=== PATIENT | female | born 1980 | race Caucasian/White ===

== ENCOUNTER 2016-08-23 18:25 | Emergency (ER) | payer BC, OTHER ==
[2016-08-23] MEDS ORDERED: SODIUM CHLORIDE 0.9% 1,000 ML IV STA (21:00)
[2016-08-23] MEDS ORDERED: ONDANSETRON 4 MG/2 ML VIAL IVP STA (21:00)
[2016-08-23] MEDS ORDERED: HYDROmorphone 1 MG/ML 1 ML SYRINGE IVP STA (21:00)
[2016-08-23] MEDS ORDERED: RX INFO: IV CONTRAST WAS GIVEN 1 EACH MISC MISCELLANE PRN (21:00)
--- NOTE | 2016-08-23 21:02 | ED ---
Abdominal Pain HPI - General Chief Complaint: Abdominal Pain Stated Complaint: abd pain Time Seen by Provider: 08/23/16 20:57 Source: patient, RN notes reviewed Mode of arrival: ambulatory Limitations: no limitations - History of Present Illness Initial Comments: 36-year-old female presents to the emergency Department chief complaint of abdominal pain. Patient has had this pain for the last day. She states she's had some nausea with it as well. Patient has also noticed the urine. Patient states it's more on the left lower side. Patient denies changes in bowel movements. Patient states that she has had her gallbladder removed and tubal ligation and but she still does have the appendix. Patient states that she was concerned due to the continued pain so she thought that she should be evaluated.Patient denies any recent fever, chills, shortness of breath, chest pain, back pain, nausea vomiting, numbness or tingling, dysuria or hematuria, constipation or diarrhea, headaches or visual changes, or any other current symptoms. - Related Data Previous Rx's Medication Instructions Recorded Ciprofloxacin HCl [Cipro] 500 mg PO Q12HR #14 tablet 08/23/16 Dicyclomine [Bentyl] 10 mg PO TID #20 capsule 08/23/16 Ondansetron Odt [Zofran ODT] 4 mg PO Q8HR PRN #20 tab 08/23/16 Allergies Allergy/AdvReac Type Severity Reaction Status Date / Time No Known Allergies Allergy Verified 08/23/16 21:02 Review of Systems ROS Statement: Those systems with pertinent positive or pertinent negative responses have been documented in the HPI. ROS Other: All systems not noted in ROS Statement are negative. 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 PT STATES OFF MEDICATIONS SINCE 13 Y/O AND LAST SEIZURE WAS 12 Y/O. History of Any Multi-Drug Resistant Organisms: None Reported Past Surgical History: Section, Cholecystectomy, Tubal Ligation Additional Past Surgical History / Comment(s): mart Past Psychological History: No Psychological Hx Reported Smoking Status: Current every day smoker Past Alcohol Use History: Occasional Past Drug Use History: None Reported - Past Family History Mother Family Medical History: No Reported History Father Family Medical History: No Reported History General Exam - General Exam Comments Initial Comments: General: The patient is awake and alert, in no distress, and does not appear acutely ill. Eye: Pupils are equal, round and reactive to light, extra-ocular movements are intact; there is normal conjunctiva bilaterally. No signs of icterus. Ears, nose, mouth and throat: There are moist mucous membranes and no oral lesions. Neck: The neck is supple, there is no tenderness. Cardiovascular: There is a regular rate and rhythm. No murmur, rub or gallop is appreciated. Respiratory: Lungs are clear to auscultation, respirations are non-labored, breath sounds are equal. No wheezes, stridor, rales, or rhonchi. Gastrointestinal: Soft, non-distended, tenderness to palpation in llq of abdomen without masses or organomegaly noted. There is no rebound or guarding present. No CVA tenderness. Bowel sounds are unremarkable. Back: There is no tenderness to palpation in the midline. There is no obvious deformity. No rashes noted. Musculoskeletal: Normal ROM, no tenderness, There is no pedal edema. There is no calf tenderness or swelling. Sensation intact. Pulses equal bilaterally 2+. Neurological: CN II-XII intact, There are no obvious motor or sensory deficits. Coordination appears grossly intact. Speech is normal. Skin: Skin is warm and dry and no rashes or lesions are noted. Psychiatric: Cooperative, appropriate mood & affect, normal judgment. Limitations: no limitations Course Vital Signs 08/23/16 08/23/16 18:48 21:50 Temperature 97.5 F L 98.7 F Pulse Rate 82 86 Respiratory 20 18 Rate Blood Pressure 126/69 96/48 O2 Sat by Pulse 100 98 Oximetry Medical Decision Making - Medical Decision Making 36-year-old female presents emergency Department chief complaint abdominal pain. At this time laboratory is reviewed as well as CAT scan. Patient does appear to have a mild colitis as well as what appears to be UTI and a cyst. We discussed this is most likely her discomfort. At this time blood work otherwise appears to be table. We discussed follow-up with GI we discussed return parameters. We will start patient on Cipro. Patient stated that she understood all questions have been answered. She will be discharged. - Lab Data Result diagrams: 08/23/16 21:46 08/23/16 21:46 Lab Results 08/23/16 08/23/1608/23/17 Range/Units 20:55 21:46 21:46 WBC 11.5 H (3.8-10.6) k/uL RBC 4.40 (3.80-5.40) m/uL Hgb 13.3 (11.4-16.0) gm/dL Hct 41.2 (34.0-46.0) % MCV 93.7 (80.0-100.0) fL MCH 30.3 (25.0-35.0) pg MCHC 32.3 (31.0-37.0) g/dL RDW 13.1 (11.5-15.5) % Plt Count 301 (150-450) k/uL Neutrophils % 65 % Lymphocytes % 26 % Monocytes % 4 % Eosinophils % 4 % Basophils % 0 % Neutrophils # 7.5 (1.3-7.7) k/uL Lymphocytes # 3.0 (1.0-4.8) k/uL Monocytes # 0.4 (0-1.0) k/uL Eosinophils # 0.4 (0-0.7) k/uL Basophils # 0.1 (0-0.2) k/uL Sodium 140 (137-145) mmol/L Potassium 4.6 (3.5-5.1) mmol/L Chloride 104 (98-107) mmol/L Carbon Dioxide 26 (22-30) mmol/L Anion Gap 10 mmol/L BUN 9 (7-17) mg/dL Creatinine 0.76 (0.52-1.04) mg/dL Est GFR (MDRD) Af Amer >60 (>60 ml/min/1.73 sqM) Est GFR (MDRD) Non-Af >60 (>60 ml/min/1.73 sqM) Glucose 89 (74-99) mg/dL Calcium 9.2 (8.4-10.2) mg/dL Total Bilirubin 0.5 (0.2-1.3) mg/dL AST 20 (14-36) U/L ALT 37 (9-52) U/L Alkaline Phosphatase 78 (38-126) U/L Total Protein 7.9 (6.3-8.2) g/dL Albumin 4.2 (3.5-5.0) g/dL Amylase 97 (30-110) U/L Lipase 125 (23-300) U/L Urine Color Yellow Urine Appearance Cloudy H (Clear) Urine pH 5.5 (5.0-8.0) Ur Specific [place] 1.025 (1.001-1.035) Urine Protein Trace H (Negative) Urine Glucose (UA) Negative (Negative) Urine Ketones Negative (Negative) Urine Blood Negative (Negative) Urine Nitrate Positive H (Negative) Urine Bilirubin Negative (Negative) Urine Urobilinogen 2.0 (<2.0) mg/dL Ur Leukocyte Esterase Small H (Negative) Urine WBC 5 (0-5) /hpf Ur Squamous Epith Cells 8 H (0-4) /hpf Urine Bacteria Few H (None) /hpf Urine Mucus Occasional H (None) /hpf Influenza Type A RNA (Not Detectd) Influenza Type B (PCR) (Not Detectd) 08/23/16 Range/Units 21:46 WBC (3.8-10.6) k/uL RBC (3.80-5.40) m/uL Hgb (11.4-16.0) gm/dL Hct (34.0-46.0) % MCV (80.0-100.0) fL MCH (25.0-35.0) pg MCHC (31.0-37.0) g/dL RDW (11.5-15.5) % Plt Count (150-450) k/uL Neutrophils % % Lymphocytes % % Monocytes % % Eosinophils % % Basophils % % Neutrophils # (1.3-7.7) k/uL Lymphocytes # (1.0-4.8) k/uL Monocytes # (0-1.0) k/uL Eosinophils # (0-0.7) k/uL Basophils # (0-0.2) k/uL Sodium (137-145) mmol/L Potassium (3.5-5.1) mmol/L Chloride (98-107) mmol/L Carbon Dioxide (22-30) mmol/L Anion Gap mmol/L BUN (7-17) mg/dL Creatinine (0.52-1.04) mg/dL Est GFR (MDRD) Af Amer (>60 ml/min/1.73 sqM) Est GFR (MDRD) Non-Af (>60 ml/min/1.73 sqM) Glucose (74-99) mg/dL Calcium (8.4-10.2) mg/dL Total Bilirubin (0.2-1.3) mg/dL AST (14-36) U/L ALT (9-52) U/L Alkaline Phosphatase (38-126) U/L Total Protein (6.3-8.2) g/dL Albumin (3.5-5.0) g/dL Amylase (30-110) U/L Lipase (23-300) U/L Urine Color Urine Appearance (Clear) Urine pH (5.0-8.0) Ur Specific [place] (1.001-1.035) Urine Protein (Negative) Urine Glucose (UA) (Negative) Urine Ketones (Negative) Urine Blood (Negative) Urine Nitrate (Negative) Urine Bilirubin (Negative) Urine Urobilinogen (<2.0) mg/dL Ur Leukocyte Esterase (Negative) Urine WBC (0-5) /hpf Ur Squamous Epith Cells (0-4) /hpf Urine Bacteria (None) /hpf Urine Mucus (None) /hpf Influenza Type A RNA Not Detected (Not Detectd) Influenza Type B (PCR) Not Detected (Not Detectd) - Radiology Data Radiology results: report reviewed, image reviewed Disposition Clinical Impression: UTI (urinary tract infection), Left ovarian cyst, Colitis Disposition: HOME SELF-CARE Condition: Stable Instructions: Colitis (ED), Urinary Tract Infection in Women (ED) Additional Instructions: Please use medication as discussed. Please follow up with family doctor if symptoms have not improved over the next two days. Please return to the emergency room if your symptoms increase or worsen or for any other concerns. Prescriptions: Ciprofloxacin HCl [Cipro] 500 mg PO Q12HR #14 tablet Dicyclomine [Bentyl] 10 mg PO TID #20 capsule Ondansetron Odt [Zofran ODT] 4 mg PO Q8HR PRN #20 tab PRN Reason: Nausea Referrals: Duke Hidalgo MD [Primary Care Provider] - 1-2 days Salma Abdalla MD [STAFF PHYSICIAN] - 1-2 days Time of Disposition: 22:39
[2016-08-23 21:16] LABS: Appearance,Urine Cloudy (Clear); Bacteria,Urine Few /hpf; Bilirubin,Urine Negative (Negative); Glucose,Urine (UA) Negative (Negative); Ketones,Urine Negative (Negative); Leukocyte Esterase,Urine Small (Negative); Mucus,Urine Occasional /hpf; Nitrite,Urine Positive (Negative); PH, Urine 5.5 (5.0-8.0); Particle Count 57380; Protein,Urine Trace (Negative); Specific Gravity,Urine 1.025 (1.001-1.035); Squamous Epithelial Cell,Urine 8 /hpf (0-4); UA Billing (MACRO vs. MICRO) MICRO; WBC,Urine 5 /hpf (0-5)
[2016-08-23 22:11] LABS: ALT 37 U/L (9-52); AST 20 U/L (14-36); Alkaline Phosphatase 78 U/L (38-126); Amylase 97 U/L (30-110); Anion Gap 10 mmol/L; Blood Urea Nitrogen 9 mg/dL (7-17); Calcium 9.2 mg/dL (8.4-10.2); Carbon Dioxide 26 mmol/L (22-30); Chloride 104 mmol/L (98-107); Glucose 89 mg/dL (74-99); Non-African American GFR(MDRD) >60 (>60 ml/min/1.73 sqM); Potassium 4.6 mmol/L (3.5-5.1); Sodium 140 mmol/L (137-145); Total Bilirubin 0.5 mg/dL (0.2-1.3); Total Protein 7.9 g/dL (6.3-8.2)
[2016-08-23 22:29] LABS: Basophils # (A) 0.1 k/uL (0-0.2); Basophils % (A) 0 %; CH 30.5; CHCM 32.7; Eosinophils # (A) 0.4 k/uL (0-0.7); Eosinophils % (A) 4 %; HCT 41.2 % (34.0-46.0); HDW 2.25; HGB 13.3 gm/dL (11.4-16.0); Luc # (Auto) 0.19; Luc % (Auto) 2; Lymphocytes % (A) 26 %; MCH 30.3 pg (25.0-35.0); MCHC 32.3 g/dL (31.0-37.0); MCV 93.7 fL (80.0-100.0); Mean Platelet Volume 6.8; Monocytes # (A) 0.4 k/uL (0-1.0); Monocytes % (A) 4 %; Neutrophils # (A) 7.5 k/uL (1.3-7.7); Neutrophils % (A) 65 %; RDW 13.1 % (11.5-15.5); WBC 11.5 k/uL (3.8-10.6)
--- NOTE | 2016-08-23 22:31 | CT ---
EXAMINATION TYPE: CT abdomen pelvis w con DATE OF EXAM: 08/23/2016 10:07 PM COMPARISON: June 11, 2016 HISTORY: PT STATES OF ABDOMINAL PAIN AND VOMITING TODAY. History of cholecystectomy. CT DLP: 1866.0 mGycm Automated exposure control for dose reduction was used. TECHNIQUE: Helical acquisition of images was performed from the lung bases through the pelvis. CONTRAST: Performed without Oral Contrast and with IV Contrast, patient injected with 100 mL of Omnipaque 300. FINDINGS: LUNG BASES: No significant abnormality is appreciated. LIVER/GB: No significant abnormality is appreciated in the liver. Cholecystectomy changes are present . PANCREAS: No significant abnormality is seen. SPLEEN: No significant abnormality is seen. ADRENALS: No significant abnormality is seen. KIDNEYS: No significant abnormality is seen. RETROPERITONEAL ADENOPATHY: None visualized REPRODUCTIVE ORGANS: Uterus appears unremarkable. Mild cystic changes are suggested in both ovaries. There is suggestion of involuting cyst measuring 1.1 cm in the left ovary in the axial image 72. No s ignificant free fluid collections are noted in the adnexa and cul-de-sac. URINARY BLADDER: Urinary bladder is not well distended and is limited for evaluation. PELVIC ADENOPATHY: None visualized. OSSEOUS STRUCTURES: Mild degenerative disc disease changes are suggested at the level of L2-L3 witho ut significant interval change. BOWEL: Stomach appears grossly unremarkable. Small bowel loops showed mild fluid distention without s ignificant small bowel obstruction. There is mucosal wall thickening in the duodenum in the coronal image 52 and there is possibility of mild duodenitis changes. There is moderate gas and fecal distention of colonic bowel loops without significant obstruction. Th ere is mild colonic diverticulosis. There is mild mucosal wall thickening in the splenic flexure of colon in the axial image 17 and possi bility of mild colitis changes cannot be excluded. No significant free fluid collections or abscess c ollections are noted in the abdomen and pelvis. Appendix appears unremarkable in the axial image 65. OTHER: IMPRESSION: 1. POSSIBLE MILD DUODENITIS. 2. POSSIBLE MILD COLITIS CHANGES INVOLVING SPLENIC FLEXURE. 3. INVOLUTING CYST IN THE LEFT OVARY MEASURING 1.1 CM. NO SIGNIFICANT ABNORMAL FLUID COLLECTIONS ARE NOTED IN THE ADNEXA AND CUL-DE-SAC. 4. APPENDIX APPEARS UNREMARKABLE. 5. CHOLECYSTECTOMY.
[2016-08-23 23:51] VITALS: BP 133/66; PULSE 87; RESP 20; TEMP 98.2
== END 2016-08-23 23:51 | disposition home or self-care (01) ==
LOC: EC 18:25
DX: N39.0 Urinary tract infection, site not specified (principal); N83.202 Unspecified ovarian cyst, left side; K52.9 Noninfective gastroenteritis and colitis, unspecified; F17.200 Nicotine dependence, unspecified, uncomplicated; Z79.899 Other long term (current) drug therapy
CPT/HCPCS: 36415; 80053; 82150; 83690; 85025; 81001; 87040; 87086; 87077; 87186; 87502; 74177; 96365; 96375; 96361; 99284; J2405; J0696; J1170; Q9967

== ENCOUNTER 2016-08-30 18:15 | Emergency (ER) | payer BC, OTHER ==
[2016-08-30] MEDS ORDERED: IPRATROPIUM-ALBUTEROL 3 ML NEB INHALATION STA (19:37)
--- NOTE | 2016-08-30 19:43 | ED ---
General Adult HPI - General Chief complaint: Abdominal Pain Stated complaint: ABDOMINAL PAIN, COUGHING, KENDRA Time Seen by Provider: 08/30/16 19:26 Source: patient, RN notes reviewed Mode of arrival: ambulatory Limitations: no limitations - History of Present Illness Initial comments: Patient is a 36-year-old female presents to the emergency room for evaluation of upper respiratory symptoms and abdominal pain. Patient states she began having a productive cough yesterday. Patient states she woke up this morning with increased cough and shortness of breath. Patient does admit to smoking daily. Patient states she has had a history of pneumonia. Patient states she' s received her influenza vaccine this year. Patient denies any fevers or chills. Patient states she is also having left upper quadrant abdominal pain. Patient states she was here last week for the same issues and was told that she had a UTI and colitis. Patient states nauseous but denies vomiting. Patient denies any pain or burning during urination. Patient states she finished her antibiotics for her urinary tract infection yesterday. - Related Data Home Medications Medication Instructions Recorded Confirmed Unknown Psoriasis Cream 1 applic TOPICAL BID 08/30/16 08/30/16 Previous Rx's Medication Instructions Recorded Albuterol Inhaler [Ventolin Hfa 1 - 2 puff INHALATION Q6HR PRN #1 08/30/16 Inhaler] inhaler Benzonatate [Tessalon Perles] 100 mg PO TID PRN #15 cap 08/30/16 Allergies Allergy/AdvReac Type Severity Reaction Status Date / Time No Known Allergies Allergy Verified 08/30/16 19:37 Review of Systems ROS Statement: Those systems with pertinent positive or pertinent negative responses have been documented in the HPI. ROS Other: All systems not noted in ROS Statement are negative. 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 PT STATES OFF MEDICATIONS SINCE 13 Y/O AND LAST SEIZURE WAS 12 Y/O. History of Any Multi-Drug Resistant Organisms: None Reported Past Surgical History: Section, Cholecystectomy, Tubal Ligation Additional Past Surgical History / Comment(s): [facility] Past Psychological History: No Psychological Hx Reported Smoking Status: Current every day smoker Past Alcohol Use History: Occasional Past Drug Use History: None Reported - Past Family History Mother Family Medical History: No Reported History Father Family Medical History: No Reported History General Exam - General Exam Comments Initial Comments: Sitting in exam room in no acute distress. Limitations: no limitations General appearance: alert, in no apparent distress Head exam: Present: atraumatic, normocephalic, normal inspection Eye exam: Present: normal appearance ENT exam: Present: normal exam Neck exam: Present: normal inspection Respiratory exam: Present: wheezes. Absent: respiratory distress Cardiovascular Exam: Present: normal rhythm, tachycardia, normal heart sounds GI/Abdominal exam: Present: soft, tenderness (RLQ, LLQ), normal bowel sounds. Absent: distended, guarding, rebound, rigid Extremities exam: Present: normal inspection Back exam: Present: normal inspection Neurological exam: Present: alert, oriented X3, CN II-XII intact, normal gait Psychiatric exam: Present: normal affect, normal mood Skin exam: Present: warm, dry, intact, normal color. Absent: rash Course Vital Signs 08/30/16 08/30/16 08/30/16 18:51 19:58 20:49 Temperature 99.2 F 101.2 F H Pulse Rate 105 H 95 100 Respiratory 22 18 Rate Blood Pressure 119/57 120/57 O2 Sat by Pulse 100 96 Oximetry 08/30/16 20:57 Temperature Pulse Rate 100 Respiratory Rate Blood Pressure O2 Sat by Pulse Oximetry Medical Decision Making - Medical Decision Making Patient is a 36-year-old female presents to the emergency room for evaluation of cough and abdominal pain. Patient states she is feeling better after albuterol breathing treatment given. Labs show no significant findings. Chest x-ray shows no acute findings. Will send patient home with anti-cough medicine and albuterol inhaler as needed. Patient states she understands everything that was discussed with her. Return parameters discussed. Case discussed with Dr. Whitney. - Lab Data Result diagrams: 08/30/16 19:51 08/30/16 19:51 Lab Results 08/30/16 08/30/16 08/30/16 Range/Units 19:51 19:51 19:51 WBC 7.7 (3.8-10.6) k/uL RBC 4.44 (3.80-5.40) m/uL Hgb 13.7 (11.4-16.0) gm/dL Hct 41.5 (34.0-46.0) % MCV 93.6 (80.0-100.0) fL MCH 31.0 (25.0-35.0) pg MCHC 33.1 (31.0-37.0) g/dL RDW 13.1 (11.5-15.5) % Plt Count 289 (150-450) k/uL Neutrophils % 70 % Lymphocytes % 19 % Monocytes % 5 % Eosinophils % 4 % Basophils % 1 % Neutrophils # 5.4 (1.3-7.7) k/uL Lymphocytes # 1.5 (1.0-4.8) k/uL Monocytes # 0.4 (0-1.0) k/uL Eosinophils # 0.3 (0-0.7) k/uL Basophils # 0.1 (0-0.2) k/uL Sodium 136 L (137-145) mmol/L Potassium 4.3 (3.5-5.1) mmol/L Chloride 102 (98-107) mmol/L Carbon Dioxide 22 (22-30) mmol/L Anion Gap 12 mmol/L BUN 6 L (7-17) mg/dL Creatinine 0.70 (0.52-1.04) mg/dL Est GFR (MDRD) Af Amer >60 (>60 ml/min/1.73 sqM) Est GFR (MDRD) Non-Af >60 (>60 ml/min/1.73 sqM) Glucose 92 (74-99) mg/dL Calcium 9.0 (8.4-10.2) mg/dL Total Bilirubin 0.8 (0.2-1.3) mg/dL AST 26 (14-36) U/L ALT 35 (9-52) U/L Alkaline Phosphatase 74 (38-126) U/L Total Protein 8.0 (6.3-8.2) g/dL Albumin 4.1 (3.5-5.0) g/dL Amylase 59 (30-110) U/L Lipase 73 (23-300) U/L HCG, Quant <2.4 mIU/mL Urine Color Urine Appearance (Clear) Urine pH (5.0-8.0) Ur Specific [place] (1.001-1.035) Urine Protein (Negative) Urine Glucose (UA) (Negative) Urine Ketones (Negative) Urine Blood (Negative) Urine Nitrate (Negative) Urine Bilirubin (Negative) Urine Urobilinogen (<2.0) mg/dL Ur Leukocyte Esterase (Negative) Urine RBC (0-5) /hpf Urine WBC (0-5) /hpf Ur Squamous Epith Cells (0-4) /hpf Urine Bacteria (None) /hpf Urine Mucus (None) /hpf Urine HCG, Qual Not Detected (Not Detectd) Influenza Type A RNA (Not Detectd) Influenza Type B (PCR) (Not Detectd) 08/30/16 08/30/16 Range/Units 19:51 19:51 WBC (3.8-10.6) k/uL RBC (3.80-5.40) m/uL Hgb (11.4-16.0) gm/dL Hct (34.0-46.0) % MCV (80.0-100.0) fL MCH (25.0-35.0) pg MCHC (31.0-37.0) g/dL RDW (11.5-15.5) % Plt Count (150-450) k/uL Neutrophils % % Lymphocytes % % Monocytes % % Eosinophils % % Basophils % % Neutrophils # (1.3-7.7) k/uL Lymphocytes # (1.0-4.8) k/uL Monocytes # (0-1.0) k/uL Eosinophils # (0-0.7) k/uL Basophils # (0-0.2) k/uL Sodium (137-145) mmol/L Potassium (3.5-5.1) mmol/L Chloride (98-107) mmol/L Carbon Dioxide (22-30) mmol/L Anion Gap mmol/L BUN (7-17) mg/dL Creatinine (0.52-1.04) mg/dL Est GFR (MDRD) Af Amer (>60 ml/min/1.73 sqM) Est GFR (MDRD) Non-Af (>60 ml/min/1.73 sqM) Glucose (74-99) mg/dL Calcium (8.4-10.2) mg/dL Total Bilirubin (0.2-1.3) mg/dL AST (14-36) U/L ALT (9-52) U/L Alkaline Phosphatase (38-126) U/L Total Protein (6.3-8.2) g/dL Albumin (3.5-5.0) g/dL Amylase (30-110) U/L Lipase (23-300) U/L HCG, Quant mIU/mL Urine Color Yellow Urine Appearance Cloudy H (Clear) Urine pH 6.0 (5.0-8.0) Ur Specific [place] 1.019 (1.001-1.035) Urine Protein Trace H (Negative) Urine Glucose (UA) Negative (Negative) Urine Ketones Negative (Negative) Urine Blood Negative (Negative) Urine Nitrate Negative (Negative) Urine Bilirubin Negative (Negative) Urine Urobilinogen <2.0 (<2.0) mg/dL Ur Leukocyte Esterase Negative (Negative) Urine RBC 1 (0-5) /hpf Urine WBC 3 (0-5) /hpf Ur Squamous Epith Cells 10 H (0-4) /hpf Urine Bacteria Moderate H (None) /hpf Urine Mucus Moderate H (None) /hpf Urine HCG, Qual (Not Detectd) Influenza Type A RNA Not Detected (Not Detectd) Influenza Type B (PCR) Not Detected (Not Detectd) - Radiology Data Radiology results: report reviewed, image reviewed Disposition Clinical Impression: Upper respiratory infection Disposition: HOME SELF-CARE Condition: Good Instructions: Upper Respiratory Infection (ED) Additional Instructions: Take cough medicine needed. Alternate Tylenol and Motrin for fever. Please follow up with primary care provider in 1-2 days. If any new symptom arises, symptoms worsen, return to ER as soon as possible. Prescriptions: Albuterol Inhaler [Ventolin Hfa Inhaler] 1 - 2 puff INHALATION Q6HR PRN #1 inhaler PRN Reason: Cough Benzonatate [Tessalon Perles] 100 mg PO TID PRN #15 cap PRN Reason: Cough Referrals: Duke Hidalgo MD [Primary Care Provider] - 1-2 days Time of Disposition: 20:52
[2016-08-30 20:09] LABS: Basophils # (A) 0.1 k/uL (0-0.2); Basophils % (A) 1 %; CH 31.1; CHCM 33.3; Eosinophils # (A) 0.3 k/uL (0-0.7); Eosinophils % (A) 4 %; HCT 41.5 % (34.0-46.0); HDW 2.23; HGB 13.7 gm/dL (11.4-16.0); Luc # (Auto) 0.11; Luc % (Auto) 1; Lymphocytes # (A) 1.5 k/uL (1.0-4.8); Lymphocytes % (A) 19 %; MCHC 33.1 g/dL (31.0-37.0); MCV 93.6 fL (80.0-100.0); Mean Platelet Volume 7.1; Monocytes # (A) 0.4 k/uL (0-1.0); Monocytes % (A) 5 %; Neutrophils # (A) 5.4 k/uL (1.3-7.7); Neutrophils % (A) 70 %; RBC 4.44 m/uL (3.80-5.40); RDW 13.1 % (11.5-15.5); WBC 7.7 k/uL (3.8-10.6); WBC (Perox) 8.04
[2016-08-30 20:17] LABS: Appearance,Urine Cloudy (Clear); Bacteria,Urine Moderate /hpf; Bilirubin,Urine Negative (Negative); Glucose,Urine (UA) Negative (Negative); Ketones,Urine Negative (Negative); Leukocyte Esterase,Urine Negative (Negative); Mucus,Urine Moderate /hpf; Nitrite,Urine Negative (Negative); Particle Count 17116; Protein,Urine Trace (Negative); RBC,Urine 1 /hpf (0-5); Specific Gravity,Urine 1.019 (1.001-1.035); Squamous Epithelial Cell,Urine 10 /hpf (0-4); UA Billing (MACRO vs. MICRO) MICRO; Urobilinogen,Urine <2.0 mg/dL (<2.0); WBC,Urine 3 /hpf (0-5)
--- NOTE | 2016-08-30 20:18 | XR ---
EXAMINATION TYPE: XR chest 2V DATE OF EXAM: 08/30/2016 8:15 PM COMPARISON: 05/20/2015 HISTORY: Cough and abdominal pain TECHNIQUE: Frontal and lateral views of the chest are obtained. FINDINGS: Heart and mediastinum are normal. Lungs are clear. Diaphragm is normal. Bony thorax is int act. Pulmonary vascularity is normal. IMPRESSION: Normal chest. No change.
[2016-08-30 20:30] LABS: ALT 35 U/L (9-52); AST 26 U/L (14-36); Alkaline Phosphatase 74 U/L (38-126); Amylase 59 U/L (30-110); Anion Gap 12 mmol/L; Blood Urea Nitrogen 6 mg/dL (7-17); Carbon Dioxide 22 mmol/L (22-30); Chloride 102 mmol/L (98-107); Glucose 92 mg/dL (74-99); Non-African American GFR(MDRD) >60 (>60 ml/min/1.73 sqM); Potassium 4.3 mmol/L (3.5-5.1); Sodium 136 mmol/L (137-145); Total Bilirubin 0.8 mg/dL (0.2-1.3)
[2016-08-30 20:47] LABS: HCG,Quantitative Serum <2.4 mIU/mL
[2016-08-30] MEDS ORDERED: KETOROLAC 30 MG/ML 1 ML VIAL IVP STA (20:54)
[2016-08-30] MEDS ORDERED: ACETAMINOPHEN TAB 500 MG TAB PO STA (20:54)
[2016-08-30 21:17] VITALS: BP 126/75; PULSE 99; RESP 20; TEMP 98.6
== END 2016-08-30 21:12 | disposition home or self-care (01) ==
LOC: EC 18:15
DX: J06.9 Acute upper respiratory infection, unspecified (principal); R10.12 Left upper quadrant pain; Z87.01 Personal history of pneumonia (recurrent); F17.200 Nicotine dependence, unspecified, uncomplicated
CPT/HCPCS: 36415; 94640; 80053; 82150; 83690; 85025; 81001; 81025; 84702; 87502; 71020; 99284; 96374; J1885; 99283

== ENCOUNTER 2016-09-06 00:02 | Emergency (ER) | payer BC, OTHER ==
[2016-09-06 00:08] VITALS: BP 137/77; PULSE 98; RESP 18; TEMP 97.8
[2016-09-06] MEDS ORDERED: HYDROcodone/APAP 5-325MG 1 EACH TAB PO STA (00:26)
[2016-09-06] MEDS ORDERED: FAMCICLOVIR 500 MG TAB PO STA (00:26)
[2016-09-06] MEDS ORDERED: predniSONE 50 MG TAB PO STA (00:27)
--- NOTE | 2016-09-06 00:33 | ED ---
Skin/Abscess/FB HPI - General Chief complaint: Skin/Abscess/Foreign Body Stated complaint: ENT Time Seen by Provider: 09/06/16 00:15 Source: patient, RN notes reviewed Mode of arrival: ambulatory Limitations: no limitations - History of Present Illness Initial comments: 36-year-old female presents to the emergency Department chief complaint of blisters right-sided. Patient states pain is right-sided side of the face and then noticed some blisters forming on the right side of the nose. Patient states that she has continued to have pain and increasing redness of right- sidedshe was concerned. Patient states there is no irritation or drainage of the eye. Patient states that she has not had any other blisters forming anywhere else. Patient states that she was concerned due to the continued pain and blistering so she thought that she should be evaluated.Patient denies any recent fever, chills, shortness of breath, chest pain, back pain, abdominal pain , nausea vomiting, numbness or tingling, dysuria or hematuria, constipation or diarrhea, headaches or visual changes, or any other current symptoms. - Related Data Home Medications Medication Instructions Recorded Confirmed Unknown Psoriasis Cream 1 applic TOPICAL BID 08/30/16 08/30/16 Previous Rx's Medication Instructions Recorded Albuterol Inhaler [Ventolin Hfa 1 - 2 puff INHALATION Q6HR PRN #1 08/30/16 Inhaler] inhaler Benzonatate [Tessalon Perles] 100 mg PO TID PRN #15 cap 08/30/16 Famciclovir [Famvir] 500 mg PO Q8HR 7 Days 09/06/16 Hydrocodone/Acetaminophen [Beasley 1 each PO Q6HR PRN #20 tab 09/06/16 5-325] predniSONE 50 mg PO DAILY #5 tab 09/06/16 Allergies Allergy/AdvReac Type Severity Reaction Status Date / Time No Known Allergies Allergy Verified 09/06/16 00:07 Review of Systems ROS Statement: Those systems with pertinent positive or pertinent negative responses have been documented in the HPI. ROS Other: All systems not noted in ROS Statement are negative. 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 PT STATES OFF MEDICATIONS SINCE 13 Y/O AND LAST SEIZURE WAS 12 Y/O. History of Any Multi-Drug Resistant Organisms: None Reported Past Surgical History: Section, Cholecystectomy, Tubal Ligation Additional Past Surgical History / Comment(s): mart Past Psychological History: No Psychological Hx Reported Smoking Status: Current every day smoker Past Alcohol Use History: Occasional Past Drug Use History: None Reported - Past Family History Mother Family Medical History: No Reported History Father Family Medical History: No Reported History General Exam Limitations: no limitations General appearance: alert, in no apparent distress Head exam: Present: atraumatic, normocephalic, normal inspection Eye exam: Present: normal appearance, PERRL, EOMI, other (oods lamp examination was performed with fluorescein stain that did not show any ocular involvement). Absent: scleral icterus, conjunctival injection, periorbital swelling Expanded Eyelids: Normal Inspection: Bilateral Pupils: Regular, Round: Bilateral Sclera/Conjunctival: Normal Inspection: Bilateral Anterior chamber: Normal Inspection: Bilateral ENT exam: Present: mucous membranes moist, other (He is tender to have blistering to the right side of the nose) Neck exam: Present: normal inspection. Absent: tenderness, meningismus, lymphadenopathy Respiratory exam: Present: normal lung sounds bilaterally. Absent: respiratory distress, wheezes, rales, rhonchi, stridor Cardiovascular Exam: Present: regular rate, normal rhythm, normal heart sounds. Absent: systolic murmur, diastolic murmur, rubs, gallop, clicks Neurological exam: Present: alert, oriented X3, CN II-XII intact. Absent: motor sensory deficit Psychiatric exam: Present: normal affect, normal mood Skin exam: Present: warm, dry, intact, normal color. Absent: rash Course Vital Signs 09/06/16 00:05 Temperature 97.8 F Pulse Rate 98 Respiratory 18 Rate Blood Pressure 137/77 O2 Sat by Pulse 98 Oximetry Medical Decision Making - Medical Decision Making 36-year-old female presents with what appears to be herpes zoster. There is noinvolvement however a fluorescent stain does not show any signs of corneal involvement in patient does not complain of any ocular irritation or pain. This time we did start the patient on antivirals patient is not immunocompromised and at this time is of the start the patient on. We did discuss that she needs to follow-up with ophthalmology in the morning and she is given Dr. Henriquez information regarding follow-up we did discuss the importance of this and will Does not follow-up. We discussed return parameters normal patient and question. She states she understood all her questions have been answered. She will be discharged home. Disposition Clinical Impression: Shingles Disposition: HOME SELF-CARE Condition: Stable Instructions: [place] (ED) Additional Instructions: Please use medication as discussed. Please follow up with family doctor if symptoms have not improved over the next two days. Please return to the emergency room if your symptoms increase or worsen or for any other concerns. Prescriptions: Famciclovir [Famvir] 500 mg PO Q8HR 7 Days Hydrocodone/Acetaminophen [Beasley 5-325] 1 each PO Q6HR PRN #20 tab PRN Reason: Pain predniSONE 50 mg PO DAILY #5 tab Referrals: Duke Hidalgo MD [Primary Care Provider] - 1-2 days Nasir Henriquez MD [STAFF PHYSICIAN] - 1-2 days Time of Disposition: 00:32
== END 2016-09-06 00:55 | disposition home or self-care (01) ==
LOC: EC 00:02
DX: B02.9 Zoster without complications (principal); F17.200 Nicotine dependence, unspecified, uncomplicated; Z86.69 Personal history of other diseases of the nervous system and sense organs
CPT/HCPCS: 99283; J7512

== ENCOUNTER 2016-09-12 21:01 | Emergency (ER) | payer OTHER ==
[2016-09-12 21:06] VITALS: BP 135/79; PULSE 103; RESP 18; TEMP 97.8
[2016-09-12] MEDS ORDERED: PROPARACAINE 0.5% OPHTH DROPS 15 ML BTL LEFT EYE STA (21:24)
--- NOTE | 2016-09-12 21:28 | ED ---
General Adult HPI - General Chief complaint: Eye Problems Stated complaint: Shingles Time Seen by Provider: 09/12/16 21:08 Source: patient, RN notes reviewed Mode of arrival: ambulatory Limitations: no limitations - History of Present Illness Initial comments: This is a 36-year-old female who presents with right eye pain with a burning sensation surrounding the right eye. Patient states these symptoms are similar to her symptoms last week when she was diagnosed with shingles to the right side of the nose. Patient states pain started this morning and has gradually gotten worse. Patient has taken tramadol for the pain with no relief. Patient states it hurts worse to open her eye. Patient denies getting anything in her eye. Patient states she has some mild photophobia. Patient states she has been on antivirals and prednisone for shingles on her nose that she finished yesterday. Patient states the rash was never involved with her right eye. Patient does not wear glasses or contacts. Patient states her vision is slightly worse in the left eye. Patient also is complaining of a mild headache. Patient states she did not follow-up with the machine egg washer as instructed at last visit when she was diagnosed with shingles. Patient denies any chance of being . Patient denies any recent fever, chills, shortness breath, chest pain, abdominal pain, nausea/vomiting/diarrhea, back pain, numbness, tingling, hematuria or any other complaints. - Related Data Home Medications Medication Instructions Recorded Confirmed traMADol HCL [Ultram] 50 mg PO Q6HR PRN 09/12/16 09/12/16 Previous Rx's Medication Instructions Recorded Famciclovir [Famvir] 500 mg PO Q8HR 7 Days 09/12/16 predniSONE 50 mg PO DAILY #5 tab 09/12/16 Allergies Allergy/AdvReac Type Severity Reaction Status Date / Time No Known Allergies Allergy Verified 09/12/16 21:13 Review of Systems ROS Statement: Those systems with pertinent positive or pertinent negative responses have been documented in the HPI. ROS Other: All systems not noted in ROS Statement are negative. 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 PT STATES OFF MEDICATIONS SINCE 13 Y/O AND LAST SEIZURE WAS 12 Y/O. History of Any Multi-Drug Resistant Organisms: None Reported Past Surgical History: Section, Cholecystectomy, Tubal Ligation Additional Past Surgical History / Comment(s): mart Past Psychological History: No Psychological Hx Reported Smoking Status: Current every day smoker Past Alcohol Use History: Occasional Past Drug Use History: None Reported - Past Family History Mother Family Medical History: No Reported History Father Family Medical History: No Reported History General Exam - General Exam Comments Initial Comments: General: The patient is awake and alert, in no distress, and does not appear acutely ill. Eye: There is tenderness to palpation around the right eye. Pupils are equal, round and reactive to light, extra-ocular movements are intact. No erythema or drainage from the eye. No swelling. No sign of shingles rash. No nystagmus. There is normal conjunctiva bilaterally. No signs of icterus. Visual acuity of the right eye was 20/30, left eye 20/25 and with both eyes 20/20. Tonometry showed 13 mmHg to the right eye. Ears: TMs pink and pearly with intact cone of light bilaterally. Normal external ear canals Nose: Blisters on the right-side nose consistent with shingles. Nasal turbinates pink and moist Mouth and throat: There are moist mucous membranes and no oral lesions. Neck: The neck is supple, there is no tenderness or JVD. Cardiovascular: There is a regular rate and rhythm. No murmur, rub or gallop is appreciated. Respiratory: Lungs are clear to auscultation, respirations are non-labored, breath sounds are equal. No wheezes, stridor, rales, or rhonchi. Musculoskeletal: Normal ROM, no tenderness. Strength 5/5. Sensation intact. Radial pulses equal bilaterally 2+. Neurological: A&O x 3. CN II-XII intact, There are no obvious motor or sensory deficits. Coordination appears grossly intact. Speech is normal. Skin: Skin is warm and dry and no rashes or lesions are noted. Psychiatric: Cooperative, appropriate mood & affect, normal judgment. Limitations: no limitations Course Vital Signs 09/12/16 21:03 Temperature 97.8 F Pulse Rate 103 H Respiratory 18 Rate Blood Pressure 135/79 O2 Sat by Pulse 99 Oximetry Procedures - Procedures Initial comment: Proparacaine was applied to the right eye and fluorescein stain as well. Patient's right eye was viewed under the Mason lamp and there was no uptake. No foreign body was noted, no corneal abrasion, no hyphema, no hypopyon. No foreign body was noted with eyelid eversion. Patient tolerated the procedure well. Medical Decision Making - Medical Decision Making This is a 36-year-old female who presents with right eye pain that started today. On physical exam patient is afebrile in the EC. Pupils are equal, round and reactive to light, extra-ocular movements are intact. No erythema or drainage from the eye. No swelling. No sign of shingles rash around the eye. No nystagmus. There is normal conjunctiva bilaterally. No signs of icterus. Patient has been on treatment for shingles of the nose on the right side. Patient just finished her antiviral and prednisone yesterday. Tonometry was done to the right eye with an ocular pressure of 13 mmHg. Patient has hyperesthesia around the right eye. Proparacaine was applied to the right eye and fluorescein stain as well. Patient's right eye was viewed under the Mason lamp and there was no uptake. No foreign body was noted, no corneal abrasion, no hyphema, no hypopyon. No foreign body was noted with eyelid eversion. Patient tolerated the procedure well. Patient was given a Motrin in the EC today for headache. Discussed that since these are similar symptoms that the patient has experienced when she was diagnosed with herpes zoster last week that she will be put on another course of antivirals and prednisone. I discussed that it is very important that she follow-up with ophthalmology for further evaluation. I discussed Motrin for pain. Patient already has tramadol at home. I discussed return parameters. Discussed that patient should follow up with PCP in one to 2 days or return to the EC for any worsening symptoms or for any further concerns. Patient was receptive to this plan and patient will be discharged home. I discussed this case with attending physician Dr. Hinds who agrees the plan as stated above. Disposition Clinical Impression: Herpes zoster Disposition: HOME SELF-CARE Condition: Good Instructions: Shingles (ED) Additional Instructions: Please use antivirals and prednisone as prescribed. Please use Motrin as needed for pain. Please follow-up with ophthalmology tomorrow.Please use medication as discussed. Please follow-up with family doctor in the next 2 days of symptoms have not improved. Please return to emergency room if the symptoms increase or worsen or for any other concerns. Prescriptions: Famciclovir [Famvir] 500 mg PO Q8HR 7 Days predniSONE 50 mg PO DAILY #5 tab Referrals: Duke Hidalgo MD [Primary Care Provider] - 1-2 days Madeleine Bay MD [STAFF PHYSICIAN] - 1-2 days Time of Disposition: 22:03
[2016-09-12] MEDS ORDERED: IBUPROFEN 400 MG TAB PO STA (21:48)
== END 2016-09-12 22:11 | disposition home or self-care (01) ==
LOC: EC 21:01
DX: B02.30 Zoster ocular disease, unspecified (principal); R51 Headache; F17.200 Nicotine dependence, unspecified, uncomplicated
CPT/HCPCS: 99283

== ENCOUNTER 2016-11-30 22:29 | Emergency (ER) | payer OTHER ==
[2016-11-30 22:37] VITALS: TEMP 98
[2016-11-30] MEDS ORDERED: RX INFO: IV CONTRAST WAS GIVEN 1 EACH MISC MISCELLANE PRN (22:43)
[2016-11-30] MEDS ORDERED: ONDANSETRON 4 MG/2 ML VIAL IVP STA (22:44)
[2016-11-30] MEDS ORDERED: HYDROmorphone 1 MG/ML 1 ML SYRINGE IVP STA (22:44)
[2016-11-30] MEDS ORDERED: SODIUM CHLORIDE 0.9% 1,000 ML IV STA (22:44)
--- NOTE | 2016-11-30 22:58 | ED ---
Abdominal Pain HPI - General Chief Complaint: Abdominal Pain Stated Complaint: Abd Pain Time Seen by Provider: 11/30/16 22:39 Source: patient, RN notes reviewed Mode of arrival: ambulatory Limitations: no limitations - History of Present Illness Initial Comments: 36-year-old female presents emergency Department chief complaint of right lower quadrant abdominal pain. Patient states that she has had this pain for the past 2 days. Patient states his right lower quadrant. Patient states she's had nausea without fever. Patient does admit to a history of cholecystectomy tubal ligation. Patient states she was concerned due to her continued symptoms so she thought that she should be evaluated.Patient denies any recent fever, chills, shortness of breath, chest pain, back pain, numbness or tingling, dysuria or hematuria, constipation or diarrhea, headaches or visual changes, or any other current symptoms. - Related Data Home Medications Medication Instructions Recorded Confirmed Clobetasol Propionate [Temovate] 1 applic TOPICAL BID 11/30/16 11/30/16 Allergies Allergy/AdvReac Type Severity Reaction Status Date / Time No Known Allergies Allergy Verified 11/30/16 22:51 Review of Systems ROS Statement: Those systems with pertinent positive or pertinent negative responses have been documented in the HPI. ROS Other: All systems not noted in ROS Statement are negative. 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 PT STATES OFF MEDICATIONS SINCE 13 Y/O AND LAST SEIZURE WAS 12 Y/O. History of Any Multi-Drug Resistant Organisms: None Reported Past Surgical History: Section, Cholecystectomy, Tubal Ligation Additional Past Surgical History / Comment(s): novbarbara Past Psychological History: No Psychological Hx Reported Smoking Status: Current every day smoker Past Alcohol Use History: Occasional Past Drug Use History: None Reported - Past Family History Mother Family Medical History: No Reported History Father Family Medical History: No Reported History General Exam - General Exam Comments Initial Comments: General: The patient is awake and alert, in no distress, and does not appear acutely ill. Eye: Pupils are equal, round and reactive to light, extra-ocular movements are intact; there is normal conjunctiva bilaterally. No signs of icterus. Ears, nose, mouth and throat: There are moist mucous membranes and no oral lesions. Neck: The neck is supple, there is no tenderness. Cardiovascular: There is a regular rate and rhythm. No murmur, rub or gallop is appreciated. Respiratory: Lungs are clear to auscultation, respirations are non-labored, breath sounds are equal. No wheezes, stridor, rales, or rhonchi. Gastrointestinal: Soft, non-distended, right lower quadrant tenderness of the abdomen without masses or organomegaly noted. There is no rebound or guarding present. No CVA tenderness. Bowel sounds are unremarkable. Back: There is no tenderness to palpation in the midline. There is no obvious deformity. No rashes noted. Musculoskeletal: Normal ROM, no tenderness, There is no pedal edema. There is no calf tenderness or swelling. Sensation intact. Pulses equal bilaterally 2+. Neurological: CN II-XII intact, There are no obvious motor or sensory deficits. Coordination appears grossly intact. Speech is normal. Skin: Skin is warm and dry and no rashes or lesions are noted. Psychiatric: Cooperative, appropriate mood & affect, normal judgment. Limitations: no limitations Course Vital Signs 11/30/16 11/30/16 12/01/16 22:35 23:37 00:00 Temperature 98.0 F Pulse Rate 101 H 89 94 Respiratory 18 16 18 Rate Blood Pressure 122/69 100/59 111/69 O2 Sat by Pulse 98 99 96 Oximetry Medical Decision Making - Medical Decision Making 36-year-old female presents emergency Department chief abdominal pain. At this time CAT scan is reviewed and negative. We did discuss her lab results. She is feeling somewhat better. She is no longer having pain. She is soft and nontender to touch. This time we did discuss follow-up and did discuss etiologies for this and did discuss return parameters and all her questions. Patient stated she understood and she is in agreement with plan. She'll be discharged home. - Lab Data Result diagrams: 11/30/16 23:10 11/30/16 23:10 Lab Results 11/30/16 11/30/16 11/30/16 Range/Units 23:00 23:00 23:10 WBC (3.8-10.6) k/uL RBC (3.80-5.40) m/uL Hgb (11.4-16.0) gm/dL Hct (34.0-46.0) % MCV (80.0-100.0) fL MCH (25.0-35.0) pg MCHC (31.0-37.0) g/dL RDW (11.5-15.5) % Plt Count (150-450) k/uL Neutrophils % % Lymphocytes % % Monocytes % % Eosinophils % % Basophils % % Neutrophils # (1.3-7.7) k/uL Lymphocytes # (1.0-4.8) k/uL Monocytes # (0-1.0) k/uL Eosinophils # (0-0.7) k/uL Basophils # (0-0.2) k/uL Sodium 141 (137-145) mmol/L Potassium 4.4 (3.5-5.1) mmol/L Chloride 108 H (98-107) mmol/L Carbon Dioxide 22 (22-30) mmol/L Anion Gap 11 mmol/L BUN 11 (7-17) mg/dL Creatinine 0.70 (0.52-1.04) mg/dL Est GFR (MDRD) Af Amer >60 (>60 ml/min/1.73 sqM) Est GFR (MDRD) Non-Af >60 (>60 ml/min/1.73 sqM) Glucose 107 H (74-99) mg/dL Plasma Lactic Acid Saúl (0.7-2.0) mmol/L Calcium 9.1 (8.4-10.2) mg/dL Total Bilirubin 0.6 (0.2-1.3) mg/dL AST 28 (14-36) U/L ALT 34 (9-52) U/L Alkaline Phosphatase 59 (38-126) U/L Total Protein 7.4 (6.3-8.2) g/dL Albumin 4.0 (3.5-5.0) g/dL Amylase 72 (30-110) U/L Lipase 209 (23-300) U/L Urine Color Yellow Urine Appearance Cloudy H (Clear) Urine pH 6.5 (5.0-8.0) Ur Specific [place] 1.027 (1.001-1.035) Urine Protein 1+ H (Negative) Urine Glucose (UA) Negative (Negative) Urine Ketones Negative (Negative) Urine Blood Negative (Negative) Urine Nitrite Negative (Negative) Urine Bilirubin Negative (Negative) Urine Urobilinogen 4.0 (<2.0) mg/dL Ur Leukocyte Esterase Trace H (Negative) Urine RBC 3 (0-5) /hpf Urine WBC 4 (0-5) /hpf Ur Squamous Epith Cells 17 H (0-4) /hpf Hyaline Casts 1 (0-2) /lpf Urine Mucus Occasional H (None) /hpf Urine HCG, Qual Not Detected (Not Detectd) 11/30/16 11/30/16 Range/Units 23:10 23:10 WBC 11.9 H (3.8-10.6) k/uL RBC 4.35 (3.80-5.40) m/uL Hgb 13.6 (11.4-16.0) gm/dL Hct 40.0 (34.0-46.0) % MCV 92.0 (80.0-100.0) fL MCH 31.3 (25.0-35.0) pg MCHC 34.0 (31.0-37.0) g/dL RDW 13.2 (11.5-15.5) % Plt Count 299 (150-450) k/uL Neutrophils % 67 % Lymphocytes % 25 % Monocytes % 4 % Eosinophils % 3 % Basophils % 0 % Neutrophils # 8.0 H (1.3-7.7) k/uL Lymphocytes # 3.0 (1.0-4.8) k/uL Monocytes # 0.4 (0-1.0) k/uL Eosinophils # 0.4 (0-0.7) k/uL Basophils # 0.0 (0-0.2) k/uL Sodium (137-145) mmol/L Potassium (3.5-5.1) mmol/L Chloride (98-107) mmol/L Carbon Dioxide (22-30) mmol/L Anion Gap mmol/L BUN (7-17) mg/dL Creatinine (0.52-1.04) mg/dL Est GFR (MDRD) Af Amer (>60 ml/min/1.73 sqM) Est GFR (MDRD) Non-Af (>60 ml/min/1.73 sqM) Glucose (74-99) mg/dL Plasma Lactic Acid Saúl 1.3 (0.7-2.0) mmol/L Calcium (8.4-10.2) mg/dL Total Bilirubin (0.2-1.3) mg/dL AST (14-36) U/L ALT (9-52) U/L Alkaline Phosphatase (38-126) U/L Total Protein (6.3-8.2) g/dL Albumin (3.5-5.0) g/dL Amylase (30-110) U/L Lipase (23-300) U/L Urine Color Urine Appearance (Clear) Urine pH (5.0-8.0) Ur Specific [place] (1.001-1.035) Urine Protein (Negative) Urine Glucose (UA) (Negative) Urine Ketones (Negative) Urine Blood (Negative) Urine Nitrite (Negative) Urine Bilirubin (Negative) Urine Urobilinogen (<2.0) mg/dL Ur Leukocyte Esterase (Negative) Urine RBC (0-5) /hpf Urine WBC (0-5) /hpf Ur Squamous Epith Cells (0-4) /hpf Hyaline Casts (0-2) /lpf Urine Mucus (None) /hpf Urine HCG, Qual (Not Detectd) - Radiology Data Radiology results: report reviewed, image reviewed Disposition Clinical Impression: Right lower quadrant abdominal pain Disposition: HOME SELF-CARE Condition: Stable Instructions: Abdominal Pain (ED) Additional Instructions: Please use medication as discussed. Please follow up with family doctor if symptoms have not improved over the next two days. Please return to the emergency room if your symptoms increase or worsen or for any other concerns. Referrals: Duke Hidalgo MD [Primary Care Provider] - 1-2 days Time of Disposition: 00:31
[2016-11-30 23:16] LABS: Appearance,Urine Cloudy (Clear); Bilirubin,Urine Negative (Negative); Glucose,Urine (UA) Negative (Negative); Ketones,Urine Negative (Negative); Leukocyte Esterase,Urine Trace (Negative); Mucus,Urine Occasional /hpf; Nitrite,Urine Negative (Negative); PH, Urine 6.5 (5.0-8.0); Particle Count 9643; Protein,Urine 1+ (Negative); RBC,Urine 3 /hpf (0-5); Specific Gravity,Urine 1.027 (1.001-1.035); Squamous Epithelial Cell,Urine 17 /hpf (0-4); UA Billing (MACRO vs. MICRO) MICRO; WBC,Urine 4 /hpf (0-5)
[2016-11-30 23:28] LABS: Basophils % (A) 0 %; CH 31.2; Eosinophils # (A) 0.4 k/uL (0-0.7); Eosinophils % (A) 3 %; HDW 2.36; HGB 13.6 gm/dL (11.4-16.0); Luc # (Auto) 0.15; Luc % (Auto) 1; Lymphocytes % (A) 25 %; MCH 31.3 pg (25.0-35.0); Monocytes # (A) 0.4 k/uL (0-1.0); Monocytes % (A) 4 %; Neutrophils % (A) 67 %; RBC 4.35 m/uL (3.80-5.40); RDW 13.2 % (11.5-15.5); WBC 11.9 k/uL (3.8-10.6); WBC (Perox) 12.16
[2016-11-30 23:40] LABS: ALT 34 U/L (9-52); AST 28 U/L (14-36); Alkaline Phosphatase 59 U/L (38-126); Amylase 72 U/L (30-110); Anion Gap 11 mmol/L; Blood Urea Nitrogen 11 mg/dL (7-17); Calcium 9.1 mg/dL (8.4-10.2); Carbon Dioxide 22 mmol/L (22-30); Chloride 108 mmol/L (98-107); Glucose 107 mg/dL (74-99); Non-African American GFR(MDRD) >60 (>60 ml/min/1.73 sqM); Potassium 4.4 mmol/L (3.5-5.1); Sodium 141 mmol/L (137-145); Total Bilirubin 0.6 mg/dL (0.2-1.3); Total Protein 7.4 g/dL (6.3-8.2)
[2016-12-01 00:17] VITALS: BP 111/69; PULSE 94; RESP 18
--- NOTE | 2016-12-01 00:28 | CT ---
EXAM: CT Abdomen and Pelvis With Intravenous Contrast CLINICAL HISTORY: Reason: Pain TECHNIQUE: Axial computed tomography images of the abdomen and pelvis with intravenous contrast. CTDI is 23, 23.20 mGy and DLP is 2095 mGy-cm. This CT exam was performed using one or more of the following dose reduction techniques: automated exposure control, adjustment of the mA and/or kV according to patient size, and/or use of iterative reconstruction technique. COMPARISON: CT abdomen and pelvis dated 08/23/2016 FINDINGS: Lower thorax: The visualized lower thorax demonstrates dependent atelectasis. ABDOMEN: Liver: Unremarkable. Gallbladder and bile ducts: The gallbladder is surgically absent. Pancreas: Unremarkable. Spleen: Unremarkable. Adrenals: Unremarkable. Kidneys and ureters: Unremarkable. Stomach and bowel: Noninflamed colonic diverticulosis. Appendix: The appendix is unremarkable. PELVIS: Bladder: Unremarkable. Reproductive: Probable crenated follicle within the left ovary. ABDOMEN and PELVIS: Intraperitoneal space: Unremarkable. Bones/joints: No acute fracture. No dislocation. Soft tissues: Unremarkable. Vasculature: Unremarkable. Lymph nodes: Unremarkable. IMPRESSION: No acute findings.
== END 2016-12-01 00:48 | disposition home or self-care (01) ==
LOC: EC 22:29
DX: R10.31 Right lower quadrant pain (principal); R11.0 Nausea; F17.200 Nicotine dependence, unspecified, uncomplicated; Z79.899 Other long term (current) drug therapy; Z90.49 Acquired absence of other specified parts of digestive tract
CPT/HCPCS: 36415; 80053; 82150; 83605; 83690; 85025; 81001; 81025; 87086; 87077; 87186; 74177; 99284; 96374; 96375; 96361 ×2; J2405; J1170; Q9967

== ENCOUNTER 2016-12-06 20:40 | Observation (INO) | payer OTHER ==
[2016-12-06] MEDS ORDERED: KETOROLAC 30 MG/ML 1 ML VIAL IVP STA (21:07)
[2016-12-06] MEDS ORDERED: ONDANSETRON 4 MG/2 ML VIAL IVP STA (21:07)
[2016-12-06] MEDS ORDERED: SODIUM CHLORIDE 0.9% 2,000 ML IV STA (21:07)
--- NOTE | 2016-12-06 21:11 | ED ---
Abdominal Pain HPI - General Chief Complaint: Abdominal Pain Stated Complaint: Flank Pain Time Seen by Provider: 12/06/16 21:02 Source: patient, RN notes reviewed Mode of arrival: ambulatory Limitations: no limitations - History of Present Illness Initial Comments: 36-year-old female presents emergency Department chief complaint continuing right lower quadrant pain and flank pain. Patient states that she was seen here a few days ago. Patient states everything came back, she was sent home. Patient states she continues to have worsening pain and states she had some nausea. Patient states she was concerned due to her symptoms so she thought that she should be reevaluated. Patient does state that now she is having some right flank pain which is new compared to last visit. Patient states that throughout this morning. Patient denies any fever. Patient denies any recent fever, chills, shortness of breath, chest pain, back pain, numbness or tingling , dysuria or hematuria, constipation or diarrhea, headaches or visual changes, or any other current symptoms. - Related Data Home Medications Medication Instructions Recorded Confirmed Clobetasol Propionate [Temovate] 1 applic TOPICAL BID 11/30/16 12/06/16 Allergies Allergy/AdvReac Type Severity Reaction Status Date / Time No Known Allergies Allergy Verified 12/06/16 21:03 Review of Systems ROS Statement: Those systems with pertinent positive or pertinent negative responses have been documented in the HPI. ROS Other: All systems not noted in ROS Statement are negative. 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 PT STATES OFF MEDICATIONS SINCE 13 Y/O AND LAST SEIZURE WAS 12 Y/O. History of Any Multi-Drug Resistant Organisms: None Reported Past Surgical History: Section, Cholecystectomy, Tubal Ligation Additional Past Surgical History / Comment(s): novasure Past Psychological History: No Psychological Hx Reported Smoking Status: Current every day smoker Past Alcohol Use History: Occasional Past Drug Use History: None Reported - Past Family History Mother Family Medical History: No Reported History Father Family Medical History: No Reported History General Exam - General Exam Comments Initial Comments: General: The patient is awake and alert, in no distress, and does not appear acutely ill. Eye: Pupils are equal, round and reactive to light, extra-ocular movements are intact; there is normal conjunctiva bilaterally. No signs of icterus. Ears, nose, mouth and throat: There are moist mucous membranes and no oral lesions. Neck: The neck is supple, there is no tenderness. Cardiovascular: There is a regular rate and rhythm. No murmur, rub or gallop is appreciated. Respiratory: Lungs are clear to auscultation, respirations are non-labored, breath sounds are equal. No wheezes, stridor, rales, or rhonchi. Gastrointestinal: Soft, non-distended, mildly tender in the right lower quadrant of theabdomen without masses or organomegaly noted. There is no rebound or guarding present. right sided CVA tenderness. Bowel sounds are unremarkable. Back: There is no tenderness to palpation in the midline. There is no obvious deformity. No rashes noted. Musculoskeletal: Normal ROM, no tenderness, There is no pedal edema. There is no calf tenderness or swelling. Sensation intact. Pulses equal bilaterally 2+. Neurological: CN II-XII intact, There are no obvious motor or sensory deficits. Coordination appears grossly intact. Speech is normal. Skin: Skin is warm and dry and no rashes or lesions are noted. Psychiatric: Cooperative, appropriate mood & affect, normal judgment. Limitations: no limitations Course Vital Signs 12/06/16 20:43 Temperature 98.8 F Pulse Rate 95 Respiratory 18 Rate Blood Pressure 122/64 O2 Sat by Pulse 100 Oximetry Medical Decision Making - Medical Decision Making 36-year-old female presents emergency Department chief complaint of increasing abdominal pain and flank pain. This time urine culture is reviewed that does show positive. This and the patient Rocephin. There is suspicion for pyelonephritis.due to the positive urine culture along with increasing flank pain we will admit patient for IV antibiotics at this time. This is discussed with patient who is in agreement with the plan. Was contacted who does accept the admission. All questions have been answered. - Lab Data Result diagrams: 12/06/16 21:55 Lab Results 12/06/16 Range/Units 21:55 WBC 11.0 H (3.8-10.6) k/uL RBC 4.37 (3.80-5.40) m/uL Hgb 13.6 (11.4-16.0) gm/dL Hct 41.7 (34.0-46.0) % MCV 95.4 (80.0-100.0) fL MCH 31.2 (25.0-35.0) pg MCHC 32.7 (31.0-37.0) g/dL RDW 13.5 (11.5-15.5) % Plt Count 327 (150-450) k/uL Neutrophils % 63 % Lymphocytes % 27 % Monocytes % 5 % Eosinophils % 3 % Basophils % 1 % Neutrophils # 6.9 (1.3-7.7) k/uL Lymphocytes # 3.0 (1.0-4.8) k/uL Monocytes # 0.5 (0-1.0) k/uL Eosinophils # 0.4 (0-0.7) k/uL Basophils # 0.1 (0-0.2) k/uL Disposition Clinical Impression: Acute pyelonephritis Disposition: ADMITTED IP TO THIS HOSP Condition: Stable Referrals: Duke Hidalgo MD [Primary Care Provider] - 1-2 days Time of Disposition: 22:20 Decision Date: 12/06/16 Decision Time: 22:20
[2016-12-06 22:11] LABS: Basophils # (A) 0.1 k/uL (0-0.2); Basophils % (A) 1 %; CH 31.2; CHCM 32.8; Eosinophils # (A) 0.4 k/uL (0-0.7); Eosinophils % (A) 3 %; HCT 41.7 % (34.0-46.0); HDW 2.25; HGB 13.6 gm/dL (11.4-16.0); Luc # (Auto) 0.17; Luc % (Auto) 2; Lymphocytes % (A) 27 %; MCH 31.2 pg (25.0-35.0); MCHC 32.7 g/dL (31.0-37.0); MCV 95.4 fL (80.0-100.0); Mean Platelet Volume 6.7; Monocytes # (A) 0.5 k/uL (0-1.0); Monocytes % (A) 5 %; Neutrophils # (A) 6.9 k/uL (1.3-7.7); Neutrophils % (A) 63 %; RBC 4.37 m/uL (3.80-5.40); RDW 13.5 % (11.5-15.5); WBC (Perox) 11.36
[2016-12-06] MEDS ORDERED: ONDANSETRON 4 MG/2 ML VIAL IVP PRN (22:21)
[2016-12-06] MEDS ORDERED: ACETAMINOPHEN TAB 325 MG TAB PO PRN (22:21)
[2016-12-06] MEDS ORDERED: IBUPROFEN 400 MG TAB PO PRN (22:21)
[2016-12-06] MEDS ORDERED: NALOXONE 0.4 MG/ML 1 ML VIAL IV PRN (22:21)
[2016-12-06] MEDS ORDERED: KETOROLAC 30 MG/ML 1 ML VIAL IVP PRN (22:21)
[2016-12-06 22:24] LABS: ALT 30 U/L (9-52); AST 27 U/L (14-36); Alkaline Phosphatase 76 U/L (38-126); Anion Gap 8 mmol/L; Blood Urea Nitrogen 9 mg/dL (7-17); Calcium 9.2 mg/dL (8.4-10.2); Carbon Dioxide 25 mmol/L (22-30); Chloride 108 mmol/L (98-107); Glucose 96 mg/dL (74-99); Non-African American GFR(MDRD) >60 (>60 ml/min/1.73 sqM); Potassium 4.4 mmol/L (3.5-5.1); Sodium 141 mmol/L (137-145); Total Bilirubin 0.5 mg/dL (0.2-1.3); Total Protein 7.5 g/dL (6.3-8.2)
[2016-12-06 22:42] LABS: Appearance,Urine Turbid (Clear); Bacteria,Urine Rare /hpf; Bilirubin,Urine Negative (Negative); Glucose,Urine (UA) Negative (Negative); Ketones,Urine Negative (Negative); Leukocyte Esterase,Urine Negative (Negative); Mucus,Urine Many /hpf; Nitrite,Urine Negative (Negative); PH, Urine 5.5 (5.0-8.0); Particle Count 26626; Protein,Urine 1+ (Negative); RBC,Urine 7 /hpf (0-5); Specific Gravity,Urine 1.029 (1.001-1.035); Squamous Epithelial Cell,Urine 33 /hpf (0-4); UA Billing (MACRO vs. MICRO) MICRO; WBC,Urine 4 /hpf (0-5)
[2016-12-07 00:34] VITALS: BMI 40.3
[2016-12-07] MEDS: CLOBETASOL PROP 0.05% OINT 15GM TOPICAL SCH ×2 (00:38→08:37)
[2016-12-07] MEDS: SODIUM CHLORIDE 0.9% 1,000 ML IV SCH ×3 (00:41→17:03)
[2016-12-07] MEDS: HYDROcodone/APAP 5-325MG 1 EACH TAB PO PRN ×2 (00:45→05:04)
[2016-12-07 05:58] LABS: Basophils # (A) 0.1 k/uL (0-0.2); Basophils % (A) 1 %; CH 30.5; CHCM 33.1; Eosinophils # (A) 0.4 k/uL (0-0.7); Eosinophils % (A) 4 %; HCT 35.9 % (34.0-46.0); HGB 12.1 gm/dL (11.4-16.0); Luc % (Auto) 2; Lymphocytes # (A) 3.3 k/uL (1.0-4.8); Lymphocytes % (A) 35 %; MCH 31.1 pg (25.0-35.0); MCHC 33.6 g/dL (31.0-37.0); MCV 92.5 fL (80.0-100.0); Mean Platelet Volume 6.7; Monocytes # (A) 0.5 k/uL (0-1.0); Monocytes % (A) 5 %; Neutrophils % (A) 53 %; RBC 3.88 m/uL (3.80-5.40); RDW 13.2 % (11.5-15.5); WBC 9.5 k/uL (3.8-10.6); WBC (Perox) 10.03
[2016-12-07 06:13] LABS: ALT 28 U/L (9-52); AST 17 U/L (14-36); Alkaline Phosphatase 55 U/L (38-126); Anion Gap 5 mmol/L; Blood Urea Nitrogen 12 mg/dL (7-17); Calcium 8.5 mg/dL (8.4-10.2); Carbon Dioxide 24 mmol/L (22-30); Chloride 112 mmol/L (98-107); Glucose 105 mg/dL (74-99); Non-African American GFR(MDRD) >60 (>60 ml/min/1.73 sqM); Potassium 4.2 mmol/L (3.5-5.1); Sodium 141 mmol/L (137-145); Total Bilirubin 0.6 mg/dL (0.2-1.3); Total Protein 6.1 g/dL (6.3-8.2)
[2016-12-07] MEDS ORDERED: cefTRIAXone 1,000 MG VIAL (IM USE) IM SCH (09:00)
[2016-12-07] MEDS: HYDROcodone/APAP 7.5-325MG 1 EACH TAB PO PRN ×2 (10:22→16:28)
[2016-12-07] MEDS ORDERED: SODIUM CHLORIDE 0.9% 1,500 ML IV ONE (15:21)
[2016-12-07 20:13] VITALS: BP 98/60; PULSE 62; RESP 20; TEMP 97.8
--- NOTE | 2016-12-08 07:43 | HP ---
DATE OF ADMISSION: REASON FOR ADMISSION: Flank pain. HISTORY OF PRESENT ILLNESS: This is a 36-year-old female who initially presented to the emergency room with some flank pain. The patient at that time underwent a UA, urine culture and was discharged home. However, the patient continued to have some symptoms of nausea and generalized weakness over the last few days. Patient was called in by our facility noticing Enterococcus faecalis on urine cultures on the day of admission. Patient states that she was able to go back to work; however, has progressively gotten worse with generalized weakness. Denies having any chest pain, nausea, vomiting, diarrhea. Patient's main complaints appear to be right-sided flank pain with radiating to the groin, some degree of urinary hesitancy, no burning on micturition, some chills are reported. However, today on evaluation states she is significantly improved. She is able to ambulate without much difficulty. She is able to tolerate diet without much difficulty. REVIEW OF SYSTEM: Fourteen-point review of systems was done; none pertinent other than what was mentioned above. Home medications include clobetasol. ALLERGIES: No known drug allergies. PAST MEDICAL HISTORY: History of seizure disorder in the past. PAST SURGICAL HISTORY: , cholecystectomy, tubal ligation. SOCIAL HISTORY: Ongoing tobacco use. Occasional alcohol use. No illicit drug use reported. FAMILY HISTORY: No significant history is reported. PHYSICAL EXAMINATION: Vitals are within normal limits. GENERALLY: Patient appears to be alert, oriented x3. HEENT: The pupils are equal and reactive to light and accommodation. HEART: S1, S2 present. No murmur appreciated. LUNGS: Good air entry. No wheezing or rhonchi noted. ABDOMINAL EXAM: Soft, no organomegaly appreciated. Bowel sounds are intact. Flank tenderness on the right side is appreciated. No abdominal wall cellulitis is noted. GENITOURINARY: No Erazo in place. EXTREMITIES: Pulses can be palpated distally. Denies any tenderness on gross palpation. SKIN: On a gross skin exam does not appear to have any purpura or any skin rashes that were noted. NEUROLOGICALLY: Grossly cranial nerves 2-12 intact. No motor or sensory deficits noted. LABORATORY DATA: Today includes hemoglobin 12.1, hematocrit 35.9, white count of 9.5, platelets of 281. Sodium 141, potassium 4.2, chloride 112, bicarb 24, BUN of 12 and creatinine of 0.69. Urine shows RBC. ASSESSMENT AND PLAN: Acute pyelonephritis with Enterococcus faecalis, does not meet criteria for sepsis; however, PLAN: Patient's cultures and cultures and susceptibilities are noted. Patient has received one dose of Ceftin. Will give the patient additional 1500 mL of IV fluids. Patient's urine output has been somewhat on the lower side and appears it has only been about 400 mL since this morning. If patient appears to improve including urine output with 1500 mL bolus, the patient can be discharged home on Ceftin 500 mg b.i.d. for a total of 12 days to complete a course of 14 days. Patient is tolerating diet. Hence, patient does not require additional inpatient care, is clinically improved. This was discussed with the patient. If patient's urinary output is suboptimal then patient will be held overnight. This could be used as a discharge summary as well. The patient is recommended to follow up with her primary care physician within a week to ensure resolution.
== END 2016-12-07 20:54 | disposition home or self-care (01) ==
LOC: EC 20:40 → 6PED 22:50
PROVIDERS: ADMIT Hospitalist; ATTEND Hospitalist
DX: N10 Acute pyelonephritis (principal); B95.2 Enterococcus as the cause of diseases classified elsewhere; F17.200 Nicotine dependence, unspecified, uncomplicated
CPT/HCPCS: 96365 ×2; 96375 ×3; 96361 ×3; 99284; 96366; 96376; 36415; 80053 ×2; 83605; 85025 ×2; 81001; 87040; 87086; G0378 ×2; J2405 ×2; J0696 ×2; J1885

== ENCOUNTER 2017-01-22 17:06 | Emergency (ER) | payer OTHER ==
[2017-01-22] MEDS ORDERED: MORPHINE SULFATE 4 MG/ML SYRINGE IV STA (17:40)
[2017-01-22] MEDS ORDERED: SODIUM CHLORIDE 0.9% 2,000 ML IV STA (17:40)
[2017-01-22] MEDS ORDERED: ONDANSETRON 4 MG/2 ML VIAL IVP STA (17:40)
--- NOTE | 2017-01-22 17:51 | ED ---
Nausea/Vomiting/Diarrhea HPI - General Chief complaint: Nausea/Vomiting/Diarrhea Stated complaint: ABDOMINAL PAIN AND NAUSEA Time Seen by Provider: 01/22/17 17:31 Source: patient, RN notes reviewed, old records reviewed Mode of arrival: ambulatory Limitations: no limitations - History of Present Illness Initial comments: This is a 36-year-old female presenting to the emergency Department chief complaint of right lower quadrant pain and nausea and vomiting for the past 3 days. Patient reports she has a surgical history including C-sections, tubal ligation and cholecystectomy. Patient has been reevaluated in the emergency department multiple times for right lower quadrant pain. She also reports she' s had some diarrhea. Patient states is been no blood in her stools or emesis. States that she has had some increased urinary frequency but denies any burning or vaginal discharge. Patient states that the pain stays in her right lower quadrant does not radiate towards her back. Patient states that she's had a low -grade fever today.Patient denies any recent fever, chills, shortness of breath , chest pain, back pain, abdominal pain, nausea vomiting, numbness or tingling, dysuria or hematuria, constipation or diarrhea, headaches or visual changes, or any other current symptoms - Related Data Home Medications Medication Instructions Recorded Confirmed Phentermine HCl [Adipex-P] 37.5 mg PO QAM 01/22/17 01/22/17 Previous Rx's Medication Instructions Recorded Ondansetron Odt [Zofran Odt] 4 mg PO Q12HR PRN #12 tab 01/22/17 traMADol HCl [Ultram] 50 mg PO Q6H PRN #12 tab 01/22/17 Allergies Allergy/AdvReac Type Severity Reaction Status Date / Time No Known Allergies Allergy Verified 01/22/17 17:31 Review of Systems ROS Statement: Those systems with pertinent positive or pertinent negative responses have been documented in the HPI. ROS Other: All systems not noted in ROS Statement are negative. 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 PT STATES OFF MEDICATIONS SINCE 13 Y/O AND LAST SEIZURE WAS 12 Y/O. History of Any Multi-Drug Resistant Organisms: None Reported Past Surgical History: Section, Cholecystectomy, Tubal Ligation Additional Past Surgical History / Comment(s): [place] Past Anesthesia/Blood Transfusion Reactions: No Reported Reaction Past Psychological History: No Psychological Hx Reported Smoking Status: Current every day smoker Past Alcohol Use History: Occasional Past Drug Use History: None Reported - Past Family History Mother Family Medical History: No Reported History Additional Family Medical History / Comment(s): osteoporosis, COPD, "too much to recall" per pt Father Family Medical History: No Reported History General Exam - General Exam Comments Initial Comments: 36-year-old female. Patient does not appear to be in any acute distress. She does have a bowl of emesis in the emergency department. Limitations: no limitations General appearance: alert, in no apparent distress Head exam: Present: atraumatic, normocephalic, normal inspection Eye exam: Present: normal appearance, PERRL, EOMI. Absent: scleral icterus, conjunctival injection, periorbital swelling ENT exam: Present: normal exam, mucous membranes moist Neck exam: Present: normal inspection. Absent: tenderness, meningismus, lymphadenopathy Respiratory exam: Present: normal lung sounds bilaterally. Absent: respiratory distress, wheezes, rales, rhonchi, stridor Cardiovascular Exam: Present: regular rate, normal rhythm, normal heart sounds. Absent: systolic murmur, diastolic murmur, rubs, gallop, clicks GI/Abdominal exam: Present: soft, tenderness (Mild right lower quadrant tenderness.), normal bowel sounds. Absent: distended, guarding, rebound, rigid Extremities exam: Present: normal inspection, full ROM, normal capillary refill. Absent: tenderness, pedal edema, joint swelling, calf tenderness Back exam: Present: normal inspection Neurological exam: Present: alert, oriented X3, CN II-XII intact Psychiatric exam: Present: normal affect, normal mood Skin exam: Present: warm, dry, intact, normal color. Absent: rash Course Vital Signs 01/22/17 01/22/17 17:23 18:08 Temperature 99.4 F 98.2 F Pulse Rate 92 97 Respiratory 17 18 Rate Blood Pressure 120/68 117/59 O2 Sat by Pulse 99 98 Oximetry Medical Decision Making - Medical Decision Making This is a 36-year-old female presenting to the emergency Department chief complaint of right lower quadrant pain and nausea and vomiting for the past 3 days. Patient reports she has a surgical history including C-sections, tubal ligation and cholecystectomy. Patient has been reevaluated in the emergency department multiple times for right lower quadrant pain. She also reports she' s had some diarrhea. Patient states is been no blood in her stools or emesis. States that she has had some increased urinary frequency but denies any burning or vaginal discharge. Patient's lab work was reviewed and shows no significant acute process besides red blood cells with urine. Discussed with Dr. Coulter. He recommended CT has and pelvis. CT abdomen and pelvis is negative for any acute process including obstructing stones. Normal appendix. Patient was informed of these results. Patient will be discharged with nausea medication and advised to follow-up with primary care provider. Patient's history and plan will comply. Return parameters were discussed. - Lab Data Result diagrams: 01/22/17 18:33 01/22/17 18:33 Lab Results 01/22/17 01/22/17 01/22/17 Range/Units 18:33 18:33 18:36 WBC 11.6 H (3.8-10.6) k/uL RBC 4.47 (3.80-5.40) m/uL Hgb 13.7 (11.4-16.0) gm/dL Hct 40.8 (34.0-46.0) % MCV 91.4 (80.0-100.0) fL MCH 30.7 (25.0-35.0) pg MCHC 33.6 (31.0-37.0) g/dL RDW 12.9 (11.5-15.5) % Plt Count 328 (150-450) k/uL Neutrophils % 64 % Lymphocytes % 26 % Monocytes % 5 % Eosinophils % 3 % Basophils % 1 % Neutrophils # 7.4 (1.3-7.7) k/uL Lymphocytes # 3.0 (1.0-4.8) k/uL Monocytes # 0.6 (0-1.0) k/uL Eosinophils # 0.3 (0-0.7) k/uL Basophils # 0.1 (0-0.2) k/uL Sodium 139 (137-145) mmol/L Potassium 4.3 (3.5-5.1) mmol/L Chloride 106 (98-107) mmol/L Carbon Dioxide 26 (22-30) mmol/L Anion Gap 7 mmol/L BUN 9 (7-17) mg/dL Creatinine 0.64 (0.52-1.04) mg/dL Est GFR (MDRD) Af Amer >60 (>60 ml/min/1.73 sqM) Est GFR (MDRD) Non-Af >60 (>60 ml/min/1.73 sqM) Glucose 71 L (74-99) mg/dL Calcium 9.1 (8.4-10.2) mg/dL Total Bilirubin 0.2 (0.2-1.3) mg/dL AST 18 (14-36) U/L ALT 37 (9-52) U/L Alkaline Phosphatase 63 (38-126) U/L Total Protein 6.9 (6.3-8.2) g/dL Albumin 3.8 (3.5-5.0) g/dL Amylase 65 (30-110) U/L Lipase 124 (23-300) U/L Urine Color Urine Appearance (Clear) Urine pH (5.0-8.0) Ur Specific [place] (1.001-1.035) Urine Protein (Negative) Urine Glucose (UA) (Negative) Urine Ketones (Negative) Urine Blood (Negative) Urine Nitrite (Negative) Urine Bilirubin (Negative) Urine Urobilinogen (<2.0) mg/dL Ur Leukocyte Esterase (Negative) Urine RBC (0-5) /hpf Urine WBC (0-5) /hpf Ur Squamous Epith Cells (0-4) /hpf Urine Mucus (None) /hpf Urine HCG, Qual Not Detected (Not Detectd) 01/22/17 Range/Units 18:36 WBC (3.8-10.6) k/uL RBC (3.80-5.40) m/uL Hgb (11.4-16.0) gm/dL Hct (34.0-46.0) % MCV (80.0-100.0) fL MCH (25.0-35.0) pg MCHC (31.0-37.0) g/dL RDW (11.5-15.5) % Plt Count (150-450) k/uL Neutrophils % % Lymphocytes % % Monocytes % % Eosinophils % % Basophils % % Neutrophils # (1.3-7.7) k/uL Lymphocytes # (1.0-4.8) k/uL Monocytes # (0-1.0) k/uL Eosinophils # (0-0.7) k/uL Basophils # (0-0.2) k/uL Sodium (137-145) mmol/L Potassium (3.5-5.1) mmol/L Chloride (98-107) mmol/L Carbon Dioxide (22-30) mmol/L Anion Gap mmol/L BUN (7-17) mg/dL Creatinine (0.52-1.04) mg/dL Est GFR (MDRD) Af Amer (>60 ml/min/1.73 sqM) Est GFR (MDRD) Non-Af (>60 ml/min/1.73 sqM) Glucose (74-99) mg/dL Calcium (8.4-10.2) mg/dL Total Bilirubin (0.2-1.3) mg/dL AST (14-36) U/L ALT (9-52) U/L Alkaline Phosphatase (38-126) U/L Total Protein (6.3-8.2) g/dL Albumin (3.5-5.0) g/dL Amylase (30-110) U/L Lipase (23-300) U/L Urine Color Yellow Urine Appearance Turbid H (Clear) Urine pH 5.5 (5.0-8.0) Ur Specific [place] 1.028 (1.001-1.035) Urine Protein 1+ H (Negative) Urine Glucose (UA) Negative (Negative) Urine Ketones Trace H (Negative) Urine Blood Negative (Negative) Urine Nitrite Negative (Negative) Urine Bilirubin Negative (Negative) Urine Urobilinogen 2.0 (<2.0) mg/dL Ur Leukocyte Esterase Large H (Negative) Urine RBC 25 H (0-5) /hpf Urine WBC 5 (0-5) /hpf Ur Squamous Epith Cells 55 H (0-4) /hpf Urine Mucus Few H (None) /hpf Urine HCG, Qual (Not Detectd) - Radiology Data Radiology results: report reviewed CT abdomen and pelvis are negative for any acute process. KUB was also noninjected bowel gas pattern. Disposition Clinical Impression: Gastroenteritis Disposition: HOME SELF-CARE Condition: Good Instructions: Acute Nausea and Vomiting (ED) Additional Instructions: Patient is to rest, increase fluids. Patient denies a take nausea medication as prescribed. Return to the emergency department if any alarming signs or symptoms occur. Prescriptions: Ondansetron Odt [Zofran Odt] 4 mg PO Q12HR PRN #12 tab PRN Reason: Nausea traMADol HCl [Ultram] 50 mg PO Q6H PRN #12 tab PRN Reason: Pain Referrals: Duke Hidalgo MD [Primary Care Provider] - 1-2 days Time of Disposition: 20:57
[2017-01-22 18:47] LABS: Basophils # (A) 0.1 k/uL (0-0.2); Basophils % (A) 1 %; CH 30.2; CHCM 33.2; Eosinophils # (A) 0.3 k/uL (0-0.7); Eosinophils % (A) 3 %; HCT 40.8 % (34.0-46.0); HDW 2.25; HGB 13.7 gm/dL (11.4-16.0); Luc % (Auto) 2; Lymphocytes % (A) 26 %; MCH 30.7 pg (25.0-35.0); MCHC 33.6 g/dL (31.0-37.0); MCV 91.4 fL (80.0-100.0); Mean Platelet Volume 6.7; Monocytes # (A) 0.6 k/uL (0-1.0); Monocytes % (A) 5 %; Neutrophils # (A) 7.4 k/uL (1.3-7.7); Neutrophils % (A) 64 %; RBC 4.47 m/uL (3.80-5.40); RDW 12.9 % (11.5-15.5); WBC 11.6 k/uL (3.8-10.6); WBC (Perox) 11.44
[2017-01-22 18:56] LABS: ALT 37 U/L (9-52); AST 18 U/L (14-36); Alkaline Phosphatase 63 U/L (38-126); Amylase 65 U/L (30-110); Anion Gap 7 mmol/L; Blood Urea Nitrogen 9 mg/dL (7-17); Calcium 9.1 mg/dL (8.4-10.2); Carbon Dioxide 26 mmol/L (22-30); Chloride 106 mmol/L (98-107); Glucose 71 mg/dL (74-99); Non-African American GFR(MDRD) >60 (>60 ml/min/1.73 sqM); Potassium 4.3 mmol/L (3.5-5.1); Sodium 139 mmol/L (137-145); Total Bilirubin 0.2 mg/dL (0.2-1.3); Total Protein 6.9 g/dL (6.3-8.2)
[2017-01-22 19:03] LABS: Appearance,Urine Turbid (Clear); Bilirubin,Urine Negative (Negative); Glucose,Urine (UA) Negative (Negative); Ketones,Urine Trace (Negative); Leukocyte Esterase,Urine Large (Negative); Mucus,Urine Few /hpf; Nitrite,Urine Negative (Negative); PH, Urine 5.5 (5.0-8.0); Particle Count 56484; Protein,Urine 1+ (Negative); RBC,Urine 25 /hpf (0-5); Specific Gravity,Urine 1.028 (1.001-1.035); Squamous Epithelial Cell,Urine 55 /hpf (0-4); UA Billing (MACRO vs. MICRO) MICRO; WBC,Urine 5 /hpf (0-5)
--- NOTE | 2017-01-22 19:06 | XR ---
EXAMINATION TYPE: XR KUB DATE OF EXAM: 01/22/2017 COMPARISON: 10/16/2015 HISTORY: Right lower quadrant pain TECHNIQUE: 2 views FINDINGS: There is no sign of intestinal obstruction or pneumoperitoneum. Fecal pattern is normal. Th ere are clips from cholecystectomy. There are no pathologic calcifications over the kidneys. Lung bas es are clear. IMPRESSION: Nonacute abdomen. No change.
--- NOTE | 2017-01-22 20:50 | CT ---
EXAMINATION TYPE: CT abdomen pelvis wo con DATE OF EXAM: 01/22/2017 COMPARISON: 11/30/2016 HISTORY: patient complains of rlq pain and microscopic hematuria. CT DLP: 1283 mGycm Automated exposure control for dose reduction was used. TECHNIQUE: Helical acquisition of images was performed from the lung bases through the pelvis. FINDINGS: Lung bases are clear. There is no pleural effusion. Liver spleen pancreas appear normal. There are clips from cholecystectomy. Bile ducts are not dilated . There is no adrenal mass. Kidneys have normal size and contour. There is no hydronephrosis. Ureters a re not dilated. There is no retroperitoneal adenopathy. Appendix appears normal. There is no ascites. There is no sign of free air. Bladder distends smoothly. There is no sign of a pelvic mass. I see no intestinal wall thickening. There are no dilated loops. Bony structures are intact. IMPRESSION: NO RENAL STONE OR OBSTRUCTION. NORMAL APPENDIX. NO SIGN OF ACUTE ABDOMEN AND PELVIS. NO ADVERSE WHITE E COMPARED TO OLD EXAM.
[2017-01-22] MEDS ORDERED: ONDANSETRON 4 MG ODT STARTER PACK 2 TAB BTL PO STA (20:57)
[2017-01-22 21:12] VITALS: BP 91/42; PULSE 77; RESP 16; TEMP 98.1
== END 2017-01-22 21:12 | disposition home or self-care (01) ==
LOC: EC 17:06
DX: K52.9 Noninfective gastroenteritis and colitis, unspecified (principal); R35.0 Frequency of micturition; R11.2 Nausea with vomiting, unspecified; F17.200 Nicotine dependence, unspecified, uncomplicated; Z79.899 Other long term (current) drug therapy; Z90.49 Acquired absence of other specified parts of digestive tract
CPT/HCPCS: 99285; 96374; 96375; 96361 ×2; 36415; 80053; 82150; 83690; 85025; 81001; 81025; 87086; 74000; 74176; J2270; J2405; S0119

== ENCOUNTER 2017-01-30 10:38 | Emergency (ER) | payer OTHER ==
[2017-01-30] MEDS ORDERED: SODIUM CHLORIDE 0.9% 1,000 ML IV STA (10:48)
[2017-01-30] MEDS ORDERED: ONDANSETRON 4 MG/2 ML VIAL IVP STA ×2 (10:48→12:04)
[2017-01-30] MEDS ORDERED: RX INFO: IV CONTRAST WAS GIVEN 1 EACH MISC MISCELLANE PRN (10:48)
[2017-01-30 11:17] LABS: Basophils # (A) 0.1 k/uL (0-0.2); Basophils % (A) 1 %; CHCM 33.1; Eosinophils # (A) 0.4 k/uL (0-0.7); Eosinophils % (A) 4 %; HDW 2.25; HGB 14.3 gm/dL (11.4-16.0); Luc # (Auto) 0.09; Luc % (Auto) 1; Lymphocytes # (A) 2.5 k/uL (1.0-4.8); Lymphocytes % (A) 25 %; MCH 32.1 pg (25.0-35.0); MCV 94.3 fL (80.0-100.0); Mean Platelet Volume 7.3; Monocytes # (A) 0.4 k/uL (0-1.0); Monocytes % (A) 4 %; Neutrophils # (A) 6.4 k/uL (1.3-7.7); Neutrophils % (A) 65 %; RBC 4.45 m/uL (3.80-5.40); RDW 13.3 % (11.5-15.5); WBC 9.8 k/uL (3.8-10.6); WBC (Perox) 9.07
[2017-01-30 11:27] LABS: Amorphous Sediment,Urine Rare /hpf; Appearance,Urine Turbid (Clear); Bilirubin,Urine Negative (Negative); Glucose,Urine (UA) Negative (Negative); Ketones,Urine Negative (Negative); Leukocyte Esterase,Urine Small (Negative); Mucus,Urine Few /hpf; Nitrite,Urine Negative (Negative); PH, Urine 6.5 (5.0-8.0); Particle Count 40456; Protein,Urine 1+ (Negative); RBC,Urine 7 /hpf (0-5); Specific Gravity,Urine 1.019 (1.001-1.035); Squamous Epithelial Cell,Urine 71 /hpf (0-4); UA Billing (MACRO vs. MICRO) MICRO; Urobilinogen,Urine <2.0 mg/dL (<2.0)
[2017-01-30 11:30] LABS: ALT 38 U/L (9-52); AST 20 U/L (14-36); Alkaline Phosphatase 77 U/L (38-126); Amylase 58 U/L (30-110); Anion Gap 10 mmol/L; Blood Urea Nitrogen 9 mg/dL (7-17); Calcium 9.4 mg/dL (8.4-10.2); Carbon Dioxide 25 mmol/L (22-30); Chloride 106 mmol/L (98-107); Glucose 93 mg/dL (74-99); Non-African American GFR(MDRD) >60 (>60 ml/min/1.73 sqM); Potassium 4.5 mmol/L (3.5-5.1); Sodium 141 mmol/L (137-145); Total Bilirubin 0.6 mg/dL (0.2-1.3); Total Protein 7.5 g/dL (6.3-8.2)
--- NOTE | 2017-01-30 11:41 | ED ---
Abdominal Pain HPI - General Chief Complaint: Abdominal Pain Stated Complaint: abdominal pain Time Seen by Provider: 01/30/17 10:48 Source: patient, RN notes reviewed Mode of arrival: ambulatory Limitations: no limitations - History of Present Illness Initial Comments: 36-year-old female presents emergency Department chief complaint right lower quadrant abdominal pain. Patient states she's had increased pain last 3 days. Patient states that she seen here a few weeks ago for similar symptoms. She states that it started getting better but now she is vomiting very nauseous skin. Patient denies any fever or chills. Patient states is nonradiating pain denies any vaginal bleeding or vaginal discharge. She's had a prior tubal ligation and ablation. Patient states that nothing seems to make it feel better or worse denies any dysuria hematuria. Patient also adds in that she has some sort of cystic structure along her vaginal area - Related Data Previous Rx's Medication Instructions Recorded Hydrocodone/Acetaminophen [Tangier 1 tab PO Q6HR PRN #10 tab 01/30/17 5-325] Ondansetron Odt [Zofran Odt] 4 mg PO Q8HR PRN #10 tab 01/30/17 Sulfamethox-Tmp 800-160Mg [Bactrim 1 each PO Q12HR #20 tab 01/30/17 Ds] Allergies Allergy/AdvReac Type Severity Reaction Status Date / Time No Known Allergies Allergy Verified 01/30/17 11:00 Review of Systems ROS Statement: Those systems with pertinent positive or pertinent negative responses have been documented in the HPI. ROS Other: All systems not noted in ROS Statement are negative. 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 PT STATES OFF MEDICATIONS SINCE 13 Y/O AND LAST SEIZURE WAS 12 Y/O. History of Any Multi-Drug Resistant Organisms: None Reported Past Surgical History: Section, Cholecystectomy, Tubal Ligation Additional Past Surgical History / Comment(s): novasure, uterine ablation Past Anesthesia/Blood Transfusion Reactions: No Reported Reaction Past Psychological History: No Psychological Hx Reported Smoking Status: Current every day smoker Past Alcohol Use History: Occasional Past Drug Use History: None Reported - Past Family History Mother Family Medical History: No Reported History Additional Family Medical History / Comment(s): osteoporosis, COPD, "too much to recall" per pt Father Family Medical History: No Reported History General Exam Limitations: no limitations General appearance: alert, in no apparent distress Head exam: Present: atraumatic, normocephalic, normal inspection Respiratory exam: Present: normal lung sounds bilaterally. Absent: respiratory distress, wheezes, rales, rhonchi, stridor Cardiovascular Exam: Present: regular rate, normal rhythm, normal heart sounds. Absent: systolic murmur, diastolic murmur, rubs, gallop, clicks GI/Abdominal exam: Present: soft, tenderness ([id number] right lower quadrant tenderness ), normal bowel sounds. Absent: distended, guarding, rebound, rigid External exam: Present: other (Exam performed with Kendal NEVES). Absent: normal external exam (There is a one similar abscess on the left labial region that is open, mild tenderness with palpation) Back exam: Absent: CVA tenderness (R), CVA tenderness (L) Skin exam: Present: warm, dry, intact, normal color. Absent: rash Course Vital Signs 01/30/17 01/30/17 01/30/17 10:43 11:07 12:18 Temperature 98.1 F 97.1 F L Pulse Rate 80 60 80 Respiratory 18 16 18 Rate Blood Pressure 125/73 119/63 115/67 O2 Sat by Pulse 99 99 98 Oximetry Medical Decision Making - Medical Decision Making 36-year-old female presented for nausea vomiting and abdominal discomfort. There is no sign abnormality on lab work or CT. Patient does have a labial abscess in which she'll be given prescription antibiotics for. This is open at this time does not meet open any further. We discussed warm compresses. Return parameters were discussed. - Lab Data Result diagrams: 01/30/17 11:10 01/30/17 11:10 Lab Results 01/30/17 01/30/17 01/30/17 Range/Units 11:10 11:10 11:10 WBC 9.8 (3.8-10.6) k/uL RBC 4.45 (3.80-5.40) m/uL Hgb 14.3 (11.4-16.0) gm/dL Hct 42.0 (34.0-46.0) % MCV 94.3 (80.0-100.0) fL MCH 32.1 (25.0-35.0) pg MCHC 34.0 (31.0-37.0) g/dL RDW 13.3 (11.5-15.5) % Plt Count 361 (150-450) k/uL Neutrophils % 65 % Lymphocytes % 25 % Monocytes % 4 % Eosinophils % 4 % Basophils % 1 % Neutrophils # 6.4 (1.3-7.7) k/uL Lymphocytes # 2.5 (1.0-4.8) k/uL Monocytes # 0.4 (0-1.0) k/uL Eosinophils # 0.4 (0-0.7) k/uL Basophils # 0.1 (0-0.2) k/uL Sodium 141 (137-145) mmol/L Potassium 4.5 (3.5-5.1) mmol/L Chloride 106 (98-107) mmol/L Carbon Dioxide 25 (22-30) mmol/L Anion Gap 10 mmol/L BUN 9 (7-17) mg/dL Creatinine 0.64 (0.52-1.04) mg/dL Est GFR (MDRD) Af Amer >60 (>60 ml/min/1.73 sqM) Est GFR (MDRD) Non-Af >60 (>60 ml/min/1.73 sqM) Glucose 93 (74-99) mg/dL Calcium 9.4 (8.4-10.2) mg/dL Total Bilirubin 0.6 (0.2-1.3) mg/dL AST 20 (14-36) U/L ALT 38 (9-52) U/L Alkaline Phosphatase 77 (38-126) U/L Total Protein 7.5 (6.3-8.2) g/dL Albumin 4.0 (3.5-5.0) g/dL Amylase 58 (30-110) U/L Lipase 99 (23-300) U/L Urine Color Yellow Urine Appearance Turbid H (Clear) Urine pH 6.5 (5.0-8.0) Ur Specific [place] 1.019 (1.001-1.035) Urine Protein 1+ H (Negative) Urine Glucose (UA) Negative (Negative) Urine Ketones Negative (Negative) Urine Blood Negative (Negative) Urine Nitrite Negative (Negative) Urine Bilirubin Negative (Negative) Urine Urobilinogen <2.0 (<2.0) mg/dL Ur Leukocyte Esterase Small H (Negative) Urine RBC 7 H (0-5) /hpf Ur Squamous Epith Cells 71 H (0-4) /hpf Amorphous Sediment Rare H (None) /hpf Urine Mucus Few H (None) /hpf Disposition Clinical Impression: Abdominal pain, Labial abscess, Nausea & vomiting Disposition: HOME SELF-CARE Condition: Stable Instructions: Abscess (ED), Abdominal Pain (ED) Additional Instructions: Please return to the Emergency Department if symptoms worsen or any other concerns. Prescriptions: Hydrocodone/Acetaminophen [Tangier 5-325] 1 tab PO Q6HR PRN #10 tab PRN Reason: Pain Ondansetron Odt [Zofran Odt] 4 mg PO Q8HR PRN #10 tab PRN Reason: Nausea Sulfamethox-Tmp 800-160Mg [Bactrim Ds] 1 each PO Q12HR #20 tab Referrals: Duke Hidalgo MD [Primary Care Provider] - 1-2 days Salma Abdalla MD [STAFF PHYSICIAN] - 1-2 days Time of Disposition: 12:21
[2017-01-30] MEDS ORDERED: MORPHINE SULFATE 2 MG/ML SYRINGE IVP ONE (12:04)
--- NOTE | 2017-01-30 12:04 | CT ---
EXAMINATION TYPE: CT abdomen pelvis w con DATE OF EXAM: 01/30/2017 COMPARISON: 01/22/17 HISTORY: RLQ pain CT DLP: 2196.5 mGycm CONTRAST: CT scan of the abdomen and pelvis is performed without Oral Contrast and with IV Contrast, patient in jected with 100 mL of Omnipaque 300. FINDINGS: LUNG BASES-: No visible nodule. No infiltrate. LIVER/GB: No calcified gallstones. No space occupying hepatic lesion. Biliary tree is of normal ca liber. PANCREAS: No inflammation. No distinct mass. SPLEEN: No splenic enlargement. No lesion seen. ADRENALS: No nodule. No thickening. KIDNEYS/BLADDER: No hydronephrosis. No nephrolithiasis. No disctinct renal mass. Urinary bladder g rossly unremarkable. BOWEL: Normal appendix. Normal bowel caliber. No inflammation. GENITAL ORGANS: No gross abnormality. LYMPH NODES: No greater than 1cm abdominal or pelvic lymph nodes are appreciated. AORTA: No significant abnormality. OSSEOUS STRUCTURES: No significant abnormality is seen. OTHER: No significant additional abnormality is seen. IMPRESSION: 1. Normal and stable abdomen and pelvis.
[2017-01-30 12:19] VITALS: BP 115/67; PULSE 80; RESP 18; TEMP 97.1
== END 2017-01-30 12:28 | disposition home or self-care (01) ==
LOC: EC 10:38
DX: N76.4 Abscess of vulva (principal); R11.2 Nausea with vomiting, unspecified; F17.200 Nicotine dependence, unspecified, uncomplicated; Z90.49 Acquired absence of other specified parts of digestive tract; Z98.51 Tubal ligation status
CPT/HCPCS: 99284; 96374; 96375; 96376; 96361; 36415; 80053; 82150; 83690; 85025; 81001; 74177; J2405; J2270; Q9967

== ENCOUNTER 2017-07-11 00:45 | Emergency (ER) | payer OTHER ==
[2017-07-11] MEDS ORDERED: KETOROLAC 30 MG/ML 1 ML VIAL IVP STA (01:06)
[2017-07-11] MEDS ORDERED: ONDANSETRON 4 MG/2 ML VIAL IVP STA (01:06)
[2017-07-11] MEDS ORDERED: SODIUM CHLORIDE 0.9% 1,000 ML IV STA (01:06)
--- NOTE | 2017-07-11 01:10 | ED ---
Abdominal Pain HPI - General Chief Complaint: Abdominal Pain Stated Complaint: abdominal pain Time Seen by Provider: 07/11/17 00:58 Source: patient Mode of arrival: ambulatory Limitations: no limitations - History of Present Illness Initial Comments: 37 year-old female patient presents to the emergency department today with complaints of right lower quadrant abdominal pain. Patient reports that the pain started a couple hours prior to arrival here. She describes the pain as a sharp stabbing pain in the right lower quadrant abdomen. She is currently rating it at a 10 out of 10 on the pain scale. She denies any radiation of the pain to her back. Patient states that over the last couple days she has been having frequent episodes of vomiting. States that throughout the day today she' s been very nauseated however has been able to keep down water. Patient does have a history of chronic abdominal pain, states that this pain is in the same location as her previous episodes. She states that she has been having diarrhea however this is not unusual for her. Patient states that she has been meaning to follow-up with GI specialist however there is always some problem with her insurance which prevents her from being able to follow through with the appointment. She last saw an [employer] in 2012. She denies any abnormal vaginal bleeding or discharge with this pain. She denies any dysuria, hematuria , urinary urgency, urinary frequency. She denies any fever or chills. Patient denies any recent rash, shortness breath, chest pain, back pain, numbness, tingling, dizziness, weakness, headache, visual changes, or any other complaints. - Related Data Home Medications Medication Instructions Recorded Confirmed No Known Home Medications [No 07/11/17 07/11/17 Known Home Medications] Allergies Allergy/AdvReac Type Severity Reaction Status Date / Time No Known Allergies Allergy Verified 07/11/17 00:53 Review of Systems ROS Statement: Those systems with pertinent positive or pertinent negative responses have been documented in the HPI. ROS Other: All systems not noted in ROS Statement are negative. 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 PT STATES OFF MEDICATIONS SINCE 13 Y/O AND LAST SEIZURE WAS 12 Y/O. History of Any Multi-Drug Resistant Organisms: None Reported Past Surgical History: Section, Cholecystectomy, Tubal Ligation Additional Past Surgical History / Comment(s): novasure, uterine ablation Past Anesthesia/Blood Transfusion Reactions: No Reported Reaction Past Psychological History: No Psychological Hx Reported Smoking Status: Current every day smoker Past Alcohol Use History: Occasional Past Drug Use History: None Reported - Past Family History Mother Family Medical History: No Reported History Additional Family Medical History / Comment(s): osteoporosis, COPD, "too much to recall" per pt Father Family Medical History: No Reported History General Exam Limitations: no limitations General appearance: alert, in no apparent distress, other (This is a well- developed, obese female patient in no acute distress. Vital signs upon presentation were temperature 98.6F, pulse 86, respirations 20, blood pressure 147/68, pulse ox 100% on room air.) Head exam: Present: atraumatic, normocephalic, normal inspection Eye exam: Present: normal appearance, PERRL, EOMI. Absent: scleral icterus, conjunctival injection, periorbital swelling ENT exam: Present: normal exam, normal oropharynx, mucous membranes moist Neck exam: Present: normal inspection. Absent: tenderness, meningismus, lymphadenopathy Respiratory exam: Present: normal lung sounds bilaterally. Absent: respiratory distress, wheezes, rales, rhonchi, stridor Cardiovascular Exam: Present: regular rate, normal rhythm, normal heart sounds. Absent: systolic murmur, diastolic murmur, rubs, gallop, clicks GI/Abdominal exam: Present: soft, tenderness (Right lower quadrant tenderness), normal bowel sounds. Absent: distended, guarding, rebound, rigid Back exam: Present: normal inspection. Absent: CVA tenderness (R), CVA tenderness (L) Neurological exam: Present: alert, oriented X3, CN II-XII intact Psychiatric exam: Present: normal affect, normal mood Skin exam: Present: warm, dry, intact, normal color. Absent: rash Course Vital Signs 07/11/17 07/11/17 00:46 02:50 Temperature 98.6 F 97.9 F Pulse Rate 86 77 Respiratory 20 15 Rate Blood Pressure 147/68 108/57 O2 Sat by Pulse 100 100 Oximetry Medical Decision Making - Medical Decision Making 37 year-old female patient presented to the emergency department today for complaints of right lower quadrant abdominal pain for the last couple of hours. Patient reported that she had been vomiting for the last couple of days. Physical examination did reveal some mild right lower quadrant abdominal tenderness. Labs are obtained and did show an elevated white blood cell count at 13.6. Urinalysis was unremarkable. KUB x-ray of the abdomen showed an overall nonobstructive bowel gas pattern. Patient does report that she has chronic abdominal pain. She states that the pain is usually in this location. She denies any change to the pain. Patient has had 4 CT scans of the abdomen and pelvis this year. I did discuss with her the risks versus benefits of repeat scanning. She again reports that the pain is in her usual location. She agreed not to undergo CT scanning today. I did discuss the importance of follow-up outpatient with her GI specialist as well as the [employer] for further evaluation of this pain. I did educate her regarding return parameters. She is instructed to return here immediate for any new, worsening, or concerning symptoms. She verbalizes understanding and agrees with this plan. - Lab Data Result diagrams: 07/11/17 01:13 07/11/17 01:13 Lab Results 07/11/17 07/11/17 07/11/17 Range/Units 01:09 01:13 01:13 WBC 13.6 H (3.8-10.6) k/uL RBC 4.19 (3.80-5.40) m/uL Hgb 12.3 (11.4-16.0) gm/dL Hct 40.4 (34.0-46.0) % MCV 96.2 (80.0-100.0) fL MCH 29.4 (25.0-35.0) pg MCHC 30.5 L (31.0-37.0) g/dL RDW 14.6 (11.5-15.5) % Plt Count 334 (150-450) k/uL Neutrophils % 63 % Lymphocytes % 27 % Monocytes % 4 % Eosinophils % 5 % Basophils % 1 % Neutrophils # 8.5 H (1.3-7.7) k/uL Lymphocytes # 3.6 (1.0-4.8) k/uL Monocytes # 0.6 (0-1.0) k/uL Eosinophils # 0.6 (0-0.7) k/uL Basophils # 0.1 (0-0.2) k/uL Sodium 140 (137-145) mmol/L Potassium 4.4 (3.5-5.1) mmol/L Chloride 105 (98-107) mmol/L Carbon Dioxide 24 (22-30) mmol/L Anion Gap 11 mmol/L BUN 10 (7-17) mg/dL Creatinine 0.70 (0.52-1.04) mg/dL Est GFR (MDRD) Af Amer >60 (>60 ml/min/1.73 sqM) Est GFR (MDRD) Non-Af >60 (>60 ml/min/1.73 sqM) Glucose 104 H (74-99) mg/dL Plasma Lactic Acid Saúl (0.7-2.0) mmol/L Calcium 9.4 (8.4-10.2) mg/dL Total Bilirubin 0.3 (0.2-1.3) mg/dL AST 24 (14-36) U/L ALT 45 (9-52) U/L Alkaline Phosphatase 74 (38-126) U/L Total Protein 7.5 (6.3-8.2) g/dL Albumin 4.0 (3.5-5.0) g/dL Amylase 65 (30-110) U/L Lipase 154 (23-300) U/L Urine Color Yellow Urine Appearance Turbid H (Clear) Urine pH 7.0 (5.0-8.0) Ur Specific [place] 1.019 (1.001-1.035) Urine Protein Trace H (Negative) Urine Glucose (UA) Negative (Negative) Urine Ketones Negative (Negative) Urine Blood Negative (Negative) Urine Nitrite Negative (Negative) Urine Bilirubin Negative (Negative) Urine Urobilinogen 2.0 (<2.0) mg/dL Ur Leukocyte Esterase Negative (Negative) Ur Squamous Epith Cells 17 H (0-4) /hpf Urine Bacteria Many H (None) /hpf Urine Mucus Moderate H (None) /hpf 18 Range/Units 01:13 WBC (3.8-10.6) k/uL RBC (3.80-5.40) m/uL Hgb (11.4-16.0) gm/dL Hct (34.0-46.0) % MCV (80.0-100.0) fL MCH (25.0-35.0) pg MCHC (31.0-37.0) g/dL RDW (11.5-15.5) % Plt Count (150-450) k/uL Neutrophils % % Lymphocytes % % Monocytes % % Eosinophils % % Basophils % % Neutrophils # (1.3-7.7) k/uL Lymphocytes # (1.0-4.8) k/uL Monocytes # (0-1.0) k/uL Eosinophils # (0-0.7) k/uL Basophils # (0-0.2) k/uL Sodium (137-145) mmol/L Potassium (3.5-5.1) mmol/L Chloride (98-107) mmol/L Carbon Dioxide (22-30) mmol/L Anion Gap mmol/L BUN (7-17) mg/dL Creatinine (0.52-1.04) mg/dL Est GFR (MDRD) Af Amer (>60 ml/min/1.73 sqM) Est GFR (MDRD) Non-Af (>60 ml/min/1.73 sqM) Glucose (74-99) mg/dL Plasma Lactic Acid Saú[place] 1.0 (0.7-2.0) mmol/L Calcium (8.4-10.2) mg/dL Total Bilirubin (0.2-1.3) mg/dL AST (14-36) U/L ALT (9-52) U/L Alkaline Phosphatase (38-126) U/L Total Protein (6.3-8.2) g/dL Albumin (3.5-5.0) g/dL Amylase (30-110) U/L Lipase (23-300) U/L Urine Color Urine Appearance (Clear) Urine pH (5.0-8.0) Ur Specific [place] (1.001-1.035) Urine Protein (Negative) Urine Glucose (UA) (Negative) Urine Ketones (Negative) Urine Blood (Negative) Urine Nitrite (Negative) Urine Bilirubin (Negative) Urine Urobilinogen (<2.0) mg/dL Ur Leukocyte Esterase (Negative) Ur Squamous Epith Cells (0-4) /hpf Urine Bacteria (None) /hpf Urine Mucus (None) /hpf - Radiology Data Radiology results: report reviewed, image reviewed Two-view x-ray of the abdomen shows no sign of intestinal obstruction or pneumoperitoneum. Fecal pattern is normal. Lung bases are clear. There are clips from cholecystectomy. There are no pathologic calcifications over the kidneys. Impression by Dr. Ostermann shows nonacute abdomen with no change. Disposition Clinical Impression: Abdominal pain Disposition: HOME SELF-CARE Condition: Good Instructions: Abdominal Pain (ED) Additional Instructions: Increase fluids. Follow up with GI specialty and [facility] [facility] as soon as possible. Follow up with your primary care physician for recheck in 1-2 days. Return here immediately for any new, worsening, or concerning symptoms. Referrals: Duke Hidalgo MD [Primary Care Provider] - 1-2 days Time of Disposition: 02:53
[2017-07-11 01:28] LABS: Appearance,Urine Turbid (Clear); Bacteria,Urine Many /hpf; Bilirubin,Urine Negative (Negative); Blood,Urine Negative (Negative); Color,Urine Yellow; Glucose,Urine (UA) Negative (Negative); Ketones,Urine Negative (Negative); Leukocyte Esterase,Urine Negative (Negative); Mucus,Urine Moderate /hpf; Nitrite,Urine Negative (Negative); Protein,Urine Trace (Negative); Specific Gravity,Urine 1.019 (1.001-1.035); Squamous Epithelial Cell,Urine 17 /hpf (0-4)
[2017-07-11 01:30] LABS: Basophils # (A) 0.1 k/uL (0-0.2); Basophils % (A) 1 %; Eosinophils # (A) 0.6 k/uL (0-0.7); Eosinophils % (A) 5 %; HCT 40.4 % (34.0-46.0); HGB 12.3 gm/dL (11.4-16.0); Lymphocytes # (A) 3.6 k/uL (1.0-4.8); Lymphocytes % (A) 27 %; MCH 29.4 pg (25.0-35.0); MCHC 30.5 g/dL (31.0-37.0); MCV 96.2 fL (80.0-100.0); Mean Platelet Volume 6.9; Monocytes # (A) 0.6 k/uL (0-1.0); Monocytes % (A) 4 %; Neutrophils # (A) 8.5 k/uL (1.3-7.7); Neutrophils % (A) 63 %; Platelet Count 334 k/uL (150-450); RBC 4.19 m/uL (3.80-5.40); RDW 14.6 % (11.5-15.5); WBC 13.6 k/uL (3.8-10.6)
[2017-07-11 01:36] LABS: ALT 45 U/L (9-52); AST 24 U/L (14-36); Alkaline Phosphatase 74 U/L (38-126); Amylase 65 U/L (30-110); Anion Gap 11 mmol/L; Blood Urea Nitrogen 10 mg/dL (7-17); Calcium 9.4 mg/dL (8.4-10.2); Carbon Dioxide 24 mmol/L (22-30); Chloride 105 mmol/L (98-107); Glucose 104 mg/dL (74-99); Lipase 154 U/L (23-300); Potassium 4.4 mmol/L (3.5-5.1); Sodium 140 mmol/L (137-145); Total Bilirubin 0.3 mg/dL (0.2-1.3); Total Protein 7.5 g/dL (6.3-8.2)
--- NOTE | 2017-07-11 01:58 | XR ---
EXAMINATION TYPE: XR KUB DATE OF EXAM: 07/11/2017 COMPARISON: NONE HISTORY: Right lower quadrant pain TECHNIQUE: 2 views FINDINGS: There is no sign of intestinal obstruction or pneumoperitoneum. Fecal pattern is normal. Martha ng bases are clear. There are clips from cholecystectomy. There are no pathologic calcifications over the kidneys. IMPRESSION: Nonacute abdomen. No change.
[2017-07-11 23:16] VITALS: BP 108/57; PULSE 77; RESP 15; TEMP 97.9
== END 2017-07-11 03:00 | disposition home or self-care (01) ==
LOC: EC 00:45
DX: R19.7 Diarrhea, unspecified (principal); R10.31 Right lower quadrant pain; R11.2 Nausea with vomiting, unspecified; F17.200 Nicotine dependence, unspecified, uncomplicated; Z90.49 Acquired absence of other specified parts of digestive tract; Z98.51 Tubal ligation status
CPT/HCPCS: 99284 ×2; 96374 ×2; 96375 ×2; 96361 ×2; 36415; 80053; 82150; 83605; 83690; 85025; 81001; 74018; J2405; J1885

== ENCOUNTER 2017-07-14 11:42 | Emergency (ER) | payer OTHER ==
[2017-07-14 11:48] VITALS: BP 118/72; PULSE 79; RESP 18; TEMP 98.8
[2017-07-14] MEDS ORDERED: IBUPROFEN 600 MG TAB PO STA (12:06)
--- NOTE | 2017-07-14 12:10 | ED ---
General Adult HPI - General Chief complaint: Upper Respiratory Infection Stated complaint: Abd Pain, Throat Pain Time Seen by Provider: 07/14/17 12:03 Source: patient, RN notes reviewed Mode of arrival: ambulatory Limitations: no limitations - History of Present Illness Initial comments: 37-year-old female presents to the emergency department with a chief complaint of cough cold like symptoms. Patient has been sick for the past 2 days. She states she's had a sore throat she's felt fatigued she had a cough and congestion. She denies any vomiting with this states she has felt some nausea. Patient does not know she's had a fever or not. Patient states she just does not feel very well so she thought that she should be seen. Patient denies getting the influenza vaccination this year. Patient states she is not currently having any other symptoms. Patient denies any recent shortness of breath, chest pain, back pain, abdominal pain, nausea vomiting, numbness or tingling, dysuria or hematuria, constipation or diarrhea, headaches or visual changes, or any other current symptoms. - Related Data Home Medications Medication Instructions Recorded Confirmed No Known Home Medications [No 07/11/17 07/14/17 Known Home Medications] Allergies Allergy/AdvReac Type Severity Reaction Status Date / Time No Known Allergies Allergy Verified 07/14/17 12:11 Review of Systems ROS Statement: Those systems with pertinent positive or pertinent negative responses have been documented in the HPI. ROS Other: All systems not noted in ROS Statement are negative. 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 PT STATES OFF MEDICATIONS SINCE 13 Y/O AND LAST SEIZURE WAS 12 Y/O. History of Any Multi-Drug Resistant Organisms: None Reported Past Surgical History: Section, Cholecystectomy, Tubal Ligation Additional Past Surgical History / Comment(s): novasure, uterine ablation Past Anesthesia/Blood Transfusion Reactions: No Reported Reaction Past Psychological History: No Psychological Hx Reported Smoking Status: Former smoker Past Alcohol Use History: Occasional Past Drug Use History: None Reported - Past Family History Mother Family Medical History: No Reported History Additional Family Medical History / Comment(s): osteoporosis, COPD, "too much to recall" per pt Father Family Medical History: No Reported History General Exam - General Exam Comments Initial Comments: General exam: Alert, active, comfortable in no apparent distress Head: Normocephalic Eyes: Normal reaction of pupils, equal size, normal range of extraocular motion Ears: normal external ear canals, pink tympanic membranes with normal cone of light Nose: clear with pink turbinates Throat: no erythema or exudates with normal sized tonsils Neck: no masses, no nuchal rigidity Chest: no chest wall deformity Lungs: equal air entry with no crackles or wheeze CVS: S1 and S2 normal with no audible mumurs, regular rhythm Abdomen: no hepatosplenomegaly, normal bowel sounds, no guarding or rigidity Spine: no scoliosis or deformity Skin: no rashes Neurological: No focal deficits, tone is normal in all 4 extremities Limitations: no limitations Course Vital Signs 07/14/17 11:45 Temperature 98.8 F Pulse Rate 79 Respiratory 18 Rate Blood Pressure 118/72 O2 Sat by Pulse 100 Oximetry Medical Decision Making - Medical Decision Making 37 yo female presents to the ER with cc of upper respiratory like symptoms. This time patient's chest x-ray and stress testing is reviewed and negative. At this time we did discuss Motrin Tylenol discussed [id number] cough cold relief. We discussed return parameters and follow-up and all questions. Patient stated that she understood and she is agreement this plan. All questions have been answered. She'll be discharged. - Lab Data Lab Results 07/14/17 07/14/17 Range/Units 12:21 12:21 Influenza Type A RNA Not Detected (Not Detectd) Influenza Type B (PCR) Not Detected (Not Detectd) Group A Strep Rapid Negative (Negative) - Radiology Data Radiology results: report reviewed, image reviewed Disposition Clinical Impression: Upper respiratory infection Disposition: HOME SELF-CARE Condition: Stable Instructions: Upper Respiratory Infection (ED) Additional Instructions: Please use medication as discussed. Please follow up with family doctor if symptoms have not improved over the next two days. Please return to the emergency room if your symptoms increase or worsen or for any other concerns. Referrals: Duke Hidalgo MD [Primary Care Provider] - 1-2 days Time of Disposition: 13:02
--- NOTE | 2017-07-14 12:30 | XR ---
EXAMINATION TYPE: XR chest 2V DATE OF EXAM: 07/14/2017 HISTORY: cough. REFERENCE: Previous study dated 08/30/2016. FINDINGS: The lungs are clear. Pleural spaces are clear. The heart is not enlarged. IMPRESSION: NORMAL CHEST.
== END 2017-07-14 13:12 | disposition home or self-care (01) ==
LOC: EC 11:42
DX: J06.9 Acute upper respiratory infection, unspecified (principal); R11.0 Nausea; Z87.891 Personal history of nicotine dependence
CPT/HCPCS: 71046; 87081; 87430; 87502; 99283

== ENCOUNTER 2017-07-19 23:57 | Emergency (ER) | payer OTHER ==
[2017-07-20] MEDS ORDERED: SODIUM CHLORIDE 0.9% 1,000 ML IV STA (00:17)
[2017-07-20] MEDS ORDERED: ONDANSETRON 4 MG/2 ML VIAL IVP STA (00:17)
[2017-07-20] MEDS ORDERED: HYDROmorphone 1 MG/ML 1 ML SYRINGE IVP STA (00:17)
--- NOTE | 2017-07-20 00:19 | ED ---
General Adult HPI - General Chief complaint: Abdominal Pain Stated complaint: Stomach Pain Time Seen by Provider: 07/20/17 00:12 Source: patient, RN notes reviewed, old records reviewed Mode of arrival: ambulatory Limitations: no limitations - History of Present Illness Initial comments: Patient 37-year-old female who presents emergency room today with a chief complaint of right-sided abdominal pain over the last week and a half. She doesn't that she had similar symptoms to this on and off over the last several months. She states she is scheduled see a GI specialist at the end of the month. She states that symptoms have been increasing over last week and a half with symptoms of nausea and vomiting as well. Some diarrhea as well. No signs of blood in the emesis or stool. Patient denies any other complaints or symptoms. Describes a sharp pain located in the right side of the abdomen. The pain that she's been experiencing in the past. Patient denies any recent fever, chills, shortness of breath, chest pain, back pain, numbness or tingling , dysuria or hematuria, constipation, headaches or visual changes, or any other complaints. - Related Data Previous Rx's Medication Instructions Recorded Dicyclomine [Bentyl] 20 mg PO QID #20 tablet 07/20/17 Ondansetron Odt [Zofran ODT] 4 mg PO Q8HR PRN #20 tab 07/20/17 Allergies Allergy/AdvReac Type Severity Reaction Status Date / Time No Known Allergies Allergy Verified 07/20/17 00:07 Review of Systems ROS Statement: Those systems with pertinent positive or pertinent negative responses have been documented in the HPI. ROS Other: All systems not noted in ROS Statement are negative. 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 PT STATES OFF MEDICATIONS SINCE 13 Y/O AND LAST SEIZURE WAS 12 Y/O. History of Any Multi-Drug Resistant Organisms: None Reported Past Surgical History: Section, Cholecystectomy, Tubal Ligation Additional Past Surgical History / Comment(s): novasure, uterine ablation Past Anesthesia/Blood Transfusion Reactions: No Reported Reaction Past Psychological History: No Psychological Hx Reported Smoking Status: Former smoker Past Alcohol Use History: Occasional Past Drug Use History: None Reported - Past Family History Mother Family Medical History: No Reported History Additional Family Medical History / Comment(s): osteoporosis, COPD, "too much to recall" per pt Father Family Medical History: No Reported History General Exam - General Exam Comments Initial Comments: General: The patient is awake and alert, in no distress, and does not appear acutely ill. Eye: Pupils are equal, round and reactive to light, extra-ocular movements are intact. No nystagmus. There is normal conjunctiva bilaterally. No signs of icterus. Ears, nose, mouth and throat: There are moist mucous membranes and no oral lesions. Neck: The neck is supple, there is no tenderness or JVD. Cardiovascular: There is a regular rate and rhythm. No murmur, rub or gallop is appreciated. Respiratory: Lungs are clear to auscultation, respirations are non-labored, breath sounds are equal. No wheezes, stridor, rales, or rhonchi. Gastrointestinal: Normal appearance abdomen. Normal bowel sounds. Soft on palpation. Patient does have tenderness in the right side of the abdomen on the right lower quadrant. No rebound tenderness. No CVA tenderness. Musculoskeletal: Normal ROM, no tenderness. Strength 5/5. Sensation intact. Pulses equal bilaterally 2+. Neurological: A&O x 3. CN II-XII intact, There are no obvious motor or sensory deficits. Coordination appears grossly intact. Speech is normal. Skin: Skin is warm and dry and no rashes or lesions are noted. Psychiatric: Cooperative, appropriate mood & affect, normal judgment. Limitations: no limitations Course Vital Signs 07/20/17 00:07 Temperature 98.6 F Pulse Rate 109 H Respiratory 20 Rate Blood Pressure 150/63 O2 Sat by Pulse 100 Oximetry Medical Decision Making - Medical Decision Making Patient was reviewed and negative lactic acid. White count 10.8. No fever here the emergency room. Patient resting comfortably at this time. Options of CT were discussed. Stop she is resting comfortably in this at this is same symptoms that she's been experiencing. She is supposed to follow-up with GI later in the month. She is advised follow-up in by calling to see if there is a regular appointment. She'll be treated for her symptoms of the nausea vomiting diarrhea with Bentyl and Zofran. Advised return if symptoms increase worsen. - Lab Data Result diagrams: 07/20/17 00:59 07/20/17 00:59 Lab Results 07/20/17 07/20/17 07/20/17 Range/Units 00:59 00:59 00:59 WBC 10.8 H (3.8-10.6) k/uL RBC 3.98 (3.80-5.40) m/uL Hgb 12.1 (11.4-16.0) gm/dL Hct 36.6 (34.0-46.0) % MCV 92.0 (80.0-100.0) fL MCH 30.3 (25.0-35.0) pg MCHC 32.9 (31.0-37.0) g/dL RDW 13.5 (11.5-15.5) % Plt Count 338 (150-450) k/uL Neutrophils % 62 % Lymphocytes % 28 % Monocytes % 5 % Eosinophils % 4 % Basophils % 1 % Neutrophils # 6.7 (1.3-7.7) k/uL Lymphocytes # 3.0 (1.0-4.8) k/uL Monocytes # 0.5 (0-1.0) k/uL Eosinophils # 0.5 (0-0.7) k/uL Basophils # 0.1 (0-0.2) k/uL Sodium 144 (137-145) mmol/L Potassium 4.2 (3.5-5.1) mmol/L Chloride 108 H (98-107) mmol/L Carbon Dioxide 26 (22-30) mmol/L Anion Gap 10 mmol/L BUN 11 (7-17) mg/dL Creatinine 0.80 (0.52-1.04) mg/dL Est GFR (MDRD) Af Amer >60 (>60 ml/min/1.73 sqM) Est GFR (MDRD) Non-Af >60 (>60 ml/min/1.73 sqM) Glucose 101 H (74-99) mg/dL Plasma Lactic Acid Saúl (0.7-2.0) mmol/L Calcium 9.0 (8.4-10.2) mg/dL Total Bilirubin 0.2 (0.2-1.3) mg/dL AST 21 (14-36) U/L ALT 36 (9-52) U/L Alkaline Phosphatase 63 (38-126) U/L Total Protein 6.9 (6.3-8.2) g/dL Albumin 3.7 (3.5-5.0) g/dL Amylase 72 (30-110) U/L Lipase 175 (23-300) U/L Urine Color Urine Appearance (Clear) Urine pH (5.0-8.0) Ur Specific [place] (1.001-1.035) Urine Protein (Negative) Urine Glucose (UA) (Negative) Urine Ketones (Negative) Urine Blood (Negative) Urine Nitrite (Negative) Urine Bilirubin (Negative) Urine Urobilinogen (<2.0) mg/dL Ur Leukocyte Esterase (Negative) Urine HCG, Qual Not Detected (Not Detectd) 07/20/17 07/20/17 Range/Units 00:59 00:59 WBC (3.8-10.6) k/uL RBC (3.80-5.40) m/uL Hgb (11.4-16.0) gm/dL Hct (34.0-46.0) % MCV (80.0-100.0) fL MCH (25.0-35.0) pg MCHC (31.0-37.0) g/dL RDW (11.5-15.5) % Plt Count (150-450) k/uL Neutrophils % % Lymphocytes % % Monocytes % % Eosinophils % % Basophils % % Neutrophils # (1.3-7.7) k/uL Lymphocytes # (1.0-4.8) k/uL Monocytes # (0-1.0) k/uL Eosinophils # (0-0.7) k/uL Basophils # (0-0.2) k/uL Sodium (137-145) mmol/L Potassium (3.5-5.1) mmol/L Chloride (98-107) mmol/L Carbon Dioxide (22-30) mmol/L Anion Gap mmol/L BUN (7-17) mg/dL Creatinine (0.52-1.04) mg/dL Est GFR (MDRD) Af Amer (>60 ml/min/1.73 sqM) Est GFR (MDRD) Non-Af (>60 ml/min/1.73 sqM) Glucose (74-99) mg/dL Plasma Lactic Acid Saúl 1.1 (0.7-2.0) mmol/L Calcium (8.4-10.2) mg/dL Total Bilirubin (0.2-1.3) mg/dL AST (14-36) U/L ALT (9-52) U/L Alkaline Phosphatase (38-126) U/L Total Protein (6.3-8.2) g/dL Albumin (3.5-5.0) g/dL Amylase (30-110) U/L Lipase (23-300) U/L Urine Color Yellow Urine Appearance Clear (Clear) Urine pH 6.0 (5.0-8.0) Ur Specific [place] 1.023 (1.001-1.035) Urine Protein Trace H (Negative) Urine Glucose (UA) Negative (Negative) Urine Ketones Negative (Negative) Urine Blood Negative (Negative) Urine Nitrite Negative (Negative) Urine Bilirubin Negative (Negative) Urine Urobilinogen 3.0 (<2.0) mg/dL Ur Leukocyte Esterase Negative (Negative) Urine HCG, Qual (Not Detectd) Disposition Clinical Impression: Nausea vomiting and diarrhea Disposition: HOME SELF-CARE Condition: Good Instructions: Acute Nausea and Vomiting (ED) Additional Instructions: Please use medication as discussed. Please follow-up with GI/ family doctor in the next 2 days of symptoms have not improved. Please return to emergency room if the symptoms increase or worsen or for any other concerns. Prescriptions: Dicyclomine [Bentyl] 20 mg PO QID #20 tablet Ondansetron Odt [Zofran ODT] 4 mg PO Q8HR PRN #20 tab PRN Reason: Nausea Referrals: Duke Hidalgo MD [Primary Care Provider] - 1-2 days Salma Abdalla MD [STAFF PHYSICIAN] - 1-2 days Time of Disposition: 02:13
[2017-07-20 01:11] LABS: Appearance,Urine Clear (Clear); Basophils # (A) 0.1 k/uL (0-0.2); Basophils % (A) 1 %; Bilirubin,Urine Negative (Negative); Blood,Urine Negative (Negative); Color,Urine Yellow; Eosinophils # (A) 0.5 k/uL (0-0.7); Eosinophils % (A) 4 %; Glucose,Urine (UA) Negative (Negative); HCT 36.6 % (34.0-46.0); HGB 12.1 gm/dL (11.4-16.0); Ketones,Urine Negative (Negative); Leukocyte Esterase,Urine Negative (Negative); Lymphocytes % (A) 28 %; MCH 30.3 pg (25.0-35.0); MCHC 32.9 g/dL (31.0-37.0); Mean Platelet Volume 7.1; Monocytes # (A) 0.5 k/uL (0-1.0); Monocytes % (A) 5 %; Neutrophils # (A) 6.7 k/uL (1.3-7.7); Neutrophils % (A) 62 %; Nitrite,Urine Negative (Negative); Platelet Count 338 k/uL (150-450); Protein,Urine Trace (Negative); RBC 3.98 m/uL (3.80-5.40); RDW 13.5 % (11.5-15.5); Specific Gravity,Urine 1.023 (1.001-1.035); WBC 10.8 k/uL (3.8-10.6)
[2017-07-20 01:22] LABS: ALT 36 U/L (9-52); AST 21 U/L (14-36); Albumin 3.7 g/dL (3.5-5.0); Alkaline Phosphatase 63 U/L (38-126); Amylase 72 U/L (30-110); Anion Gap 10 mmol/L; Blood Urea Nitrogen 11 mg/dL (7-17); Carbon Dioxide 26 mmol/L (22-30); Chloride 108 mmol/L (98-107); Glucose 101 mg/dL (74-99); Lipase 175 U/L (23-300); Potassium 4.2 mmol/L (3.5-5.1); Sodium 144 mmol/L (137-145); Total Bilirubin 0.2 mg/dL (0.2-1.3); Total Protein 6.9 g/dL (6.3-8.2)
--- NOTE | 2017-07-20 01:29 | XR ---
EXAMINATION TYPE: XR KUB DATE OF EXAM: 07/20/2017 COMPARISON: 07/11/2017 HISTORY: Abdominal pain TECHNIQUE: 2 views 2 upright views were obtained. FINDINGS: There is no sign of intestinal obstruction or pneumoperitoneum. Fecal pattern is normal. Th ere is no sign of a mass. There are clips from cholecystectomy. There are no pathologic calcification s over the kidneys. IMPRESSION: Nonacute abdomen. No adverse change compared to old exam.
[2017-07-20 02:37] VITALS: BP 126/62; PULSE 82; RESP 19; TEMP 97.9
== END 2017-07-20 02:37 | disposition home or self-care (01) ==
LOC: EC 23:57
DX: R11.2 Nausea with vomiting, unspecified (principal); R19.7 Diarrhea, unspecified; Z90.49 Acquired absence of other specified parts of digestive tract; Z98.51 Tubal ligation status; Z87.891 Personal history of nicotine dependence
CPT/HCPCS: 36415; 80053; 82150; 83605; 83690; 85025; 81003; 81025; 74018; 99284; 96374; 96375; 96361 ×2; J2405; J1170

== ENCOUNTER 2017-08-03 00:24 | Emergency (ER) | payer OTHER ==
[2017-08-03 00:46] VITALS: BP 115/66; PULSE 100; RESP 18; TEMP 99.4
[2017-08-03] MEDS ORDERED: ACET/COD 300 MG/30 MG STARTER PACK 6 TAB BTL PO STA (01:17)
--- NOTE | 2017-08-03 01:18 | ED ---
ENT HPI - General Chief complaint: Dental/Oral Stated complaint: Dental Abcess Time Seen by Provider: 08/03/17 00:48 Source: patient, RN notes reviewed, old records reviewed Mode of arrival: ambulatory Limitations: no limitations - History of Present Illness Initial comments: Patient is a 37-year-old female chief complaint of right lower dental pain for the past week. She reports she's been taking amoxicillin over the past 2 days that she's had left over from previous anabiotic prescriptions. She reports it is now formed an abscess. She states she's had a foul taste in her mouth. She reports that she's noticed some swelling over the right lower jaw. She denies any difficulty breathing denies any difficulty swallowing. Denies any chest pain, shortness of breath, nausea or vomiting. - Related Data Previous Rx's Medication Instructions Recorded Dicyclomine [Bentyl] 20 mg PO QID #20 tablet 07/20/17 Ondansetron Odt [Zofran ODT] 4 mg PO Q8HR PRN #20 tab 07/20/17 Acetaminophen-Codeine 300-30mg 1 tab PO Q8H PRN #20 tablet 08/03/17 [Tylenol #3] Clindamycin [Cleocin] 450 mg PO TID 7 Days capsule 08/03/17 Allergies Allergy/AdvReac Type Severity Reaction Status Date / Time No Known Allergies Allergy Verified 08/03/17 00:46 Review of Systems ROS Statement: Those systems with pertinent positive or pertinent negative responses have been documented in the HPI. ROS Other: All systems not noted in ROS Statement are negative. 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 PT STATES OFF MEDICATIONS SINCE 13 Y/O AND LAST SEIZURE WAS 12 Y/O. History of Any Multi-Drug Resistant Organisms: None Reported Past Surgical History: Section, Cholecystectomy, Tubal Ligation Additional Past Surgical History / Comment(s): novasure, uterine ablation Past Anesthesia/Blood Transfusion Reactions: No Reported Reaction Past Psychological History: ADD/ADHD Smoking Status: Current every day smoker Past Alcohol Use History: Occasional Past Drug Use History: None Reported - Past Family History Mother Family Medical History: No Reported History Additional Family Medical History / Comment(s): osteoporosis, COPD, "too much to recall" per pt Father Family Medical History: No Reported History General Exam - General Exam Comments Initial Comments: Well-appearing 37 rolled female. No acute distress. Limitations: no limitations General appearance: alert, in no apparent distress Head exam: Present: atraumatic, normocephalic, normal inspection Eye exam: Present: normal appearance, PERRL, EOMI. Absent: scleral icterus, conjunctival injection, periorbital swelling ENT exam: Present: normal exam, mucous membranes moist. Absent: normal oropharynx (Patient is poor dentition. Patient has evidence of a dental abscess over tooth #30.) Neck exam: Present: normal inspection. Absent: tenderness, meningismus, lymphadenopathy Respiratory exam: Present: normal lung sounds bilaterally. Absent: respiratory distress, wheezes, rales, rhonchi, stridor Cardiovascular Exam: Present: regular rate, normal rhythm, normal heart sounds. Absent: systolic murmur, diastolic murmur, rubs, gallop, clicks GI/Abdominal exam: Present: soft, normal bowel sounds. Absent: distended, tenderness, guarding, rebound, rigid Extremities exam: Present: normal inspection, full ROM, normal capillary refill. Absent: tenderness, pedal edema, joint swelling, calf tenderness Back exam: Present: normal inspection Neurological exam: Present: alert, oriented X3, CN II-XII intact Psychiatric exam: Present: normal affect, normal mood Course Vital Signs 08/03/17 00:41 Temperature 99.4 F Pulse Rate 100 Respiratory 18 Rate Blood Pressure 115/66 O2 Sat by Pulse 98 Oximetry Procedures - Incision & Drainage Site: oral (Dental abscess around tooth #30) I&D Drainage Obtained: Pus, Blood Patient Tolerated Procedure: well Medical Decision Making - Medical Decision Making Patient showed [employer] chief complaint of right lower dental pain and swelling, abscess to tooth #30. She reports she is taking amoxicillin for the past few days. This is left over from previous anabiotic prescription. The same patient does have an abscess, drained with an 18-gauge needle. Patient reports that she does have some pain relief afterwards. Purulent fluid is expressed from the gum surrounding the tooth. Patient has no evidence of significant swelling within the lower jaw, not consistent with Benja's angina or any other concerning signs or symptoms. She has no fever. Patient will be started on clindamycin. I discussed taking Motrin and will write the patient for pain medication. Discussed following up with dentist in return parameters were discussed. Disposition Clinical Impression: Dental abscess Disposition: HOME SELF-CARE Condition: Good Instructions: Dental Abscess (ED) Additional Instructions: Advised to follow-up promptly with primary care physician and dentist. Take the medications as directed. Return to the emergency department if any alarming signs or symptoms occur. Prescriptions: Acetaminophen-Codeine 300-30mg [Tylenol #3] 1 tab PO Q8H PRN #20 tablet PRN Reason: Pain Clindamycin [Cleocin] 450 mg PO TID 7 Days capsule Referrals: Duke Hidalgo MD [Primary Care Provider] - 1-2 days Time of Disposition: 01:17
== END 2017-08-03 01:33 | disposition home or self-care (01) ==
LOC: EC 00:24
DX: K04.7 Periapical abscess without sinus (principal); F17.200 Nicotine dependence, unspecified, uncomplicated
CPT/HCPCS: 41800; 99283

== ENCOUNTER → 2017-09-03 | Outpatient (CLI) | payer OTHER | LOC: RADMRIMAIN 17:53 | PROVIDERS: ATTEND Internal Medicine | DX: Z53.9 Procedure and treatment not carried out, unspecified reason (principal) ==

== ENCOUNTER → 2017-09-19 | Outpatient (CLI) | payer OTHER ==
--- NOTE | 2017-09-19 22:59 | MR ---
EXAMINATION TYPE: MR shoulder LT wo con DATE OF EXAM: 09/19/2017 COMPARISON: NONE HISTORY: 37-year-old female with left shoulder pain TECHNIQUE: Multiplanar, multisequence imaging of the left shoulder is performed without contrast. FINDINGS: There is some intermediate signal within the intracapsular portion of the long head biceps tendon. Th e tendon remains appropriately situated along the bicipital. The subscapularis tendon is intact. There is hypertrophic change at the acromioclavicular joint with moderate joint space narrowing, caps ular swelling, subchondral bone marrow edema, and adjacent mild soft tissue edema. Minimal edema is a lso seen along the coracoclavicular ligament remain intact. Curvilinear low signal is present at the clavicle, axial image 23, coronal image 9. Both supraspinatus and infraspinatus tendons are intact. No rotator cuff muscle atrophy. Trace effusion or thickening along the subacromial/subdeltoid bursa. There is some increased signal undercutting the chondral labral junction along the superior glenoid e xtending to the posterior aspect of the superior labrum. No paralabral cyst. No significant joint effusion. Articular cartilage is maintained. No Hill-Sachs deformity or os acromiale. IMPRESSION: 1. Some signal along the superior labrum could represent a small SLAP tear or a sublabral sulcus. Cli nically correlate. If concern for labral pathology, MR arthrogram can be performed. 2. Hypertrophic and degenerative changes at the degenerated AC joint. A low grade AC joint sprain and exacerbation of underlying osteoarthrosis are considerations. Given curvilinear low signal at the di stal clavicle just adjacent to the AC joint, a healing nondisplaced fracture is difficult to exclude. Correlate for any injury. 3. Trace subacromial/subdeltoid bursal effusion/bursitis. Minimal intracapsular long head biceps tend inosis. 4. No rotator cuff tear.
== END | disposition home or self-care (01) ==
LOC: RADMRIMAIN 18:22
PROVIDERS: ATTEND Internal Medicine
DX: S43.52XA Sprain of left acromioclavicular joint, initial encounter (principal); M19.012 Primary osteoarthritis, left shoulder; M89.312 Hypertrophy of bone, left shoulder; M67.814 Other specified disorders of tendon, left shoulder

== ENCOUNTER 2017-10-06 22:40 | Emergency (ER) | payer OTHER ==
[2017-10-06] MEDS ORDERED: ONDANSETRON 4 MG/2 ML VIAL IVP STA (23:06)
[2017-10-06] MEDS ORDERED: SODIUM CHLORIDE 0.9% 1,000 ML IV STA (23:06)
--- NOTE | 2017-10-06 23:22 | ED ---
Abdominal Pain HPI - General Chief Complaint: Abdominal Pain Stated Complaint: Stomach Pain/Vomiting Time Seen by Provider: 10/06/17 23:00 Source: patient, RN notes reviewed Mode of arrival: ambulatory Limitations: no limitations - History of Present Illness Initial Comments: This is a 37-year-old female who presents to the emergency department with chief complaint of abdominal pain and vomiting. Patient states that she's been experiencing abdominal pain, nausea and vomiting "for a while." She states that she does have a colonoscopy scheduled for Sunday. She states that she has had an increase in severity of her symptoms for the past 4 days. Denies any fevers or chills, chest pain or shortness of breath, dysuria or hematuria. She does state that she has diarrhea but that this is baseline for her. She states that she has taken nothing for her symptoms. She states that the pain is in the right lower quadrant and is sharp and stabbing in nature. She admits to multiple abdominal surgeries including 3 C-sections, cholecystectomy, tubal and uterine ablation. She states that her appetite has been decreased but she is still drinking fluids. - Related Data Previous Rx's Medication Instructions Recorded Dicyclomine [Bentyl] 20 mg PO QID #20 tablet 07/20/17 Ondansetron Odt [Zofran ODT] 4 mg PO Q8HR PRN #20 tab 07/20/17 Acetaminophen-Codeine 300-30mg 1 tab PO Q8H PRN #20 tablet 08/03/17 [Tylenol #3] Clindamycin [Cleocin] 450 mg PO TID 7 Days capsule 08/03/17 Allergies Allergy/AdvReac Type Severity Reaction Status Date / Time No Known Allergies Allergy Verified 10/06/17 22:46 Review of Systems ROS Statement: Those systems with pertinent positive or pertinent negative responses have been documented in the HPI. ROS Other: All systems not noted in ROS Statement are negative. 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 PT STATES OFF MEDICATIONS SINCE 13 Y/O AND LAST SEIZURE WAS 12 Y/O. History of Any Multi-Drug Resistant Organisms: None Reported Past Surgical History: Section, Cholecystectomy, Tubal Ligation Additional Past Surgical History / Comment(s): novasure, uterine ablation Past Anesthesia/Blood Transfusion Reactions: No Reported Reaction Past Psychological History: ADD/ADHD Smoking Status: Current every day smoker Past Alcohol Use History: Occasional Past Drug Use History: None Reported - Past Family History Mother Family Medical History: No Reported History Additional Family Medical History / Comment(s): osteoporosis, COPD, "too much to recall" per pt Father Family Medical History: No Reported History General Exam - General Exam Comments Initial Comments: General: Awake and alert, well-developed; in no apparent distress. Sitting comfortably in ED stretcher with the vomitus-filled basin. HEENT: Head atraumatic, normocephalic. Pupils are equal, round and reactive to light. Extraocular movements intact. Oropharynx moist without erythema or exudate. Neck: Supple. Normal ROM. Cardiovascular: Regular rate and rhythm. No murmurs, rubs or gallops. Chest symmetrical. Respiratory: Lungs clear to auscultation bilaterally. No wheezes, rales or rhonchi. Normal respiratory effort with no use of accessory muscles. Abdomen: Soft, non-distended. Tenderness on palpation of right lower and right mid abdomen. Mild guarding. No rigidity or rebound. Hypoactive bowel sounds 4 quadrants. Musculoskeletal: Normal ROM, no tenderness bilateral upper and lower extremities. Skin: [place], warm and dry without rashes or lesions. Neurological: Alert and oriented x3. CN II-XII grossly intact. Speech is fluent and answers are appropriate. No focal neuro deficits. Psychiatric: Normal mood and affect. No overt signs of depression or anxiety noted. Limitations: no limitations Course Vital Signs 10/06/17 22:44 Temperature 97.3 F L Pulse Rate 105 H Respiratory 20 Rate Blood Pressure 113/64 O2 Sat by Pulse 99 Oximetry - Reevaluation(s) Reevaluation #1: On reevaluation, patient's nausea has subsided. However, she does continue to complain of abdominal pain. Patient is tender in right lower quadrant. Computed tomography scan is ordered. 10/07/17 00:01 Medical Decision Making - Medical Decision Making This is a 37-year-old female presented to the emergency department chief complaint of abdominal pain and vomiting for the past 4 days. Patient does state that this has been an ongoing problem "for a while." She does have a colonoscopy scheduled for Sunday. Abdomen is soft however there is tenderness on palpation of the right lower quadrant. CBC, CMP and UA are unremarkable. On reevaluation, patient's nausea had subsided, however she did continue to complain of abdominal pain. A CT scan of the abdomen and pelvis was obtained. Computed tomography scan of abdomen and pelvis revealed no acute abnormalities. No adverse changes compared to old exam. Patient's vital signs are stable and she is in no acute distress. She's had no episodes of vomiting and is no longer experiencing nausea while in the emergency department. Patient will be given starter pack for Zofran. She will be discharged home. She is in agreement and voices understanding. All questions were answered. - Lab Data Result diagrams: 10/06/17 23:20 10/06/17 23:20 Lab Results 10/06/17 10/06/17 10/06/17 Range/Units 23:20 23:20 23:36 WBC 10.1 (3.8-10.6) k/uL RBC 3.97 (3.80-5.40) m/uL Hgb 12.3 (11.4-16.0) gm/dL Hct 35.7 (34.0-46.0) % MCV 89.8 (80.0-100.0) fL MCH 31.0 (25.0-35.0) pg MCHC 34.5 (31.0-37.0) g/dL RDW 12.8 (11.5-15.5) % Plt Count 349 (150-450) k/uL Neutrophils % 60 % Lymphocytes % 29 % Monocytes % 5 % Eosinophils % 5 % Basophils % 1 % Neutrophils # 6.0 (1.3-7.7) k/uL Lymphocytes # 2.9 (1.0-4.8) k/uL Monocytes # 0.5 (0-1.0) k/uL Eosinophils # 0.5 (0-0.7) k/uL Basophils # 0.1 (0-0.2) k/uL Sodium 144 (137-145) mmol/L Potassium 3.6 (3.5-5.1) mmol/L Chloride 108 H (98-107) mmol/L Carbon Dioxide 23 (22-30) mmol/L Anion Gap 13 mmol/L BUN 13 (7-17) mg/dL Creatinine 0.80 (0.52-1.04) mg/dL Est GFR (CKD-EPI)AfAm >90 (>60 ml/min/1.73 sqM) Est GFR (CKD-EPI)NonAf >90 (>60 ml/min/1.73 sqM) Glucose 116 H (74-99) mg/dL Calcium 9.6 (8.4-10.2) mg/dL Total Bilirubin 0.2 (0.2-1.3) mg/dL AST 19 (14-36) U/L ALT 27 (9-52) U/L Alkaline Phosphatase 68 (38-126) U/L Total Protein 6.9 (6.3-8.2) g/dL Albumin 3.6 (3.5-5.0) g/dL Amylase 64 (30-110) U/L Lipase 175 (23-300) U/L Urine Color Urine Appearance (Clear) Urine pH (5.0-8.0) Ur Specific [place] (1.001-1.035) Urine Protein (Negative) Urine Glucose (UA) (Negative) Urine Ketones (Negative) Urine Blood (Negative) Urine Nitrite (Negative) Urine Bilirubin (Negative) Urine Urobilinogen (<2.0) mg/dL Ur Leukocyte Esterase (Negative) Urine RBC (0-5) /hpf Urine WBC (0-5) /hpf Ur Squamous Epith Cells (0-4) /hpf Urine Mucus (None) /hpf Urine HCG, Qual Not Detected (Not Detectd) 10/06/17 Range/Units 23:36 WBC (3.8-10.6) k/uL RBC (3.80-5.40) m/uL Hgb (11.4-16.0) gm/dL Hct (34.0-46.0) % MCV (80.0-100.0) fL MCH (25.0-35.0) pg MCHC (31.0-37.0) g/dL RDW (11.5-15.5) % Plt Count (150-450) k/uL Neutrophils % % Lymphocytes % % Monocytes % % Eosinophils % % Basophils % % Neutrophils # (1.3-7.7) k/uL Lymphocytes # (1.0-4.8) k/uL Monocytes # (0-1.0) k/uL Eosinophils # (0-0.7) k/uL Basophils # (0-0.2) k/uL Sodium (137-145) mmol/L Potassium (3.5-5.1) mmol/L Chloride (98-107) mmol/L Carbon Dioxide (22-30) mmol/L Anion Gap mmol/L BUN (7-17) mg/dL Creatinine (0.52-1.04) mg/dL Est GFR (CKD-EPI)AfAm (>60 ml/min/1.73 sqM) Est GFR (CKD-EPI)NonAf (>60 ml/min/1.73 sqM) Glucose (74-99) mg/dL Calcium (8.4-10.2) mg/dL Total Bilirubin (0.2-1.3) mg/dL AST (14-36) U/L ALT (9-52) U/L Alkaline Phosphatase (38-126) U/L Total Protein (6.3-8.2) g/dL Albumin (3.5-5.0) g/dL Amylase (30-110) U/L Lipase (23-300) U/L Urine Color Yellow Urine Appearance Cloudy H (Clear) Urine pH 5.5 (5.0-8.0) Ur Specific [place] 1.027 (1.001-1.035) Urine Protein Trace H (Negative) Urine Glucose (UA) Negative (Negative) Urine Ketones Negative (Negative) Urine Blood Negative (Negative) Urine Nitrite Negative (Negative) Urine Bilirubin Negative (Negative) Urine Urobilinogen 2.0 (<2.0) mg/dL Ur Leukocyte Esterase Trace H (Negative) Urine RBC 1 (0-5) /hpf Urine WBC 2 (0-5) /hpf Ur Squamous Epith Cells 18 H (0-4) /hpf Urine Mucus Few H (None) /hpf Urine HCG, Qual (Not Detectd) - Radiology Data Radiology results: report reviewed CT abdomen and pelvis with contrast impression: Negative computed tomography scan of the abdomen and pelvis. Normal appendix. I do not see a cause for right lower quadrant pain. No adverse change compared to old exam. Disposition Clinical Impression: Abdominal pain Disposition: HOME SELF-CARE Condition: Good Instructions: Abdominal Pain (ED) Additional Instructions: Please take medications as prescribed. Please follow up with primary care provider within 1-2 days. Return to emergency department if symptoms should worsen or any concerns arise. Referrals: Duke Hidalgo MD [Primary Care Provider] - 1-2 days Time of Disposition: 00:57
[2017-10-06 23:33] LABS: Basophils # (A) 0.1 k/uL (0-0.2); Basophils % (A) 1 %; Eosinophils # (A) 0.5 k/uL (0-0.7); Eosinophils % (A) 5 %; HCT 35.7 % (34.0-46.0); HGB 12.3 gm/dL (11.4-16.0); Lymphocytes # (A) 2.9 k/uL (1.0-4.8); Lymphocytes % (A) 29 %; MCHC 34.5 g/dL (31.0-37.0); MCV 89.8 fL (80.0-100.0); Mean Platelet Volume 6.6; Monocytes # (A) 0.5 k/uL (0-1.0); Monocytes % (A) 5 %; Neutrophils % (A) 60 %; Platelet Count 349 k/uL (150-450); RBC 3.97 m/uL (3.80-5.40); RDW 12.8 % (11.5-15.5); WBC 10.1 k/uL (3.8-10.6)
[2017-10-06 23:42] LABS: ALT 27 U/L (9-52); AST 19 U/L (14-36); Albumin 3.6 g/dL (3.5-5.0); Alkaline Phosphatase 68 U/L (38-126); Amylase 64 U/L (30-110); Anion Gap 13 mmol/L; Blood Urea Nitrogen 13 mg/dL (7-17); Calcium 9.6 mg/dL (8.4-10.2); Carbon Dioxide 23 mmol/L (22-30); Chloride 108 mmol/L (98-107); Glucose 116 mg/dL (74-99); Lipase 175 U/L (23-300); Potassium 3.6 mmol/L (3.5-5.1); Sodium 144 mmol/L (137-145); Total Bilirubin 0.2 mg/dL (0.2-1.3); Total Protein 6.9 g/dL (6.3-8.2)
[2017-10-06 23:49] LABS: Appearance,Urine Cloudy (Clear); Bilirubin,Urine Negative (Negative); Blood,Urine Negative (Negative); Color,Urine Yellow; Glucose,Urine (UA) Negative (Negative); Ketones,Urine Negative (Negative); Leukocyte Esterase,Urine Trace (Negative); Mucus,Urine Few /hpf; Nitrite,Urine Negative (Negative); PH, Urine 5.5 (5.0-8.0); Protein,Urine Trace (Negative); RBC,Urine 1 /hpf (0-5); Specific Gravity,Urine 1.027 (1.001-1.035); Squamous Epithelial Cell,Urine 18 /hpf (0-4); WBC,Urine 2 /hpf (0-5)
[2017-10-07] MEDS ORDERED: RX INFO: IV CONTRAST WAS GIVEN 1 EACH MISC MISCELLANE PRN
--- NOTE | 2017-10-07 00:39 | CT ---
EXAMINATION TYPE: CT abdomen pelvis w con DATE OF EXAM: 10/07/2017 COMPARISON: 01/30/2017 HISTORY: Prior on synapse, RLQ abd pain, hx of cholecystectomy, x3, and tubal ligation CT DLP: 2531.90 mGycm Automated exposure control for dose reduction was used. TECHNIQUE: Helical acquisition of images was performed from the lung bases through the pelvis. CONTRAST: Performed without Oral Contrast and with IV Contrast, patient injected with 100 mL of Isovue 300. FINDINGS: Lung bases are clear. There is no pleural effusion. Liver spleen pancreas appear normal. There are clips from cholecystectomy. Bile ducts are not dilated . There is no adrenal mass. Kidneys show satisfactory contrast opacification. There is no hydronephrosi s. There is no retroperitoneal adenopathy. Appendix appears normal. There is no ascites. Bladder dist ends smoothly. Uterus appears normal. Uterus is anteverted. I see no bony destructive process. I see no intestinal wall thickening. There are no dilated loops. IMPRESSION: NEGATIVE CT SCAN OF THE ABDOMEN AND PELVIS. NORMAL APPENDIX. I DO NOT SEE A CAUSE FOR RIGHT LOWER FREDDY DRANT PAIN. NO ADVERSE CHANGE COMPARED TO OLD EXAM.
[2017-10-07] MEDS ORDERED: KETOROLAC 30 MG/ML 1 ML VIAL IVP STA (00:43)
[2017-10-07] MEDS ORDERED: ONDANSETRON 4 MG ODT STARTER PACK 2 TAB BTL PO STA (00:55)
[2017-10-07 01:00] VITALS: BP 122/60; PULSE 85; RESP 18; TEMP 97.8
== END 2017-10-07 01:16 | disposition home or self-care (01) ==
LOC: EC 22:40
DX: R10.31 Right lower quadrant pain (principal); R11.2 Nausea with vomiting, unspecified; F17.200 Nicotine dependence, unspecified, uncomplicated; Z90.49 Acquired absence of other specified parts of digestive tract
CPT/HCPCS: 99284; 96374; 96375; 96361 ×2; 36415; 80053; 82150; 83690; 85025; 81001; 81025; 87086; 74177; J2405; J1885; S0119; Q9967

== ENCOUNTER 2017-10-09 12:49 | Day surgery (SDC) | payer OTHER ==
[2017-10-08 08:40] VITALS: BMI 40.3
[~2017-10-09 12:49] MED LIST: LACTATED RINGERS 1,000 ML IV SCH
[2017-10-09 13:59] VITALS: TEMP 98.3
[2017-10-09] MEDS ORDERED: LIDOCAINE 1% INJ 10MG/ML (20 ML MDV) ONE (15:10)
[2017-10-09] MEDS ORDERED: PROPOFOL 10 MG/ML 20 ML VIAL IV ONE (15:10)
[2017-10-09 15:56] VITALS: RESP 16
--- NOTE | 2017-10-09 15:59 | P.PCN ---
Date of Procedure: 10/09/17 Procedure(s) Performed: Procedure: 1. Esophagogastroduodenoscopy and biopsy. 2. Total colonoscopy and biopsy. Preoperative diagnosis: Intermittent diarrhea, rectal bleeding, nausea and vomiting. Postoperative diagnosis: 1. Mild gastritis and duodenitis. 2. Low-grade internal hemorrhoids not bleeding at the time of this exam, otherwise, exam of the colon and terminal ileum within normal limits. 3. Biopsies obtained from the duodenum, antrum, esophagus, terminal ileum and right colon. Preparation: HalfLytely prep. Sedation: Was provided by anesthesia. Brief clinical history: The patient is a 37-year-old female who was scheduled for this evaluation for the above reasons. Her symptoms are intermittent and has been present for the last few years with the nausea and vomiting getting worse lately. No extraintestinal manifestations of inflammatory bowel disease or family history of inflammatory bowel disease or neoplasia. Procedure: With the patient on her left lateral decubitus position and after informed consent and adequate sedation, I passed the Olympus-GIF 160 video upper endoscope through the cricopharyngeus down the esophagus. GE junction was around 40-41 cm from the incisors and there was no definite hiatal hernia. The endoscope was then Passed into the stomach which was insufflated with air and inspected in detail including the retroflex view in the cardia. Finally, the endoscope was passed through the pylorus into the duodenum. Pyloric channel did not show any ulcers. Duodenal bulb, post bulbar area and descending duodenum showed mild erythema. There was minimal mottling and erythema in the antrum but no ulcers or erosions. No obvious abnormalities were seen in the esophagus. Because of her symptoms, I obtained biopsies from the duodenum, antrum and esophagus then the endoscope was withdrawn and I proceeded with the colonoscopy. Perianal area did not show any fissures or fistulas. There were no masses felt on digital rectal examination. The Olympus CFQ 160L video colonoscope was then inserted in the rectum in the usual fashion and advanced to the cecum. I intubated the ileocecal valve and examined the terminal ileum. Terminal ileum and colon appeared healthy with no edema, erythema, friability, ulceration, exudation or spontaneous bleeding. There were no polyps or tumors seen or any obvious diverticular disease. I obtained biopsies from the terminal ileum and right colon then I retroflexed the endoscope in the rectum before the endoscope was withdrawn. Low-grade internal hemorrhoids were noted with no evidence of bleeding. The patient tolerated the procedure well. Plan: The patient was reassured. Will await biopsy results. Discussed dietary measures and local care for hemorrhoids. Further plans based on her course and biopsy results.
[2017-10-09 16:14] VITALS: BP 99/53; PULSE 70
== END 2017-10-09 17:05 | disposition home or self-care (01) ==
LOC: ORWHC2ENDO 12:49
DX: K29.80 Duodenitis without bleeding (principal); K21.0 Gastro-esophageal reflux disease with esophagitis; K31.9 Disease of stomach and duodenum, unspecified; K64.8 Other hemorrhoids; K29.70 Gastritis, unspecified, without bleeding; L40.9 Psoriasis, unspecified; F17.210 Nicotine dependence, cigarettes, uncomplicated; Z79.1 Long term (current) use of non-steroidal anti-inflammatories (NSAID); Z79.899 Other long term (current) drug therapy
CPT/HCPCS: 81025; 88305; 45380; 43239; J2001; J2704

== ENCOUNTER 2017-12-03 09:27 | Emergency (ER) | payer MEDICAID, OTHER ==
[2017-12-03 09:33] VITALS: BP 139/84; PULSE 87; RESP 18; TEMP 98.2
--- NOTE | 2017-12-03 10:04 | ED ---
General Adult HPI - General Chief complaint: ENT Stated complaint: Eye Swollen Time Seen by Provider: 12/03/17 09:53 Source: patient, RN notes reviewed Mode of arrival: ambulatory Limitations: no limitations - History of Present Illness Initial comments: Patient 37-year-old female presented to the emergency room today with chief complaint of possible stye to right eye. She states she noticed some pain locally to the area yesterday and she's had a stye in the past reminded her of this. She states she woke up with some swelling to the lower lid. She has also has some drainage coming from the area. She states it comes across over this morning that she had clean. Patient denies any visual changes. She denies any specific pain to the eye but does admit to some discomfort to the lower aspect of the right eyelid. Patient denies any other symptoms. Patient denies any recent fever, chills, shortness of breath, chest pain, back pain, abdominal pain, nausea or vomiting, numbness or tingling, dysuria or hematuria, constipation or diarrhea, headaches or visual changes, or any other complaints. - Related Data Home Medications Medication Instructions Recorded Confirmed Adipex (Unknown Dose) 1 tab PO DAILY 10/08/17 12/03/17 Ibuprofen [Motrin] 600 mg PO DAILY PRN 10/08/17 12/03/17 Previous Rx's Medication Instructions Recorded Erythromycin Ophth Oint [Romycin 1 applic RIGHT EYE QID #7 gm 12/03/17 Ophth Oint] Allergies Allergy/AdvReac Type Severity Reaction Status Date / Time No Known Allergies Allergy Verified 12/03/17 09:33 Review of Systems ROS Statement: Those systems with pertinent positive or pertinent negative responses have been documented in the HPI. ROS Other: All systems not noted in ROS Statement are negative. 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 PT STATES OFF MEDICATIONS SINCE 13 Y/O AND LAST SEIZURE WAS 12 Y/O. PSORIASIS., STATES HAVING DIARRHEA AND HX OF BLOOD IN STOOL. History of Any Multi-Drug Resistant Organisms: None Reported Past Surgical History: Section, Cholecystectomy, Tubal Ligation Additional Past Surgical History / Comment(s): novasure, uterine ablation Past Anesthesia/Blood Transfusion Reactions: No Reported Reaction Past Psychological History: ADD/ADHD Smoking Status: Current every day smoker Past Alcohol Use History: Occasional Past Drug Use History: None Reported - Past Family History Mother Family Medical History: No Reported History Additional Family Medical History / Comment(s): osteoporosis, COPD, "too much to recall" per pt Father Family Medical History: No Reported History General Exam - General Exam Comments Initial Comments: General: The patient is awake and alert, in no distress, and does not appear acutely ill. Eye: Pupils are equal, round and reactive to light, extra-ocular movements are intact. No nystagmus. There is normal conjunctiva bilaterally. No signs of icterus. There is some crusting around the eyelids. There is some moderate swelling to the lower lid of the right eye. There is a internal stye to the medial aspect of the right lower lid. Ears, nose, mouth and throat: There are moist mucous membranes and no oral lesions. Neck: The neck is supple, there is no tenderness or JVD. Musculoskeletal: Normal ROM, no tenderness. Strength 5/5. Sensation intact. Pulses equal bilaterally 2+. Neurological: A&O x 3. CN II-XII intact, There are no obvious motor or sensory deficits. Coordination appears grossly intact. Speech is normal. Skin: Skin is warm and dry and no rashes or lesions are noted. Psychiatric: Cooperative, appropriate mood & affect, normal judgment. Limitations: no limitations Course Vital Signs 12/03/17 09:31 Temperature 98.2 F Pulse Rate 87 Respiratory 18 Rate Blood Pressure 139/84 O2 Sat by Pulse 97 Oximetry Medical Decision Making - Medical Decision Making Patient's extraocular eye movements are intact there is no tenderness or pain. There is some crusting over the eyelid. There is a stye to the right lower lid was moderate swelling. Patient will be started on a erythromycin ointment. She is advised following up with the roentgenology teacher over the next 2 days if symptoms are not improving return here to emergency room if there is any increase or worsening symptoms. She states understanding. Disposition Clinical Impression: Stye Disposition: HOME SELF-CARE Condition: Good Instructions: [place]e (ED) Additional Instructions: Please use medication as discussed. Please follow-up with roentgenology teacher in the next 2 days of symptoms have not improved. Please return to emergency room if the symptoms increase or worsen or for any other concerns. Prescriptions: Erythromycin Ophth Oint [Romycin Ophth Oint] 1 applic RIGHT EYE QID #7 gm Is patient prescribed a controlled substance at d/c from ED?: No Referrals: Duke Hidalgo MD [Primary Care Provider] - 1-2 days Nasir Henriquez MD [STAFF PHYSICIAN] - 1-2 days Time of Disposition: 10:04
== END 2017-12-03 10:21 | disposition home or self-care (01) ==
LOC: EC 09:27
DX: H00.022 Hordeolum internum right lower eyelid (principal); F17.200 Nicotine dependence, unspecified, uncomplicated; Z79.899 Other long term (current) drug therapy
CPT/HCPCS: 99282

== ENCOUNTER 2018-02-09 08:09 | Emergency (ER) | payer MEDICAID, OTHER ==
[2018-02-09] MEDS ORDERED: ACETAMINOPHEN IV (For NPO) 1,000 MG in EMPTY BAG 1 BAG IVPB STA (08:26)
[2018-02-09] MEDS ORDERED: ONDANSETRON 4 MG/2 ML VIAL IVP STA (08:26)
--- NOTE | 2018-02-09 08:30 | ED ---
General Adult HPI - General Chief complaint: Abdominal Pain Stated complaint: RUQ Pain radiating to back Time Seen by Provider: 02/09/18 08:20 Source: patient, RN notes reviewed Mode of arrival: ambulatory Limitations: no limitations - History of Present Illness Initial comments: Patient 37-year-old female presenting to the emergency room today by EMS, with chief complaint of nausea vomiting diarrhea with abdominal pain. She does not that symptoms of nausea vomiting diarrhea started yesterday. States bowel pain began later in the night. Does describe it as a sharp pain located in the right lower quadrant radiating around to the back at times. Patient doesn't that she's had similar symptoms in the past. Ovarian cyst and colitis. Patient denies any signs of blood in the stool or emesis. She denies any other complaints. Patient denies any recent fever, chills, shortness of breath, chest pain, back pain, numbness or tingling, dysuria or hematuria, headaches or visual changes, or any other complaints. - Related Data Home Medications Medication Instructions Recorded Confirmed Adipex (Unknown Dose) 1 tab PO DAILY 10/08/17 12/03/17 Ibuprofen [Motrin] 600 mg PO DAILY PRN 10/08/17 12/03/17 Previous Rx's Medication Instructions Recorded Erythromycin Ophth Oint [Romycin 1 applic RIGHT EYE QID #7 gm 12/03/17 Ophth Oint] Ondansetron Odt [Zofran ODT] 4 mg PO Q8HR PRN #20 tab 02/09/18 Allergies Allergy/AdvReac Type Severity Reaction Status Date / Time No Known Allergies Allergy Verified 12/03/17 09:33 Review of Systems ROS Statement: Those systems with pertinent positive or pertinent negative responses have been documented in the HPI. ROS Other: All systems not noted in ROS Statement are negative. 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 PT STATES OFF MEDICATIONS SINCE 13 Y/O AND LAST SEIZURE WAS 12 Y/O. PSORIASIS., STATES HAVING DIARRHEA AND HX OF BLOOD IN STOOL. History of Any Multi-Drug Resistant Organisms: None Reported Past Surgical History: Section, Cholecystectomy, Tubal Ligation Additional Past Surgical History / Comment(s): novasure, uterine ablation Past Anesthesia/Blood Transfusion Reactions: No Reported Reaction Past Psychological History: ADD/ADHD Smoking Status: Current every day smoker Past Alcohol Use History: Occasional Past Drug Use History: None Reported - Past Family History Mother Family Medical History: No Reported History Additional Family Medical History / Comment(s): osteoporosis, COPD, "too much to recall" per pt Father Family Medical History: No Reported History General Exam - General Exam Comments Initial Comments: General: The patient is awake and alert, in no distress, and does not appear acutely ill. Eye: Pupils are equal, round and reactive to light, extra-ocular movements are intact. No nystagmus. There is normal conjunctiva bilaterally. No signs of icterus. Ears, nose, mouth and throat: There are moist mucous membranes and no oral lesions. Neck: The neck is supple, there is no tenderness or JVD. Cardiovascular: There is a regular rate and rhythm. No murmur, rub or gallop is appreciated. Respiratory: Lungs are clear to auscultation, respirations are non-labored, breath sounds are equal. No wheezes, stridor, rales, or rhonchi. Gastrointestinal: I'm and soft on palpation. Mild tenderness right lower quadrant and midline lower abdomen. No rebound, guarding. Mild right-sided CVA tenderness. Musculoskeletal: Normal ROM, no tenderness. Strength 5/5. Sensation intact. Pulses equal bilaterally 2+. Neurological: A&O x 3. CN II-XII intact, There are no obvious motor or sensory deficits. Coordination appears grossly intact. Speech is normal. Skin: Skin is warm and dry and no rashes or lesions are noted. Psychiatric: Cooperative, appropriate mood & affect, normal judgment. Limitations: no limitations Course Vital Signs 02/09/18 02/09/18 02/09/18 08:16 08:43 09:05 Temperature 98.4 F Pulse Rate 94 80 Respiratory 16 18 Rate Blood Pressure 126/84 123/56 O2 Sat by Pulse 99 98 Oximetry Medical Decision Making - Medical Decision Making Patient's labs been reviewed. Patient reexamined at this times feeling much better at this time. Patient will be discharged home with nausea medication for her symptoms. She is advised follow-up family doctor return here to the emergency room for any symptoms increase or worsen. - Lab Data Result diagrams: 02/09/18 08:40 02/09/18 08:40 Lab Results 02/09/1818 02/09/18 Range/Units 08:40 08:40 08:40 WBC 7.8 (3.8-10.6) k/uL RBC 4.11 (3.80-5.40) m/uL Hgb 12.4 (11.4-16.0) gm/dL Hct 37.8 (34.0-46.0) % MCV 92.1 (80.0-100.0) fL MCH 30.1 (25.0-35.0) pg MCHC 32.7 (31.0-37.0) g/dL RDW 13.3 (11.5-15.5) % Plt Count 298 (150-450) k/uL Neutrophils % 49 % Lymphocytes % 34 % Monocytes % 5 % Eosinophils % 9 % Basophils % 1 % Neutrophils # 3.8 (1.3-7.7) k/uL Lymphocytes # 2.6 (1.0-4.8) k/uL Monocytes # 0.4 (0-1.0) k/uL Eosinophils # 0.7 (0-0.7) k/uL Basophils # 0.1 (0-0.2) k/uL Sodium 139 (137-145) mmol/L Potassium 4.1 (3.5-5.1) mmol/L Chloride 108 H (98-107) mmol/L Carbon Dioxide 24 (22-30) mmol/L Anion Gap 7 mmol/L BUN 11 (7-17) mg/dL Creatinine 0.60 (0.52-1.04) mg/dL Est GFR (CKD-EPI)AfAm >90 (>60 ml/min/1.73 sqM) Est GFR (CKD-EPI)NonAf >90 (>60 ml/min/1.73 sqM) Glucose 104 H (74-99) mg/dL Calcium 8.9 (8.4-10.2) mg/dL Total Bilirubin 0.2 (0.2-1.3) mg/dL AST 25 (14-36) U/L ALT 40 (9-52) U/L Alkaline Phosphatase 58 (38-126) U/L Total Protein 6.5 (6.3-8.2) g/dL Albumin 3.6 (3.5-5.0) g/dL Amylase 55 (30-110) U/L Lipase 115 (23-300) U/L Urine Color Urine Appearance (Clear) Urine pH (5.0-8.0) Ur Specific [place] (1.001-1.035) Urine Protein (Negative) Urine Glucose (UA) (Negative) Urine Ketones (Negative) Urine Blood (Negative) Urine Nitrite (Negative) Urine Bilirubin (Negative) Urine Urobilinogen (<2.0) mg/dL Ur Leukocyte Esterase (Negative) Urine RBC (0-5) /hpf Ur Squamous Epith Cells (0-4) /hpf Urine Bacteria (None) /hpf Urine Mucus (None) /hpf Urine HCG, Qual Not Detected (Not Detectd) 02/09/18 Range/Units 08:40 WBC (3.8-10.6) k/uL RBC (3.80-5.40) m/uL Hgb (11.4-16.0) gm/dL Hct (34.0-46.0) % MCV (80.0-100.0) fL MCH (25.0-35.0) pg MCHC (31.0-37.0) g/dL RDW (11.5-15.5) % Plt Count (150-450) k/uL Neutrophils % % Lymphocytes % % Monocytes % % Eosinophils % % Basophils % % Neutrophils # (1.3-7.7) k/uL Lymphocytes # (1.0-4.8) k/uL Monocytes # (0-1.0) k/uL Eosinophils # (0-0.7) k/uL Basophils # (0-0.2) k/uL Sodium (137-145) mmol/L Potassium (3.5-5.1) mmol/L Chloride (98-107) mmol/L Carbon Dioxide (22-30) mmol/L Anion Gap mmol/L BUN (7-17) mg/dL Creatinine (0.52-1.04) mg/dL Est GFR (CKD-EPI)AfAm (>60 ml/min/1.73 sqM) Est GFR (CKD-EPI)NonAf (>60 ml/min/1.73 sqM) Glucose (74-99) mg/dL Calcium (8.4-10.2) mg/dL Total Bilirubin (0.2-1.3) mg/dL AST (14-36) U/L ALT (9-52) U/L Alkaline Phosphatase (38-126) U/L Total Protein (6.3-8.2) g/dL Albumin (3.5-5.0) g/dL Amylase (30-110) U/L Lipase (23-300) U/L Urine Color Yellow Urine Appearance Cloudy H (Clear) Urine pH 6.0 (5.0-8.0) Ur Specific [place] 1.020 (1.001-1.035) Urine Protein Trace H (Negative) Urine Glucose (UA) Negative (Negative) Urine Ketones Negative (Negative) Urine Blood Negative (Negative) Urine Nitrite Negative (Negative) Urine Bilirubin Negative (Negative) Urine Urobilinogen 2.0 (<2.0) mg/dL Ur Leukocyte Esterase Negative (Negative) Urine RBC 2 (0-5) /hpf Ur Squamous Epith Cells 9 H (0-4) /hpf Urine Bacteria Rare H (None) /hpf Urine Mucus Moderate H (None) /hpf Urine HCG, Qual (Not Detectd) Disposition Clinical Impression: Nausea vomiting and diarrhea Disposition: HOME SELF-CARE Condition: Good Instructions: Acute Nausea and Vomiting (ED) Additional Instructions: Please use medication as discussed. Please follow-up with family doctor in the next 2 days of symptoms have not improved. Please return to emergency room if the symptoms increase or worsen or for any other concerns. Prescriptions: Ondansetron Odt [Zofran ODT] 4 mg PO Q8HR PRN #20 tab PRN Reason: Nausea Is patient prescribed a controlled substance at d/c from ED?: No Referrals: Duke Hidalgo MD [Primary Care Provider] - 1-2 days Time of Disposition: 10:24
[2018-02-09 08:46] VITALS: RESP 18
[2018-02-09] MEDS ORDERED: SODIUM CHLORIDE 0.9% 1,000 ML IV STA (08:59)
[2018-02-09 09:00] LABS: Basophils # (A) 0.1 k/uL (0-0.2); Basophils % (A) 1 %; Eosinophils # (A) 0.7 k/uL (0-0.7); Eosinophils % (A) 9 %; HCT 37.8 % (34.0-46.0); HGB 12.4 gm/dL (11.4-16.0); Lymphocytes # (A) 2.6 k/uL (1.0-4.8); Lymphocytes % (A) 34 %; MCH 30.1 pg (25.0-35.0); MCHC 32.7 g/dL (31.0-37.0); MCV 92.1 fL (80.0-100.0); Mean Platelet Volume 7.1; Monocytes # (A) 0.4 k/uL (0-1.0); Monocytes % (A) 5 %; Neutrophils # (A) 3.8 k/uL (1.3-7.7); Neutrophils % (A) 49 %; Platelet Count 298 k/uL (150-450); RBC 4.11 m/uL (3.80-5.40); RDW 13.3 % (11.5-15.5); WBC 7.8 k/uL (3.8-10.6)
[2018-02-09 09:03] LABS: Appearance,Urine Cloudy (Clear); Bacteria,Urine Rare /hpf; Bilirubin,Urine Negative (Negative); Blood,Urine Negative (Negative); Color,Urine Yellow; Glucose,Urine (UA) Negative (Negative); Ketones,Urine Negative (Negative); Leukocyte Esterase,Urine Negative (Negative); Mucus,Urine Moderate /hpf; Nitrite,Urine Negative (Negative); Protein,Urine Trace (Negative); RBC,Urine 2 /hpf (0-5); Squamous Epithelial Cell,Urine 9 /hpf (0-4)
[2018-02-09 09:17] LABS: ALT 40 U/L (9-52); AST 25 U/L (14-36); Albumin 3.6 g/dL (3.5-5.0); Alkaline Phosphatase 58 U/L (38-126); Amylase 55 U/L (30-110); Anion Gap 7 mmol/L; Blood Urea Nitrogen 11 mg/dL (7-17); Calcium 8.9 mg/dL (8.4-10.2); Carbon Dioxide 24 mmol/L (22-30); Chloride 108 mmol/L (98-107); Glucose 104 mg/dL (74-99); Lipase 115 U/L (23-300); Potassium 4.1 mmol/L (3.5-5.1); Sodium 139 mmol/L (137-145); Total Bilirubin 0.2 mg/dL (0.2-1.3); Total Protein 6.5 g/dL (6.3-8.2)
--- NOTE | 2018-02-09 09:21 | XR ---
EXAMINATION TYPE: XR KUB , 2 VIEWS DATE OF EXAM ORDERED: 02/09/2018 HISTORY: abdominal pain. COMPARISON: Previous study dated 07/20/[address] of the abdomen dated 10/07/2017. FINDINGS: The lung bases are clear. Within the abdomen, the gallbladder is been removed. The abdominal gas pattern is unremarkable. There are no unusual calcifications. There is no evidence of obstruction or free air. IMPRESSION: NO ACUTE INTRAPERITONEAL ABNORMALITY.
[2018-02-09 11:03] VITALS: BP 118/69; PULSE 71; TEMP 98
== END 2018-02-09 11:03 | disposition home or self-care (01) ==
LOC: EC 08:09
DX: R11.2 Nausea with vomiting, unspecified (principal); R19.7 Diarrhea, unspecified; R10.11 Right upper quadrant pain; F17.200 Nicotine dependence, unspecified, uncomplicated; Z90.49 Acquired absence of other specified parts of digestive tract; Z98.51 Tubal ligation status; Z87.19 Personal history of other diseases of the digestive system; Z79.899 Other long term (current) drug therapy
CPT/HCPCS: 36415; 80053; 82150; 83690; 85025; 81001; 81025; 74018; 99284; 96374; 96375; 96361; J2405; J0131

== ENCOUNTER 2018-04-10 17:44 | Emergency (ER) | payer OTHER ==
[2018-04-10] MEDS ORDERED: ORPHENADRINE 30 MG/ML 2 ML VIAL IM STA (18:40)
[2018-04-10] MEDS ORDERED: ACET/COD 300 MG/30 MG STARTER PACK 6 TAB BTL PO STA (18:40)
--- NOTE | 2018-04-10 18:44 | ED ---
Upper Extremity HPI - General Chief Complaint: Extremity Injury, Upper Stated Complaint: rt shoulder pain Time Seen by Provider: 04/10/18 18:02 Source: patient Mode of arrival: ambulatory Limitations: no limitations - History of Present Illness Initial Comments: 38-year-old female patient presents to the emergency department today for evaluation of right shoulder pain. Patient states that she had a fall about 3 weeks ago. States that she was cleaning a bathtub when she slipped and fell striking her shoulder on the wall. Patient states that she was seen and evaluated at [facility] and diagnosed with a shoulder contusion. States she never had the shoulder imaged. Patient states that the pain has been worsening since. States that she is unable to move it without the pain radiating up to her neck and down into her hand. States the the pain is much worse today. She states that she is having some tingling and weakness to the right hand. States that she has taken naproxen but ended up having dark tarry stools so she had to switch to plain Tylenol. Patient denies any previous injury to the shoulder. Patient denies any headache, chest pain, shortness of breath, dizziness, weakness, abdominal pain, nausea, vomiting, or difficulties with bowel movements or urination. - Related Data Home Medications Medication Instructions Recorded Confirmed Acetaminophen [Tylenol 8 Hour] 650 mg PO Q6HR PRN 04/10/18 04/10/18 Clobetasol Propionate [Temovate 1 applic TOPICAL DAILY 04/10/18 04/10/18 0.05% Oint] Previous Rx's Medication Instructions Recorded Cyclobenzaprine [Flexeril] 10 mg PO TID #15 tab 04/10/18 Allergies Allergy/AdvReac Type Severity Reaction Status Date / Time No Known Allergies Allergy Verified 04/10/18 18:19 Review of Systems ROS Statement: Those systems with pertinent positive or pertinent negative responses have been documented in the HPI. ROS Other: All systems not noted in ROS Statement are negative. 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 PT STATES OFF MEDICATIONS SINCE 13 Y/O AND LAST SEIZURE WAS 12 Y/O. PSORIASIS., STATES HAVING DIARRHEA AND HX OF BLOOD IN STOOL. History of Any Multi-Drug Resistant Organisms: None Reported Past Surgical History: Section, Cholecystectomy, Tubal Ligation Additional Past Surgical History / Comment(s): novasure, uterine ablation Past Anesthesia/Blood Transfusion Reactions: No Reported Reaction Past Psychological History: ADD/ADHD Smoking Status: Current every day smoker Past Alcohol Use History: None Reported Past Drug Use History: None Reported - Past Family History Mother Family Medical History: No Reported History Additional Family Medical History / Comment(s): osteoporosis, COPD, "too much to recall" per pt Father Family Medical History: No Reported History General Exam Limitations: no limitations General appearance: alert, in no apparent distress, other (So well-developed, well-nourished adult female patient in no acute distress. Vital signs upon presentation are temperature 98.6F, pulse 113, respirations 18, blood pressure 115/71, pulse ox 99% on room air.) Eye exam: Present: normal appearance, PERRL, EOMI. Absent: scleral icterus, conjunctival injection, periorbital swelling ENT exam: Present: normal exam, normal oropharynx, mucous membranes moist Neck exam: Present: normal inspection, full ROM. Absent: tenderness, meningismus, lymphadenopathy Respiratory exam: Present: normal lung sounds bilaterally. Absent: respiratory distress, wheezes, rales, rhonchi, stridor Cardiovascular Exam: Present: normal rhythm, tachycardia, normal heart sounds. Absent: regular rate, systolic murmur, diastolic murmur, rubs, gallop, clicks GI/Abdominal exam: Present: soft, normal bowel sounds. Absent: distended, tenderness, guarding, rebound, rigid Extremities exam: Present: normal inspection, normal capillary refill, other ( Skin to the right arm is pink, warm, and dry. Cap refills less than 3 seconds. Radial pulses 2+ and equal bilaterally.). Absent: full ROM (Decreased range of motion due to increased pain with movement), tenderness, pedal edema, joint swelling, calf tenderness Back exam: Present: normal inspection Neurological exam: Present: alert, oriented X3, CN II-XII intact Psychiatric exam: Present: normal affect, normal mood Skin exam: Present: warm, dry, intact, normal color. Absent: rash Course Vital Signs 04/10/18 04/10/18 17:54 19:33 Temperature 98.6 F Pulse Rate 113 H 77 Respiratory 18 17 Rate Blood Pressure 115/71 118/57 O2 Sat by Pulse 99 100 Oximetry Medical Decision Making - Medical Decision Making 38-year-old female patient presents the emergency department today for evaluation of right shoulder pain after a fall injury 3 weeks ago. Physical examination does reveal normal neurovascular status. Range of motion is intact patient has severe pain with abduction of the arm and forward flexion. X-ray showed no acute osseous abnormalities of the shoulder. The patient symptoms is concern for rotator cuff injury. She is instructed to follow-up with orthopedics for further evaluation. She is given a muscle relaxer and Tylenol with Codeine. She is unable to take anti-inflammatory medications due to having some dark tarry stools couple of weeks ago. Return parameters were discussed in detail. She verbalizes understanding and agrees with this plan. - Radiology Data Radiology results: report reviewed, image reviewed 3 views of the right shoulder obtained. There is no fracture or dislocation. Joint spaces are normal. There are no pathologic calcifications. Impression by Dr. Sauceda shows negative right shoulder exam. Disposition Clinical Impression: Rotator cuff injury Disposition: HOME SELF-CARE Condition: Good Instructions: Rotator Cuff Injury (ED) Additional Instructions: Apply warm moist heat to the right shoulder. Perform gentle range of motion exercises after taking pain medication. Take medications as directed. Follow- up with development specialist for further evaluation. Return here immediately for any new, worsening, or concerning symptoms. Prescriptions: Cyclobenzaprine [Flexeril] 10 mg PO TID #15 tab Is patient prescribed a controlled substance at d/c from ED?: No Referrals: Jorge L Bernal MD [STAFF PHYSICIAN] - 1-2 days uDke Hidalgo MD [Primary Care Provider] - 1-2 days Time of Disposition: 19:25
--- NOTE | 2018-04-10 19:19 | XR ---
EXAMINATION TYPE: XR shoulder complete RT DATE OF EXAM: 04/10/2018 COMPARISON: NONE HISTORY: Shoulder pain TECHNIQUE: 3 views FINDINGS: I see no fracture nor dislocation. Joint spaces are normal. There are no pathologic calcifi cations. IMPRESSION: Negative right shoulder exam
[2018-04-10 19:35] VITALS: BP 118/57; PULSE 77; RESP 17
[2018-04-10] MEDS ORDERED: MORPHINE SULFATE 4 MG/ML SYRINGE IM STA (19:42)
[2018-04-10] MEDS ORDERED: CYCLOBENZAPRINE 10MG STARTER 3 TAB BTL PO STA (19:42)
[2018-04-10 20:11] VITALS: TEMP 99.2
== END 2018-04-10 20:17 | disposition home or self-care (01) ==
LOC: EC 17:44
DX: S46.001A Unspecified injury of muscle(s) and tendon(s) of the rotator cuff of right shoulder, initial encounter (principal); R00.0 Tachycardia, unspecified; L40.9 Psoriasis, unspecified; F17.200 Nicotine dependence, unspecified, uncomplicated; Z79.52 Long term (current) use of systemic steroids; W01.198A Fall on same level from slipping, tripping and stumbling with subsequent striking against other object, initial encounter; Y93.89 Activity, other specified; Y92.69 Other specified industrial and construction area as the place of occurrence of the external cause
CPT/HCPCS: 73030; 99283; 96372 ×2; J2270; J2360

== ENCOUNTER 2018-04-21 19:07 | Emergency (ER) | payer OTHER ==
[2018-04-21 19:24] VITALS: PULSE 100; TEMP 98.5
[2018-04-21] MEDS ORDERED: KETOROLAC 30 MG/ML 1 ML VIAL IVP STA (19:43)
[2018-04-21] MEDS ORDERED: SODIUM CHLORIDE 0.9% 1,000 ML IV STA (19:43)
[2018-04-21] MEDS ORDERED: ONDANSETRON 4 MG/2 ML VIAL IVP STA (19:43)
--- NOTE | 2018-04-21 19:48 | ED ---
Abdominal Pain HPI - General Chief Complaint: Abdominal Pain Stated Complaint: back side pain Time Seen by Provider: 04/21/18 19:26 Source: patient Mode of arrival: ambulatory Limitations: no limitations - History of Present Illness Initial Comments: Patient is a 38-year-old female presenting for right flank pain since Sunday. She states that it was slow in onset and feels a dull achy sensation constant. She denies any modifying factors and states that she also has some "burning on her face". However, she denies any dysuria or vomiting/diarrhea but has had some nausea. She denies any fevers or chills and states that she has not had a menstrual period in some time as she had an ablation. - Related Data Home Medications Medication Instructions Recorded Confirmed Acetaminophen [Tylenol 8 Hour] 650 mg PO Q6HR PRN 04/10/18 04/10/18 Clobetasol Propionate [Temovate 1 applic TOPICAL DAILY 04/10/18 04/10/18 0.05% Oint] Previous Rx's Medication Instructions Recorded Cyclobenzaprine [Flexeril] 10 mg PO TID #15 tab 04/10/18 Lidocaine 5% Patch [Lidoderm] 1 patch TOPICAL DAILY #5 patch 04/22/18 Methocarbamol [Robaxin-750] 750 mg PO TID PRN #21 tablet 04/22/18 Allergies Allergy/AdvReac Type Severity Reaction Status Date / Time No Known Allergies Allergy Verified 04/21/18 19:24 Review of Systems ROS Statement: Those systems with pertinent positive or pertinent negative responses have been documented in the HPI. Constitutional: Negative for chills, fatigue and fever. HENT: Negative for congestion. Respiratory: Negative for chest tightness, shortness of breath and wheezing. Negative for cough Cardiovascular: Negative for chest pain and palpitations. Gastrointestinal: Positive for nausea and abdominal pain. Negative for abdominal distention, diarrhea, and vomiting. Genitourinary: Negative for dysuria. Musculoskeletal: Negative for back pain, neck pain and neck stiffness. Skin: Negative for color change. Neurological: Negative for dizziness, speech difficulty, weakness and light- headedness. Psychiatric/Behavioral: Negative for agitation and confusion. Negative for anxiety ROS Other: All systems not noted in ROS Statement are negative. 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 PT STATES OFF MEDICATIONS SINCE 13 Y/O AND LAST SEIZURE WAS 12 Y/O. PSORIASIS., STATES HAVING DIARRHEA AND HX OF BLOOD IN STOOL. History of Any Multi-Drug Resistant Organisms: None Reported Past Surgical History: Section, Cholecystectomy, Tubal Ligation Additional Past Surgical History / Comment(s): novasure, uterine ablation Past Anesthesia/Blood Transfusion Reactions: No Reported Reaction Past Psychological History: No Psychological Hx Reported Smoking Status: Current every day smoker Past Alcohol Use History: None Reported Past Drug Use History: None Reported - Past Family History Mother Family Medical History: No Reported History Additional Family Medical History / Comment(s): osteoporosis, COPD, "too much to recall" per pt Father Family Medical History: No Reported History General Exam - General Exam Comments Initial Comments: Constitutional: Pt is oriented to person, place, and time. Pt appears well- developed and well-nourished. No distress. HENT: Head: Normocephalic and atraumatic. Eyes: EOM are normal. Neck: Normal range of motion. Neck supple. Cardiovascular: Tachycardia present, regular rhythm, S1 normal, S2 normal and normal heart sounds. Exam reveals no gallop and no friction rub. No murmur heard. Pulmonary/Chest: Effort normal and breath sounds normal. No tachypnea and no bradypnea. No respiratory distress. No wheezes or rales noted. Abdominal: Soft. Bowel sounds are normal. Pt exhibits no shifting dullness, no distension, no pulsatile liver, no fluid wave, no abdominal bruit and no ascites. There is no tenderness. There is no rigidity, no rebound, no guarding, no tenderness at McBurney's point and negative Martinez's sign. Musculoskeletal: Normal range of motion. Neurological: Pt is alert and oriented to person, place, and time. No cranial nerve deficit. Skin: Skin is warm and dry. No rash noted. Pt is not diaphoretic. No erythema. No pallor. Psychiatric: Pt has a normal mood and affect. Pt behavior is normal. Thought content normal. Limitations: no limitations Course Vital Signs 04/21/18 04/21/18 04/21/18 19:21 20:00 23:00 Temperature 98.5 F Pulse Rate 100 Respiratory 18 17 Rate Blood Pressure 110/65 133/71 99/58 O2 Sat by Pulse 98 97 99 Oximetry Medical Decision Making - Medical Decision Making Laboratory studies showed that there was no significant leukocytosis and no left lites are within normal limits. Urinalysis is also negative for infection but because the patient continued to have pain, CT of the abdomen was performed and showed faint renal calcifications with no evidence of renal extraction and a normal appendix. Patient initially had minimal relief with Toradol and therefore was given [place] 7.5, Robaxin, and lidocaine patch. She stated that the pain was significantly improved.It was explained that while there does not appear to be an emergent process, the etiology of the symptoms are still unclear but possibly related to muscle strain and may need further workup as an outpatient if symptoms continue. Explained all labs and diagnostic test results and that we will discharge the patient home and patient is to follow up with PCP in 1-2 days and return to the ED if symptoms worsen. Pt is agreeable to plan. - Lab Data Result diagrams: 04/21/18 20:20 04/21/18 20:20 Lab Results 04/21/18 04/21/18 04/21/18 Range/Units 20:20 20:20 20:20 WBC 10.5 (3.8-10.6) k/uL RBC 4.25 (3.80-5.40) m/uL Hgb 12.8 (11.4-16.0) gm/dL Hct 38.6 (34.0-46.0) % MCV 90.9 (80.0-100.0) fL MCH 30.2 (25.0-35.0) pg MCHC 33.3 (31.0-37.0) g/dL RDW 13.1 (11.5-15.5) % Plt Count 316 (150-450) k/uL Neutrophils % 57 % Lymphocytes % 31 % Monocytes % 4 % Eosinophils % 5 % Basophils % 0 % Neutrophils # 6.0 (1.3-7.7) k/uL Lymphocytes # 3.3 (1.0-4.8) k/uL Monocytes # 0.5 (0-1.0) k/uL Eosinophils # 0.6 (0-0.7) k/uL Basophils # 0.0 (0-0.2) k/uL Sodium 138 (137-145) mmol/L Potassium 4.4 (3.5-5.1) mmol/L Chloride 107 (98-107) mmol/L Carbon Dioxide 25 (22-30) mmol/L Anion Gap 6 mmol/L BUN 10 (7-17) mg/dL Creatinine 0.71 (0.52-1.04) mg/dL Est GFR (CKD-EPI)AfAm >90 (>60 ml/min/1.73 sqM) Est GFR (CKD-EPI)NonAf >90 (>60 ml/min/1.73 sqM) Glucose 96 (74-99) mg/dL Calcium 8.7 (8.4-10.2) mg/dL Total Bilirubin 0.3 (0.2-1.3) mg/dL AST 25 (14-36) U/L ALT 35 (9-52) U/L Alkaline Phosphatase 65 (38-126) U/L Total Protein 6.9 (6.3-8.2) g/dL Albumin 3.6 (3.5-5.0) g/dL Lipase 132 (23-300) U/L Urine Color Urine Appearance (Clear) Urine pH (5.0-8.0) Ur Specific [place] (1.001-1.035) Urine Protein (Negative) Urine Glucose (UA) (Negative) Urine Ketones (Negative) Urine Blood (Negative) Urine Nitrite (Negative) Urine Bilirubin (Negative) Urine Urobilinogen (<2.0) mg/dL Ur Leukocyte Esterase (Negative) Urine HCG, Qual Not Detected (Not Detectd) 04/21/18 Range/Units 20:20 WBC (3.8-10.6) k/uL RBC (3.80-5.40) m/uL Hgb (11.4-16.0) gm/dL Hct (34.0-46.0) % MCV (80.0-100.0) fL MCH (25.0-35.0) pg MCHC (31.0-37.0) g/dL RDW (11.5-15.5) % Plt Count (150-450) k/uL Neutrophils % % Lymphocytes % % Monocytes % % Eosinophils % % Basophils % % Neutrophils # (1.3-7.7) k/uL Lymphocytes # (1.0-4.8) k/uL Monocytes # (0-1.0) k/uL Eosinophils # (0-0.7) k/uL Basophils # (0-0.2) k/uL Sodium (137-145) mmol/L Potassium (3.5-5.1) mmol/L Chloride (98-107) mmol/L Carbon Dioxide (22-30) mmol/L Anion Gap mmol/L BUN (7-17) mg/dL Creatinine (0.52-1.04) mg/dL Est GFR (CKD-EPI)AfAm (>60 ml/min/1.73 sqM) Est GFR (CKD-EPI)NonAf (>60 ml/min/1.73 sqM) Glucose (74-99) mg/dL Calcium (8.4-10.2) mg/dL Total Bilirubin (0.2-1.3) mg/dL AST (14-36) U/L ALT (9-52) U/L Alkaline Phosphatase (38-126) U/L Total Protein (6.3-8.2) g/dL Albumin (3.5-5.0) g/dL Lipase (23-300) U/L Urine Color Yellow Urine Appearance Clear (Clear) Urine pH 6.5 (5.0-8.0) Ur Specific [place] 1.023 (1.001-1.035) Urine Protein Trace H (Negative) Urine Glucose (UA) Negative (Negative) Urine Ketones Negative (Negative) Urine Blood Negative (Negative) Urine Nitrite Negative (Negative) Urine Bilirubin Negative (Negative) Urine Urobilinogen 2.0 (<2.0) mg/dL Ur Leukocyte Esterase Negative (Negative) Urine HCG, Qual (Not Detectd) Disposition Clinical Impression: Right flank pain Disposition: HOME SELF-CARE Condition: Good Instructions: Abdominal Pain (ED) Prescriptions: Lidocaine 5% Patch [Lidoderm] 1 patch TOPICAL DAILY #5 patch Methocarbamol [Robaxin-750] 750 mg PO TID PRN #21 tablet PRN Reason: Pain Is patient prescribed a controlled substance at d/c from ED?: No Referrals: Duke Hidalgo MD [Primary Care Provider] - 1-2 days Time of Disposition: 00:10
[2018-04-21 20:02] VITALS: RESP 17
[2018-04-21 20:39] LABS: Basophils % (A) 0 %; Eosinophils # (A) 0.6 k/uL (0-0.7); Eosinophils % (A) 5 %; HCT 38.6 % (34.0-46.0); HGB 12.8 gm/dL (11.4-16.0); Lymphocytes # (A) 3.3 k/uL (1.0-4.8); Lymphocytes % (A) 31 %; MCH 30.2 pg (25.0-35.0); MCHC 33.3 g/dL (31.0-37.0); MCV 90.9 fL (80.0-100.0); Mean Platelet Volume 6.7; Monocytes # (A) 0.5 k/uL (0-1.0); Monocytes % (A) 4 %; Neutrophils % (A) 57 %; Platelet Count 316 k/uL (150-450); RBC 4.25 m/uL (3.80-5.40); RDW 13.1 % (11.5-15.5); WBC 10.5 k/uL (3.8-10.6)
[2018-04-21 20:40] LABS: Appearance,Urine Clear (Clear); Bilirubin,Urine Negative (Negative); Blood,Urine Negative (Negative); Color,Urine Yellow; Glucose,Urine (UA) Negative (Negative); Ketones,Urine Negative (Negative); Leukocyte Esterase,Urine Negative (Negative); Nitrite,Urine Negative (Negative); PH, Urine 6.5 (5.0-8.0); Protein,Urine Trace (Negative); Specific Gravity,Urine 1.023 (1.001-1.035)
[2018-04-21 20:48] LABS: ALT 35 U/L (9-52); AST 25 U/L (14-36); Albumin 3.6 g/dL (3.5-5.0); Alkaline Phosphatase 65 U/L (38-126); Anion Gap 6 mmol/L; Blood Urea Nitrogen 10 mg/dL (7-17); Calcium 8.7 mg/dL (8.4-10.2); Carbon Dioxide 25 mmol/L (22-30); Chloride 107 mmol/L (98-107); Glucose 96 mg/dL (74-99); Lipase 132 U/L (23-300); Potassium 4.4 mmol/L (3.5-5.1); Sodium 138 mmol/L (137-145); Total Bilirubin 0.3 mg/dL (0.2-1.3); Total Protein 6.9 g/dL (6.3-8.2)
--- NOTE | 2018-04-21 21:57 | CT ---
EXAMINATION TYPE: CT abdomen pelvis wo con DATE OF EXAM: 04/21/2018 COMPARISON: 10/07/2017 HISTORY: Right sided flank and pelvic pain with nausea and vomiting CT DLP: 1047 mGycm Automated exposure control for dose reduction was used. TECHNIQUE: Helical acquisition of images was performed from the lung bases through the pelvis. FINDINGS: Lung bases are clear. There is no pleural effusion heart size is normal. Liver spleen pancreas appear normal. There are clips from cholecystectomy. Bile ducts are not dilated . There is no adrenal mass. Kidneys have normal size and contour. There is no hydronephrosis. Ureters are not dilated. Appendix appears normal. There are sigmoid diverticula. There is no sign of diverti culitis. Bladder distends smoothly. Uterus is anteverted. There is no inguinal hernia. There is no fr ee fluid. I see no intestinal wall thickening. There are no dilated loops. There is no sign of free air. There is 1 mm calculus upper pole left kidney. There is faint 3 mm calculus interpolar right kidney. IMPRESSION: FAINT RENAL CALCIFICATIONS. NO EVIDENCE OF RENAL OBSTRUCTION. NORMAL APPENDIX. NO ADVERSE CHANGE COMP ARED TO OLD EXAM.
[2018-04-21] MEDS ORDERED: HYDROcodone/APAP 7.5-325MG 1 EACH TAB PO ONE (22:47)
[2018-04-21] MEDS ORDERED: LIDOCAINE 5% PATCH TOPICAL STA (22:47)
[2018-04-21] MEDS ORDERED: METHOCARBAMOL 500 MG TAB PO STA (22:47)
[2018-04-21 23:42] VITALS: BP 99/58
== END 2018-04-22 00:32 | disposition home or self-care (01) ==
LOC: EC 19:07
DX: R10.9 Unspecified abdominal pain (principal); N28.89 Other specified disorders of kidney and ureter; R00.0 Tachycardia, unspecified; R20.8 Other disturbances of skin sensation; R11.0 Nausea; L40.9 Psoriasis, unspecified; F17.200 Nicotine dependence, unspecified, uncomplicated; Z79.899 Other long term (current) drug therapy; Z90.49 Acquired absence of other specified parts of digestive tract; Z98.51 Tubal ligation status
CPT/HCPCS: 36415; 80053; 83690; 85025; 81003; 81025; 74176; 99284; 96374; 96375; 96361; J2405; J1885

== ENCOUNTER 2018-04-23 22:39 | Emergency (ER) | payer OTHER ==
[2018-04-23 23:07] VITALS: TEMP 98.4
[2018-04-23] MEDS ORDERED: KETOROLAC 30 MG/ML 1 ML VIAL IVP STA (23:20)
--- NOTE | 2018-04-23 23:24 | ED ---
Abdominal Pain HPI - General Chief Complaint: Abdominal Pain Stated Complaint: abd/back pain Time Seen by Provider: 04/23/18 23:08 Source: patient, RN notes reviewed Mode of arrival: ambulatory Limitations: no limitations - History of Present Illness Initial Comments: This is a 38-year-old female who presents to the emergency department with chief complaint of right flank pain. Patient states that she has had flank pain since last Sunday. She was evaluated in the emergency department on Sunday. A computed tomography scan of the abdomen and pelvis was obtained which revealed faint calcifications within the kidneys but no other acute abnormalities. Patient states that her pain is not improved and feels actually worse today. Pain is described as a deep ache and burning. She denies fevers, nausea or vomiting. She does report chills and diarrhea. Denies urinary symptoms such as dysuria or increased urinary frequency. She states she has a follow-up appointment scheduled with her primary care provider on . - Related Data Home Medications Medication Instructions Recorded Confirmed Clobetasol Propionate [Temovate 1 applic TOPICAL DAILY PRN 04/10/18 04/23/18 0.05% Oint] Previous Rx's Medication Instructions Recorded Lidocaine 5% Patch [Lidoderm] 1 patch TOPICAL DAILY #5 patch 04/22/18 Methocarbamol [Robaxin-750] 750 mg PO TID PRN #21 tablet 04/22/18 Dicyclomine [Bentyl] 20 mg PO QID #20 tablet 04/24/18 Allergies Allergy/AdvReac Type Severity Reaction Status Date / Time No Known Allergies Allergy Verified 04/23/18 23:13 Review of Systems ROS Statement: Those systems with pertinent positive or pertinent negative responses have been documented in the HPI. ROS Other: All systems not noted in ROS Statement are negative. 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 PT STATES OFF MEDICATIONS SINCE 13 Y/O AND LAST SEIZURE WAS 12 Y/O. PSORIASIS., STATES HAVING DIARRHEA AND HX OF BLOOD IN STOOL. History of Any Multi-Drug Resistant Organisms: None Reported Past Surgical History: Section, Cholecystectomy, Tubal Ligation Additional Past Surgical History / Comment(s): novasure, uterine ablation Past Anesthesia/Blood Transfusion Reactions: No Reported Reaction Past Psychological History: No Psychological Hx Reported Smoking Status: Current every day smoker Past Alcohol Use History: None Reported Past Drug Use History: None Reported - Past Family History Mother Family Medical History: No Reported History Additional Family Medical History / Comment(s): osteoporosis, COPD, "too much to recall" per pt Father Family Medical History: No Reported History General Exam - General Exam Comments Initial Comments: General: Awake and alert, well-developed; in mild distress due to pain. HEENT: Head atraumatic, normocephalic. Pupils are equal, round and reactive to light. Extraocular movements intact. Oropharynx moist without erythema or exudate. Neck: Supple. Normal ROM. Cardiovascular: Normal rhythm. Tachycardia. No murmurs, rubs or gallops. Chest symmetrical. Respiratory: Lungs clear to auscultation bilaterally. No wheezes, rales or rhonchi. Normal respiratory effort with no use of accessory muscles. Abdomen: Soft, non-tender, non-distended. No rigidity, rebound or guarding. Normal bowel sounds in all 4 quadrants. Right CVA tenderness. Musculoskeletal: Normal ROM, no tenderness bilateral upper and lower extremities. Ambulating normally. Skin: [place], warm and dry without rashes or lesions. Neurological: Alert and oriented x3. CN II-XII grossly intact. Speech is fluent and answers are appropriate. No focal neuro deficits. Psychiatric: Normal mood and affect. No overt signs of depression or anxiety noted. Limitations: no limitations Course Vital Signs 04/23/18 04/24/18 23:04 00:31 Temperature 98.4 F Pulse Rate 111 H 89 Respiratory 20 18 Rate Blood Pressure 112/76 115/63 O2 Sat by Pulse 99 98 Oximetry Medical Decision Making - Medical Decision Making This is a 38-year-old female who presents to the emergency department with chief complaint of right flank pain. Patient has had right flank pain since Sunday. She was evaluated here in the emergency department on Sunday. A computed tomography scan of the abdomen and pelvis was obtained which revealed no acute abnormalities. Patient was discharged home and she scheduled a follow- up appointment with her primary care provider for . Patient reports no improvement in her pain so presented to the emergency department again today. Patient denies any new symptoms. CBC did reveal a slightly elevated white count at 14.8. CMP and UA are unremarkable. KUB was repeated and demonstrated no acute abnormalities. Case was discussed with attending physician, Dr. Hinds. Patient will be started on Bentyl. Her vital signs are stable and she is in no acute distress. She will be discharged home at this time. She is in agreement with plan and voices understanding. All questions were answered to the best of my ability. Condition upon discharge is stable. - Lab Data Result diagrams: 04/23/18 23:30 04/23/18 23:30 Lab Results 04/23/18 04/23/18 04/23/18 Range/Units 23:30 23:30 23:45 WBC 14.8 H (3.8-10.6) k/uL RBC 4.63 (3.80-5.40) m/uL Hgb 14.4 (11.4-16.0) gm/dL Hct 43.8 (34.0-46.0) % MCV 94.7 (80.0-100.0) fL MCH 31.2 (25.0-35.0) pg MCHC 32.9 (31.0-37.0) g/dL RDW 13.3 (11.5-15.5) % Plt Count 321 (150-450) k/uL Neutrophils % 65 % Lymphocytes % 26 % Monocytes % 3 % Eosinophils % 5 % Basophils % 0 % Neutrophils # 9.6 H (1.3-7.7) k/uL Lymphocytes # 3.9 (1.0-4.8) k/uL Monocytes # 0.5 (0-1.0) k/uL Eosinophils # 0.7 (0-0.7) k/uL Basophils # 0.1 (0-0.2) k/uL Sodium 139 (137-145) mmol/L Potassium 4.5 (3.5-5.1) mmol/L Chloride 109 H (98-107) mmol/L Carbon Dioxide 24 (22-30) mmol/L Anion Gap 6 mmol/L BUN 10 (7-17) mg/dL Creatinine 0.67 (0.52-1.04) mg/dL Est GFR (CKD-EPI)AfAm >90 (>60 ml/min/1.73 sqM) Est GFR (CKD-EPI)NonAf >90 (>60 ml/min/1.73 sqM) Glucose 123 H (74-99) mg/dL Calcium 9.2 (8.4-10.2) mg/dL Total Bilirubin 0.2 (0.2-1.3) mg/dL AST 20 (14-36) U/L ALT 25 (9-52) U/L Alkaline Phosphatase 60 (38-126) U/L Total Protein 6.8 (6.3-8.2) g/dL Albumin 3.6 (3.5-5.0) g/dL Amylase 65 (30-110) U/L Lipase 170 (23-300) U/L Urine Color Yellow Urine Appearance Cloudy H (Clear) Urine pH 6.5 (5.0-8.0) Ur Specific [place] 1.018 (1.001-1.035) Urine Protein Negative (Negative) Urine Glucose (UA) Negative (Negative) Urine Ketones Negative (Negative) Urine Blood Negative (Negative) Urine Nitrite Negative (Negative) Urine Bilirubin Negative (Negative) Urine Urobilinogen <2.0 (<2.0) mg/dL Ur Leukocyte Esterase Negative (Negative) Urine RBC 1 (0-5) /hpf Urine WBC 1 (0-5) /hpf Ur Squamous Epith Cells 7 H (0-4) /hpf Amorphous Sediment Rare H (None) /hpf Urine Bacteria Rare H (None) /hpf Urine Mucus Rare H (None) /hpf Urine HCG, Qual (Not Detectd) 04/23/18 Range/Units 23:45 WBC (3.8-10.6) k/uL RBC (3.80-5.40) m/uL Hgb (11.4-16.0) gm/dL Hct (34.0-46.0) % MCV (80.0-100.0) fL MCH (25.0-35.0) pg MCHC (31.0-37.0) g/dL RDW (11.5-15.5) % Plt Count (150-450) k/uL Neutrophils % % Lymphocytes % % Monocytes % % Eosinophils % % Basophils % % Neutrophils # (1.3-7.7) k/uL Lymphocytes # (1.0-4.8) k/uL Monocytes # (0-1.0) k/uL Eosinophils # (0-0.7) k/uL Basophils # (0-0.2) k/uL Sodium (137-145) mmol/L Potassium (3.5-5.1) mmol/L Chloride (98-107) mmol/L Carbon Dioxide (22-30) mmol/L Anion Gap mmol/L BUN (7-17) mg/dL Creatinine (0.52-1.04) mg/dL Est GFR (CKD-EPI)AfAm (>60 ml/min/1.73 sqM) Est GFR (CKD-EPI)NonAf (>60 ml/min/1.73 sqM) Glucose (74-99) mg/dL Calcium (8.4-10.2) mg/dL Total Bilirubin (0.2-1.3) mg/dL AST (14-36) U/L ALT (9-52) U/L Alkaline Phosphatase (38-126) U/L Total Protein (6.3-8.2) g/dL Albumin (3.5-5.0) g/dL Amylase (30-110) U/L Lipase (23-300) U/L Urine Color Urine Appearance (Clear) Urine pH (5.0-8.0) Ur Specific [place] (1.001-1.035) Urine Protein (Negative) Urine Glucose (UA) (Negative) Urine Ketones (Negative) Urine Blood (Negative) Urine Nitrite (Negative) Urine Bilirubin (Negative) Urine Urobilinogen (<2.0) mg/dL Ur Leukocyte Esterase (Negative) Urine RBC (0-5) /hpf Urine WBC (0-5) /hpf Ur Squamous Epith Cells (0-4) /hpf Amorphous Sediment (None) /hpf Urine Bacteria (None) /hpf Urine Mucus (None) /hpf Urine HCG, Qual Not Detected (Not Detectd) - Radiology Data Radiology results: report reviewed X-ray KUB impression: Nonacute abdomen. No change. Disposition Clinical Impression: Right flank pain Disposition: HOME SELF-CARE Condition: Good Instructions: Flank Pain (ED) Additional Instructions: Please take medications as prescribed. Please follow up with primary care provider within 1-2 days. Return to emergency department if symptoms should worsen or any concerns arise. Prescriptions: Dicyclomine [Bentyl] 20 mg PO QID #20 tablet Is patient prescribed a controlled substance at d/c from ED?: No Referrals: Duke Hidalgo MD [Primary Care Provider] - 1-2 days Time of Disposition: 01:06
[2018-04-23 23:47] LABS: Basophils # (A) 0.1 k/uL (0-0.2); Basophils % (A) 0 %; Eosinophils # (A) 0.7 k/uL (0-0.7); Eosinophils % (A) 5 %; HCT 43.8 % (34.0-46.0); HGB 14.4 gm/dL (11.4-16.0); Lymphocytes # (A) 3.9 k/uL (1.0-4.8); Lymphocytes % (A) 26 %; MCH 31.2 pg (25.0-35.0); MCHC 32.9 g/dL (31.0-37.0); MCV 94.7 fL (80.0-100.0); Mean Platelet Volume 6.8; Monocytes # (A) 0.5 k/uL (0-1.0); Monocytes % (A) 3 %; Neutrophils # (A) 9.6 k/uL (1.3-7.7); Neutrophils % (A) 65 %; Platelet Count 321 k/uL (150-450); RBC 4.63 m/uL (3.80-5.40); RDW 13.3 % (11.5-15.5); WBC 14.8 k/uL (3.8-10.6)
[2018-04-24 00:04] LABS: ALT 25 U/L (9-52); AST 20 U/L (14-36); Albumin 3.6 g/dL (3.5-5.0); Alkaline Phosphatase 60 U/L (38-126); Amylase 65 U/L (30-110); Anion Gap 6 mmol/L; Blood Urea Nitrogen 10 mg/dL (7-17); Calcium 9.2 mg/dL (8.4-10.2); Carbon Dioxide 24 mmol/L (22-30); Chloride 109 mmol/L (98-107); Glucose 123 mg/dL (74-99); Lipase 170 U/L (23-300); Potassium 4.5 mmol/L (3.5-5.1); Sodium 139 mmol/L (137-145); Total Bilirubin 0.2 mg/dL (0.2-1.3); Total Protein 6.8 g/dL (6.3-8.2)
--- NOTE | 2018-04-24 00:19 | XR ---
EXAMINATION TYPE: XR KUB DATE OF EXAM: 04/24/2018 COMPARISON: 02/09/2018 HISTORY: Flank pain TECHNIQUE: 2 views upright FINDINGS: There is no sign of intestinal obstruction or pneumoperitoneum. Fecal pattern is normal. Th ere are clips from cholecystectomy. Lung bases are clear. There are no pathologic calcifications over the kidneys. IMPRESSION: Nonacute abdomen. No change.
[2018-04-24 00:31] VITALS: BP 115/63; PULSE 89; RESP 18
[2018-04-24 00:53] LABS: Amorphous Sediment,Urine Rare /hpf; Appearance,Urine Cloudy (Clear); Bacteria,Urine Rare /hpf; Bilirubin,Urine Negative (Negative); Blood,Urine Negative (Negative); Color,Urine Yellow; Glucose,Urine (UA) Negative (Negative); Ketones,Urine Negative (Negative); Leukocyte Esterase,Urine Negative (Negative); Mucus,Urine Rare /hpf; Nitrite,Urine Negative (Negative); PH, Urine 6.5 (5.0-8.0); Protein,Urine Negative (Negative); RBC,Urine 1 /hpf (0-5); Specific Gravity,Urine 1.018 (1.001-1.035); Squamous Epithelial Cell,Urine 7 /hpf (0-4); Urobilinogen,Urine <2.0 mg/dL (<2.0); WBC,Urine 1 /hpf (0-5)
[2018-04-24] MEDS ORDERED: DICYCLOMINE 20 MG TAB PO STA (01:03)
== END 2018-04-24 01:30 | disposition home or self-care (01) ==
LOC: EC 22:39
DX: R10.9 Unspecified abdominal pain (principal); M54.9 Dorsalgia, unspecified; R19.7 Diarrhea, unspecified; R68.83 Chills (without fever); F17.200 Nicotine dependence, unspecified, uncomplicated; Z90.49 Acquired absence of other specified parts of digestive tract; Z98.51 Tubal ligation status
CPT/HCPCS: 36415; 80053; 82150; 83690; 85025; 99284; 96374; J1885; 74018; 81001; 81025

== ENCOUNTER 2018-05-19 17:14 | Emergency (ER) | payer OTHER ==
--- NOTE | 2018-05-19 18:18 | ED ---
ENT HPI - General Chief complaint: ENT Stated complaint: SORE THROAT Time Seen by Provider: 05/19/18 17:35 Source: patient Mode of arrival: ambulatory Limitations: no limitations - History of Present Illness Initial comments: 38-year-old female with distant seizure disorder history presenting today for chief complaint of sore throat 4 days. Patient states that she began experiencing sore throat, she stated it worsened over the weekend and increases with swallowing. Patient denies any fever she does admit to chills. Patient denies any vomiting, diarrhea, bowel pain, chest pain, shortness of breath, neck stiffness. Patient does admit to a dull aching headache that has been on and off throughout the weekend, she denies it being the worst headache of her life. Patient denied any signs of altered mental status, muscle weakness or sensation changes. Patient states she has been trying salt water gargles. Patient was concerned able the size of her enlarged left tonsil, and presented for evaluation. She did note white spots on her tonsils. Patient denies any recent antibiotic use or sick contacts. Patient denies any recent travel. Patient denies any rash, hematemesis, hemoptysis, cough, sputum production, oliguria, hematuria, urgency frequency, dysuria or any other associated symptoms. Upon arrival pt HR elevated, pt states that this is her baseline. Remainder of VS within acceptable limits. Pt appears well, nontoxic and there are no signs of acute distress. - Related Data Home Medications Medication Instructions Recorded Confirmed Clobetasol Propionate [Temovate 1 applic TOPICAL DAILY PRN 04/10/18 04/23/18 0.05% Oint] Previous Rx's Medication Instructions Recorded Lidocaine 5% Patch [Lidoderm] 1 patch TOPICAL DAILY #5 patch 04/22/18 Methocarbamol [Robaxin-750] 750 mg PO TID PRN #21 tablet 04/22/18 Dicyclomine [Bentyl] 20 mg PO QID #20 tablet 04/24/18 Amoxicillin 500 mg PO Q12HR 10 Days #20 cap 05/19/18 predniSONE 10 mg PO DAILY 4 Days #4 tab 05/19/18 Allergies Allergy/AdvReac Type Severity Reaction Status Date / Time No Known Allergies Allergy Verified 05/19/18 17:23 Review of Systems ROS Statement: Those systems with pertinent positive or pertinent negative responses have been documented in the HPI. ROS Other: All systems not noted in ROS Statement are negative. Constitutional: Reports: chills. Denies: fever, night sweats ENT: Reports: throat pain. Denies: ear pain, dental pain, hearing loss, epistaxis Respiratory: Denies: cough, dyspnea, wheezes, hemoptysis, stridor Cardiovascular: Denies: chest pain, palpitations, dyspnea on exertion Endocrine: Denies: fatigue Gastrointestinal: Denies: abdominal pain, nausea, vomiting, diarrhea, constipation, hematemesis, melena, hematochezia Genitourinary: Denies: urgency, dysuria, frequency, hematuria Musculoskeletal: Denies: back pain Skin: Denies: rash, lesions Neurological: Reports: headache (on and off throughout the weekend). 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 PT STATES OFF MEDICATIONS SINCE 13 Y/O AND LAST SEIZURE WAS 12 Y/O. PSORIASIS., STATES HAVING DIARRHEA AND HX OF BLOOD IN STOOL. History of Any Multi-Drug Resistant Organisms: None Reported Past Surgical History: Section, Cholecystectomy, Tubal Ligation Additional Past Surgical History / Comment(s): novasure, uterine ablation Past Anesthesia/Blood Transfusion Reactions: No Reported Reaction Past Psychological History: No Psychological Hx Reported Smoking Status: Current every day smoker Past Alcohol Use History: None Reported Past Drug Use History: None Reported - Past Family History Mother Family Medical History: No Reported History Additional Family Medical History / Comment(s): osteoporosis, COPD, "too much to recall" per pt Father Family Medical History: No Reported History General Exam - General Exam Comments Initial Comments: General: The patient is awake and alert, in no distress, and does not appear acutely ill. Eye: Pupils are equal, round and reactive to light, extra-ocular movements are intact. No nystagmus. There is normal conjunctiva bilaterally. No signs of icterus. Ears, nose, mouth and throat: There are moist mucous membranes and no oral lesions. Patient oropharynx is erythematous, there is bilateral tonsillar enlargement and erythema with tonsillar crypts and exudates. Left tonsil greater than size than right. No palpable anterior cervical adenopathy. Uvula mild deviation to the left. Postnasal drip present. Tympanic membranes are within normal limits, there is no tympanic membrane erythema, effusion, perforation, bulging bilaterally. No pain to palpation of the mastoid. External auditory canals within normal limits bilaterally. Neck: The neck is supple, there is no tenderness or JVD. Cardiovascular: There is a regular rate and rhythm. No murmur, rub or gallop is appreciated. Respiratory: Lungs are clear to auscultation, respirations are non-labored, breath sounds are equal. No wheezes, stridor, rales, or rhonchi. Gastrointestinal: Soft, non-distended, non-tender abdomen without masses or organomegaly noted. There is no rebound or guarding present. No CVA tenderness. Bowel sounds are unremarkable. Musculoskeletal: Normal ROM, no tenderness. Strength 5/5. Sensation intact. Pulses equal bilaterally 2+. Neurological: A&O x 3. CN II-XII intact, There are no obvious motor or sensory deficits. Coordination appears grossly intact. Speech is normal. Skin: Skin is warm and dry and no rashes or lesions are noted. Psychiatric: Cooperative, appropriate mood & affect, normal judgment. Limitations: no limitations Course Vital Signs 05/19/18 05/19/18 17:21 19:48 Temperature 98.5 F 99.4 F Pulse Rate 117 H 103 H Respiratory 16 18 Rate Blood Pressure 116/78 118/58 O2 Sat by Pulse 98 100 Oximetry Medical Decision Making - Medical Decision Making Mild Uvula deviation, however it is towards larger tonsil (no contralateral deviation) Laboratory values as noted above, mildly elevated WBC. Heterophile (- ). Rapid Strep negative. CT soft tissues obtained due to uvula deviation (-) for abscess/fluid collection. Pt given decadron 8mg. Given PE findings, concerned for strep pharyngitis pt started on Amoxicillin BID x 10 days. No signs of respiratory distress/compromise at this time. Pt appears well, nontoxic. At this time I feel pt is stable for discharge with primary care f/u in next 24--48 hours. Pt is comfortable with discharge, and primary discussed at length with patient who verbalizes understanding. Patient was discharged in stable condition after discussion of all findings today. Case discussed with Dr. Macedo prior to pt discharge who agreed with impression and plan. - Lab Data Result diagrams: 05/19/18 18:28 05/19/18 18:28 Lab Results 05/19/18 05/19/18 05/19/18 Range/Units 17:38 17:38 18:28 WBC 14.6 H (3.8-10.6) k/uL RBC 4.68 (3.80-5.40) m/uL Hgb 14.4 (11.4-16.0) gm/dL Hct 43.6 (34.0-46.0) % MCV 93.2 (80.0-100.0) fL MCH 30.8 (25.0-35.0) pg MCHC 33.0 (31.0-37.0) g/dL RDW 13.1 (11.5-15.5) % Plt Count 322 (150-450) k/uL Neutrophils % 71 % Lymphocytes % 20 % Monocytes % 5 % Eosinophils % 3 % Basophils % 0 % Neutrophils # 10.3 H (1.3-7.7) k/uL Lymphocytes # 2.9 (1.0-4.8) k/uL Monocytes # 0.7 (0-1.0) k/uL Eosinophils # 0.4 (0-0.7) k/uL Basophils # 0.1 (0-0.2) k/uL Sodium (137-145) mmol/L Potassium (3.5-5.1) mmol/L Chloride (98-107) mmol/L Carbon Dioxide (22-30) mmol/L Anion Gap mmol/L BUN (7-17) mg/dL Creatinine (0.52-1.04) mg/dL Est GFR (CKD-EPI)AfAm (>60 ml/min/1.73 sqM) Est GFR (CKD-EPI)NonAf (>60 ml/min/1.73 sqM) Glucose (74-99) mg/dL Calcium (8.4-10.2) mg/dL Total Bilirubin (0.2-1.3) mg/dL AST (14-36) U/L ALT (9-52) U/L Alkaline Phosphatase (38-126) U/L Total Protein (6.3-8.2) g/dL Albumin (3.5-5.0) g/dL Heterophile Antibody (Negative) Influenza Type A RNA Not Detected (Not Detectd) Influenza Type B (PCR) Not Detected (Not Detectd) Group A Strep Rapid Negative (Negative) 05/19/18 05/19/18 Range/Units 18:28 18:28 WBC (3.8-10.6) k/uL RBC (3.80-5.40) m/uL Hgb (11.4-16.0) gm/dL Hct (34.0-46.0) % MCV (80.0-100.0) fL MCH (25.0-35.0) pg MCHC (31.0-37.0) g/dL RDW (11.5-15.5) % Plt Count (150-450) k/uL Neutrophils % % Lymphocytes % % Monocytes % % Eosinophils % % Basophils % % Neutrophils # (1.3-7.7) k/uL Lymphocytes # (1.0-4.8) k/uL Monocytes # (0-1.0) k/uL Eosinophils # (0-0.7) k/uL Basophils # (0-0.2) k/uL Sodium 138 (137-145) mmol/L Potassium 4.6 (3.5-5.1) mmol/L Chloride 105 (98-107) mmol/L Carbon Dioxide 23 (22-30) mmol/L Anion Gap 10 mmol/L BUN 10 (7-17) mg/dL Creatinine 0.61 (0.52-1.04) mg/dL Est GFR (CKD-EPI)AfAm >90 (>60 ml/min/1.73 sqM) Est GFR (CKD-EPI)NonAf >90 (>60 ml/min/1.73 sqM) Glucose 98 (74-99) mg/dL Calcium 9.8 (8.4-10.2) mg/dL Total Bilirubin 0.4 (0.2-1.3) mg/dL AST 27 (14-36) U/L ALT 34 (9-52) U/L Alkaline Phosphatase 80 (38-126) U/L Total Protein 7.3 (6.3-8.2) g/dL Albumin 3.9 (3.5-5.0) g/dL Heterophile Antibody Negative (Negative) Influenza Type A RNA (Not Detectd) Influenza Type B (PCR) (Not Detectd) Group A Strep Rapid (Negative) Disposition Clinical Impression: Pharyngitis Disposition: HOME SELF-CARE Condition: Good Instructions: Pharyngitis (ED) Additional Instructions: Please use medication as discussed. Please follow-up with family doctor in the next 2 days. Please return to emergency room immediately if the symptoms increase or worsen or for any other concerns, as discussed. Prescriptions: Amoxicillin 500 mg PO Q12HR 10 Days #20 cap predniSONE 10 mg PO DAILY 4 Days #4 tab Is patient prescribed a controlled substance at d/c from ED?: No Referrals: Duke Hidalgo MD [Primary Care Provider] - 1-2 days Time of Disposition: 19:31
[2018-05-19] MEDS ORDERED: DEXAMETHASONE SOD PHOSPHATE 4 MG/ML 1 ML VIAL IV STA (18:19)
[2018-05-19 18:58] LABS: Basophils # (A) 0.1 k/uL (0-0.2); Basophils % (A) 0 %; Eosinophils # (A) 0.4 k/uL (0-0.7); Eosinophils % (A) 3 %; HCT 43.6 % (34.0-46.0); HGB 14.4 gm/dL (11.4-16.0); Lymphocytes # (A) 2.9 k/uL (1.0-4.8); Lymphocytes % (A) 20 %; MCH 30.8 pg (25.0-35.0); MCV 93.2 fL (80.0-100.0); Mean Platelet Volume 6.6; Monocytes # (A) 0.7 k/uL (0-1.0); Monocytes % (A) 5 %; Neutrophils # (A) 10.3 k/uL (1.3-7.7); Neutrophils % (A) 71 %; Platelet Count 322 k/uL (150-450); RBC 4.68 m/uL (3.80-5.40); RDW 13.1 % (11.5-15.5); WBC 14.6 k/uL (3.8-10.6)
[2018-05-19 19:08] LABS: ALT 34 U/L (9-52); AST 27 U/L (14-36); Albumin 3.9 g/dL (3.5-5.0); Alkaline Phosphatase 80 U/L (38-126); Anion Gap 10 mmol/L; Blood Urea Nitrogen 10 mg/dL (7-17); Calcium 9.8 mg/dL (8.4-10.2); Carbon Dioxide 23 mmol/L (22-30); Chloride 105 mmol/L (98-107); Glucose 98 mg/dL (74-99); Potassium 4.6 mmol/L (3.5-5.1); Sodium 138 mmol/L (137-145); Total Bilirubin 0.4 mg/dL (0.2-1.3); Total Protein 7.3 g/dL (6.3-8.2)
--- NOTE | 2018-05-19 19:10 | CT ---
EXAMINATION TYPE: CT soft tissue neck w con DATE OF EXAM: 05/19/2018 6:45 PM COMPARISON: None HISTORY: Sore throat x4 days. CT DLP: 471.2 mGycm Automated exposure control for dose reduction was used. CONTRAST: CT scan of the neck is performed following with IV Contrast, patient injected with 100ml mL of Isovue 370. Axial images are obtained, coronal and sagittal reformatted images are reviewed. FINDINGS: Superior mediastinum appears normal. There is normal branching pattern of the great vessels on the ao rtic arch. Thyroid gland appears normal. There is normal contrast opacification of the vertebral darrick aidan. There is normal contrast opacification of the carotid arteries and jugular veins. Epiglottis is normal. Subglottic trachea appears normal. There is no evidence of pharyngeal mass. Submandibular sa livary glands appear normal. There are enlarged anterior triangle cervical lymph nodes. The largest m easures 1.7 cm on the right side and 1.8 cm on the left side. The parotid glands are symmetric. There are few posterior tracheal cervical lymph nodes that measure up to 10 mm. Tonsils and adenoids appea r normal. There is mucosal thickening in the right side sphenoid sinus posteriorly. There is spondylotic changes in the cervical spine. There is endplate spur formation in right side ne ural foraminal narrowing at C6-7. There is also similar mild change at C5-6 on the right side. IMPRESSION: There are is nonspecific mild cervical lymphadenopathy. Cervical spondylotic changes. Mild sphenoid sinusitis.
[2018-05-19] MEDS ORDERED: AMOXICILLIN 500 MG CAP PO STA (19:31)
[2018-05-19 19:49] VITALS: BP 118/58; PULSE 103; RESP 18; TEMP 99.4
== END 2018-05-19 19:48 | disposition home or self-care (01) ==
LOC: EC 17:14
DX: J02.9 Acute pharyngitis, unspecified (principal); D72.829 Elevated white blood cell count, unspecified; F17.200 Nicotine dependence, unspecified, uncomplicated
CPT/HCPCS: 36415; 80053; 85025; 86308; 87081; 87430; 87502; 70491; 99283; 96374; J1100; Q9967

== ENCOUNTER 2018-07-07 22:27 | Emergency (ER) | payer OTHER ==
[2018-07-07] MEDS ORDERED: IPRATROPIUM-ALBUTEROL 3 ML NEB INHALATION STA (22:57)
[2018-07-07] MEDS ORDERED: KETOROLAC 30 MG/ML 1 ML VIAL IVP STA (22:58)
[2018-07-07] MEDS ORDERED: methylPREDNISolone SOD SUCCI 125 MG/2 ML VIAL IV STA (22:58)
--- NOTE | 2018-07-07 23:06 | ED ---
General Adult HPI - General Chief complaint: Upper Respiratory Infection Stated complaint: Congestion Time Seen by Provider: 07/07/18 22:50 Source: patient Mode of arrival: ambulatory Limitations: no limitations - History of Present Illness Initial comments: 38-year-old female presenting with cough, shortness of breath, leg swelling. Patient states she woke up [place] morning and had bilateral lower extremity edema that lasted for 24 hours. She admits to aching in her legs but denied other symptoms. She states the next day she developed a cough and shortness of breath that was similar to when she's had bronchitis. She denies any history of asthma or COPD, recent steroid use, intubations. Patient states she stopped smoking one month prior. She denies any dark urine. - Related Data Home Medications Medication Instructions Recorded Confirmed Clobetasol Propionate [Temovate 1 applic TOPICAL DAILY PRN 04/10/18 04/23/18 0.05% Oint] Previous Rx's Medication Instructions Recorded Lidocaine 5% Patch [Lidoderm] 1 patch TOPICAL DAILY #5 patch 04/22/18 Methocarbamol [Robaxin-750] 750 mg PO TID PRN #21 tablet 04/22/18 Dicyclomine [Bentyl] 20 mg PO QID #20 tablet 04/24/18 Amoxicillin 500 mg PO Q12HR 10 Days #20 cap 05/19/18 predniSONE 10 mg PO DAILY 4 Days #4 tab 05/19/18 Albuterol Sulfate [Proair Hfa] 1 - 2 puff INHALATION Q4H PRN #1 05/24/18 inhaler Azithromycin [Zithromax Z-pack] 0 mg PO DIRECTED #1 pack 05/24/18 predniSONE 50 mg PO DAILY #5 tab 05/24/18 Albuterol Inhaler [Ventolin Hfa 1 - 2 puff INHALATION Q6HR PRN #1 07/08/18 Inhaler] inhaler Benzonatate [Tessalon Perles] 100 mg PO TID PRN #30 cap 07/08/18 predniSONE 40 mg PO DAILY 5 Days #10 tab 07/08/18 Allergies Allergy/AdvReac Type Severity Reaction Status Date / Time No Known Allergies Allergy Verified 07/07/18 22:45 Review of Systems ROS Statement: Those systems with pertinent positive or pertinent negative responses have been documented in the HPI. Review of Systems Constitutional: Denies fever, chills Eyes: Denies change in vision, Denies pain Ears, nose, mouth, throat: Denies headaches, Denies sore throat Cardiovascular: Denies chest pain. Denies palpitations Respiratory: Positive shortness of breath, positive cough Gastrointestinal: Denies abdominal pain. Denies nausea, vomiting, diarrhea. Genitourinary: Denies hematuria, Denies infections Musculoskeletal: Denies pain, Denies swelling Integumentary: Denies rash Neurological: Denies headache, focal weakness, focal numbness Psychiatric: Denies anxiety, Denies depression Hematologic/Lymphatic: Denies easy bleeding or bruising ROS Other: All systems not noted in ROS Statement are negative. 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 PT STATES OFF MEDICATIONS SINCE 13 Y/O AND LAST SEIZURE WAS 12 Y/O. PSORIASIS., STATES HAVING DIARRHEA AND HX OF BLOOD IN STOOL. History of Any Multi-Drug Resistant Organisms: None Reported Past Surgical History: Section, Cholecystectomy, Tubal Ligation Additional Past Surgical History / Comment(s): novasure, uterine ablation Past Anesthesia/Blood Transfusion Reactions: No Reported Reaction Past Psychological History: No Psychological Hx Reported Smoking Status: Former smoker Past Alcohol Use History: None Reported Past Drug Use History: None Reported - Past Family History Mother Family Medical History: No Reported History Additional Family Medical History / Comment(s): osteoporosis, COPD, "too much to recall" per pt Father Family Medical History: No Reported History General Exam - General Exam Comments Initial Comments: General: Awake, alert, No acute Distress HENT: Normocephalic. Atraumatic Eyes: PERRL. EOMI. No scleral icterus. No injected conjunctiva Neck: Full ROM Chest/Lungs: Mild expiratory wheezing and right lower lung santamaria. Clear to auscultation in left lung santamaria. Cardiac: Regular rate, rhythm. No murmurs or rubs. No edema 2+ DP pulses bilaterally Abdomen/GI: Soft, nontender, nondistended. No rebound, guarding, or rigidity. Musculoskeletal: Full ROM Skin: Warm, dry, intact Neurologic: A/Ox3, no weakness, no sensory deficit, no abnormal gait, no coordination deficit Limitations: no limitations Course Vital Signs 07/07/18 07/07/1818 22:42 23:26 23:33 Temperature 98.1 F Pulse Rate 96 88 76 Respiratory 22 Rate Blood Pressure 137/91 O2 Sat by Pulse 99 Oximetry 07/08/18 00:07 Temperature Pulse Rate Respiratory 20 Rate Blood Pressure O2 Sat by Pulse Oximetry Medical Decision Making - Medical Decision Making 38-year-old female presenting with ankle swelling and cough. Initial exam the patient is awake, alert, no acute distress. VSS. Patient is a history of CHF, DVT/PE, active cancer, hormone use or recent surgery. On exam she has no lower extremity edema. Her laboratory workup reveals no abnormal albumin and her urine is negative for protein. Her kidney function was within normal limits. X -ray was negative for acute process. This time the patient likely has bronchitis. She was given perceptions for prednisone, albuterol inhaler, Tessalon Perles. She is told to follow-up with her primary care physician this week for recheck discuss or ankle swelling. Patient is nontoxic appearing. She has no respiratory distress. No further emergent workup indicated. The patient was given return to ED instructions. They were instructed to follow up with their primary care provider. Stable for discharge at this time. - Lab Data Result diagrams: 07/07/18 23:55 07/07/18 23:55 Lab Results 07/07/18 07/07/18 07/07/18 Range/Units 23:55 23:55 23:55 WBC 10.3 (3.8-10.6) k/uL RBC 4.15 (3.80-5.40) m/uL Hgb 12.8 (11.4-16.0) gm/dL Hct 38.5 (34.0-46.0) % MCV 92.9 (80.0-100.0) fL MCH 30.9 (25.0-35.0) pg MCHC 33.3 (31.0-37.0) g/dL RDW 13.0 (11.5-15.5) % Plt Count 289 (150-450) k/uL Neutrophils % 52 % Lymphocytes % 37 % Monocytes % 4 % Eosinophils % 4 % Basophils % 1 % Neutrophils # 5.3 (1.3-7.7) k/uL Lymphocytes # 3.8 (1.0-4.8) k/uL Monocytes # 0.5 (0-1.0) k/uL Eosinophils # 0.5 (0-0.7) k/uL Basophils # 0.1 (0-0.2) k/uL Sodium 138 (137-145) mmol/L Potassium 4.7 (3.5-5.1) mmol/L Chloride 107 (98-107) mmol/L Carbon Dioxide 24 (22-30) mmol/L Anion Gap 7 mmol/L BUN 10 (7-17) mg/dL Creatinine 0.61 (0.52-1.04) mg/dL Est GFR (CKD-EPI)AfAm >90 (>60 ml/min/1.73 sqM) Est GFR (CKD-EPI)NonAf >90 (>60 ml/min/1.73 sqM) Glucose 91 (74-99) mg/dL Calcium 9.0 (8.4-10.2) mg/dL Total Bilirubin 0.2 (0.2-1.3) mg/dL Conjugated Bilirubin 0.0 (0.0-0.3) mg/dL Unconjugated Bilirubin 0.1 (0.0-1.1) mg/dL Delta Bilirubin 0.1 (0.0-0.2) mg/dL AST 25 (14-36) U/L ALT 32 (9-52) U/L Alkaline Phosphatase 65 (38-126) U/L Total Protein 6.7 (6.3-8.2) g/dL Albumin 3.6 (3.5-5.0) g/dL Urine Color Urine Appearance (Clear) Urine pH (5.0-8.0) Ur Specific [place] (1.001-1.035) Urine Protein (Negative) Urine Glucose (UA) (Negative) Urine Ketones (Negative) Urine Blood (Negative) Urine Nitrite (Negative) Urine Bilirubin (Negative) Urine Urobilinogen (<2.0) mg/dL Ur Leukocyte Esterase (Negative) Urine WBC (0-5) /hpf Ur Squamous Epith Cells (0-4) /hpf Urine Bacteria (None) /hpf Urine Mucus (None) /hpf Urine HCG, Qual Not Detected (Not Detectd) 07/07/18 Range/Units 23:55 WBC (3.8-10.6) k/uL RBC (3.80-5.40) m/uL Hgb (11.4-16.0) gm/dL Hct (34.0-46.0) % MCV (80.0-100.0) fL MCH (25.0-35.0) pg MCHC (31.0-37.0) g/dL RDW (11.5-15.5) % Plt Count (150-450) k/uL Neutrophils % % Lymphocytes % % Monocytes % % Eosinophils % % Basophils % % Neutrophils # (1.3-7.7) k/uL Lymphocytes # (1.0-4.8) k/uL Monocytes # (0-1.0) k/uL Eosinophils # (0-0.7) k/uL Basophils # (0-0.2) k/uL Sodium (137-145) mmol/L Potassium (3.5-5.1) mmol/L Chloride (98-107) mmol/L Carbon Dioxide (22-30) mmol/L Anion Gap mmol/L BUN (7-17) mg/dL Creatinine (0.52-1.04) mg/dL Est GFR (CKD-EPI)AfAm (>60 ml/min/1.73 sqM) Est GFR (CKD-EPI)NonAf (>60 ml/min/1.73 sqM) Glucose (74-99) mg/dL Calcium (8.4-10.2) mg/dL Total Bilirubin (0.2-1.3) mg/dL Conjugated Bilirubin (0.0-0.3) mg/dL Unconjugated Bilirubin (0.0-1.1) mg/dL Delta Bilirubin (0.0-0.2) mg/dL AST (14-36) U/L ALT (9-52) U/L Alkaline Phosphatase (38-126) U/L Total Protein (6.3-8.2) g/dL Albumin (3.5-5.0) g/dL Urine Color Yellow Urine Appearance Cloudy H (Clear) Urine pH 6.0 (5.0-8.0) Ur Specific [place] 1.017 (1.001-1.035) Urine Protein Negative (Negative) Urine Glucose (UA) Negative (Negative) Urine Ketones Negative (Negative) Urine Blood Negative (Negative) Urine Nitrite Negative (Negative) Urine Bilirubin Negative (Negative) Urine Urobilinogen <2.0 (<2.0) mg/dL Ur Leukocyte Esterase Moderate H (Negative) Urine WBC <1 (0-5) /hpf Ur Squamous Epith Cells 16 H (0-4) /hpf Urine Bacteria Rare H (None) /hpf Urine Mucus Rare H (None) /hpf Urine HCG, Qual (Not Detectd) Disposition Clinical Impression: Bronchitis, Viral infection, Ankle swelling Disposition: HOME SELF-CARE Condition: Good Instructions: Upper Respiratory Infection (ED), Leg Edema (ED) Prescriptions: Albuterol Inhaler [Ventolin Hfa Inhaler] 1 - 2 puff INHALATION Q6HR PRN #1 inhaler PRN Reason: Cough Benzonatate [Tessalon Perles] 100 mg PO TID PRN #30 cap PRN Reason: Cough predniSONE 40 mg PO DAILY 5 Days #10 tab Is patient prescribed a controlled substance at d/c from ED?: No Referrals: Duke Hidalgo MD [Primary Care Provider] - 1-2 days
[2018-07-08 00:14] LABS: Basophils # (A) 0.1 k/uL (0-0.2); Basophils % (A) 1 %; Eosinophils # (A) 0.5 k/uL (0-0.7); Eosinophils % (A) 4 %; HCT 38.5 % (34.0-46.0); HGB 12.8 gm/dL (11.4-16.0); Lymphocytes # (A) 3.8 k/uL (1.0-4.8); Lymphocytes % (A) 37 %; MCH 30.9 pg (25.0-35.0); MCHC 33.3 g/dL (31.0-37.0); MCV 92.9 fL (80.0-100.0); Mean Platelet Volume 6.9; Monocytes # (A) 0.5 k/uL (0-1.0); Monocytes % (A) 4 %; Neutrophils # (A) 5.3 k/uL (1.3-7.7); Neutrophils % (A) 52 %; Platelet Count 289 k/uL (150-450); RBC 4.15 m/uL (3.80-5.40); WBC 10.3 k/uL (3.8-10.6)
[2018-07-08 00:35] LABS: ALT 32 U/L (9-52); AST 25 U/L (14-36); Albumin 3.6 g/dL (3.5-5.0); Alkaline Phosphatase 65 U/L (38-126); Anion Gap 7 mmol/L; Bilirubin, Delta 0.1 mg/dL (0.0-0.2); Bilirubin,Unconjugated 0.1 mg/dL (0.0-1.1); Blood Urea Nitrogen 10 mg/dL (7-17); Carbon Dioxide 24 mmol/L (22-30); Chloride 107 mmol/L (98-107); Glucose 91 mg/dL (74-99); Potassium 4.7 mmol/L (3.5-5.1); Sodium 138 mmol/L (137-145); Total Bilirubin 0.2 mg/dL (0.2-1.3); Total Protein 6.7 g/dL (6.3-8.2)
[2018-07-08 00:46] LABS: Appearance,Urine Cloudy (Clear); Bacteria,Urine Rare /hpf; Bilirubin,Urine Negative (Negative); Blood,Urine Negative (Negative); Color,Urine Yellow; Glucose,Urine (UA) Negative (Negative); Ketones,Urine Negative (Negative); Leukocyte Esterase,Urine Moderate (Negative); Mucus,Urine Rare /hpf; Nitrite,Urine Negative (Negative); Protein,Urine Negative (Negative); Specific Gravity,Urine 1.017 (1.001-1.035); Squamous Epithelial Cell,Urine 16 /hpf (0-4); Urobilinogen,Urine <2.0 mg/dL (<2.0); WBC,Urine <1 /hpf (0-5)
--- NOTE | 2018-07-08 01:19 | XR ---
EXAMINATION TYPE: XR chest 2V DATE OF EXAM: 07/08/2018 COMPARISON: 05/24/2018 HISTORY: 2 views TECHNIQUE: Frontal and lateral views of the chest are obtained. FINDINGS: Heart and mediastinum are normal. Lungs are clear. Diaphragm is normal. Bony thorax appear s normal. IMPRESSION: Normal chest. No adverse change compared to old exam. Normal heart. There is clearing of small linear density in the right upper lung field compared to old exam.
[2018-07-08] MEDS ORDERED: BENZONATATE 100 MG CAP PO STA (01:30)
[2018-07-08 01:48] VITALS: BP 148/70; PULSE 72; RESP 16; TEMP 97.9
== END 2018-07-08 01:48 | disposition home or self-care (01) ==
LOC: EC 22:27
DX: J40 Bronchitis, not specified as acute or chronic (principal); B34.9 Viral infection, unspecified; M25.471 Effusion, right ankle; M79.662 Pain in left lower leg; M79.661 Pain in right lower leg; Z87.891 Personal history of nicotine dependence; Z85.9 Personal history of malignant neoplasm, unspecified
CPT/HCPCS: 36415; 94640; 80048; 80076; 85025; 81001; 81025; 71046; 99284; 96374; 96375; J2930; J1885

== ENCOUNTER → 2018-07-17 | Outpatient (CLI) | payer OTHER ==
--- NOTE | 2018-07-17 17:46 | CONS ---
CONSULTATION DATE OF SERVICE: 07/17/2018 This patient is a 38-year-old lady who has been evaluated in the sleep center for possible obstructive sleep apnea-hypopnea syndrome. HISTORY OF PRESENT ILLNESS/SLEEP-WAKE EVALUATION: Patient goes to bed around 5 a.m. and gets up around 11 a.m. basically 7 days a week because she has difficulties falling asleep at normal times. She has a TV set in her bedroom. She usually sleeps on the side position or stomach position. She sleeps with loud snoring, symptoms of restless legs and periodic twitching and kicking of her legs. She wakes up from sleep up to 8 times with up to 4 episodes of nocturia. No history of hypnagogic hallucinations, sleep paralysis or cataplexy. In the morning patient wakes up tired, has episodes of anxiety. She may take a nap at 1 p.m. but usually does not feel refreshed after her nap. She does not see any dreams during naps. Brewer Sleepiness Scale is 9. PAST MEDICAL HISTORY: Positive for restless legs syndrome and anemia in the past. PAST SURGICAL HISTORY: 1. Cholecystectomy. 2. Uterus ablation procedure for bleeding. 3. . MEDICATIONS: 1. . 2. Motrin. 3. Adipex. SOCIAL HISTORY: Positive for smoking less than half pack a day for 15 years. Alcohol consumption rarely. FAMILY HISTORY: Hypertension, arthritis, sleep apnea, cancer, diabetes, thyroid problems, restless legs. REVIEW OF SYSTEMS: Multiple awakenings from sleep, tiredness and sleepiness during the day. PHYSICAL EXAMINATION: GENERAL: A pleasant lady without distress. VITAL SIGNS: BP 91/58 on right arm and 92/63 on the left, HR 102, RR 17, height 5 feet 6-1/2 inches, weight 269.2 pounds, body mass index 42.7, temperature 98.2, oxygen saturation at room air 98%. HEENT: PERRLA, EOMI. Evaluation of oropharynx showed tongue protrudes midline. Low position of soft palate. Mallampati III. NECK: Supple. No JVD. Thyroid is not palpable. Wide neck; 17 inches in circumference. LUNGS: Clear to percussion and to auscultation. Good air exchange. No wheezing or rhonchi. HEART: S1, S2 regular. No murmurs, gallops or rubs. ABDOMEN: Obese. EXTREMITIES: No clubbing or cyanosis. SPRINKLER DRIVER: Awake, alert, and oriented X3. Cranial nerves 2 to 7 intact. There is no fasciculation or atrophy. noted. No focal deficits observed. IMPRESSION: 1. Loud snoring, multiple awakenings from sleep with nocturia, low position of soft palate, wide neck, sleepiness; obstructive sleep apnea-hypopnea syndrome. 2. Obesity; body mass index 42.7. 3. History of restless legs syndrome. 4. Periodic limb movements. 5. Status post cholecystectomy. 6. Status post uterus ablation. 7. Status post section. PLAN: 1. Polysomnography for evaluation of patient's breathing during sleep and also to check for periodic limb movements. 2. CPAP/BiPAP titration if sleep study confirms obstructive sleep apnea-hypopnea syndrome. 3. Preferable position during sleep on the side. 4. No driving if patient feels any sleepiness. 5. I will see patient for follow up visit to explain results of testing and following plan. 6. Iron profile should be checked. Low level of iron may increase risk for restless legs and periodic limb movements. Patient has history of uterine with bleeding in the past. Thank you very much for referring this patient for consultation. Sincerely, Sergio Griffith MD, PhD, FAASM Diplomat of [place] [employer] [place] [employer] Brim Pouncing [employer] [facility] [place] MMODL / NAVN: [id number] /
== END ==
LOC: SLEEP 14:27
PROVIDERS: ATTEND Internal Medicine
DX: G47.33 Obstructive sleep apnea (adult) (pediatric) (principal); E66.9 Obesity, unspecified; R35.1 Nocturia; G47.61 Periodic limb movement disorder; G25.81 Restless legs syndrome; Z90.49 Acquired absence of other specified parts of digestive tract; Z98.890 Other specified postprocedural states; Z99.89 Dependence on other enabling machines and devices; Z68.41 Body mass index [BMI] 40.0-44.9, adult; Z79.1 Long term (current) use of non-steroidal anti-inflammatories (NSAID); Z79.899 Other long term (current) drug therapy; Z87.891 Personal history of nicotine dependence
CPT/HCPCS: 99211

== ENCOUNTER 2018-08-18 01:02 | Emergency (ER) | payer OTHER ==
[2018-08-18 02:07] LABS: Basophils % (A) 0 %; Eosinophils # (A) 0.3 k/uL (0-0.7); Eosinophils % (A) 3 %; HCT 38.3 % (34.0-46.0); HGB 12.3 gm/dL (11.4-16.0); Lymphocytes # (A) 3.8 k/uL (1.0-4.8); Lymphocytes % (A) 35 %; MCH 29.4 pg (25.0-35.0); MCHC 32.2 g/dL (31.0-37.0); MCV 91.3 fL (80.0-100.0); Mean Platelet Volume 6.9; Monocytes # (A) 0.6 k/uL (0-1.0); Monocytes % (A) 6 %; Neutrophils # (A) 5.9 k/uL (1.3-7.7); Neutrophils % (A) 54 %; Platelet Count 307 k/uL (150-450); RDW 13.3 % (11.5-15.5)
--- NOTE | 2018-08-18 02:08 | ED ---
General Adult HPI - General Chief complaint: Chest Pain Stated complaint: Chest Pressure Time Seen by Provider: 08/18/18 01:22 Source: patient Mode of arrival: ambulatory Limitations: no limitations - History of Present Illness Initial comments: This patient is a 38-year-old woman who presents to be evaluated for bilateral leg swelling, shortness of breath, that is been going on since about the end of June she states probably around 6 weeks or so. The patient was seen here once, where she had some lab testing and x-rays and then had gone home she states that the symptoms are not really improved and over the past week to 2 may have been getting a little bit worse. Onset/Timin -: week(s) Location: left, right, lower extremity Radiation: non-radiation Consistency: constant Improves with: none Worsens with: none Associated Symptoms: shortness of breath Treatments Prior to Arrival: none - Related Data Home Medications Medication Instructions Recorded Confirmed Clobetasol Propionate [Temovate 1 applic TOPICAL DAILY PRN 04/10/18 04/23/18 0.05% Oint] Previous Rx's Medication Instructions Recorded Lidocaine 5% Patch [Lidoderm] 1 patch TOPICAL DAILY #5 patch 04/22/18 Methocarbamol [Robaxin-750] 750 mg PO TID PRN #21 tablet 04/22/18 Dicyclomine [Bentyl] 20 mg PO QID #20 tablet 04/24/18 Amoxicillin 500 mg PO Q12HR 10 Days #20 cap 05/19/18 predniSONE 10 mg PO DAILY 4 Days #4 tab 05/19/18 Albuterol Sulfate [Proair Hfa] 1 - 2 puff INHALATION Q4H PRN #1 05/24/18 inhaler Azithromycin [Zithromax Z-pack] 0 mg PO DIRECTED #1 pack 05/24/18 predniSONE 50 mg PO DAILY #5 tab 05/24/18 Albuterol Inhaler [Ventolin Hfa 1 - 2 puff INHALATION Q6HR PRN #1 07/08/18 Inhaler] inhaler Benzonatate [Tessalon Perles] 100 mg PO TID PRN #30 cap 07/08/18 predniSONE 40 mg PO DAILY 5 Days #10 tab 07/08/18 Allergies Allergy/AdvReac Type Severity Reaction Status Date / Time No Known Allergies Allergy Verified 08/18/18 01:06 Review of Systems ROS Statement: Those systems with pertinent positive or pertinent negative responses have been documented in the HPI. ROS Other: All systems not noted in ROS Statement are negative. Constitutional: Denies: fever, chills Respiratory: Reports: dyspnea. Denies: cough, wheezes Cardiovascular: Reports: edema. 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 PT STATES OFF MEDICATIONS SINCE 13 Y/O AND LAST SEIZURE WAS 12 Y/O. PSORIASIS., STATES HAVING DIARRHEA AND HX OF BLOOD IN STOOL. History of Any Multi-Drug Resistant Organisms: None Reported Past Surgical History: Section, Cholecystectomy, Tubal Ligation Additional Past Surgical History / Comment(s): novasure, uterine ablation Past Anesthesia/Blood Transfusion Reactions: No Reported Reaction Past Psychological History: No Psychological Hx Reported Smoking Status: Former smoker Past Alcohol Use History: None Reported Past Drug Use History: None Reported - Past Family History Mother Family Medical History: No Reported History Additional Family Medical History / Comment(s): osteoporosis, COPD, "too much to recall" per pt Father Family Medical History: No Reported History General Exam Limitations: no limitations General appearance: alert, in no apparent distress Head exam: Present: atraumatic, normocephalic Eye exam: Present: normal appearance. Absent: scleral icterus, conjunctival injection ENT exam: Present: normal oropharynx Neck exam: Present: normal inspection Respiratory exam: Present: normal lung sounds bilaterally. Absent: respiratory distress, wheezes, rales, rhonchi, stridor Cardiovascular Exam: Present: normal rhythm, tachycardia, normal heart sounds. Absent: systolic murmur, diastolic murmur, rubs, gallop GI/Abdominal exam: Present: soft. Absent: distended, tenderness, guarding, rebound, rigid, mass Extremities exam: Present: normal capillary refill, pedal edema (There is trace edema at the ankles bilaterally). Absent: calf tenderness Back exam: Present: normal inspection. Absent: CVA tenderness (R), CVA tenderness (L) Neurological exam: Present: alert Skin exam: Present: warm, dry, intact, normal color. Absent: rash Course Vital Signs 08/18/18 08/18/18 08/18/18 01:03 01:14 01:20 Temperature 99.7 F H Pulse Rate 115 H 107 H Respiratory 20 28 H Rate Blood Pressure 132/84 135/83 O2 Sat by Pulse 99 99 98 Oximetry 08/18/18 08/18/18 08/18/18 03:00 03:06 04:00 Temperature Pulse Rate 103 H 103 H Respiratory 17 18 Rate Blood Pressure 118/57 111/61 O2 Sat by Pulse 98 98 97 Oximetry 08/18/18 05:00 Temperature Pulse Rate 98 Respiratory 16 Rate Blood Pressure 113/52 O2 Sat by Pulse 96 Oximetry Medical Decision Making - Medical Decision Making Patient's 38-year-old woman with a second visit in proximally 6 weeks for complaint of leg edema and her initial workup not indicating any evidence of CHF , renal failure, DVT. Patient did have 1 dose of Lasix here and instructed on appropriate follow-up as well as return parameters. She is feeling better following diuretic and would like to go home with follow-up rather than stay in the hospital. - Lab Data Result diagrams: 08/18/18 01:15 08/18/18 01:15 Lab Results 08/18/18 08/18/18 08/18/18 Range/Units 01:15 01:15 01:15 WBC 11.0 H (3.8-10.6) k/uL RBC 4.20 (3.80-5.40) m/uL Hgb 12.3 (11.4-16.0) gm/dL Hct 38.3 (34.0-46.0) % MCV 91.3 (80.0-100.0) fL MCH 29.4 (25.0-35.0) pg MCHC 32.2 (31.0-37.0) g/dL RDW 13.3 (11.5-15.5) % Plt Count 307 (150-450) k/uL Neutrophils % 54 % Lymphocytes % 35 % Monocytes % 6 % Eosinophils % 3 % Basophils % 0 % Neutrophils # 5.9 (1.3-7.7) k/uL Lymphocytes # 3.8 (1.0-4.8) k/uL Monocytes # 0.6 (0-1.0) k/uL Eosinophils # 0.3 (0-0.7) k/uL Basophils # 0.0 (0-0.2) k/uL PT (9.0-12.0) sec INR (<1.2) APTT (22.0-30.0) sec D-Dimer (<0.60) mg/L FEU Sodium 139 (137-145) mmol/L Potassium 4.4 (3.5-5.1) mmol/L Chloride 108 H (98-107) mmol/L Carbon Dioxide 21 L (22-30) mmol/L Anion Gap 10 mmol/L BUN 13 (7-17) mg/dL Creatinine 0.67 (0.52-1.04) mg/dL Est GFR (CKD-EPI)AfAm >90 (>60 ml/min/1.73 sqM) Est GFR (CKD-EPI)NonAf >90 (>60 ml/min/1.73 sqM) Glucose 107 H (74-99) mg/dL Calcium 8.9 (8.4-10.2) mg/dL Total Bilirubin 0.3 (0.2-1.3) mg/dL AST 26 (14-36) U/L ALT 33 (9-52) U/L Alkaline Phosphatase 58 (38-126) U/L Total Creatine Kinase 71 (30-135) U/L CK-MB (CK-2) 0.5 (0.0-2.4) ng/mL CK-MB (CK-2) Rel Index 0.7 Troponin I <0.012 (0.000-0.034) ng/mL NT-Pro-B Natriuret Pep pg/mL Total Protein 7.3 (6.3-8.2) g/dL Albumin 3.8 (3.5-5.0) g/dL 08/18/18 08/18/18 Range/Units 01:15 01:15 WBC (3.8-10.6) k/uL RBC (3.80-5.40) m/uL Hgb (11.4-16.0) gm/dL Hct (34.0-46.0) % MCV (80.0-100.0) fL MCH (25.0-35.0) pg MCHC (31.0-37.0) g/dL RDW (11.5-15.5) % Plt Count (150-450) k/uL Neutrophils % % Lymphocytes % % Monocytes % % Eosinophils % % Basophils % % Neutrophils # (1.3-7.7) k/uL Lymphocytes # (1.0-4.8) k/uL Monocytes # (0-1.0) k/uL Eosinophils # (0-0.7) k/uL Basophils # (0-0.2) k/uL PT 9.4 (9.0-12.0) sec INR 0.8 (<1.2) APTT 24.9 (22.0-30.0) sec D-Dimer 0.42 (<0.60) mg/L FEU Sodium (137-145) mmol/L Potassium (3.5-5.1) mmol/L Chloride (98-107) mmol/L Carbon Dioxide (22-30) mmol/L Anion Gap mmol/L BUN (7-17) mg/dL Creatinine (0.52-1.04) mg/dL Est GFR (CKD-EPI)AfAm (>60 ml/min/1.73 sqM) Est GFR (CKD-EPI)NonAf (>60 ml/min/1.73 sqM) Glucose (74-99) mg/dL Calcium (8.4-10.2) mg/dL Total Bilirubin (0.2-1.3) mg/dL AST (14-36) U/L ALT (9-52) U/L Alkaline Phosphatase (38-126) U/L Total Creatine Kinase (30-135) U/L CK-MB (CK-2) (0.0-2.4) ng/mL CK-MB (CK-2) Rel Index Troponin I (0.000-0.034) ng/mL NT-Pro-B Natriuret Pep 42 pg/mL Total Protein (6.3-8.2) g/dL Albumin (3.5-5.0) g/dL Disposition Clinical Impression: Edema Disposition: HOME SELF-CARE Condition: Good Instructions (If sedation given, give patient instructions): Leg Edema (ED) Is patient prescribed a controlled substance at d/c from ED?: No Referrals: Duke Hidalgo MD [Primary Care Provider] - 1-2 days
[2018-08-18 02:16] LABS: ALT 33 U/L (9-52); AST 26 U/L (14-36); Albumin 3.8 g/dL (3.5-5.0); Alkaline Phosphatase 58 U/L (38-126); Anion Gap 10 mmol/L; Blood Urea Nitrogen 13 mg/dL (7-17); Calcium 8.9 mg/dL (8.4-10.2); Carbon Dioxide 21 mmol/L (22-30); Chloride 108 mmol/L (98-107); Creatine Kinase 71 U/L (30-135); Glucose 107 mg/dL (74-99); Potassium 4.4 mmol/L (3.5-5.1); Sodium 139 mmol/L (137-145); Total Bilirubin 0.3 mg/dL (0.2-1.3); Total Protein 7.3 g/dL (6.3-8.2)
--- NOTE | 2018-08-18 02:22 | XR ---
EXAM: XR Chest, 2 Views CLINICAL HISTORY: Difficulty breathing TECHNIQUE: Frontal and lateral views of the chest. COMPARISON: Chest x-ray dated 07/08/2018 FINDINGS: Lungs: Unremarkable. No consolidation. Pleural space: Unremarkable. No pneumothorax. Heart: Unremarkable. No cardiomegaly. Mediastinum: Unremarkable. Bones/joints: Unremarkable. IMPRESSION: Normal chest x-rays.
[2018-08-18 02:24] LABS: D-Dimer 0.42 mg/L FEU (<0.60); INR 0.8 (<1.2); Partial Thromboplastin Time 24.9 sec (22.0-30.0); Prothrombin Time 9.4 sec (9.0-12.0)
[2018-08-18 02:27] LABS: Creatine Kinase MB 0.5 ng/mL (0.0-2.4); Troponin I <0.012 ng/mL (0.000-0.034)
[2018-08-18] MEDS ORDERED: FUROSEMIDE 10 MG/ML 2 ML VIAL IV ONE (04:17)
[2018-08-18 07:19] VITALS: BP 126/56; PULSE 104; RESP 18; TEMP 98.1
== END 2018-08-18 07:14 | disposition home or self-care (01) ==
LOC: EC 01:02
DX: R60.0 Localized edema (principal); R06.02 Shortness of breath; R07.89 Other chest pain; Z87.891 Personal history of nicotine dependence
CPT/HCPCS: 36415; 93005; 85379; 83880; 80053; 82550; 82553; 84484; 85025; 85610; 85730; 71046; 99285; 96374; J1940

== ENCOUNTER → 2018-08-19 | Outpatient (CLI) | payer OTHER ==
--- NOTE | 2018-08-20 10:47 | ECHOF ---
Referral Reason:R06.02 Shortness Of Breath MEASUREMENTS -------- HEIGHT: 167.6 cm WEIGHT: 113.4 kg BP: RVIDd: 2.9 cm (< 3.3) IVSd: 1.1 cm (0.6 - 1.1) LVIDd: 4.1 cm (3.9 - 5.3) LVPWd: 1.2 cm (0.6 - 1.1) IVSs: 1.5 cm LVIDs: 2.6 cm LVPWs: 1.2 cm LAESV Index (A-L): 10.35 ml/m Ao Diam: 2.7 cm (2.0 - 3.7) AV Cusp: 1.5 cm (1.5 - 2.6) LA Diam: 2.5 cm (2.7 - 3.8) MV E Db: 0.65 m/s MV DecT: 365 ms MV A Db: 0.68 m/s MV E/A Ratio: 0.96 RAP: 5.00 mmHg RVSP: 11.31 mmHg FINDINGS -------- Resting tachycardia (HR>100bpm). This was a technically adequate study. The left ventricular size is normal. There is borderline concentric left ventricular hypertrophy. Overall left ventricular systolic function is normal with, an EF between 55 - 60 %. The right ventricle is normal in size and function. Normal LA size by volume 22+/-6 ml/m2. The right atrium is normal in size. There is mild aortic valve sclerosis. There is no evidence of aortic regurgitation. There is no e vidence of aortic stenosis. The mitral valve is normal. There is trace mitral regurgitation. Trace tricuspid regurgitation present. Right ventricular systolic pressure is normal at < 35 mmHg. There is no evidence of pulmonary hypertension. Trace/mild (physiologic) pulmonic regurgitation. The aortic root size is normal. IVC Not well visulized. There is no pericardial effusion. CONCLUSIONS -------- 1. Resting tachycardia (HR>100bpm). 2. This was a technically adequate study. 3. The left ventricular size is normal. 4. There is borderline concentric left ventricular hypertrophy. 5. Overall left ventricular systolic function is normal with, an EF between 55 - 60 %. 6. Normal LA size by volume 22+/-6 ml/m2. 7. There is mild aortic valve sclerosis. 8. There is trace mitral regurgitation. 9. Trace tricuspid regurgitation present. 10. Right ventricular systolic pressure is normal at < 35 mmHg. 11. There is no evidence of pulmonary hypertension. 12. Trace/mild (physiologic) pulmonic regurgitation. 13. The aortic root size is normal. 14. IVC Not well visulized. 15. There is no pericardial effusion. SENIOR ACCOUNTING SPECIALIST: Michele Edward RDCS
== END | disposition home or self-care (01) ==
LOC: RADECHMAIN 13:18
PROVIDERS: ATTEND Internal Medicine
DX: I35.8 Other nonrheumatic aortic valve disorders (principal)
CPT/HCPCS: 93306

== ENCOUNTER → 2018-09-06 | Outpatient (CLI) | payer OTHER ==
--- NOTE | 2018-09-06 15:56 | XR ---
EXAMINATION TYPE: XR lumbar spine 2 or 3V DATE OF EXAM: 09/06/2018 COMPARISON: None HISTORY: Pain x2 weeks TECHNIQUE: Three-view lumbar spine FINDINGS: Disc heights are preserved. Vertebral body heights are preserved. There is a scoliosis with convexity to the right. There is straightening of the lumbar spine lateral projection Posterior disc space narrowing is present L5-S1. There is disc space narrowing present L2-3. Inferior endplate Schmorl's node is present L2. IMPRESSION: 1. No acute abnormality. 2. Degenerative disc changes L2-3 L5-S1. 3. Schmorl's node L2
--- NOTE | 2018-09-06 16:08 | XR ---
EXAMINATION TYPE: XR sacrum coccyx DATE OF EXAM: 09/06/2018 COMPARISON: None HISTORY: Pain TECHNIQUE: Signa coccyx are examined in 3 projections. FINDINGS: Sacroiliac joints are normal. No acute fractures are evident. The lateral projection may be some subtle subluxation of the mid coccyx proximal coccyx posteriorly a cute fracture is not identified. IMPRESSION: 1. There may be some posterior subluxation of the distal coccygeal segments relation to the more pro ximal coccygeal segments. 2. Acute fracture is not identified
== END ==
LOC: RADXRMAIN 09:59
PROVIDERS: ATTEND Internal Medicine
DX: M51.37 Other intervertebral disc degeneration, lumbosacral region (principal); M51.46 Schmorl's nodes, lumbar region
CPT/HCPCS: 72100; 72220

== ENCOUNTER → 2018-09-19 | Outpatient (CLI) | payer OTHER ==
[2018-09-19 16:12] LABS: HCT 37.7 % (34.0-46.0); HGB 12.6 gm/dL (11.4-16.0); MCH 30.5 pg (25.0-35.0); MCHC 33.3 g/dL (31.0-37.0); MCV 91.7 fL (80.0-100.0); Mean Platelet Volume 6.1; Platelet Count 356 k/uL (150-450); RBC 4.11 m/uL (3.80-5.40); RDW 13.2 % (11.5-15.5); WBC 10.7 k/uL (3.8-10.6)
[2018-09-19 22:59] LABS: Albumin 3.9 g/dL (3.80-4.90); Albumin/Globulin Ratio 1.44 (1.60-3.17); Anion Gap 8.8 mmol/L (4.00-12.00); Calcium 9.3 mg/dL (8.7-10.3); Carbon Dioxide 27.2 mmol/L (21.6-31.8); Globulin 2.7 g/dL (1.6-3.3); Potassium 4.2 mmol/L (3.5-5.5); Total Bilirubin 0.2 mg/dL (0.2-1.2); Total Protein 6.6 g/dL (6.2-8.2)
[2018-09-19 23:05] LABS: Vitamin D 25 Hydroxy 15.3 ng/mL (30.0-100.0)
[2018-09-19 23:08] LABS: Folate, Serum 11.7 ng/mL
[2018-09-20 01:41] LABS: Hemoglobin A1C 5.6 % (4.0-6.0)
== END | disposition home or self-care (01) ==
LOC: LABWHC1 15:29
PROVIDERS: ATTEND Surgery
DX: E55.9 Vitamin D deficiency, unspecified (principal); G47.30 Sleep apnea, unspecified; K90.89 Other intestinal malabsorption; E89.1 Postprocedural hypoinsulinemia; E66.01 Morbid (severe) obesity due to excess calories; Z68.41 Body mass index [BMI] 40.0-44.9, adult
CPT/HCPCS: 36415; 80053; 82306; 82607; 82746; 83036; 83540; 84425; 85027; 93005

== ENCOUNTER → 2018-09-19 | Outpatient (CLI) | payer OTHER ==
[2018-09-19 15:00] VITALS: BP 132/79; PULSE 103; RESP 16; TEMP 98.7; BMI 44.2
--- NOTE | 2018-09-19 15:21 | P.HPBAR ---
Bariatric H&P - History & Physicial H&P Date: 09/19/18 History & Physicial: Visit/CC: initial apt Patient initial contact: Initial weight: 124.341 kg Initial weight in pounds: 274.13 Height: 5 ft 6 in Initial BMI: 44.2 Last weight: Current weight: 124.341 kg Current weight in pounds: 274.13 Current BMI: 44.2 [place] body weight (based on NIH guidelines): 58.967 kg Excess body weight loss: 0.0% The patient is a 38 year-old F who presents for Bariatric Assessment. Patient today for new patient bariatric assessment. Patient has suffered with her weight for the last several years. This is the heaviest that she has been. Patient currently interested in sleeve gastrectomy. No history of reflux. Patient recent diagnosed with severe obstructive sleep apnea. Denies history of DVT for dysphagia. History of seizure disorder but she does not take any seizure medications since her youth. No breakthrough seizures. Patient quit smoking 3 months ago. Currently undergoing cardiac testing for complaints of chest pain and leg swelling. She had an upper endoscopy in October 2017. Mild gastritis and duodenitis was seen at that time. 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 PT STATES OFF MEDICATIONS SINCE 13 Y/O AND LAST SEIZURE WAS 12 Y/O. PSORIASIS., STATES HAVING DIARRHEA AND HX OF BLOOD IN STOOL. History of Any Multi-Drug Resistant Organisms: None Reported Past Surgical History: Section, Cholecystectomy, Tubal Ligation Additional Past Surgical History / Comment(s): novasure, uterine ablation Past Anesthesia/Blood Transfusion Reactions: No Reported Reaction Smoking Status: Former smoker - Past Family History Mother Family Medical History: No Reported History Additional Family Medical History / Comment(s): osteoporosis, COPD, "too much to recall" per pt Father Family Medical History: No Reported History Surgical - Exam Vital Signs Temp Pulse Resp BP 98.7 F 103 H 16 132/79 09/19/18 14:53 09/19/18 14:53 09/19/18 14:53 09/19/18 14:53 Physical exam: General: Well-developed, well-nourished HEENT: Normocephalic, sclerae nonicteric Abdomen: Nontender, nondistended Extremities: No edema Neuro: Alert and oriented Bariatric Assessment & Plan (1) Morbid obesity with BMI of 40.0-44.9, adult Narrative/Plan: Surgical options reviewed with the patient in detail today. Risks and benefits of the proposed procedures including the expected weight loss reviewed. Patient will not require preoperative upper endoscopy since her last EGD was last October. Strongly consider cardiac evaluation given the patient's recent symptoms of chest pain and leg swelling. We'll tentatively proceed with sleeve gastrectomy. Patient will follow up prior to scheduling to review the clearances. Status: Acute Bariatric Checklist Checklist: Plan: Checklist: EGD: 1. Hiatal hernia: 2. H. Pylori: HgbA1c: Vitamin D: Smoking: Former smoker Primary care physician referral: dr. garcia Psychiatry clearance: Cardiology clearance: Sleep study: Diet journal: VTE risk score: VTE risk level: Rehab needs at discharge:
== END ==
LOC: BARWHC3 14:18
PROVIDERS: ATTEND Surgery
DX: E66.01 Morbid (severe) obesity due to excess calories (principal); G47.33 Obstructive sleep apnea (adult) (pediatric); K29.70 Gastritis, unspecified, without bleeding; K29.80 Duodenitis without bleeding; M79.89 Other specified soft tissue disorders; R07.9 Chest pain, unspecified; Z87.891 Personal history of nicotine dependence; Z68.41 Body mass index [BMI] 40.0-44.9, adult
CPT/HCPCS: 99211

== ENCOUNTER → 2018-09-26 | Outpatient (CLI) | payer OTHER ==
--- NOTE | 2018-09-26 14:16 | SFUN ---
SLEEP CENTER FOLLOW UP NOTE DATE OF SERVICE: 09/26/2018 A 38-year-old lady who has been followed in the Sleep Center for treatment of obstructive sleep apnea-hypopnea syndrome. Recently, patient had diagnostic polysomnogram which showed severe sleep apnea and then she had CPAP titration. Subsequently, received CPAP unit today. Today is her visit while she is on treatment with CPAP. I discussed results of sleep studies with patient in detail. Patient was able to use CPAP equipment without significant problems related to mask fitting, pressure or humidification. She feels better while she is using CPAP. Twining Sleepiness Scale today is 12. I checked patient's CPAP unit. CPAP pressure is 13 cm of water. The patient is using equipment 28/30 nights and 15/30 nights more than 4 hours. Average usage 4.1 hour. Leak is up to 18 L/minute, which is borderline. Apnea-hypopnea index is 1.7, which is absolutely normal. MEDICATIONS: Ropinirole, Motrin, Adipex. PHYSICAL EXAM: Patient in no distress. BP 131/61, HR 83, RR 18, weight 275, temp 98.1, oxygen saturation at room air 98%. OROPHARYNX: Low position of soft palate. Mallampati 4. ABDOMEN: Obese. Neck Supple, no JVD. Thyroid is not palpable. LUNGS Clear to percussion and to auscultation. Good air exchange. No wheezing or rhonchi. HEART S1, S2 regular. No murmurs, gallops, or rubs. EXTREMITIES No clubbing or cyanosis. COLOR GRINDER Awake, alert, and oriented X3. Cranial nerves 2 to 7 intact. There is no fasciculation or atrophy. noted. No focal deficits observed. IMPRESSION: 1. Severe obstructive sleep apnea-hypopnea syndrome; apnea-hypopnea index 43.6 with oxygen desaturation to 78.3% on full control with CPAP at 13 cm of water. Patient benefitting from treatment. 2. Obesity. 3. Status post cholecystectomy. 4. Status post uterus ablation. 5. Status post . 6. History of restless legs, on Ropinirole. No significant periodic limb movements during the sleep study. PLAN: 1. Patient will continue to use CPAP equipment every night for the whole night. 2. Losing weight. 3. Sleep hygiene with regular time in bed for at least 7-1/2 hours. 4. No driving if feeling sleepiness. Thank you very much for allowing me to participate in the management of your patient. Sincerely, Sergio Griffith MD, PhD, FAASM Diplomat of [place] [employer] [place] [employer] [facility] [place] ELVIRA / ROBE: [id number] /
== END | disposition home or self-care (01) ==
LOC: SLEEP 13:10
PROVIDERS: ATTEND Internal Medicine
DX: G47.33 Obstructive sleep apnea (adult) (pediatric) (principal); G25.81 Restless legs syndrome; E66.9 Obesity, unspecified; Z99.89 Dependence on other enabling machines and devices; Z79.1 Long term (current) use of non-steroidal anti-inflammatories (NSAID); Z79.899 Other long term (current) drug therapy; Z90.49 Acquired absence of other specified parts of digestive tract; Z98.890 Other specified postprocedural states

== ENCOUNTER 2019-02-20 08:57 | Emergency (ER) | payer OTHER ==
[2019-02-20 09:03] VITALS: TEMP 98.2
[2019-02-20] MEDS ORDERED: KETOROLAC 30 MG/ML 1 ML VIAL IVP STA (09:17)
[2019-02-20] MEDS ORDERED: MORPHINE SULFATE 4 MG/ML SYRINGE IV STA (09:17)
[2019-02-20] MEDS ORDERED: SODIUM CHLORIDE 0.9% 1,000 ML IV STA ×2 (09:17)
[2019-02-20] MEDS ORDERED: ONDANSETRON ODT 8 MG TAB.RAPDIS PO STA (09:17)
[2019-02-20] MEDS ORDERED: ONDANSETRON 4 MG/2 ML VIAL IVP STA (09:21)
--- NOTE | 2019-02-20 09:21 | ED ---
Abdominal Pain HPI - General Chief Complaint: Abdominal Pain Stated Complaint: abd pain, nausea Time Seen by Provider: 02/20/19 09:06 Source: patient, RN notes reviewed, old records reviewed Mode of arrival: ambulatory Limitations: no limitations - History of Present Illness Initial Comments: Patient is a 38-year-old female who presents emergency department today with 3 days of nausea, intermittent abdominal pain mostly in the right lower quadrant. Patient reports that she's had some episodes of diarrhea and vomiting. The Patient states that she has had a history of ovarian cysts the past. Surgical history includes cholecystectomy and C-sections. She states that she has had some chills and subjective fevers. Patient denies any recent fever, chills, shortness of breath, chest pain, back pain, numbness or tingling, dysuria or hematuria, constipation or diarrhea, headaches or visual changes, or any other current symptoms - Related Data Home Medications Medication Instructions Recorded Confirmed HYDROcodone/APAP 5-325MG [[place] 1 tab PO Q6HR PRN 02/20/19 02/20/19 5-325] Ibuprofen [Motrin] 800 mg PO TID PRN 02/20/19 02/20/19 Phentermine HCl [Adipex-P] 37.5 mg PO DAILY 02/20/19 02/20/19 Previous Rx's Medication Instructions Recorded Ondansetron Odt [Zofran Odt] 4 mg PO Q8HR PRN #12 tab 02/20/19 Allergies Allergy/AdvReac Type Severity Reaction Status Date / Time No Known Allergies Allergy Verified 02/20/19 09:23 Review of Systems ROS Statement: Those systems with pertinent positive or pertinent negative responses have been documented in the HPI. ROS Other: All systems not noted in ROS Statement are negative. 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 PT STATES OFF MEDICATIONS SINCE 13 Y/O AND LAST SEIZURE WAS 12 Y/O. PSORIASIS., STATES HAVING DIARRHEA AND HX OF BLOOD IN STOOL. History of Any Multi-Drug Resistant Organisms: None Reported Past Surgical History: Section, Cholecystectomy, Tubal Ligation Additional Past Surgical History / Comment(s): novasure, uterine ablation Past Anesthesia/Blood Transfusion Reactions: No Reported Reaction Past Psychological History: No Psychological Hx Reported Smoking Status: Former smoker Past Alcohol Use History: None Reported Past Drug Use History: None Reported - Past Family History Mother Family Medical History: No Reported History Additional Family Medical History / Comment(s): osteoporosis, COPD, "too much to recall" per pt Father Family Medical History: No Reported History General Exam - General Exam Comments Initial Comments: 38-year-old female. Alert and oriented. No significant distress. Limitations: no limitations General appearance: alert, in no apparent distress Head exam: Present: atraumatic, normocephalic, normal inspection Eye exam: Present: normal appearance, PERRL, EOMI. Absent: scleral icterus, conjunctival injection, periorbital swelling ENT exam: Present: normal exam, mucous membranes moist Neck exam: Present: normal inspection. Absent: tenderness, meningismus, lymphadenopathy Respiratory exam: Present: normal lung sounds bilaterally Cardiovascular Exam: Present: regular rate GI/Abdominal exam: Present: soft, normal bowel sounds. Absent: distended, tenderness, guarding, rebound, rigid Extremities exam: Present: normal inspection Back exam: Present: normal inspection Neurological exam: Present: alert, oriented X3, CN II-XII intact Psychiatric exam: Present: normal affect, normal mood Skin exam: Present: warm, dry, intact, normal color. Absent: rash Course Vital Signs 02/20/19 09:01 Temperature 98.2 F Pulse Rate 99 Respiratory 20 Rate Blood Pressure 126/82 O2 Sat by Pulse 99 Oximetry Medical Decision Making - Medical Decision Making 38-year-old female presents emergency department today for evaluation for right lower quadrant pain, nausea vomiting and symptoms for the past 3 days. This and she is afebrile. She is given IV fluids labwork obtained P she denies some righ t lower quadrant tenderness on exam. Labwork was reviewed and unremarkable. Patient CT and a pulse was completed and shows no signs of appendicitis. It is very small ovarian cyst. Discussed likely viral Gastroenteritis. We'll discharge Patient with Zofran and discussed following up with her primary care physician. QUESTIONS were answered return parameters were discussed. - Lab Data Result diagrams: 02/20/19 09:30 02/20/19 09:30 Lab Results 02/20/19 02/20/19 02/20/19 Range/Units 09:30 09:30 09:30 WBC 10.5 (3.8-10.6) k/uL RBC 4.25 (3.80-5.40) m/uL Hgb 12.6 (11.4-16.0) gm/dL Hct 39.3 (34.0-46.0) % MCV 92.5 (80.0-100.0) fL MCH 29.7 (25.0-35.0) pg MCHC 32.1 (31.0-37.0) g/dL RDW 13.1 (11.5-15.5) % Plt Count 305 (150-450) k/uL Neutrophils % 65 % Lymphocytes % 25 % Monocytes % 5 % Eosinophils % 3 % Basophils % 1 % Neutrophils # 6.9 (1.3-7.7) k/uL Lymphocytes # 2.6 (1.0-4.8) k/uL Monocytes # 0.6 (0-1.0) k/uL Eosinophils # 0.3 (0-0.7) k/uL Basophils # 0.1 (0-0.2) k/uL PT 9.3 (9.0-12.0) sec INR 0.8 (<1.2) APTT 24.9 (22.0-30.0) sec Sodium 139 (137-145) mmol/L Potassium 4.3 (3.5-5.1) mmol/L Chloride 107 (98-107) mmol/L Carbon Dioxide 24 (22-30) mmol/L Anion Gap 8 mmol/L BUN 9 (7-17) mg/dL Creatinine 0.65 (0.52-1.04) mg/dL Est GFR (CKD-EPI)AfAm >90 (>60 ml/min/1.73 sqM) Est GFR (CKD-EPI)NonAf >90 (>60 ml/min/1.73 sqM) Glucose 107 H (74-99) mg/dL Calcium 9.2 (8.4-10.2) mg/dL Total Bilirubin 0.4 (0.2-1.3) mg/dL AST 20 (14-36) U/L ALT 24 (9-52) U/L Alkaline Phosphatase 74 (38-126) U/L Total Protein 7.0 (6.3-8.2) g/dL Albumin 3.6 (3.5-5.0) g/dL Amylase 58 (30-110) U/L Lipase 131 (23-300) U/L Urine Color Urine Appearance (Clear) Urine pH (5.0-8.0) Ur Specific [place] (1.001-1.035) Urine Protein (Negative) Urine Glucose (UA) (Negative) Urine Ketones (Negative) Urine Blood (Negative) Urine Nitrite (Negative) Urine Bilirubin (Negative) Urine Urobilinogen (<2.0) mg/dL Ur Leukocyte Esterase (Negative) 02/20/19 Range/Units 09:30 WBC (3.8-10.6) k/uL RBC (3.80-5.40) m/uL Hgb (11.4-16.0) gm/dL Hct (34.0-46.0) % MCV (80.0-100.0) fL MCH (25.0-35.0) pg MCHC (31.0-37.0) g/dL RDW (11.5-15.5) % Plt Count (150-450) k/uL Neutrophils % % Lymphocytes % % Monocytes % % Eosinophils % % Basophils % % Neutrophils # (1.3-7.7) k/uL Lymphocytes # (1.0-4.8) k/uL Monocytes # (0-1.0) k/uL Eosinophils # (0-0.7) k/uL Basophils # (0-0.2) k/uL PT (9.0-12.0) sec INR (<1.2) APTT (22.0-30.0) sec Sodium (137-145) mmol/L Potassium (3.5-5.1) mmol/L Chloride (98-107) mmol/L Carbon Dioxide (22-30) mmol/L Anion Gap mmol/L BUN (7-17) mg/dL Creatinine (0.52-1.04) mg/dL Est GFR (CKD-EPI)AfAm (>60 ml/min/1.73 sqM) Est GFR (CKD-EPI)NonAf (>60 ml/min/1.73 sqM) Glucose (74-99) mg/dL Calcium (8.4-10.2) mg/dL Total Bilirubin (0.2-1.3) mg/dL AST (14-36) U/L ALT (9-52) U/L Alkaline Phosphatase (38-126) U/L Total Protein (6.3-8.2) g/dL Albumin (3.5-5.0) g/dL Amylase (30-110) U/L Lipase (23-300) U/L Urine Color Yellow Urine Appearance Clear (Clear) Urine pH 6.5 (5.0-8.0) Ur Specific [place] 1.014 (1.001-1.035) Urine Protein Negative (Negative) Urine Glucose (UA) Negative (Negative) Urine Ketones Negative (Negative) Urine Blood Negative (Negative) Urine Nitrite Negative (Negative) Urine Bilirubin Negative (Negative) Urine Urobilinogen <2.0 (<2.0) mg/dL Ur Leukocyte Esterase Negative (Negative) - Radiology Data Radiology results: report reviewed No acute process within the abdomen or pelvis. Evidence of a small cyst in the right ovary measuring up to 0.1 cm. Disposition Clinical Impression: Abdominal pain, Right lower quadrant abdominal pain, Gastroenteritis Disposition: HOME SELF-CARE Condition: Good Instructions (If sedation given, give patient instructions): Abdominal Pain (ED) Additional Instructions: Patient should have clear liquid diet. Follow-up with her primary care physician within the next 1-2 days. Please use medication as discussed. Please follow up with family doctor if symptoms have not improved over the next two days. Please return to the emergency room if your symptoms increase or worsen or for any other concerns. Prescriptions: Ondansetron Odt [Zofran Odt] 4 mg PO Q8HR PRN #12 tab PRN Reason: Nausea Is patient prescribed a controlled substance at d/c from ED?: No Referrals: Duke Hidalgo MD [Primary Care Provider] - 1-2 days Time of Disposition: 10:56
[2019-02-20 09:51] LABS: Appearance,Urine Clear (Clear); Bilirubin,Urine Negative (Negative); Blood,Urine Negative (Negative); Color,Urine Yellow; Glucose,Urine (UA) Negative (Negative); Ketones,Urine Negative (Negative); Leukocyte Esterase,Urine Negative (Negative); Nitrite,Urine Negative (Negative); PH, Urine 6.5 (5.0-8.0); Protein,Urine Negative (Negative); Specific Gravity,Urine 1.014 (1.001-1.035); Urobilinogen,Urine <2.0 mg/dL (<2.0)
[2019-02-20 09:52] LABS: Basophils # (A) 0.1 k/uL (0-0.2); Basophils % (A) 1 %; Eosinophils # (A) 0.3 k/uL (0-0.7); Eosinophils % (A) 3 %; HCT 39.3 % (34.0-46.0); HGB 12.6 gm/dL (11.4-16.0); Lymphocytes # (A) 2.6 k/uL (1.0-4.8); Lymphocytes % (A) 25 %; MCH 29.7 pg (25.0-35.0); MCHC 32.1 g/dL (31.0-37.0); MCV 92.5 fL (80.0-100.0); Mean Platelet Volume 6.7; Monocytes # (A) 0.6 k/uL (0-1.0); Monocytes % (A) 5 %; Neutrophils # (A) 6.9 k/uL (1.3-7.7); Neutrophils % (A) 65 %; Platelet Count 305 k/uL (150-450); RBC 4.25 m/uL (3.80-5.40); RDW 13.1 % (11.5-15.5); WBC 10.5 k/uL (3.8-10.6)
[2019-02-20 10:02] LABS: INR 0.8 (<1.2); Partial Thromboplastin Time 24.9 sec (22.0-30.0); Prothrombin Time 9.3 sec (9.0-12.0)
[2019-02-20 10:04] LABS: ALT 24 U/L (9-52); AST 20 U/L (14-36); African American GFR (CKD) >90 (>60 ml/min/1.73 sqM); Albumin 3.6 g/dL (3.5-5.0); Alkaline Phosphatase 74 U/L (38-126); Amylase 58 U/L (30-110); Anion Gap 8 mmol/L; Blood Urea Nitrogen 9 mg/dL (7-17); Calcium 9.2 mg/dL (8.4-10.2); Carbon Dioxide 24 mmol/L (22-30); Chloride 107 mmol/L (98-107); Glucose 107 mg/dL (74-99); Potassium 4.3 mmol/L (3.5-5.1); Sodium 139 mmol/L (137-145); Total Bilirubin 0.4 mg/dL (0.2-1.3)
--- NOTE | 2019-02-20 10:31 | CT ---
EXAMINATION TYPE: CT abdomen pelvis w con DATE OF EXAM: 02/20/2019 COMPARISON: 04/21/2018 HISTORY: Abdominal pain, nausea CT DLP: 1993.9 mGycm Automated exposure control for dose reduction was used. TECHNIQUE: Helical acquisition of images was performed from the lung bases through the pelvis. CONTRAST: Performed without Oral Contrast and with IV Contrast, patient injected with 100 ml mL of Isovue 300. FINDINGS: LUNG BASES: No significant abnormality is appreciated. LIVER/GB: No significant abnormality is appreciated. Gallbladder surgically absent. PANCREAS: No significant abnormality is seen. SPLEEN: No significant abnormality is seen. ADRENALS: No significant abnormality is seen. KIDNEYS: No significant abnormality is seen. FREE AIR: No free air is visualized. RETROPERITONEAL ADENOPATHY: None visualized REPRODUCTIVE ORGANS: Small cyst in the right ovary measuring up to 0.1 cm. URINARY BLADDER: No significant abnormality is seen. PELVIC ADENOPATHY: None visualized. OSSEOUS STRUCTURES: Stable endplate changes at L1 to-3. BOWEL: No significant abnormality is seen. IMPRESSION: NO ACUTE PROCESS WITHIN THE ABDOMEN OR PELVIS.
[2019-02-20 11:21] VITALS: BP 104/58; PULSE 88; RESP 16
== END 2019-02-20 11:00 | disposition home or self-care (01) ==
LOC: EC 08:57
DX: K52.9 Noninfective gastroenteritis and colitis, unspecified (principal); N83.201 Unspecified ovarian cyst, right side; Z87.891 Personal history of nicotine dependence; Z79.899 Other long term (current) drug therapy; Z90.49 Acquired absence of other specified parts of digestive tract; Z98.51 Tubal ligation status
CPT/HCPCS: 36415; 80053; 82150; 83690; 85025; 85610; 85730; 81003; 74177; 99285; 96374; 96375 ×2; 96361; J2270; J2405; J1885; Q9967

== ENCOUNTER 2019-03-29 22:04 | Emergency (ER) | payer OTHER ==
[2019-03-29] MEDS ORDERED: ONDANSETRON 4 MG/2 ML VIAL IVP STA (22:50)
[2019-03-29] MEDS ORDERED: SODIUM CHLORIDE 0.9% 1,000 ML IV STA (22:50)
[2019-03-29] MEDS ORDERED: MORPHINE SULFATE 4 MG/ML SYRINGE IV STA (22:50)
[2019-03-29 23:03] LABS: Basophils # (A) 0.1 k/uL (0-0.2); Basophils % (A) 1 %; Eosinophils # (A) 0.5 k/uL (0-0.7); Eosinophils % (A) 5 %; HCT 39.5 % (34.0-46.0); Lymphocytes # (A) 3.7 k/uL (1.0-4.8); Lymphocytes % (A) 34 %; MCV 90.9 fL (80.0-100.0); Mean Platelet Volume 6.7; Monocytes # (A) 0.5 k/uL (0-1.0); Monocytes % (A) 5 %; Neutrophils # (A) 5.9 k/uL (1.3-7.7); Neutrophils % (A) 54 %; Platelet Count 368 k/uL (150-450); RBC 4.34 m/uL (3.80-5.40); RDW 13.3 % (11.5-15.5)
[2019-03-29 23:12] LABS: ALT 43 U/L (9-52); AST 37 U/L (14-36); African American GFR (CKD) >90 (>60 ml/min/1.73 sqM); Albumin 4.1 g/dL (3.5-5.0); Alkaline Phosphatase 74 U/L (38-126); Anion Gap 9 mmol/L; Blood Urea Nitrogen 10 mg/dL (7-17); Calcium 9.4 mg/dL (8.4-10.2); Carbon Dioxide 25 mmol/L (22-30); Chloride 106 mmol/L (98-107); Glucose 129 mg/dL (74-99); Sodium 140 mmol/L (137-145); Total Bilirubin 0.3 mg/dL (0.2-1.3); Total Protein 7.6 g/dL (6.3-8.2)
[2019-03-30 00:53] LABS: Amorphous Sediment,Urine Occasional /hpf; Appearance,Urine Cloudy (Clear); Bacteria,Urine Occasional /hpf; Bilirubin,Urine Negative (Negative); Blood,Urine Negative (Negative); Color,Urine Yellow; Glucose,Urine (UA) Negative (Negative); Ketones,Urine Negative (Negative); Leukocyte Esterase,Urine Trace (Negative); Mucus,Urine Many /hpf; Nitrite,Urine Negative (Negative); Protein,Urine 1+ (Negative); RBC,Urine 1 /hpf (0-5); Squamous Epithelial Cell,Urine 42 /hpf (0-4); WBC,Urine 11 /hpf (0-5)
--- NOTE | 2019-03-30 02:11 | CT ---
EXAMINATION TYPE: CT abdomen pelvis w con DATE OF EXAM: 03/30/2019 COMPARISON: 02/20/2019 HISTORY: RLQ pain CT DLP: 2275.7 mGycm Automated exposure control for dose reduction was used. TECHNIQUE: Helical acquisition of images was performed from the lung bases through the pelvis. CONTRAST: Performed without Oral Contrast and with IV Contrast, patient injected with 100 mL of Isovue 300. FINDINGS: Multiple axial sections were obtained from the diaphragm to the floor the pelvis with intravenous con trast. Lung bases are clear. There is subsegmental atelectasis at the left lung base. There is no pleural ef fusion. Heart size is normal. There is no pericardial effusion. Liver spleen pancreas appear normal. Bile south ts are not dilated. There are clips from cholecystectomy. Stomach appears normal. There is no adrenal mass. Kidneys show satisfactory contrast opacification. There is no hydronephrosi s. There is no retroperitoneal adenopathy. Bladder distends smoothly. There is no inguinal hernia. Ut erus is anteverted. There is no free fluid in the pelvis. Appendix appears normal. There is no mesenteric edema. There is no ascites or free air. There is no sign of a bowel obstructio n. Lumbar vertebra have normal alignment. There is some narrowing of L2-3 disc. Bony pelvis is intact. I see no bony destructive process. IMPRESSION: NORMAL APPENDIX. NO RENAL STONE OR OBSTRUCTION. MINIMAL SUBSEGMENTAL ATELECTASIS LEFT LUNG BASE THAT IS NEW COMPARED TO OLD EXAM.
--- NOTE | 2019-03-30 04:04 | US ---
EXAMINATION TYPE: US transvaginal DATE OF EXAM: 03/30/2019 COMPARISON: CT/ US CLINICAL HISTORY: right sided pelvic pain, r/o torsion. RLQ pain x 3 days, ablation 2012 TECHNIQUE: Transvaginal (TV). Transvaginal sonographic images of the pelvis were acquired. Date of LMP: 2012 EXAM MEASUREMENTS: Uterus: 8.6 x 4.2 x 3.7 cm Right Ovary: 3.5 x 3.1 x 1.7 cm Left Ovary: 3.2 x 3.3 x 1.7 cm 1. Uterus: Anteverted Heterogeneous 2. Endometrium: Fluid within canal= 1.5 x 0.9 x 1.3 cm, difficult to visualize thickness due to abla tion 3. Right Ovary: wnl 4. Left Ovary: wnl Spectral, color and waveform doppler imaging shows good arterial and venous flow within the ovaries ; there is no evidence for ovarian torsion. 5. Bilateral Adnexa: wnl 6. Posterior cul-de-sac: wnl IMPRESSION: There is some irregular fluid within the endometrial cavity. No endometrial thickening se en. No adnexal mass. No evidence of ovarian torsion.
[2019-03-30] MEDS ORDERED: CEPHALEXIN 500 MG CAP PO STA (04:18)
--- NOTE | 2019-03-30 04:20 | ED ---
Abdominal Pain HPI - General Chief Complaint: Abdominal Pain Stated Complaint: Abd pain Source: patient Mode of arrival: ambulatory Limitations: no limitations - History of Present Illness Initial Comments: The patient is a 31-year-old female presents emergency room with reported right upper quadrant abdominal pain. Patient reports that the symptoms started earlier today. She describes it as a sharp shooting sensation without radiation. The waxes and wanes. States that she took a Thatcher at home for her symptoms however it did not help. She does take this for chronic back pain. Denies any changes in her urination to include dysuria, hematuria or difficulty voiding. Denies any changes in her bowel movements including diarrhea, constipation, melanotic stools or hematochezia. Denies any pain or lower extremity. No ripping or tearing sensation to her back. She denies any abnormal vaginal bleeding. She has had an ablation no longer has menstrual cycles. No fevers or chills. No nausea or vomiting. There are no other alleviating, precipitating or modifying factors - Related Data Home Medications Medication Instructions Recorded Confirmed HYDROcodone/APAP 5-325MG [[place] 1 tab PO BID PRN 02/20/19 03/29/19 5-325] Ibuprofen [Motrin] 800 mg PO TID PRN 02/20/19 03/29/19 Phentermine HCl [Adipex-P] 37.5 mg PO DAILY 02/20/19 03/29/19 rOPINIRole HCL [Requip] 2 mg PO HS 03/29/19 03/29/19 Previous Rx's Medication Instructions Recorded Cephalexin [Keflex] 500 mg PO Q12HR #10 cap 03/30/19 Allergies Allergy/AdvReac Type Severity Reaction Status Date / Time No Known Allergies Allergy Verified 04/04/19 23:14 Review of Systems ROS Statement: Those systems with pertinent positive or pertinent negative responses have been documented in the HPI. ROS Other: All systems not noted in ROS Statement are negative. 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 PT STATES OFF MEDICATIONS SINCE 13 Y/O AND LAST SEIZURE WAS 12 Y/O. PSORIASIS., STATES HAVING DIARRHEA AND HX OF BLOOD IN STOOL. History of Any Multi-Drug Resistant Organisms: None Reported Past Surgical History: Section, Cholecystectomy, Tubal Ligation Additional Past Surgical History / Comment(s): novasure, uterine ablation Past Anesthesia/Blood Transfusion Reactions: No Reported Reaction Past Psychological History: No Psychological Hx Reported Smoking Status: Former smoker Past Alcohol Use History: None Reported Past Drug Use History: None Reported - Past Family History Mother Family Medical History: No Reported History Additional Family Medical History / Comment(s): osteoporosis, COPD, "too much to recall" per pt Father Family Medical History: No Reported History General Exam Limitations: no limitations General appearance: alert, in no apparent distress Head exam: Present: atraumatic, normocephalic, normal inspection Eye exam: Present: normal appearance, PERRL, EOMI. Absent: scleral icterus, conjunctival injection, periorbital swelling ENT exam: Present: normal exam, mucous membranes moist Neck exam: Present: normal inspection. Absent: tenderness, meningismus, lymphadenopathy Respiratory exam: Present: normal lung sounds bilaterally. Absent: respiratory distress, wheezes, rales, rhonchi, stridor Cardiovascular Exam: Present: regular rate, normal rhythm, normal heart sounds. Absent: systolic murmur, diastolic murmur, rubs, gallop, clicks GI/Abdominal exam: Present: soft, tenderness (RLQ), normal bowel sounds. Absent: distended, guarding, rebound, rigid Extremities exam: Present: normal inspection, full ROM, normal capillary refill. Absent: tenderness, pedal edema, joint swelling, calf tenderness Back exam: Present: normal inspection Neurological exam: Present: alert, oriented X3, CN II-XII intact Psychiatric exam: Present: normal affect, normal mood Skin exam: Present: warm, dry, intact, normal color. Absent: rash Course Vital Signs 03/29/19 03/29/19 03/29/19 22:12 23:10 23:40 Temperature 98.5 F Pulse Rate 103 H Respiratory 18 18 17 Rate Blood Pressure 125/71 125/74 130/61 O2 Sat by Pulse 100 99 97 Oximetry 03/30/19 03/30/19 03/30/19 00:10 00:40 01:10 Temperature Pulse Rate Respiratory 17 18 17 Rate Blood Pressure 130/74 103/52 102/47 O2 Sat by Pulse 98 96 96 Oximetry 03/30/19 03/30/19 03/30/19 01:50 02:30 02:40 Temperature Pulse Rate Respiratory 18 18 Rate Blood Pressure 115/64 114/64 114/70 O2 Sat by Pulse 98 99 Oximetry 03/30/19 03/30/19 03/30/19 03:30 03:40 03:50 Temperature Pulse Rate Respiratory Rate Blood Pressure 117/73 113/55 113/55 O2 Sat by Pulse Oximetry 03/30/19 03/30/19 03/30/19 04:00 04:50 04:54 Temperature 98.0 F Pulse Rate 67 Respiratory 20 Rate Blood Pressure 113/55 129/82 129/82 O2 Sat by Pulse 99 Oximetry Medical Decision Making - Medical Decision Making Upon arrival the patient is placed into room 5. She is hooked up to continuous pulse ox and cardiac monitoring. A thorough history and physical exam was performed. Peripheral IV is established the patient is given 4 mg of morphine for pain and 4 mg of Zofran for nausea. Laboratory studies are conducted. White blood cell count 11. Glucose 129. Her nausea shows 1+ protein, trace leukocyte esterase, 11 white blood cells, 42 squamous epithelial cells, occasional sediments, occasional bacteria. CT the patient's abdomen and pelvis demonstrates normal appendix no renal stone or obstruction minimal subsegmental atelectasis left lung base. Transvaginal ultrasound demonstrates a regular fluid within the endometrial cavity no endometrial thickening. No adnexal mass no presence of ovarian torsion. I did reevaluate the patient. She states that her pain has improved at this time. I discussed diagnosis and differential diagnosis. The patient will be discharged home with a prescription for Keflex because of her abnormal UA. She should take her home Thatcher for pain control. If the patient has any new or worsening symptoms she should return to the emergency room. The patient was then discharged home in stable condition - Lab Data Result diagrams: 03/29/19 22:24 03/29/19 22:24 Lab Results 03/29/19 03/29/19 03/29/19 Range/Units 22:24 22:24 22:24 WBC 11.0 H (3.8-10.6) k/uL RBC 4.34 (3.80-5.40) m/uL Hgb 13.0 (11.4-16.0) gm/dL Hct 39.5 (34.0-46.0) % MCV 90.9 (80.0-100.0) fL MCH 30.0 (25.0-35.0) pg MCHC 33.0 (31.0-37.0) g/dL RDW 13.3 (11.5-15.5) % Plt Count 368 (150-450) k/uL Neutrophils % 54 % Lymphocytes % 34 % Monocytes % 5 % Eosinophils % 5 % Basophils % 1 % Neutrophils # 5.9 (1.3-7.7) k/uL Lymphocytes # 3.7 (1.0-4.8) k/uL Monocytes # 0.5 (0-1.0) k/uL Eosinophils # 0.5 (0-0.7) k/uL Basophils # 0.1 (0-0.2) k/uL Sodium 140 (137-145) mmol/L Potassium 4.0 (3.5-5.1) mmol/L Chloride 106 (98-107) mmol/L Carbon Dioxide 25 (22-30) mmol/L Anion Gap 9 mmol/L BUN 10 (7-17) mg/dL Creatinine 0.71 (0.52-1.04) mg/dL Est GFR (CKD-EPI)AfAm >90 (>60 ml/min/1.73 sqM) Est GFR (CKD-EPI)NonAf >90 (>60 ml/min/1.73 sqM) Glucose 129 H (74-99) mg/dL Plasma Lactic Acid [place] 1.4 (0.7-2.0) mmol/L Calcium 9.4 (8.4-10.2) mg/dL Total Bilirubin 0.3 (0.2-1.3) mg/dL AST 37 H (14-36) U/L ALT 43 (9-52) U/L Alkaline Phosphatase 74 (38-126) U/L Total Protein 7.6 (6.3-8.2) g/dL Albumin 4.1 (3.5-5.0) g/dL Lipase 166 (23-300) U/L HCG, Qual Urine Color Urine Appearance (Clear) Urine pH (5.0-8.0) Ur Specific [place] (1.001-1.035) Urine Protein (Negative) Urine Glucose (UA) (Negative) Urine Ketones (Negative) Urine Blood (Negative) Urine Nitrite (Negative) Urine Bilirubin (Negative) Urine Urobilinogen (<2.0) mg/dL Ur Leukocyte Esterase (Negative) Urine RBC (0-5) /hpf Urine WBC (0-5) /hpf Ur Squamous Epith Cells (0-4) /hpf Amorphous Sediment (None) /hpf Urine Bacteria (None) /hpf Urine Mucus (None) /hpf 03/29/19 03/30/19 Range/Units 22:24 00:30 WBC (3.8-10.6) k/uL RBC (3.80-5.40) m/uL Hgb (11.4-16.0) gm/dL Hct (34.0-46.0) % MCV (80.0-100.0) fL MCH (25.0-35.0) pg MCHC (31.0-37.0) g/dL RDW (11.5-15.5) % Plt Count (150-450) k/uL Neutrophils % % Lymphocytes % % Monocytes % % Eosinophils % % Basophils % % Neutrophils # (1.3-7.7) k/uL Lymphocytes # (1.0-4.8) k/uL Monocytes # (0-1.0) k/uL Eosinophils # (0-0.7) k/uL Basophils # (0-0.2) k/uL Sodium (137-145) mmol/L Potassium (3.5-5.1) mmol/L Chloride (98-107) mmol/L Carbon Dioxide (22-30) mmol/L Anion Gap mmol/L BUN (7-17) mg/dL Creatinine (0.52-1.04) mg/dL Est GFR (CKD-EPI)AfAm (>60 ml/min/1.73 sqM) Est GFR (CKD-EPI)NonAf (>60 ml/min/1.73 sqM) Glucose (74-99) mg/dL Plasma Lactic Acid [place] (0.7-2.0) mmol/L Calcium (8.4-10.2) mg/dL Total Bilirubin (0.2-1.3) mg/dL AST (14-36) U/L ALT (9-52) U/L Alkaline Phosphatase (38-126) U/L Total Protein (6.3-8.2) g/dL Albumin (3.5-5.0) g/dL Lipase (23-300) U/L HCG, Qual Not Detected Urine Color Yellow Urine Appearance Cloudy H (Clear) Urine pH 6.0 (5.0-8.0) Ur Specific [place] 1.030 (1.001-1.035) Urine Protein 1+ H (Negative) Urine Glucose (UA) Negative (Negative) Urine Ketones Negative (Negative) Urine Blood Negative (Negative) Urine Nitrite Negative (Negative) Urine Bilirubin Negative (Negative) Urine Urobilinogen 3.0 (<2.0) mg/dL Ur Leukocyte Esterase Trace H (Negative) Urine RBC 1 (0-5) /hpf Urine WBC 11 H (0-5) /hpf Ur Squamous Epith Cells 42 H (0-4) /hpf Amorphous Sediment Occasional H (None) /hpf Urine Bacteria Occasional H (None) /hpf Urine Mucus Many H (None) /hpf Disposition Clinical Impression: Abdominal pain, Right lower quadrant abdominal pain, Abnormal urinalysis Disposition: HOME SELF-CARE Condition: Stable Instructions (If sedation given, give patient instructions): Abdominal Pain (ED) Additional Instructions: Please follow-up with your primary care doctor in 2-4 days. Return to emergency room for any new or worsening symptoms Prescriptions: Cephalexin [Keflex] 500 mg PO Q12HR #10 cap Is patient prescribed a controlled substance at d/c from ED?: No Referrals: Duke Hidalgo MD [Primary Care Provider] - 1-2 days Time of Disposition: 04:20
[2019-03-30 04:55] VITALS: BP 129/82; PULSE 67; RESP 20; TEMP 98
== END 2019-03-30 05:00 | disposition home or self-care (01) ==
LOC: EC 22:04
DX: R82.90 Unspecified abnormal findings in urine (principal); R10.11 Right upper quadrant pain; R11.0 Nausea; N85.8 Other specified noninflammatory disorders of uterus; G40.909 Epilepsy, unspecified, not intractable, without status epilepticus; G89.29 Other chronic pain; M54.9 Dorsalgia, unspecified; Z79.899 Other long term (current) drug therapy; Z87.891 Personal history of nicotine dependence
CPT/HCPCS: 99284; 96374; 96375; 96361; 36415; 80053; 83605; 83690; 85025; 81001; 84703; 93975; 76830; 74177; J2270; J2405; Q9967

== ENCOUNTER 2019-04-04 23:08 | Emergency (ER) | payer OTHER ==
[2019-04-04] MEDS ORDERED: SODIUM CHLORIDE 0.9% 1,000 ML IV STA (23:32)
[2019-04-04] MEDS ORDERED: ONDANSETRON 4 MG/2 ML VIAL IVP STA (23:34)
[2019-04-04 23:43] LABS: Appearance,Urine Cloudy (Clear); Bilirubin,Urine Negative (Negative); Blood,Urine Negative (Negative); Color,Urine Yellow; Glucose,Urine (UA) Negative (Negative); Ketones,Urine Negative (Negative); Leukocyte Esterase,Urine Negative (Negative); Mucus,Urine Occasional /hpf; Nitrite,Urine Negative (Negative); Protein,Urine Negative (Negative); RBC,Urine 1 /hpf (0-5); Squamous Epithelial Cell,Urine 3 /hpf (0-4); Urobilinogen,Urine <2.0 mg/dL (<2.0); WBC,Urine 1 /hpf (0-5)
[2019-04-04] MEDS ORDERED: MORPHINE SULFATE 4 MG/ML SYRINGE IVP STA (23:55)
[2019-04-04 23:56] LABS: Basophils # (A) 0.1 k/uL (0-0.2); Basophils % (A) 1 %; Eosinophils # (A) 0.7 k/uL (0-0.7); Eosinophils % (A) 5 %; HCT 39.6 % (34.0-46.0); HGB 13.5 gm/dL (11.4-16.0); Lymphocytes # (A) 3.9 k/uL (1.0-4.8); Lymphocytes % (A) 29 %; MCH 30.2 pg (25.0-35.0); MCHC 34.1 g/dL (31.0-37.0); MCV 88.7 fL (80.0-100.0); Mean Platelet Volume 5.5; Monocytes # (A) 0.6 k/uL (0-1.0); Monocytes % (A) 4 %; Neutrophils # (A) 8.1 k/uL (1.3-7.7); Neutrophils % (A) 60 %; Platelet Count 456 k/uL (150-450); RBC 4.47 m/uL (3.80-5.40); RDW 12.9 % (11.5-15.5); WBC 13.5 k/uL (3.8-10.6)
[2019-04-05 00:06] LABS: ALT 33 U/L (9-52); AST 26 U/L (14-36); African American GFR (CKD) >90 (>60 ml/min/1.73 sqM); Albumin 4.3 g/dL (3.5-5.0); Alkaline Phosphatase 85 U/L (38-126); Anion Gap 12 mmol/L; Blood Urea Nitrogen 12 mg/dL (7-17); Calcium 9.9 mg/dL (8.4-10.2); Carbon Dioxide 23 mmol/L (22-30); Chloride 105 mmol/L (98-107); Glucose 118 mg/dL (74-99); Potassium 4.2 mmol/L (3.5-5.1); Sodium 140 mmol/L (137-145); Total Bilirubin 0.2 mg/dL (0.2-1.3); Total Protein 7.8 g/dL (6.3-8.2)
--- NOTE | 2019-04-05 01:00 | ED ---
General Adult HPI - General Chief complaint: Urogenital Stated complaint: Back Pain Time Seen by Provider: 04/04/19 23:14 Source: patient, RN notes reviewed, old records reviewed Mode of arrival: ambulatory Limitations: no limitations - History of Present Illness Initial comments: 39-year-old female patient with past history significant for cholecystectomy, tubal ligation presents ED chief complaint of right flank pain. Patient reports that she was seen approximately 6 days ago for abdominal pain which she underwent a full evaluation including CAT scan. This was reportedly negative. Patient was diagnosed with a mild urinary tract infection prescribed Keflex. Patient reports that flank pain began today. Denies any other complaints. Systemic: Pt denies fatigue, fever/chills, rash. Pt denies weakness, night sweats, weight loss. Neuro: Pt denies headache, visual disturbances, syncope or pre-syncope. HEENT: Pt denies ocular discharge or irritation, otalgia, rhinorrhea, pharyngitis or notable lymphadenopathy. Cardiopulmonary: Pt denies chest pain, SOB, heart palpitations, dyspnea on exertion. Abdominal/GI: Pt denies abdominal pain, n/v/d. : Pt denies dysuria, burning w/ urination, frequency/urgency. Denies new onset urinary or bowel incontinence. MSK: Pt denies myalgia, loss of strength or function in extremities. Neuro: Pt denies new onset weakness, paresthesias. - Related Data Home Medications Medication Instructions Recorded Confirmed HYDROcodone/APAP 5-325MG [[place] 1 tab PO BID PRN 02/20/19 03/29/19 5-325] Ibuprofen [Motrin] 800 mg PO TID PRN 02/20/19 03/29/19 Phentermine HCl [Adipex-P] 37.5 mg PO DAILY 02/20/19 03/29/19 rOPINIRole HCL [Requip] 2 mg PO HS 03/29/19 03/29/19 Previous Rx's Medication Instructions Recorded Cephalexin [Keflex] 500 mg PO Q12HR #10 cap 03/30/19 Allergies Allergy/AdvReac Type Severity Reaction Status Date / Time No Known Allergies Allergy Verified 04/04/19 23:14 Review of Systems ROS Statement: Those systems with pertinent positive or pertinent negative responses have been documented in the HPI. ROS Other: All systems not noted in ROS Statement are negative. 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 PT STATES OFF MEDICATIONS SINCE 13 Y/O AND LAST SEIZURE WAS 12 Y/O. PSORIASIS., STATES HAVING DIARRHEA AND HX OF BLOOD IN STOOL. History of Any Multi-Drug Resistant Organisms: None Reported Past Surgical History: Section, Cholecystectomy, Tubal Ligation Additional Past Surgical History / Comment(s): novasure, uterine ablation Past Anesthesia/Blood Transfusion Reactions: No Reported Reaction Past Psychological History: No Psychological Hx Reported Smoking Status: Former smoker Past Alcohol Use History: None Reported Past Drug Use History: None Reported - Past Family History Mother Family Medical History: No Reported History Additional Family Medical History / Comment(s): osteoporosis, COPD, "too much to recall" per pt Father Family Medical History: No Reported History General Exam - General Exam Comments Initial Comments: Constitutional: NAD, AOX3, Pt has pleasant affect. HEENT: NC/AT, trachea midline, neck supple, no lymphadenopathy. Posterior pharynx non erythematous, without exudates. External ears appear normal, without discharge. Mucous membranes moist. Eyes PERRLA, EOM intact. There is no scleral icterus. No pallor noted. Cardiopulmonary: RRR, no murmurs, rubs or gallops, no JVD noted. Lungs CTAB in anterior and posterior santamaria. No peripheral edema. Abdominal exam: Abdomen soft and non-distended. Abdomen non-tender to palpation in all 4 quadrants. Bowel sounds active in LLQ. No hepatosplenomegaly. No ecchymosis, right flank mild tenderness to palpation. Left CVA tenderness negative. Neuro: CN II-XII grossly intact. No nuchal rigidity. No raccon eyes, no murcia sign, no hemotympanum. No cervical spinal tenderness. MSK: No posterior calf tenderness bilaterally, homans sign negative bilaterally. Posterior tibialis and radial pulse +2 bilaterally. Sensation intact in upper and lower extremities. Full active ROM in upper and lower extremities, 5/5 stregnth. Limitations: no limitations Course Vital Signs 04/04/19 23:12 Temperature 98.6 F Pulse Rate 102 H Respiratory 22 Rate Blood Pressure 133/78 O2 Sat by Pulse 99 Oximetry Medical Decision Making - Medical Decision Making 39-year-old female patient with past medical history of cholecystectomy, tubal ligation presents to ED chief complaint right flank pain. This began today. Patient has been taking Keflex for urinary tract infection. Patient also had a stable, afebrile. Physical exam displayed mild right flank tenderness. Laboratory investigations revealed mild leukocytosis of 13.5 otherwise not impressive. UA negative. Patient has had multiple CTs of abdomen and pelvis for abdominal pain recently, patient is Hang CT, declined due to radiation burn. Patient reports that she feels much better. Patient was discharged with outpatient follow-up and return precautions. Case discussed with Dr. Madrigal. - Lab Data Result diagrams: 04/04/19 23:46 04/04/19 23:46 Lab Results 04/04/19 04/04/19 04/04/19 Range/Units 23:30 23:30 23:46 WBC 13.5 H (3.8-10.6) k/uL RBC 4.47 (3.80-5.40) m/uL Hgb 13.5 (11.4-16.0) gm/dL Hct 39.6 (34.0-46.0) % MCV 88.7 (80.0-100.0) fL MCH 30.2 (25.0-35.0) pg MCHC 34.1 (31.0-37.0) g/dL RDW 12.9 (11.5-15.5) % Plt Count 456 H (150-450) k/uL Neutrophils % 60 % Lymphocytes % 29 % Monocytes % 4 % Eosinophils % 5 % Basophils % 1 % Neutrophils # 8.1 H (1.3-7.7) k/uL Lymphocytes # 3.9 (1.0-4.8) k/uL Monocytes # 0.6 (0-1.0) k/uL Eosinophils # 0.7 (0-0.7) k/uL Basophils # 0.1 (0-0.2) k/uL Sodium (137-145) mmol/L Potassium (3.5-5.1) mmol/L Chloride (98-107) mmol/L Carbon Dioxide (22-30) mmol/L Anion Gap mmol/L BUN (7-17) mg/dL Creatinine (0.52-1.04) mg/dL Est GFR (CKD-EPI)AfAm (>60 ml/min/1.73 sqM) Est GFR (CKD-EPI)NonAf (>60 ml/min/1.73 sqM) Glucose (74-99) mg/dL Calcium (8.4-10.2) mg/dL Total Bilirubin (0.2-1.3) mg/dL AST (14-36) U/L ALT (9-52) U/L Alkaline Phosphatase (38-126) U/L Total Protein (6.3-8.2) g/dL Albumin (3.5-5.0) g/dL Lipase (23-300) U/L Urine Color Yellow Urine Appearance Cloudy H (Clear) Urine pH 6.0 (5.0-8.0) Ur Specific [place] 1.020 (1.001-1.035) Urine Protein Negative (Negative) Urine Glucose (UA) Negative (Negative) Urine Ketones Negative (Negative) Urine Blood Negative (Negative) Urine Nitrite Negative (Negative) Urine Bilirubin Negative (Negative) Urine Urobilinogen <2.0 (<2.0) mg/dL Ur Leukocyte Esterase Negative (Negative) Urine RBC 1 (0-5) /hpf Urine WBC 1 (0-5) /hpf Ur Squamous Epith Cells 3 (0-4) /hpf Urine Mucus Occasional H (None) /hpf Urine HCG, Qual Not Detected (Not Detectd) 04/04/19 Range/Units 23:46 WBC (3.8-10.6) k/uL RBC (3.80-5.40) m/uL Hgb (11.4-16.0) gm/dL Hct (34.0-46.0) % MCV (80.0-100.0) fL MCH (25.0-35.0) pg MCHC (31.0-37.0) g/dL RDW (11.5-15.5) % Plt Count (150-450) k/uL Neutrophils % % Lymphocytes % % Monocytes % % Eosinophils % % Basophils % % Neutrophils # (1.3-7.7) k/uL Lymphocytes # (1.0-4.8) k/uL Monocytes # (0-1.0) k/uL Eosinophils # (0-0.7) k/uL Basophils # (0-0.2) k/uL Sodium 140 (137-145) mmol/L Potassium 4.2 (3.5-5.1) mmol/L Chloride 105 (98-107) mmol/L Carbon Dioxide 23 (22-30) mmol/L Anion Gap 12 mmol/L BUN 12 (7-17) mg/dL Creatinine 0.72 (0.52-1.04) mg/dL Est GFR (CKD-EPI)AfAm >90 (>60 ml/min/1.73 sqM) Est GFR (CKD-EPI)NonAf >90 (>60 ml/min/1.73 sqM) Glucose 118 H (74-99) mg/dL Calcium 9.9 (8.4-10.2) mg/dL Total Bilirubin 0.2 (0.2-1.3) mg/dL AST 26 (14-36) U/L ALT 33 (9-52) U/L Alkaline Phosphatase 85 (38-126) U/L Total Protein 7.8 (6.3-8.2) g/dL Albumin 4.3 (3.5-5.0) g/dL Lipase 164 (23-300) U/L Urine Color Urine Appearance (Clear) Urine pH (5.0-8.0) Ur Specific [place] (1.001-1.035) Urine Protein (Negative) Urine Glucose (UA) (Negative) Urine Ketones (Negative) Urine Blood (Negative) Urine Nitrite (Negative) Urine Bilirubin (Negative) Urine Urobilinogen (<2.0) mg/dL Ur Leukocyte Esterase (Negative) Urine RBC (0-5) /hpf Urine WBC (0-5) /hpf Ur Squamous Epith Cells (0-4) /hpf Urine Mucus (None) /hpf Urine HCG, Qual (Not Detectd) Disposition Clinical Impression: Flank pain Disposition: HOME SELF-CARE Condition: Stable Instructions (If sedation given, give patient instructions): Flank Pain (ED) Additional Instructions: Patient to adhere to previously discussed treatment plan and will take medication(s) as directed. Patient to follow up with PCP in 1-2 days. Patient to return to ED if symptoms do not improve. Follow-up with primary care provider, return to ER if condition worsens. Is patient prescribed a controlled substance at d/c from ED?: No Referrals: Duke Hidalgo MD [Primary Care Provider] - 1-2 days
[2019-04-05 01:08] VITALS: BP 128/76; PULSE 97; RESP 18; TEMP 98.5
== END 2019-04-05 01:11 | disposition home or self-care (01) ==
LOC: EC 23:08
DX: R10.9 Unspecified abdominal pain (principal); N39.0 Urinary tract infection, site not specified; Z87.891 Personal history of nicotine dependence; Z79.899 Other long term (current) drug therapy; Z90.49 Acquired absence of other specified parts of digestive tract; Z98.51 Tubal ligation status; Z53.29 Procedure and treatment not carried out because of patient's decision for other reasons
CPT/HCPCS: 36415; 80053; 83690; 85025; 81001; 81025; 99284; 96374; 96375; 96361; J2270; J2405

== ENCOUNTER 2019-04-17 18:57 | Emergency (ER) | payer OTHER ==
[2019-04-17] MEDS ORDERED: ACETAMINOPHEN TAB 500 MG TAB PO STA (20:08)
[2019-04-17] MEDS ORDERED: IPRATROPIUM-ALBUTEROL 3 ML NEB INHALATION STA (20:09)
--- NOTE | 2019-04-17 20:28 | XR ---
EXAMINATION TYPE: XR chest 2V DATE OF EXAM: 04/17/2019 COMPARISON: 08/18/2018 HISTORY: Cough and fever TECHNIQUE: Frontal and lateral views of the chest are obtained. FINDINGS: There is some linear density right upper lobe consistent with mild infiltrate and atelecta sis. The other lung santamaria are clear. Heart and mediastinum are normal. There is no pleural effusion. Bony thorax is intact. IMPRESSION: There is new mild right upper lobe pneumonia and atelectasis compared to old exam.
[2019-04-17 20:37] LABS: Basophils # (A) 0.1 k/uL (0-0.2); Basophils % (A) 1 %; Eosinophils # (A) 0.4 k/uL (0-0.7); Eosinophils % (A) 4 %; HCT 38.8 % (34.0-46.0); Lymphocytes # (A) 1.2 k/uL (1.0-4.8); Lymphocytes % (A) 12 %; MCH 30.9 pg (25.0-35.0); MCHC 33.5 g/dL (31.0-37.0); MCV 92.2 fL (80.0-100.0); Mean Platelet Volume 5.8; Monocytes # (A) 0.4 k/uL (0-1.0); Monocytes % (A) 4 %; Neutrophils # (A) 7.8 k/uL (1.3-7.7); Neutrophils % (A) 78 %; Platelet Count 293 k/uL (150-450); RBC 4.21 m/uL (3.80-5.40); RDW 12.9 % (11.5-15.5); WBC 10.1 k/uL (3.8-10.6)
[2019-04-17 20:40] LABS: Appearance,Urine Clear (Clear); Bilirubin,Urine Negative (Negative); Blood,Urine Trace (Negative); Color,Urine Yellow; Glucose,Urine (UA) Negative (Negative); Ketones,Urine Negative (Negative); Leukocyte Esterase,Urine Negative (Negative); Mucus,Urine Many /hpf; Nitrite,Urine Negative (Negative); PH, Urine 5.5 (5.0-8.0); Protein,Urine Negative (Negative); RBC,Urine 2 /hpf (0-5); Specific Gravity,Urine 1.017 (1.001-1.035); Squamous Epithelial Cell,Urine 3 /hpf (0-4); Urobilinogen,Urine <2.0 mg/dL (<2.0); WBC,Urine 1 /hpf (0-5)
[2019-04-17 20:46] LABS: ALT 36 U/L (9-52); AST 27 U/L (14-36); African American GFR (CKD) >90 (>60 ml/min/1.73 sqM); Albumin 3.9 g/dL (3.5-5.0); Alkaline Phosphatase 74 U/L (38-126); Anion Gap 8 mmol/L; Blood Urea Nitrogen 6 mg/dL (7-17); Calcium 9.1 mg/dL (8.4-10.2); Carbon Dioxide 28 mmol/L (22-30); Chloride 102 mmol/L (98-107); Glucose 99 mg/dL (74-99); Potassium 4.3 mmol/L (3.5-5.1); Sodium 138 mmol/L (137-145); Total Bilirubin 0.3 mg/dL (0.2-1.3); Total Protein 7.3 g/dL (6.3-8.2)
[2019-04-17] MEDS ORDERED: AZITHROMYCIN 500 MG TAB PO STA (20:47)
[2019-04-17] MEDS ORDERED: SODIUM CHLORIDE 0.9% 1,000 ML IV STA (21:01)
[2019-04-17 21:30] VITALS: RESP 18
--- NOTE | 2019-04-17 23:10 | ED ---
General Adult HPI - General Chief complaint: Upper Respiratory Infection Stated complaint: Cough, chills, weakness Time Seen by Provider: 04/17/19 19:55 Source: patient, RN notes reviewed, old records reviewed Mode of arrival: ambulatory Limitations: no limitations - History of Present Illness Initial comments: 39-year-old female patient with the chief complaint of 4 days of cough, congestion, fevers chills, waxing and waning headache. Patient denies any emesis. Patient denies any abdominal pain. Denies any complaints. Systemic: Pt denies fatigue, fever/chills, rash. Pt denies weakness, night sweats, weight loss. Neuro: Pt denies headache, visual disturbances, syncope or pre-syncope. HEENT: Pt denies ocular discharge or irritation, otalgia, rhinorrhea, pharyngitis or notable lymphadenopathy. Cardiopulmonary: Pt denies chest pain, SOB, heart palpitations, dyspnea on exertion. Abdominal/GI: Pt denies abdominal pain, n/v/d. : Pt denies dysuria, burning w/ urination, frequency/urgency. Denies new onset urinary or bowel incontinence. MSK: Pt denies myalgia, loss of strength or function in extremities. Neuro: Pt denies new onset weakness, paresthesias. - Related Data Home Medications Medication Instructions Recorded Confirmed HYDROcodone/APAP 5-325MG [[place] 1 tab PO BID PRN 02/20/19 03/29/19 5-325] Ibuprofen [Motrin] 800 mg PO TID PRN 02/20/19 03/29/19 Phentermine HCl [Adipex-P] 37.5 mg PO DAILY 02/20/19 03/29/19 rOPINIRole HCL [Requip] 2 mg PO HS 03/29/19 03/29/19 Previous Rx's Medication Instructions Recorded Cephalexin [Keflex] 500 mg PO Q12HR #10 cap 03/30/19 Azithromycin [Zithromax Z-pack] 0 mg PO DIRECTED #6 tab 04/17/19 Allergies Allergy/AdvReac Type Severity Reaction Status Date / Time No Known Allergies Allergy Verified 04/17/19 19:08 Review of Systems ROS Statement: Those systems with pertinent positive or pertinent negative responses have been documented in the HPI. ROS Other: All systems not noted in ROS Statement are negative. 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 PT STATES OFF MEDICATIONS SINCE 13 Y/O AND LAST SEIZURE WAS 12 Y/O. PSORIASIS., STATES HAVING DIARRHEA AND HX OF BLOOD IN STOOL. History of Any Multi-Drug Resistant Organisms: None Reported Past Surgical History: Section, Cholecystectomy, Tubal Ligation Additional Past Surgical History / Comment(s): novasure, uterine ablation Past Anesthesia/Blood Transfusion Reactions: No Reported Reaction Past Psychological History: No Psychological Hx Reported Smoking Status: Current every day smoker Past Alcohol Use History: None Reported Past Drug Use History: None Reported - Past Family History Mother Family Medical History: No Reported History Additional Family Medical History / Comment(s): osteoporosis, COPD, "too much to recall" per pt Father Family Medical History: No Reported History General Exam - General Exam Comments Initial Comments: Constitutional: NAD, AOX3, Pt has pleasant affect. HEENT: NC/AT, trachea midline, neck supple, no lymphadenopathy. Posterior pharynx non erythematous, without exudates. External ears appear normal, without discharge. Mucous membranes moist. Eyes PERRLA, EOM intact. There is no scleral icterus. No pallor noted. Cardiopulmonary: RRR, no murmurs, rubs or gallops, no JVD noted. Wheezing noted in anterior lung santamaria. Resolved after breathing tx. Abdominal exam: Abdomen soft and non-distended. Abdomen non-tender to palpation in all 4 quadrants. Bowel sounds active in LLQ. No hepatosplenomegaly. No ecchymosis Neuro: CN II-XII intact. No nuchal rigidity. No raccon eyes, no murcia sign, no hemotympanum. No cervical spinal tenderness. MSK: No posterior calf tenderness bilaterally, homans sign negative bilaterally. Posterior tibialis and radial pulse +2 bilaterally. Sensation intact in upper and lower extremities. Full active ROM in upper and lower extremities, 5/5 stregnth. Limitations: no limitations Course Vital Signs 04/17/19 04/17/19 04/17/19 19:06 19:51 20:41 Temperature 102.4 F H Pulse Rate 121 H 104 H Respiratory 22 20 Rate Blood Pressure 135/77 O2 Sat by Pulse 100 Oximetry 04/17/19 04/17/19 20:50 21:29 Temperature 101.1 F H Pulse Rate 92 116 H Respiratory 18 Rate Blood Pressure 127/75 O2 Sat by Pulse 98 Oximetry Medical Decision Making - Medical Decision Making 39-year-old female patient with the chief complaint of 4 days of cough, congestion, fevers chills, waxing and waning headache. Patient denies any emesis. Patient denies any abdominal pain. Denies any complaints. Patient also has displayed mild fever and tachycardia. Patient is an antipyretic. Patient administered IV fluids.Physical exam displayed: CN II-XII intact. No nuchal rigidity. No raccon eyes, no murcia sign, no hemotympanum. No cervical s lucio tenderness. Wheezing noted in anterior lung santamaria. Resolved after breathing tx. lab investigations non-impressive. Lactic acid 1.4. Chest x-ray revealed mild right upper lobe pneumonia. Patient issue azithromycin. Patient discharged with close follow-up with primary care brother. Return to your condition worsens. Case discussed with Dr. Madrigal. - Lab Data Result diagrams: 04/17/19 20:27 04/17/19 20:27 Lab Results 04/17/19 04/17/19 04/17/19 Range/Units 19:50 20:27 20:27 WBC 10.1 (3.8-10.6) k/uL RBC 4.21 (3.80-5.40) m/uL Hgb 13.0 (11.4-16.0) gm/dL Hct 38.8 (34.0-46.0) % MCV 92.2 (80.0-100.0) fL MCH 30.9 (25.0-35.0) pg MCHC 33.5 (31.0-37.0) g/dL RDW 12.9 (11.5-15.5) % Plt Count 293 (150-450) k/uL Neutrophils % 78 % Lymphocytes % 12 % Monocytes % 4 % Eosinophils % 4 % Basophils % 1 % Neutrophils # 7.8 H (1.3-7.7) k/uL Lymphocytes # 1.2 (1.0-4.8) k/uL Monocytes # 0.4 (0-1.0) k/uL Eosinophils # 0.4 (0-0.7) k/uL Basophils # 0.1 (0-0.2) k/uL Sodium 138 (137-145) mmol/L Potassium 4.3 (3.5-5.1) mmol/L Chloride 102 (98-107) mmol/L Carbon Dioxide 28 (22-30) mmol/L Anion Gap 8 mmol/L BUN 6 L (7-17) mg/dL Creatinine 0.72 (0.52-1.04) mg/dL Est GFR (CKD-EPI)AfAm >90 (>60 ml/min/1.73 sqM) Est GFR (CKD-EPI)NonAf >90 (>60 ml/min/1.73 sqM) Glucose 99 (74-99) mg/dL Plasma Lactic Acid [place] (0.7-2.0) mmol/L Calcium 9.1 (8.4-10.2) mg/dL Total Bilirubin 0.3 (0.2-1.3) mg/dL AST 27 (14-36) U/L ALT 36 (9-52) U/L Alkaline Phosphatase 74 (38-126) U/L Total Protein 7.3 (6.3-8.2) g/dL Albumin 3.9 (3.5-5.0) g/dL Urine Color Urine Appearance (Clear) Urine pH (5.0-8.0) Ur Specific [place] (1.001-1.035) Urine Protein (Negative) Urine Glucose (UA) (Negative) Urine Ketones (Negative) Urine Blood (Negative) Urine Nitrite (Negative) Urine Bilirubin (Negative) Urine Urobilinogen (<2.0) mg/dL Ur Leukocyte Esterase (Negative) Urine RBC (0-5) /hpf Urine WBC (0-5) /hpf Ur Squamous Epith Cells (0-4) /hpf Urine Mucus (None) /hpf Urine HCG, Qual (Not Detectd) Influenza Type A RNA Not Detected (Not Detectd) Influenza Type B (PCR) Not Detected (Not Detectd) 04/17/19 04/17/19 04/17/19 Range/Units 20:27 20:27 21:05 WBC (3.8-10.6) k/uL RBC (3.80-5.40) m/uL Hgb (11.4-16.0) gm/dL Hct (34.0-46.0) % MCV (80.0-100.0) fL MCH (25.0-35.0) pg MCHC (31.0-37.0) g/dL RDW (11.5-15.5) % Plt Count (150-450) k/uL Neutrophils % % Lymphocytes % % Monocytes % % Eosinophils % % Basophils % % Neutrophils # (1.3-7.7) k/uL Lymphocytes # (1.0-4.8) k/uL Monocytes # (0-1.0) k/uL Eosinophils # (0-0.7) k/uL Basophils # (0-0.2) k/uL Sodium (137-145) mmol/L Potassium (3.5-5.1) mmol/L Chloride (98-107) mmol/L Carbon Dioxide (22-30) mmol/L Anion Gap mmol/L BUN (7-17) mg/dL Creatinine (0.52-1.04) mg/dL Est GFR (CKD-EPI)AfAm (>60 ml/min/1.73 sqM) Est GFR (CKD-EPI)NonAf (>60 ml/min/1.73 sqM) Glucose (74-99) mg/dL Plasma Lactic Acid [place] 1.4 (0.7-2.0) mmol/L Calcium (8.4-10.2) mg/dL Total Bilirubin (0.2-1.3) mg/dL AST (14-36) U/L ALT (9-52) U/L Alkaline Phosphatase (38-126) U/L Total Protein (6.3-8.2) g/dL Albumin (3.5-5.0) g/dL Urine Color Yellow Urine Appearance Clear (Clear) Urine pH 5.5 (5.0-8.0) Ur Specific [place] 1.017 (1.001-1.035) Urine Protein Negative (Negative) Urine Glucose (UA) Negative (Negative) Urine Ketones Negative (Negative) Urine Blood Trace H (Negative) Urine Nitrite Negative (Negative) Urine Bilirubin Negative (Negative) Urine Urobilinogen <2.0 (<2.0) mg/dL Ur Leukocyte Esterase Negative (Negative) Urine RBC 2 (0-5) /hpf Urine WBC 1 (0-5) /hpf Ur Squamous Epith Cells 3 (0-4) /hpf Urine Mucus Many H (None) /hpf Urine HCG, Qual Not Detected (Not Detectd) Influenza Type A RNA (Not Detectd) Influenza Type B (PCR) (Not Detectd) Disposition Clinical Impression: Community acquired pneumonia Disposition: HOME SELF-CARE Condition: Stable Instructions (If sedation given, give patient instructions): Community Acquired Pneumonia (ED) Additional Instructions: Patient to adhere to previously discussed treatment plan and will take medic ation(s) as directed. Patient to follow up with PCP in 1-2 days. Patient to return to ED if symptoms do not improve. take medication as directed. Follow-up with primary care provider tomorrow. Return to ED if condition worsens. Prescriptions: Azithromycin [Zithromax Z-pack] 0 mg PO DIRECTED #6 tab Is patient prescribed a controlled substance at d/c from ED?: No Referrals: Duke Hidalgo MD [Primary Care Provider] - 1-2 days
[2019-04-17 23:20] VITALS: BP 128/72; PULSE 96; TEMP 99.4
== END 2019-04-17 23:38 | disposition home or self-care (01) ==
LOC: EC 18:57
DX: J18.9 Pneumonia, unspecified organism (principal); R51 Headache; R00.0 Tachycardia, unspecified; L40.9 Psoriasis, unspecified; F17.200 Nicotine dependence, unspecified, uncomplicated; Z79.899 Other long term (current) drug therapy
CPT/HCPCS: 36415; 71046; 80053; 81001; 81025; 83605; 85025; 87502; 96360; 99284

== ENCOUNTER 2019-04-19 22:25 | Inpatient (IN) | payer OTHER ==
[2019-04-19] MEDS ORDERED: IPRATROPIUM-ALBUTEROL 3 ML NEB INHALATION STA (22:49)
[2019-04-19] MEDS ORDERED: SODIUM CHLORIDE 0.9% 1,000 ML IV STA (22:56)
--- NOTE | 2019-04-19 22:57 | ED ---
General Adult HPI - General Chief complaint: Skin/Abscess/Foreign Body Stated complaint: Rash Time Seen by Provider: 04/19/19 22:32 Source: patient, family Mode of arrival: ambulatory Limitations: no limitations - History of Present Illness Initial comments: Dictation was produced using [employer] dictation software. please excuse any gram matical, word or spelling errors. Chief Complaint: 39-year-old female recently diagnosed with pneumonia presents with right facial rash. History of Present Illness: 39-year-old female she was seen here approximately one week ago. She was diagnosed with pneumonia after there were suspicious findings on her x-ray. Patient states that she has been having persistent coughing. She feels as though her respiratory symptoms or not improving after having completed a course of antibiotics She was prescribed a prescription for Z-Itz. Over the last 48 hours she noted a onset of a right facial rash. Patient has had herpes zoster to the face in the past. She was diagnosed with she most of the face approximately 1 year ago. Patient reports that she does have some mild burning and painful symptoms at the right face. She has similar presentation with her last episode. The ROS documented in this emergency department record has been reviewed and confirmed by me. Those systems with pertinent positive or negative responses have been documented in the HPI. All other systems are other negative and/or noncontributory. PHYSICAL EXAM: General Impression: Alert and oriented x3, not in acute distress HEENT: Normocephalic atraumatic, extra-ocular movements intact, pupils equal and reactive to light bilaterally, mucous membranes moist. Cardiovascular: Heart regular rate and rhythm, S1&S2 audible, no murmurs, rubs or gallops Chest: Mild wheezing to the right posterior lung santamaria Abdomen: Bowel sounds present, abdomen soft, non-tender, non-distended, no organomegaly Musculoskeletal: Pulses present and equal in all extremities, no peripheral edema Motor: no focal deficits noted Neurological: CN II-XII grossly intact, no focal motor or sensory deficits noted Skin: Intact with no visualized rashes Psych: Normal affect and mood ED course: 39-year-old female presents with concerns of facial herpes zoster and she has a history of herpes zoster the face and the same exact area approximately 1 year ago. Signs upon arrival shows heart rate of 113, worse vital signs within acceptable limits. Chart was reviewed from recent hospital admission showing that patient had an x-ray positive for right lobe infiltrate.Laboratory evaluation obtained. No leukocytosis. Metabolic panel shows glucose 1:30. Urinalysis is negative. Pending blood cultures. Chest x- ray was obtained showing worsening right lower lobe infiltrate worse than previous x-ray done 6 days ago. Patient given DuoNeb with no improvement of symptoms. Clinical presentation is consistent with pneumonia failed outpatient treatment. More history was obtained from patient. She denies any recent travel. She was incarcerated several years ago. She does not report ever having had been affected with tuberculosis. Patient has any exposures to [place]. Denies any travel to [facility] or [facility]. Patient be admitted to the hospital with consultation to pulmonology. Patient is understandable and agreeable to admission to the hospital. Patient be left on contact precautions per she is started on antivirals for herpes zoster of the face. - Related Data Home Medications Medication Instructions Recorded Confirmed HYDROcodone/APAP 5-325MG [[place] 1 tab PO BID PRN 02/20/19 04/19/19 5-325] Ibuprofen [Motrin] 800 mg PO TID PRN 02/20/19 04/19/19 Phentermine HCl [Adipex-P] 37.5 mg PO DAILY 02/20/19 04/19/19 rOPINIRole HCL [Requip] 2 mg PO HS PRN 03/29/19 04/19/19 Albuterol Inhaler [Ventolin Hfa 1 - 2 puff INHALATION RT-Q4H PRN 04/19/19 04/19/19 Inhaler] Azithromycin [Zithromax Z-pack] See Taper PO DAILY 04/19/19 04/19/19 Allergies Allergy/AdvReac Type Severity Reaction Status Date / Time No Known Allergies Allergy Verified 04/19/19 22:36 Review of Systems ROS Statement: Those systems with pertinent positive or pertinent negative responses have been documented in the HPI. ROS Other: All systems not noted in ROS Statement are negative. 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 PT STATES OFF MEDICATIONS SINCE 13 Y/O AND LAST SEIZURE WAS 12 Y/O. PSORIASIS., STATES HAVING DIARRHEA AND HX OF BLOOD IN STOOL. History of Any Multi-Drug Resistant Organisms: None Reported Past Surgical History: Section, Cholecystectomy, Tubal Ligation Additional Past Surgical History / Comment(s): novasure, uterine ablation Past Anesthesia/Blood Transfusion Reactions: No Reported Reaction Past Psychological History: No Psychological Hx Reported Smoking Status: Current every day smoker Past Alcohol Use History: None Reported Past Drug Use History: None Reported - Past Family History Mother Family Medical History: No Reported History Additional Family Medical History / Comment(s): osteoporosis, COPD, "too much to recall" per pt Father Family Medical History: No Reported History General Exam Limitations: no limitations Course Vital Signs 04/19/19 04/19/19 04/19/19 22:27 23:03 23:08 Temperature 99.1 F Pulse Rate 113 H 80 88 Respiratory 20 Rate Blood Pressure 135/76 O2 Sat by Pulse 97 Oximetry Medical Decision Making - Lab Data Result diagrams: 04/19/19 23:05 04/19/19 23:05 Lab Results 04/19/19 04/19/19 04/19/19 Range/Units 22:52 23:05 23:05 WBC 8.8 (3.8-10.6) k/uL RBC 4.02 (3.80-5.40) m/uL Hgb 12.4 (11.4-16.0) gm/dL Hct 36.5 (34.0-46.0) % MCV 90.7 (80.0-100.0) fL MCH 30.9 (25.0-35.0) pg MCHC 34.0 (31.0-37.0) g/dL RDW 12.7 (11.5-15.5) % Plt Count 296 (150-450) k/uL Neutrophils % 55 % Lymphocytes % 30 % Monocytes % 5 % Eosinophils % 6 % Basophils % 1 % Neutrophils # 4.8 (1.3-7.7) k/uL Lymphocytes # 2.6 (1.0-4.8) k/uL Monocytes # 0.4 (0-1.0) k/uL Eosinophils # 0.6 (0-0.7) k/uL Basophils # 0.1 (0-0.2) k/uL Sodium 138 (137-145) mmol/L Potassium 3.7 (3.5-5.1) mmol/L Chloride 104 (98-107) mmol/L Carbon Dioxide 26 (22-30) mmol/L Anion Gap 8 mmol/L BUN 7 (7-17) mg/dL Creatinine 0.71 (0.52-1.04) mg/dL Est GFR (CKD-EPI)AfAm >90 (>60 ml/min/1.73 sqM) Est GFR (CKD-EPI)NonAf >90 (>60 ml/min/1.73 sqM) Glucose 130 H (74-99) mg/dL Calcium 9.4 (8.4-10.2) mg/dL Urine Color Yellow Urine Appearance Cloudy H (Clear) Urine pH 6.0 (5.0-8.0) Ur Specific [place] 1.013 (1.001-1.035) Urine Protein Negative (Negative) Urine Glucose (UA) Negative (Negative) Urine Ketones Negative (Negative) Urine Blood Negative (Negative) Urine Nitrite Negative (Negative) Urine Bilirubin Negative (Negative) Urine Urobilinogen <2.0 (<2.0) mg/dL Ur Leukocyte Esterase Negative (Negative) Urine RBC 2 (0-5) /hpf Urine WBC 1 (0-5) /hpf Ur Squamous Epith Cells 3 (0-4) /hpf Urine Mucus Rare H (None) /hpf Disposition Clinical Impression: Pneumonia Disposition: ADMITTED IP TO THIS [facility] Condition: Fair Referrals: Duke Hidalgo MD [Primary Care Provider] - 1-2 days Decision Time: 23:35
[2019-04-19 23:02] LABS: Appearance,Urine Cloudy (Clear); Bilirubin,Urine Negative (Negative); Blood,Urine Negative (Negative); Color,Urine Yellow; Glucose,Urine (UA) Negative (Negative); Ketones,Urine Negative (Negative); Leukocyte Esterase,Urine Negative (Negative); Mucus,Urine Rare /hpf; Nitrite,Urine Negative (Negative); Protein,Urine Negative (Negative); RBC,Urine 2 /hpf (0-5); Specific Gravity,Urine 1.013 (1.001-1.035); Squamous Epithelial Cell,Urine 3 /hpf (0-4); Urobilinogen,Urine <2.0 mg/dL (<2.0); WBC,Urine 1 /hpf (0-5)
[2019-04-19 23:17] LABS: Basophils # (A) 0.1 k/uL (0-0.2); Basophils % (A) 1 %; Eosinophils # (A) 0.6 k/uL (0-0.7); Eosinophils % (A) 6 %; HCT 36.5 % (34.0-46.0); HGB 12.4 gm/dL (11.4-16.0); Lymphocytes # (A) 2.6 k/uL (1.0-4.8); Lymphocytes % (A) 30 %; MCH 30.9 pg (25.0-35.0); MCV 90.7 fL (80.0-100.0); Mean Platelet Volume 5.8; Monocytes # (A) 0.4 k/uL (0-1.0); Monocytes % (A) 5 %; Neutrophils # (A) 4.8 k/uL (1.3-7.7); Neutrophils % (A) 55 %; Platelet Count 296 k/uL (150-450); RBC 4.02 m/uL (3.80-5.40); RDW 12.7 % (11.5-15.5); WBC 8.8 k/uL (3.8-10.6)
--- NOTE | 2019-04-19 23:25 | XR ---
EXAMINATION TYPE: XR chest 2V DATE OF EXAM: 04/19/2019 COMPARISON: 04/17/2019 HISTORY: Cough TECHNIQUE: Frontal and lateral views of the chest are obtained. FINDINGS: There is a 7 x 3 cm area of infiltrate at the lateral aspect of the right pulmonary hilum in the right upper lobe. The other lung santamaria are clear. Heart and mediastinum are normal. There is no pleural effusion. Bony thorax is intact. IMPRESSION: There is some right upper lobe pneumonia and atelectasis slightly worse than last exam. Normal heart.
[2019-04-19 23:26] LABS: African American GFR (CKD) >90 (>60 ml/min/1.73 sqM); Anion Gap 8 mmol/L; Blood Urea Nitrogen 7 mg/dL (7-17); Calcium 9.4 mg/dL (8.4-10.2); Carbon Dioxide 26 mmol/L (22-30); Chloride 104 mmol/L (98-107); Glucose 130 mg/dL (74-99); Potassium 3.7 mmol/L (3.5-5.1); Sodium 138 mmol/L (137-145)
[2019-04-19] MEDS ORDERED: CEFEPIME 2 GM in SODIUM CHLORIDE 0.9% 100 ML IVPB STA (23:31)
[2019-04-19] MEDS ORDERED: VANCOMYCIN IV PER PHARMACY 1 EACH MISC MISCELLANE PRN (23:31)
[2019-04-19] MEDS ORDERED: VANCOMYCIN 1,750 MG in SODIUM CHLORIDE 0.9% 500 ML 500 ML IVPB STA (23:33)
[2019-04-19] MEDS ORDERED: VANCOMYCIN 2,000 MG in SODIUM CHLORIDE 0.9% 500 ML 500 ML IVPB STA (23:34)
[2019-04-19] MEDS ORDERED: ONDANSETRON 4 MG/2 ML VIAL IVP PRN (23:35)
[2019-04-19] MEDS ORDERED: NALOXONE 0.4 MG/ML 1 ML VIAL IV PRN (23:35)
[2019-04-20] MEDS: SODIUM CHLORIDE 0.9% 1,000 ML IV SCH ×2 (00:05→23:49)
[2019-04-20] MEDS ORDERED: ACETAMINOPHEN TAB 325 MG TAB PO STA (01:03)
[2019-04-20 02:21] VITALS: BMI 41.9
[2019-04-20] MEDS: valACYclovir 500 MG TAB PO SCH ×2 (07:13→17:35)
[2019-04-20] MEDS: PANTOPRAZOLE 40 MG TABLET PO SCH (07:13)
[2019-04-20] MEDS ORDERED: IPRATROPIUM-ALBUTEROL 3 ML NEB INHALATION PRN (12:42)
[2019-04-20] MEDS: AZITHROMYCIN 500 MG TAB PO SCH (13:06)
[2019-04-20] MEDS: ACETAMINOPHEN TAB 325 MG TAB PO PRN ×2 (13:06→21:20)
[2019-04-20] MEDS ORDERED: VANCOMYCIN 1,750 MG in SODIUM CHLORIDE 0.9% 500 ML 500 ML IVPB SCH ×2 (14:00→16:00)
--- NOTE | 2019-04-20 14:40 | CONS ---
CONSULTATION PULMONARY/CRITICAL CARE CONSULTATION: DATE OF CONSULTATION: 04/20/2019 REASON FOR CONSULTATION: This is a pleasant 39-year-old female who was seen initially in the emergency room on April 17 with an episode of pneumonia. Her chest x-ray demonstrated a right upper lobe infiltrate. At that time she was complaining of fever, chills, muscle aches, joint aches, cough and phlegm production. She was apparently seen there, x- rayed and given a Z-Itz and discharged out of the emergency room. Because she was not improving, she came back. Her chest x-ray showed a worsening infiltrate right upper lobe. In addition, she developed some skin blisters or abscesses on her right facial area and nose area. Anyway, for that reason, she was evaluated in the emergency room by and she was admitted with a diagnosis of right upper lobe pneumonia, failing outpatient therapy. She is feeling a bit better this morning compared to yesterday when she was seen. Again, her primary issues included fever, chills, cough, phlegm production, chest congestion, muscle aches, joint aches, etc. She apparently was tested for influenza and tested negative. HOME MEDICATIONS: Include [place], Motrin, Adipex-P, Requip, albuterol inhaler and Zithromax. The albuterol inhaler and Zithromax were just recently given to her when she was in the emergency room on April 17. ALLERGIES: Denied. MEDICAL HISTORY: Seizure history, restless leg syndrome, chronic back and neck pain, receiving pain medication and epidural shots. Psoriasis, and some other minor medical problems. SURGICAL HISTORY: Includes , cholecystectomy, tubal ligation, uterine ablation. SOCIAL HISTORY: Positive for ongoing tobacco use on a daily basis. She smokes less than a pack a day. Denies alcohol use or illicit drug use. FAMILY HISTORY: Positive for father who is healthy. Mother with a history of COPD and osteoporosis. REVIEW OF SYSTEMS: CONSTITUTIONAL: Weakness, fatigue, muscle aches, joint aches, fever. NEUROLOGIC negative. HEENT negative. CARDIOVASCULAR negative. PULMONARY: Shortness of breath, chest tightness, wheezing, cough, phlegm production, chest congestion. GI negative. negative. RHEUMATOLOGIC negative. IMMUNOLOGIC negative. ENDOCRINOLOGIC negative. DERMATOLOGIC negative. PHYSICAL EXAMINATION: Current vital signs include a temperature 97.7, heart rate 80, respiratory rate 17, blood pressure 109/67, mean 81 and room air saturation of 95%. Her T-max was 99.1. Appears in no acute distress. Certainly no respiratory distress. She is not receiving any supplemental oxygen. HEENT examination is grossly unremarkable. She has a small blister on the right side of her nose. It does not look like an infection to me. NECK: Supple. Full range of motion. No adenopathy or thyromegaly. Neck veins are flat. CARDIOVASCULAR examination reveals regular rhythm and rate. Heart rate in the high 80s. S1, S2 normal. There is no S3, S4 or murmur. LUNGS: Reveal some coarse expiratory rhonchi. Some mild expiratory wheezes. No crackles. Breath sounds equal bilaterally. ABDOMEN: Soft. Bowel sounds are heard. EXTREMITIES are intact. No cyanosis, clubbing, or edema. SKIN: Reveals evidence of plaque psoriasis. NEUROLOGIC examination is brief but nonfocal. LABS: Reviewed. White count 8.8, hemoglobin 12.4, hematocrit 36.5, platelet count 396,000. Sodium, potassium, chloride, CO2 all normal. Anion gap normal. Renal functions normal. Urine is cloudy. There was rare mucus. Chest x-ray shows right upper lobe infiltrate worsening compared to the x-ray on April 17, which also revealed a right upper lobe infiltrate. Microbiology is pending or negative. Medications are reviewed. She is on Tylenol, Narcan, Zofran, Protonix, Valtrex, and vancomycin. ASSESSMENT: 1. Community-acquired pneumonia, right upper lobe, failing outpatient therapy. 2. History of seizure disorder. 3. History of psoriasis. 4. Chronic back and neck pain. 5. History of ongoing tobacco use and nicotine addiction. 6. Obesity. 7. Restless legs syndrome. PLAN: The patient's antibiotics will be switched to Rocephin and Zithromax. Additional recommendations and suggestions are forthcoming. We will make sure she is on breathing treatments. No steroids are necessary. She is counseled about the importance of smoking cessation. We will continue to follow. MMODL / IJN: [id number] / MTDD
[2019-04-20] MEDS: IPRATROPIUM-ALBUTEROL 3 ML NEB INHALATION SCH ×2 (15:11→20:18)
--- NOTE | 2019-04-20 18:14 | P.HPIM ---
History of Present Illness H&P Date: 04/20/19 Chief Complaint: Cough Ms. Daly is a 39-year-old female with a past medical history of seizure disorder, scoliosis, restless leg coming into the hospital with a chief compla int of cough that has been going on for the past 6 days. Patient presented to the emergency department 3 days back for the same complaints and she got a chest x-ray done showing right upper lobe infiltrate and so she was given Zithromax and discharged home. But the patient did not show significant improvement in her symptoms so she came back to the ER again. In the ER patient had a chest x- ray which was showing worsening right upper lobe infiltrate and so she was admitted for it. Patient states that her daughter has been sick with walking pneumonia, she was treated with antibiotics and is better now. Patient denies having any fevers chills or rigors. Patient denies having any night sweats or weight loss. No exposure to tuberculosis recently. She reports having flareup of her shingles with a few lesions on the right nasal area. Patient mentions that she had lesions in the same area 3 years back. Patient denies having any chest pain or palpitations. No abdominal pain nausea, vomiting or diarrhea. She denies having any dysuria or hematuria. She denies having any blurring of vision, neck stiffness or loss of consciousness. No slurring of speech or weakness in her extremities. Patient mentions about having a headache whenever she is coughing and she also also having chest soreness. Patient was tested for influenza and is negative. Review of Systems REVIEW OF SYSTEMS: PSYCH: No history of anxiety or depression NEURO:No c/o weakness of the extremties, No facial droop, No speech abnormalities. VASCULAR: Peripheral nervous system within the normal limits no edema HEMATOLOGIC: No history of easy bleeding and bruising . No recent infections . RESPIRATORY: As per HPI IMMUNE: No infections INTEGUMENT: no rashes OPHTHALMOLOGIC: No blurry vision and no eye discharge : No dysuria or hematuria CARDIAC: No chest pain , shortness of breath , paroxysmal nocturnal dyspnea MUSCULOSKELETAL : No Aches or pains in the joints or muscles. GI: No abdominal pain, Nausea or vomiting. No constipation or diarrhea. All 13 review of systems are negative except for ones mentioned above. 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 PT STATES OFF MEDICATIONS SINCE 13 Y/O AND LAST SEIZURE WAS 12 Y/O. PSORIASIS., STATES HAVING DIARRHEA AND HX OF BLOOD IN STOOL. History of Any Multi-Drug Resistant Organisms: None Reported Past Surgical History: Section, Cholecystectomy, Tubal Ligation Additional Past Surgical History / Comment(s): novasure, uterine ablation Past Anesthesia/Blood Transfusion Reactions: No Reported Reaction Past Psychological History: No Psychological Hx Reported Smoking Status: Current every day smoker Past Alcohol Use History: None Reported Additional Past Alcohol Use History / Comment(s): SMOKES 1/2 PPD OR LESS. SMOKING FOR 15 YEARS Past Drug Use History: None Reported - Past Family History Mother Family Medical History: No Reported History Additional Family Medical History / Comment(s): osteoporosis, COPD, "too much to recall" per pt Father Family Medical History: No Reported History Medications and Allergies Home Medications Medication Instructions Recorded Confirmed Type HYDROcodone/APAP 5-325MG [[place] 1 tab PO BID PRN 02/20/19 04/19/19 History 5-325] Ibuprofen [Motrin] 800 mg PO TID PRN 02/20/19 04/19/19 History Phentermine HCl [Adipex-P] 37.5 mg PO DAILY 02/20/19 04/19/19 History rOPINIRole HCL [Requip] 2 mg PO HS PRN 03/29/19 04/19/19 History Albuterol Inhaler [Ventolin Hfa 1 - 2 puff INHALATION RT-Q4H PRN 04/19/19 04/19/19 History Inhaler] Azithromycin [Zithromax Z-pack] See Taper PO DAILY 04/19/19 04/19/19 History Allergies Allergy/AdvReac Type Severity Reaction Status Date / Time No Known Allergies Allergy Verified 04/19/19 22:36 Physical Exam Vitals: Vital Signs Temp Pulse Pulse Resp BP BP Pulse Ox 04/20/19 13:19 98.2 F 80 17 117/80 97 04/20/19 07:31 97.7 F 80 17 109/67 95 04/20/19 02:14 98.5 F 93 18 102/65 99 04/19/19 23:08 88 04/19/19 23:03 80 04/19/19 22:27 99.1 F 113 H 20 135/76 97 Intake and Output 04/20/19 04/20/19 04/20/19 06:59 14:59 22:59 Intake Total 2079 Balance 2079 Intake: Intake, IV Titration 160 Amount Sodium Chloride 0.9% 1, 160 000 ml @ 20 mls/hr IV . Q24H [facility] Rx#:[id number] Oral 1920 Other: Voiding Method Toilet # Voids 2 GEN. APPEARANCE: alert, in no apparent distress HEAD EXAM: atraumatic, normocephalic, normal inspection EYE EXAM: No pallor. No icterus. ENT EXAM: Small pearly blisters noted on the right side of her nose. NECK EXAM: No JVD. RESPIRATORY EXAM: Bilateral rhonchi. Mild wheezes. CARDIOVASCULAR EXAM: S1 and S2 heard. GI/ABDOMINAL EXAM: soft, normal bowel sounds. no guarding. No rigidity. EXTREMITIES EXAM: No edema. NEUROLOGICAL EXAM: alert, oriented X3, focal neurological deficits PSYCHIATRIC EXAM: normal affect, normal mood Results CBC & Chem 7: 04/19/19 23:05 04/19/19 23:05 Labs: Abnormal Lab Results - Last 24 Hours (Table) 04/19/19 04/19/19 Range/Units 22:52 23:05 Glucose 130 H (74-99) mg/dL Urine Appearance Cloudy H (Clear) Urine Mucus Rare H (None) /hpf Thrombosis Risk Factor Assmnt - Choose All That Apply Any of the Below Risk Factors Present?: Yes Each Factor Represents 1 point: Obesity (BMI >25) Other Risk Factors: No Other congenital or acquired thrombophilia - If yes, enter type in comment: No Thrombosis Risk Factor Assessment Total Risk Factor Score: 1 Thrombosis Risk Factor Assessment Level: Low Risk Assessment and Plan Assessment: ASSESSMENT Right upper lobe pneumonia - failed outpatient antibiotic therapy Currently quite pneumonia Shingles on the right side of the nose History of seizure disorder History of scoliosis Chronic low back pain and chronic neck pain Restless leg syndrome Nicotine dependence Obesity with BMI of 42.0 PLAN: In the emergency department, as the patient had upper lobe infiltrate, she was put into the isolation. But the patient does not have any symptoms s uggestive of tuberculosis. Dr. Rodriguez evaluated the patient and feels the same. So the TB isolation has been discontinued. Continue antibiotics in the form of ceftriaxone and Zithromax. Continue with breathing treatments. Patient has been restarted on all her home medications. Further recommendations to follow depending on the progress of the patient.
[2019-04-20] MEDS: valACYclovir HCL 1,000 MG TABLET PO SCH (21:20)
[2019-04-21 07:14] LABS: Basophils # (A) 0.1 k/uL (0-0.2); Basophils % (A) 1 %; Eosinophils # (A) 0.6 k/uL (0-0.7); Eosinophils % (A) 8 %; HCT 37.6 % (34.0-46.0); HGB 12.5 gm/dL (11.4-16.0); Lymphocytes # (A) 2.6 k/uL (1.0-4.8); Lymphocytes % (A) 33 %; MCH 30.7 pg (25.0-35.0); MCHC 33.3 g/dL (31.0-37.0); MCV 92.3 fL (80.0-100.0); Mean Platelet Volume 5.8; Monocytes # (A) 0.3 k/uL (0-1.0); Monocytes % (A) 4 %; Neutrophils # (A) 4.1 k/uL (1.3-7.7); Neutrophils % (A) 52 %; Platelet Count 314 k/uL (150-450); RBC 4.08 m/uL (3.80-5.40); RDW 12.8 % (11.5-15.5); WBC 7.9 k/uL (3.8-10.6)
[2019-04-21 07:25] LABS: African American GFR (CKD) >90 (>60 ml/min/1.73 sqM); Anion Gap 8 mmol/L; Blood Urea Nitrogen 7 mg/dL (7-17); Calcium 9.1 mg/dL (8.4-10.2); Carbon Dioxide 27 mmol/L (22-30); Chloride 104 mmol/L (98-107); Glucose 98 mg/dL (74-99); Potassium 4.5 mmol/L (3.5-5.1); Sodium 139 mmol/L (137-145)
[2019-04-21] MEDS: valACYclovir HCL 1,000 MG TABLET PO SCH ×3 (08:10→21:17)
[2019-04-21] MEDS: PANTOPRAZOLE 40 MG TABLET PO SCH (08:10)
[2019-04-21] MEDS: AZITHROMYCIN 500 MG TAB PO SCH (08:10)
[2019-04-21] MEDS: ACETAMINOPHEN TAB 325 MG TAB PO PRN (08:10)
[2019-04-21] MEDS: IPRATROPIUM-ALBUTEROL 3 ML NEB INHALATION SCH ×3 (09:05→19:45)
--- NOTE | 2019-04-21 17:25 | P.PN ---
Subjective Progress Note Date: 04/21/19 Principal diagnosis: Right upper lobe pneumonia 04/21/2019 patient seen in follow-up on medical surgical floor. She is resting comfortably in bed, she is on room air, she is awake and alert, and altered mentation, no caput worsening dyspnea, no hemoptysis, no significant cough or congestion, patient denies any fever or chills, current antibiotics including Zithromax, Rocephin, and patient did receive a dose of vancomycin in the emergency department, was culture showed no growth, lung sounds reveal a few scattered crackles at the right lower base, today's labs have been reviewed, and are all within normal limits including CBC and BMP. Patient states she is feeling better, breathing easier, vital signs have been stable, she is 96% on room air. Objective - Vital Signs Vital signs: Vital Signs Temp 98.0 F 04/21/19 14:21 Pulse 65 04/21/19 14:21 Resp 18 04/21/19 14:21 BP 100/66 04/21/19 14:21 Pulse Ox 96 04/21/19 14:21 Intake & Output 04/20/19 04/21/19 04/21/19 18:59 06:59 18:59 Intake Total 2080 750 630 Balance 2080 750 630 Intake: Intake, IV Titration 160 500 50 Amount Sodium Chloride 0.9% 1, 160 000 ml @ 20 mls/hr IV . Q24H [facility] Rx#:[id number] Vancomycin 2,000 mg In 500 Sodium Chloride 0.9% 500 ml 500 ml @ 167 mls/hr IVPB ONCE [facility] Rx#: [id number] cefTRIAXone 1 gm In 50 Sodium Chloride 0.9% 50 ml @ 100 mls/hr IVPB Q24HR [facility] Rx#:[id number] Oral 1920 250 580 Other: Voiding Method Toilet Toilet # Voids 2 2 2 - Exam GENERAL EXAM: Alert, pleasant, 39-year-old white female, obese, on room air, with a pulse ox of 96% comfortable in no apparent distress. HEAD: Normocephalic/atraumatic. EYES: Normal reaction of pupils, equal size. Conjunctiva pink, sclera white. NOSE: Clear with pink turbinates. THROAT: No erythema or exudates. NECK: No masses, no JVD, no thyroid enlargement, no adenopathy. CHEST: No chest wall deformity. Symmetrical expansion. LUNGS: Equal air entry with limited crackles at the right lower lobe, wheeze, rhonchi or dullness. CVS: Regular rate and rhythm, normal S1 and S2, no gallops, no murmurs, no rubs ABDOMEN: Soft, nontender. No hepatosplenomegaly, normal bowel sounds, no guarding or rigidity. EXTREMITIES: No clubbing, no edema, no cyanosis, 2+ pulses and upper and lower extremities. MUSCULOSKELETAL: Muscle strength and tone normal. SPINE: No scoliosis or deformity SKIN: No rashes CENTRAL NERVOUS SYSTEM: Alert and oriented -3. No focal deficits, tone is norm al in all 4 extremities. PSYCHIATRIC: Alert and oriented -3. Appropriate affect. Intact judgment and insight. - Labs CBC & Chem 7: 04/21/19 06:35 04/21/19 06:35 Labs: Microbiology - Last 24 Hours (Table) 04/19/19 23:50 Blood Culture - Preliminary Blood No Growth after 24 hours Assessment and Plan Plan: Assessment: #1. Acute community acquired pneumonia involving right upper lobe with failure of outpatient therapy #2. History of seizure disorder #3. History of psoriasis #4. Chronic back and neck pain #5. History of ongoing tobacco use and nicotine addiction #6. Obesity #7. Restless leg syndrome Plan: Continue current antibiotics, including Rocephin and Zithromax, blood culture showed no growth, we were unable to obtain a sputum sample, no fever or chills, but a signs are stable, increase activity as tolerated, encourage ambulation, no acute events overnight, anticipate further improvement, and possibility of discharge home in the next 24 hours. Will follow I performed a history & physical examination of the patient and discussed their management with my nurse practitioner, Bobbi Jensen. I reviewed the nurse practitioner's note and agree with the documented findings and plan of care. Lung sounds are positive for a few limited crackles at the right lower lobe. The findings and the impression was discussed with the patient. I attest to the documentation by the nurse practitioner. Time with Patient: Less than 30
--- NOTE | 2019-04-21 17:42 | P.PN ---
Subjective Progress Note Date: 04/21/19 Principal diagnosis: Community acquired Pneumonia Ms. Daly is a 39-year-old female with a past medical history of seizure disorder, scoliosis, restless leg coming into the hospital with a chief complaint of cough that has been going on for the past 6 days. Patient presented to the emergency department 3 days back for the same complaints and she got a chest x-ray done showing right upper lobe infiltrate and so she was given Zithromax and discharged home. But the patient did not show significant improvement in her symptoms so she came back to the ER again. In the ER patient had a chest x-ray which was showing worsening right upper lobe infiltrate and so she was admitted for it. Today the patient is lying in bed appears to be no acute discomfort. She states that her breathing is much better compared to yesterday. She denies having any fevers, chills or rigors. Her cough is also improving. She denies having any chest pain or palpitations. No nausea vomiting or diarrhea. No dysuria or hematuria. Patient has been saturating in high 90s on room air. Her labs from this morning are within normal limits. Active Medications Acetaminophen (Tylenol Tab) 650 mg PO Q6HR PRN PRN Reason: Fever and/ or Pain Last Admin: 04/21/19 08:10 Dose: 650 mg Documented by: Albuterol/Ipratropium (Duoneb 0.5 Mg-3 Mg/3 Ml Soln) 3 ml INHALATION RT-TID PRN PRN Reason: Shortness Of Breath Or Wheezing Albuterol/Ipratropium (Duoneb 0.5 Mg-3 Mg/3 Ml Soln) 3 ml INHALATION RT-TID [facility] Last Admin: 04/21/19 13:17 Dose: 3 ml Documented by: Azithromycin (Zithromax) 500 mg PO DAILY [facility] Last Admin: 04/21/19 08:10 Dose: 500 mg Documented by: Sodium Chloride (Saline 0.9%) 1,000 mls @ 20 mls/hr IV .Q24H [facility] Last Admin: 04/20/19 23:49 Dose: Not Given Documented by: Ceftriaxone Sodium 1 gm/ (Sodium Chloride) 50 mls @ 100 mls/hr IVPB Q24HR [facility] Last Admin: 04/21/19 08:10 Dose: 100 mls/hr Documented by: Naloxone HCl (Narcan) 0.2 mg IV Q2M PRN PRN Reason: Opioid Reversal Ondansetron HCl (Zofran) 4 mg IVP Q8HR PRN PRN Reason: Nausea And Vomiting Pantoprazole Sodium (Protonix) 40 mg PO AC-BRKFST [facility] Last Admin: 04/21/19 08:10 Dose: 40 mg Documented by: Ropinirole HCl (Requip) 2 mg PO HS PRN PRN Reason: RESTLESS LEGS Last Admin: 04/20/19 23:00 Dose: 1 mg Documented by: Valacyclovir HCl (Valtrex) 1,000 mg PO TID [facility] Last Admin: 04/21/19 15:50 Dose: 1,000 mg Documented by: Objective - Vital Signs Vital signs: Vital Signs Temp 98.0 F 04/21/19 14:21 Pulse 65 04/21/19 14:21 Resp 18 04/21/19 14:21 BP 100/66 04/21/19 14:21 Pulse Ox 96 04/21/19 14:21 Intake & Output 04/20/19 04/21/19 04/21/19 18:59 06:59 18:59 Intake Total 2080 750 630 Balance 2080 750 630 Intake: Intake, IV Titration 160 500 50 Amount Sodium Chloride 0.9% 1, 160 000 ml @ 20 mls/hr IV . Q24H [facility] Rx#:[id number] Vancomycin 2,000 mg In 500 Sodium Chloride 0.9% 500 ml 500 ml @ 167 mls/hr IVPB ONCE STA Rx#: [id number] cefTRIAXone 1 gm In 50 Sodium Chloride 0.9% 50 ml @ 100 mls/hr IVPB Q24HR [facility] Rx#:[id number] Oral 1920 250 580 Other: Voiding Method Toilet Toilet # Voids 2 2 2 - Exam GEN. APPEARANCE: alert, in no apparent distress HEENT - no pallor. No icterus. No JVD. RESPIRATORY EXAM: Bilateral rhonchi. Mild wheezes. CARDIOVASCULAR EXAM: S1 and S2 heard. GI/ABDOMINAL EXAM: soft, normal bowel sounds. no guarding. No rigidity. EXTREMITIES EXAM: No edema. NEUROLOGICAL EXAM: alert, oriented X3, focal neurological deficits - Labs CBC & Chem 7: 04/21/19 06:35 04/21/19 06:35 Labs: Microbiology - Last 24 Hours (Table) 04/19/19 23:50 Blood Culture - Preliminary Blood No Growth after 24 hours Assessment and Plan Assessment: ASSESSMENT Right upper lobe pneumonia - failed outpatient antibiotic therapy Currently quite pneumonia Shingles on the right side of the nose History of seizure disorder History of scoliosis Chronic low back pain and chronic neck pain Restless leg syndrome Nicotine dependence Obesity with BMI of 42.0 PLAN: Patient's symptoms are improved significantly. Blood cultures no growth and sputum cultures unable to collect as the patient is not coughing up. Continue antibiotics in the form of ceftriaxone and Zithromax. Continue with breathing treatments. Further recommendations to follow depending on the progress of the patient. Anticipate discharge in the next 24-48 hours.
[2019-04-21] MEDS: SODIUM CHLORIDE 0.9% 1,000 ML IV SCH (23:56)
[2019-04-22 02:56] VITALS: RESP 18
[2019-04-22] MEDS: IPRATROPIUM-ALBUTEROL 3 ML NEB INHALATION SCH ×2 (08:04→12:22)
[2019-04-22] MEDS: valACYclovir HCL 1,000 MG TABLET PO SCH ×2 (08:24→15:45)
[2019-04-22] MEDS: PANTOPRAZOLE 40 MG TABLET PO SCH (08:24)
[2019-04-22] MEDS: AZITHROMYCIN 500 MG TAB PO SCH (08:24)
--- NOTE | 2019-04-22 10:13 | P.PN ---
Subjective Progress Note Date: 04/22/19 89-year-old female patient is being seen in follow-up for regarding her pneumonia. The patient has failed outpatient Zithromax and currently is on a combination of IV Rocephin and Zithromax. the follow-up chest x-ray from today is pending for now. Meanwhile, the patient is still having cough without s ignificant sputum production. White cell count is not elevated. She is on room air oxygen. She is on IV fluids at 120 mL an hour of normal saline he had no nausea. No vomiting. No chest pain. No other new complaints otherwise for now. No fever. No chills. Objective - Vital Signs Vital signs: Vital Signs Temp 98.5 F 04/22/19 07:00 Pulse 78 04/22/19 08:16 Resp 18 04/22/19 07:00 BP 141/80 04/22/19 07:00 Pulse Ox 96 04/22/19 07:00 Intake & Output 04/21/19 04/22/19 04/22/19 18:59 06:59 18:59 Intake Total 1074 540 118 Balance 1074 540 118 Intake: Intake, IV Titration 50 Amount cefTRIAXone 1 gm In 50 Sodium Chloride 0.9% 50 ml @ 100 mls/hr IVPB Q24HR [facility] Rx#:[id number] Oral 1024 540 118 Other: # Voids 2 - Exam GENERAL EXAM: Alert, pleasant, 39-year-old white female, obese, on room air, wi th a pulse ox of 96% comfortable in no apparent distress. HEAD: Normocephalic/atraumatic. EYES: Normal reaction of pupils, equal size. Conjunctiva pink, sclera white. NOSE: Clear with pink turbinates. THROAT: No erythema or exudates. NECK: No masses, no JVD, no thyroid enlargement, no adenopathy. CHEST: No chest wall deformity. Symmetrical expansion. LUNGS: Equal air entry with limited crackles at the right lower lobe, wheeze, rhonchi or dullness. CVS: Regular rate and rhythm, normal S1 and S2, no gallops, no murmurs, no rubs ABDOMEN: Soft, nontender. No hepatosplenomegaly, normal bowel sounds, no guarding or rigidity. EXTREMITIES: No clubbing, no edema, no cyanosis, 2+ pulses and upper and lower extremities. MUSCULOSKELETAL: Muscle strength and tone normal. SPINE: No scoliosis or deformity SKIN: No rashes CENTRAL NERVOUS SYSTEM: Alert and oriented -3. No focal deficits, tone is no rmal in all 4 extremities. PSYCHIATRIC: Alert and oriented -3. Appropriate affect. Intact judgment and insight. - Labs CBC & Chem 7: 04/21/19 06:35 04/21/19 06:35 Labs: Microbiology - Last 24 Hours (Table) 04/19/19 23:50 Blood Culture - Preliminary Blood No Growth after 48 hours Assessment and Plan Plan: #1. Acute community acquired pneumonia involving right upper lobe with failure of outpatient therapy #2. History of seizure disorder #3. History of psoriasis #4. Chronic back and neck pain #5. History of ongoing tobacco use and nicotine addiction #6. Obesity #7. Restless leg syndrome Plan: We'll continue same antibiotic coverage. We'll order a follow-up chest x-ray with PA and lateral views and will decide if the patient is stable enough to be discharged home today or within the next 24 hours. Her condition is stable for now.
--- NOTE | 2019-04-22 14:43 | XR ---
EXAMINATION TYPE: XR chest 2V DATE OF EXAM: 04/22/2019 COMPARISON: 04/19/2019 HISTORY: Cough. Pneumonia. Follow up exam. TECHNIQUE: Frontal and lateral views of the chest are obtained. FINDINGS: Previously seen right upper lobe opacity has resolved in the interim. Lungs are well aerat ed. Some linear opacity in the frontal view appears as transient atelectasis is not reproduced on the lateral view. Cholecystectomy clips are seen in the lateral view. Very minimal degenerative changes of the thoracic spine. No pneumothorax or pleural effusion. Cardiomediastinal silhouette is within no rmal limits. IMPRESSION: Resolved right upper lobe pneumonia.
[2019-04-22 16:03] VITALS: BP 132/79; PULSE 85; TEMP 98.3
--- NOTE | 2019-04-22 17:40 | P.DS ---
Providers Date of admission: 04/19/19 23:36 Attending physician: Dory Garcia Consults: 04/19/19 23:36 Consult Physician Routine Consulting Provider: Fco Rodriguez Consult Reason/Comments: right lobe infilitrate, pna failed outpatient treatment, dyspnea Do you want consulting provider notified?: Yes Primary care physician: Gwen Sarabia [facility] Course: 39-year-old female with a past medical history of seizure disorder, scoliosis, restless leg coming into the hospital with a chief complaint of cough that has been going on for the past 6 days. Patient presented to the emergency department 3 days back for the same complaints and she got a chest x-ray done showing right upper lobe infiltrate and so she was given Zithromax and discharged home. But the patient did not show significant improvement in her symptoms so she came back to the ER again. In the ER patient had a chest x-ray which was showing worsening right upper lobe infiltrate and so she was admitted for it. Today the patient is lying in bed appears to be no acute discomfort. She states that her breathing is much better compared to yesterday. She denies having any fevers, chills or rigors. Her cough is also improving. She denies having any chest pain or palpitations. No nausea vomiting or diarrhea. No dysuria or hematuria. Patient has been saturating in high 90s on room air. Her labs from this morning are within normal limits. 04/22/2019 Patient is clinically doing well today will be discharged on oral antibiotics. Nicotine cessation counseling was provided PHYSICAL EXAMINATION: GENERAL: The patient is alert and oriented x3, not in any acute distress. Well developed, well nourished. HEENT: Pupils are round and equally reacting to light. EOMI. No scleral icterus. No conjunctival pallor. Normocephalic, atraumatic. No pharyngeal erythema. No thyromegaly. CARDIOVASCULAR: S1 and S2 present. No murmurs, rubs, or gallops. PULMONARY: Chest is clear to auscultation, no wheezing or crackles. ABDOMEN: Soft, nontender, nondistended, normoactive bowel sounds. No palpable organomegaly. MUSCULOSKELETAL: No joint swelling or deformity. EXTREMITIES: No cyanosis, clubbing, or pedal edema. NEUROLOGICAL: Gross neurological examination did not reveal any focal deficits. SKIN: No rashes. Assessment and Plan Assessment: Right upper lobe pneumonia - failed outpatient antibiotic therapy, community- acquired mostly pneumococcal Currently quite pneumonia Shingles on the right side of the nose History of seizure disorder History of scoliosis Chronic low back pain and chronic neck pain Restless leg syndrome Nicotine dependence Obesity with BMI of 42.0 Patient Condition at Discharge: Fair Plan - Discharge Summary Discharge Rx Participant: Yes New Discharge Prescriptions: New Cefdinir [Omnicef] 300 mg PO BID #10 cap Omeprazole [PriLOSEC] 40 mg PO AC-BRKFST #30 capsule. valACYclovir HCL [Valtrex] 1,000 mg PO TID #21 tablet Azithromycin [Zithromax] 500 mg PO DAILY #3 tab Continue Phentermine HCl [Adipex-P] 37.5 mg PO DAILY Ibuprofen [Motrin] 800 mg PO TID PRN PRN Reason: Pain HYDROcodone/APAP 5-325MG [[place] 5-325] 1 tab PO BID PRN PRN Reason: Pain rOPINIRole HCL [Requip] 2 mg PO HS PRN PRN Reason: RESTLESS LEGS Albuterol Inhaler [Ventolin Hfa Inhaler] 1 - 2 puff INHALATION RT-Q4H PRN #1 inhaler PRN Reason: Cough Discontinued Azithromycin [Zithromax Z-pack] See Taper PO DAILY Discharge Medication List HYDROcodone/APAP 5-325MG [[place] 5-325] 1 tab PO BID PRN 02/20/19 [History] Ibuprofen [Motrin] 800 mg PO TID PRN 02/20/19 [History] Phentermine HCl [Adipex-P] 37.5 mg PO DAILY 02/20/19 [History] rOPINIRole HCL [Requip] 2 mg PO HS PRN 03/29/19 [History] Albuterol Inhaler [Ventolin Hfa Inhaler] 1 - 2 puff INHALATION RT-Q4H PRN #1 inhaler 04/22/19 [Rx] Azithromycin [Zithromax] 500 mg PO DAILY #3 tab 04/22/19 [Rx] Cefdinir [Omnicef] 300 mg PO BID #10 cap 04/22/19 [Rx] Omeprazole [PriLOSEC] 40 mg PO AC-BRKFST #30 capsule. 04/22/19 [Rx] valACYclovir HCL [Valtrex] 1,000 mg PO TID #21 tablet 04/22/19 [Rx] Follow up Appointment(s)/Referral(s): Duke Hidalgo MD [Primary Care Provider] - 04/30/19 Patient Instructions/Handouts: Pneumonia (DC) Discharge Disposition: HOME SELF-CARE
[2019-04-23] MEDS ORDERED: CEFDINIR 300 MG CAP PO SCH (09:00)
== END 2019-04-22 16:07 | disposition home or self-care (01) | DRG 194 ==
LOC: EC 22:25 → 4SSUR 23:36
PROVIDERS: ADMIT Hospitalist; ATTEND Hospitalist
DX: J18.1 Lobar pneumonia, unspecified organism (principal); Z68.41 Body mass index [BMI] 40.0-44.9, adult; E66.9 Obesity, unspecified; G25.81 Restless legs syndrome; G89.29 Other chronic pain; F17.210 Nicotine dependence, cigarettes, uncomplicated; B02.9 Zoster without complications; L40.9 Psoriasis, unspecified; M41.9 Scoliosis, unspecified; M54.5 Low back pain; G40.909 Epilepsy, unspecified, not intractable, without status epilepticus; M54.2 Cervicalgia; Z98.891 History of uterine scar from previous surgery; Z90.49 Acquired absence of other specified parts of digestive tract; Z98.51 Tubal ligation status; Z82.5 Family history of asthma and other chronic lower respiratory diseases; Z82.62 Family history of osteoporosis
CPT/HCPCS: 36415; 71046; 80048; 81001; 83605; 85025; 87040; 94640; 96361; 96365; 99284

== ENCOUNTER → 2019-06-03 | Outpatient (CLI) | payer OTHER ==
[2019-06-03 14:17] VITALS: BP 113/74; PULSE 102; RESP 16; TEMP 98
--- NOTE | 2019-06-03 15:19 | P.BASOAP ---
Subjective Progress Note Date: 06/03/19 Principal diagnosis: Morbid obesity Patient returns today for evaluation. Last seen in September of this year. She was a new patient visit at that time. Since last visit the patient was hospitalized in April with pneumonia. Doing better at this time. Still having acid reflux but only when she takes Motrin products. Patient suffers from GERD, arthritis, sleep apnea, hypertension. Last EGD 1.5 years ago. Quit smoking 2 months ago. Patient did have an echo earlier this year. She would like to proceed with sleeve gastrectomy after the new year. Objective - Vital Signs Vital signs: Vital Signs Temp 98 F 06/03/19 14:15 Pulse 102 H 06/03/19 14:15 Resp 16 06/03/19 14:15 BP 113/74 06/03/19 14:15 Pulse Ox Assessment/Plan (1) Morbid obesity with BMI of 40.0-44.9, adult Narrative/Plan: Patient's recent medical history reviewed once again. Remains interested in sleeve gastrectomy. We'll tentatively plan upper endoscopy after the new year. We'll review recent PCP notes. Tentatively plan sleeve gastrectomy August or September. Plan: Date: 06/03/19 Initial Weight: 124.341 kg Initial BMI: Current Weight: Current BMI: Type of Surgery: Total Volume in Band: Previous Volume: Volume Removed: Volume Added: Band Size:
== END | disposition home or self-care (01) ==
LOC: BARWHC3 13:53
PROVIDERS: ATTEND Surgery
DX: E66.01 Morbid (severe) obesity due to excess calories (principal); K21.9 Gastro-esophageal reflux disease without esophagitis; Z79.891 Long term (current) use of opiate analgesic; Z68.41 Body mass index [BMI] 40.0-44.9, adult
CPT/HCPCS: 99211

== ENCOUNTER → 2019-06-09 | Outpatient (CLI) | payer OTHER ==
[2019-06-09 16:00] VITALS: BMI 42.8
== END | disposition home or self-care (01) ==
LOC: BARWHC3 08:43
PROVIDERS: ATTEND Surgery
DX: E66.01 Morbid (severe) obesity due to excess calories (principal)
CPT/HCPCS: 97804

== ENCOUNTER 2019-06-23 13:36 | Day surgery (SDC) | payer OTHER ==
[2019-06-19 14:25] VITALS: BMI 42.7
[~2019-06-23 13:36] MED LIST changes: +LIDOCAINE 1% 20 ML VIAL (10MG/ML) FOR IV START INTRADERMA PRN
[2019-06-23 13:55] VITALS: RESP 16; TEMP 97.5
[2019-06-23] MEDS ORDERED: LIDOCAINE 1% INJ 10MG/ML (20 ML MDV) ONE (15:05)
[2019-06-23] MEDS ORDERED: PROPOFOL 10 MG/ML 20 ML VIAL IV ONE (15:05)
--- NOTE | 2019-06-23 15:10 | P.GSHP ---
History of Present Illness H&P Date: 06/23/19 Chief Complaint: Morbid obesity Patient today for upper endoscopy and preoperative evaluation for sleep apnea gastrectomy. No dysphagia. No significant GERD symptoms. 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 PT STATES OFF MEDICATIONS SINCE 13 Y/O AND LAST SEIZURE WAS 12 Y/O. PSORIASIS, History of Any Multi-Drug Resistant Organisms: None Reported Past Surgical History: Section, Cholecystectomy, Tubal Ligation, Uterine Ablation Additional Past Surgical History / Comment(s): D&C Past Anesthesia/Blood Transfusion Reactions: No Reported Reaction Smoking Status: Former smoker - Past Family History Mother Family Medical History: No Reported History Additional Family Medical History / Comment(s): osteoporosis, COPD, "too much to recall" per pt Father Family Medical History: No Reported History Medications and Allergies Home Medications Medication Instructions Recorded Confirmed Type HYDROcodone/APAP 5-325MG [[place] 1 tab PO BID PRN 02/20/19 06/19/19 History 5-325] Ibuprofen [Motrin] 800 mg PO TID PRN 02/20/19 06/19/19 History Phentermine HCl [Adipex-P] 37.5 mg PO DAILY 02/20/19 06/19/19 History rOPINIRole HCL [Requip] 2 mg PO HS PRN 03/29/19 06/19/19 History Allergies Allergy/AdvReac Type Severity Reaction Status Date / Time No Known Allergies Allergy Verified 06/23/19 13:56 Surgical - Exam Vital Signs Temp Pulse Resp BP Pulse Ox 97.5 F L 96 16 129/70 97 06/23/19 13:53 06/23/19 13:53 06/23/19 13:53 06/23/19 13:53 06/23/19 13:53 Physical exam: General: Well-developed, well-nourished HEENT: Normocephalic, sclerae nonicteric Abdomen: Nontender, nondistended Extremities: No edema Neuro: Alert and oriented Assessment and Plan (1) Morbid obesity with BMI of 40.0-44.9, adult Narrative/Plan: Will proceed with upper endoscopy Current Visit: No Status: Acute Code(s): E66.01 - MORBID (SEVERE) OBESITY DUE TO EXCESS CALORIES; Z68.41 - BODY MASS INDEX (BMI) 40.0-44.9, ADULT SNOMED Code(s): 318141696
--- NOTE | 2019-06-23 15:17 | P.PCN ---
Date of Procedure: 06/23/19 Procedure(s) Performed: Preoperative Dx: Presurgical, obesity Postoperative Dx: Mild gastritis Procedure: EGD with Bx Anesthesia: Sedation Endoscopist: Dr. August Specimens: Antrum Endoscopic Procedure: The patient was on the endoscopy table in the left decubitus position. The Olympus gastroscope was inserted into the oropharynx and passed under direct visualization to the region of the third portion of the duodenum. From that point the scope was slowly withdrawn inspecting all surfaces carefully. There were no neoplastic inflammatory or polypoid lesions throughout the duodenum. The pylorus was widely patent. The stomach was carefully inspected. There was mild gastritis present. A biopsy of the antrum took place to rule out H. pylori. Retroflexion revealed a normal hiatus. The esophagus was then carefully examined. There were no neoplastic inflammatory or polypoid lesions throughout the visualized esophagus. The patient was then taken to the recovery room in stable condition per anesthesia guidelines. Recommendations: Await biopsy results. Follow-up bariatric center early July and schedule sleep gastrectomy following that.
[2019-06-23 15:35] VITALS: BP 129/84; PULSE 96
== END 2019-06-23 15:47 | disposition home or self-care (01) ==
LOC: ORWHC2ENDO 13:36
PROVIDERS: ATTEND Surgery
DX: Z01.818 Encounter for other preprocedural examination (principal); K29.50 Unspecified chronic gastritis without bleeding; K21.9 Gastro-esophageal reflux disease without esophagitis; L40.9 Psoriasis, unspecified; G47.30 Sleep apnea, unspecified; K08.89 Other specified disorders of teeth and supporting structures; E66.01 Morbid (severe) obesity due to excess calories; Z68.41 Body mass index [BMI] 40.0-44.9, adult; Z86.69 Personal history of other diseases of the nervous system and sense organs; Z98.890 Other specified postprocedural states; Z90.49 Acquired absence of other specified parts of digestive tract; Z98.51 Tubal ligation status; Z87.891 Personal history of nicotine dependence; Z79.899 Other long term (current) drug therapy; Z79.891 Long term (current) use of opiate analgesic; Z82.62 Family history of osteoporosis; Z82.5 Family history of asthma and other chronic lower respiratory diseases
CPT/HCPCS: 81025; 88305; 43239; J2001; J2704

== ENCOUNTER → 2019-07-15 | Outpatient (CLI) | payer OTHER ==
[2019-07-15 14:18] VITALS: BP 114/81; PULSE 99; RESP 16; TEMP 98.6; BMI 43.4
--- NOTE | 2019-07-15 16:49 | P.BASOAP ---
Subjective Progress Note Date: 07/15/19 Principal diagnosis: Morbid obesity Patient returns after recent EGD showing mild gastritis. She was H. pylori negative. Doing well at this time. Remains interested in sleeve gastrectomy. Objective - Vital Signs Vital signs: Vital Signs Temp 98.6 F 07/15/19 14:11 Pulse 99 07/15/19 14:11 Resp 16 07/15/19 14:11 BP 114/81 07/15/19 14:11 Pulse Ox Intake & Output 07/14/19 07/15/19 07/15/19 18:59 06:59 18:59 Weight 122.271 kg - Exam Abdomen: Soft, nontender, nondistended Assessment/Plan (1) Morbid obesity with BMI of 40.0-44.9, adult Narrative/Plan: 39-year-old male with morbid obesity. We'll proceed with sleeve gastrectomy. Surgical consent form and associated risks/comment locations reviewed in detail. Potential of utilizing the da Tammy robot platform also reviewed. For now we'll tentatively schedule for traditional laparoscopic approach however if availability of Xi robot at the time of scheduling will consider recontacting patient by phone to switch to da Tammy assistance. Tentatively plan surgery late August to September. Plan: Date: 07/15/19 Initial Weight: 124.341 kg Initial BMI: 44.2 Current Weight: 122.271 kg Current BMI: 43.4 Type of Surgery: Vertical Sleeve Gastrectomy Total Volume in Band: Previous Volume: Volume Removed: Volume Added: Band Size:
== END | disposition home or self-care (01) ==
LOC: BARWHC3 13:21
PROVIDERS: ATTEND Surgery
DX: E66.01 Morbid (severe) obesity due to excess calories (principal); Z68.41 Body mass index [BMI] 40.0-44.9, adult; K29.70 Gastritis, unspecified, without bleeding
CPT/HCPCS: 99211

== ENCOUNTER → 2019-08-22 | Outpatient (CLI) | payer OTHER ==
[2019-08-22 10:54] LABS: Basophils # (A) 0.1 k/uL (0-0.2); Basophils % (A) 1 %; Eosinophils # (A) 0.3 k/uL (0-0.7); Eosinophils % (A) 3 %; HCT 42.1 % (34.0-46.0); HGB 13.5 gm/dL (11.4-16.0); Lymphocytes # (A) 2.3 k/uL (1.0-4.8); Lymphocytes % (A) 23 %; MCH 29.8 pg (25.0-35.0); MCHC 32.2 g/dL (31.0-37.0); MCV 92.6 fL (80.0-100.0); Mean Platelet Volume 6.7; Monocytes # (A) 0.4 k/uL (0-1.0); Monocytes % (A) 4 %; Neutrophils # (A) 6.9 k/uL (1.3-7.7); Neutrophils % (A) 68 %; Platelet Count 314 k/uL (150-450); RBC 4.54 m/uL (3.80-5.40); RDW 12.8 % (11.5-15.5); WBC 10.1 k/uL (3.8-10.6)
[2019-08-22 11:20] LABS: ALT 31 U/L (4-34); AST 29 U/L (14-36); African American GFR (CKD) >90 (>60 ml/min/1.73 sqM); Albumin 4.3 g/dL (3.5-5.0); Alkaline Phosphatase 77 U/L (38-126); Anion Gap 8 mmol/L; Blood Urea Nitrogen 11 mg/dL (7-17); Calcium 9.4 mg/dL (8.4-10.2); Carbon Dioxide 26 mmol/L (22-30); Chloride 103 mmol/L (98-107); Glucose 112 mg/dL (74-99); Non-African American GFR(CKD) >90 (>60 ml/min/1.73 sqM); Sodium 137 mmol/L (137-145); Total Bilirubin 0.8 mg/dL (0.2-1.3); Total Protein 8.1 g/dL (6.3-8.2)
== END | disposition home or self-care (01) ==
LOC: LABPAT 10:16
PROVIDERS: ATTEND Surgery
DX: Z01.812 Encounter for preprocedural laboratory examination (principal)
CPT/HCPCS: 80053; 85025

== ENCOUNTER 2019-09-08 07:45 | Inpatient (IN) | payer OTHER ==
[~2019-09-08 07:45] MED LIST changes: +ACETAMINOPHEN TAB 500 MG TAB PO ONE; +DEXAMETHASONE SOD PHOSPHATE 10 MG/ML 1 ML VIAL IV ONE; +ENOXAPARIN 40 MG/0.4 ML SYRINGE SQ ONE; -LACTATED RINGERS 1,000 ML IV SCH; +LIDOCAINE 1% (10MG/ML) FOR IV START INTRADERMA PRN; -LIDOCAINE 1% 20 ML VIAL (10MG/ML) FOR IV START INTRADERMA PRN; +ONDANSETRON 4 MG/2 ML VIAL IVP ONE; +SCOPOLAMINE 1.5MG/72HR PATCH TRANSDERM ONE; +ceFAZolin 3 GM in SODIUM CHLORIDE 0.9% 100 ML IVPB ONE
[2019-09-08] MEDS: LACTATED RINGERS 1,000 ML IV SCH (09:51)
--- NOTE | 2019-09-08 11:31 | P.GSHP ---
History of Present Illness H&P Date: 09/08/19 Chief Complaint: Morbid obesity 39-year-old female here today for elective sleeve gastrectomy. Patient was initially evaluated last September. Patient has complaints of GERD, arthritis, sleep apnea, hypertension. Recent EGD performed showing mild gastritis. No hiatal hernia noted. H. pylori negative. Patient has tried variety of weight loss methods without success. Denies DVT or dysphagia. Patient does have a history of seizure disorder although was not taking any medications for that. History of previous tobacco use none currently. 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 PT STATES OFF MEDICATIONS SINCE 13 Y/O AND LAST SEIZURE WAS 12 Y/O. hx migraines, varicose veins, PSORIASIS, hx ulcers, History of Any Multi-Drug Resistant Organisms: None Reported Past Surgical History: Section, Cholecystectomy, Tubal Ligation, Uterine Ablation Additional Past Surgical History / Comment(s): D&C Past Anesthesia/Blood Transfusion Reactions: Blood Transfusion Reaction Additional Past Anesthesia/Blood Transfusion Reaction / Comment(s): lightheaded with blood transfusion-"they had to stop it" Smoking Status: Former smoker - Past Family History Mother Family Medical History: No Reported History Additional Family Medical History / Comment(s): . Father Family Medical History: No Reported History Medications and Allergies Home Medications Medication Instructions Recorded Confirmed Type HYDROcodone/APAP 5-325MG [[place] 1 tab PO BID PRN 02/20/19 09/08/19 History 5-325] Ibuprofen [Motrin] 800 mg PO TID PRN 02/20/19 09/03/19 History Phentermine HCl [Adipex-P] 37.5 mg PO DAILY 02/20/19 09/03/19 History rOPINIRole HCL [Requip] 1 mg PO HS PRN 09/03/19 09/08/19 History Allergies Allergy/AdvReac Type Severity Reaction Status Date / Time No Known Allergies Allergy Verified 09/03/19 09:08 Surgical - Exam Vital Signs Temp Pulse Resp BP Pulse Ox 96.0 F L 82 16 121/70 97 09/08/19 09:37 09/08/19 09:37 09/08/19 09:37 09/08/19 09:37 09/08/19 09:37 Physical exam: General: Well-developed, well-nourished HEENT: Normocephalic, sclerae nonicteric Abdomen: Nontender, nondistended Extremities: No edema Neuro: Alert and oriented Assessment and Plan (1) Morbid obesity with BMI of 40.0-44.9, adult Narrative/Plan: 39-year-old female with morbid obesity. We'll proceed with elective sleeve gastrectomy at this time. The risks of bleeding, infection, stenosis, stricture, leak, abscess, fistula formation, peritonitis, poor weight loss, reflux, vomiting, conversion to an open procedure, aborting sleeve gastrectomy, NV, PE, DVT, and were discussed. The patient understands and wishes to proceed. Current Visit: No Status: Acute Code(s): E66.01 - MORBID (SEVERE) OBESITY DUE TO EXCESS CALORIES; Z68.41 - BODY MASS INDEX (BMI) 40.0-44.9, ADULT SNOMED Code(s): 157724703
[2019-09-08] MEDS ORDERED: GLYCOPYRROLATE 0.2 MG/ML 2 ML VIAL ONE (12:35)
[2019-09-08] MEDS ORDERED: fentaNYL (PF) 50 MCG/ML 2 ML AMP ONE (12:35)
[2019-09-08] MEDS ORDERED: NEOSTIGMINE 1 MG/ML 10 ML VIAL ONE (12:35)
[2019-09-08] MEDS ORDERED: PROPOFOL 10 MG/ML 20 ML VIAL IV ONE (12:35)
[2019-09-08] MEDS ORDERED: LIDOCAINE 1% INJ 10MG/ML (20 ML MDV) ONE (12:35)
[2019-09-08] MEDS ORDERED: KETAMINE 10 MG/ML 20 ML VIAL ONE (12:35)
[2019-09-08] MEDS ORDERED: MIDAZOLAM 2 MG/2 ML VIAL ONE (12:35)
[2019-09-08] MEDS ORDERED: ROCURONIUM BROMIDE 10 MG/ML 5 ML VIAL IV ONE (12:35)
[2019-09-08] MEDS ORDERED: ePHEDrine SULFATE/0.9% NACL/PF 50 MG/5 ML SYRINGE IV ONE (12:35)
[2019-09-08] MEDS ORDERED: LACTATED RINGERS 1,000 ML IV ONE (13:09)
[2019-09-08] MEDS ORDERED: BUPIVACAINE (PF) 0.25% 30 ML VIAL SQ ONE (13:14)
[2019-09-08] MEDS ORDERED: ONDANSETRON 4 MG/2 ML VIAL IVP PRN (14:49)
[2019-09-08] MEDS ORDERED: NALOXONE 0.4 MG/ML 1 ML VIAL IV PRN (14:49)
[2019-09-08] MEDS ORDERED: HYOSCYAMINE ORAL DROPS 1.875 MG/15 ML BOTTLE PO PRN (14:49)
[2019-09-08] MEDS ORDERED: diphenhydrAMINE 50 MG/ML 1 ML VIAL IVP PRN (14:49)
--- NOTE | 2019-09-08 14:52 | P.OP ---
Date of Procedure: 09/08/19 Procedure(s) Performed: PREOPERATIVE DIAGNOSIS: Morbid obesity, hypertension, GERD, sleep apnea, arthritis POSTOPERATIVE DIAGNOSIS: Same PROCEDURE: Laparoscopic sleeve gastrectomy SURGEON: Mata EBL: Minimal ANESTHESIA: General COMPLICATIONS: None OPERATIVE PROCEDURE: Patient was placed in the operating table in the supine position. She was placed under general anesthesia at that time. The abdomen was prepped and draped in sterile fashion after the patient was placed in lithotomy. A 5 mm optical trocar was used to enter the abdominal cavity in the left upper quadrant. Insufflation took place to 15 millimeters mercury. An additional right subxiphoid 5 mm trocar was then placed under direct visu alization and then removed. 2 additional 5 mm trochars were placed in the right upper quadrant and left upper quadrant under direct visualization and a 15 mm trocar in the supraumbilical location. The liver was retracted using a medium Edson liver retractor through the right subxiphoid trocar site. The hiatus was inspected. The patient had no visible hiatal hernia At that point I moved to the mid aspect of the greater curvature the stomach. The short gastric vasculature was divided using a LigaSure device proximally. I then switched and divided the short gastrics distally to a 3-4 cm from the pylorus. The dissection took place up to the left diaphragmatic crura at that point. The posterior short gastrics were likewise divided using the LigaSure device. Once the stomach was fully mobilized the blunt tipped 40-Maltese bougie dilator was advanced into the stomach and advanced all the way to the prepyloric location. A black echelon 60 stapler was utilized and fired tangentially across the antrum taking care to avoid narrowing at the incisura angularis. Subsequent firings of the stapler took place. A total of 4 green echelon 60 staplers with seam guard took place proximally staying on the outer edge of our dilator. Once we reached the most proximal portion of the stomach a single firing of the gold echelon 60 stapler without seen guard took place. The oral gastric tube was reinserted. The stomach was insufflated with approximately 100 mL of methylene blue. No evidence of leak or obstruction was seen. Tisseel fibrin glue was used along the length of the staple line. The distal aspect of the sleeve was then reapproximated to the gastrosplenic and gastrocolic ligament using a short running 2-0 strata fix suture. This was done to prevent kinking or twisting of the sleeve. The stomach remnant was removed from the 15 mm trocar site without difficulty. The fascia at the 15 more site was closed using interrupted 0 Vicryl sutures with the laparoscopic suture passer and [place] technique. The insufflation was evacuated. The skin at all 5 incisions were closed using 4-0 Monocryl sutures. Skin glue and sterile dressings were then applied. DISPOSITION: Stable to recovery room
[2019-09-08] MEDS: HYDROmorphone 0.5 MG/0.5 ML SYRINGE IVP PRN ×4 (15:07→16:46)
[2019-09-08] MEDS: ALBUTEROL NEBULIZED 2.5 MG/3 ML INHALATION SCH ×2 (16:59→19:09)
[2019-09-08] MEDS ORDERED: ACETAMINOPHEN IV (For NPO) 1,000 MG in EMPTY BAG 1 BAG IVPB ONE (17:00)
[2019-09-08] MEDS ORDERED: HYDROmorphone 0.5 MG/0.5 ML SYRINGE IVP PRN (17:52)
[2019-09-08] MEDS: HYDROmorphone 1 MG/ML 1 ML SYRINGE IVP PRN ×2 (19:40→23:23)
[2019-09-08] MEDS: ENOXAPARIN 40 MG/0.4 ML SYRINGE SQ SCH (21:19)
[2019-09-08] MEDS: 0.9% NACL WITH KCL 20 MEQ/L 1,000 ML IV SCH (21:19)
--- NOTE | 2019-09-09 | CONS ---
CONSULTATION REASON FOR CONSULTATION: Advice regarding GERD and other multiple medical issues requested by Dr. August. HISTORY OF PRESENT ILLNESS: This 39-year-old woman with a past history of GERD, seizure disorder, history of grand petit mal seizures, section, cholecystomy being followed by Dr. Hidalgo in the outpatient setting underwent laparoscopic sleeve gastrectomy for morbid obesity and associated complications. The patient tolerated the procedure well. Patient being closely monitored at this time. There is no history of fever, rigors. No history of headache, loss of consciousness or seizures at this time. No chest pain, palpitations either. PAST MEDICAL HISTORY: GERD, seizure disorder, sleep apnea, history of grand mal petit mal seizures. MEDICATION: Home medications are: 1. Requip 1 mg q.h.s. p.r.n. 2. Hydrocodone 1 tablet p.o. b.i.d. p.r.n. 3. Adipex P 37.5 mg p.o. daily. 4. Motrin 800 mg t.i.d. p.r.n. ALLERGIES: None. FAMILY HISTORY: No history of heart disease or strokes in the family. SOCIAL HISTORY: Previous history of smoking. History of occasional alcohol and THC. REVIEW OF SYSTEMS: ENT: No diminished vision. No diminished hearing. CARDIOVASCULAR: No angina or palpitations. RESPIRATION: No cough. No hemoptysis. GI: As mentioned earlier. no dysuria or hematuria. Nervous system: No numbness or weakness. ALLERGY/IMMUNOLOGY: No asthma or hayfever. MUSCULOSKELETAL as mentioned earlier. HEMATOLOGY/ONCOLOGY: No history of anemia. ENDOCRINE: No history of diabetes or hypothyroidism. CONSTITUTIONAL: As mentioned earlier. DERMATOLOGY: Negative. RHEUMATOLOGY negative. PSYCHIATRY as mentioned earlier. PHYSICAL EXAMINATION: Alert and oriented x3. Pulse is 72. Blood pressure is 106/52. Respirations 18. Temperature normal. Pulse ox 96% on 3 L. HEENT is conjunctivae normal. Oral mucosa moist. NECK is no jugular venous distention. No carotid bruit. No lymph node enlargement. Cardiovascular system: S1, S2. No S3, no S4. RESPIRATORY: Breath sounds diminished in the bases. A few rhonchi. No crackles. ABDOMEN: Soft. Obese. Status post surgery. No guarding. No rigidity. LEGS: No edema. No swelling. Otherwise nervous system: Higher functions as mentioned earlier. Moves all 4 limbs. No focal motor or sensory deficit. LYMPHATICS: No lymph nodes palpable in the neck, axillae or groin. SKIN: No ulcer, no rashes and no bleeding. JOINTS: No active deforming arthropathy. LABS: Hematology is normal. Coags are normal. Chemistry shows glucose 112, otherwise within normal limits. Vitamin D level was low previously. UA noted. ASSESSMENT: 1. Status post laparoscopic sleeve gastrectomy for morbid obesity. 2. History of seizure disorder both grand mal and petit mal. 3. History of sleep apnea. 4. History of gastroesophageal reflux disease. 5. History of migraines. 6. History of psoriasis. 7. History of cholecystectomy. 8. History of anxiety. 9. Remote history of nicotine dependence. 10.FULL CODE. RECOMMENDATIONS AND DISCUSSION: In this 39-year-old woman who presented after surgery, at this time, I recommend to continue the current medications, management and symptomatic treatment. Resume the home medications. Proton pump inhibitors. Otherwise, pain medications. DVT prophylaxis. We will follow the patient closely with you. The patient may be asked to follow up with Dr. Hidalgo after discharge. Thank you Dr. August for letting us participate in the care of this patient. Please also note that the patient is off seizure medications since 13 years old and the last seizure was when the patient was 12 years old. We will continue to monitor. Further recommendations to follow. MMODL / IJN: [id number] /
[2019-09-09] MEDS: LACTATED RINGERS 1,000 ML IV SCH (02:08)
[2019-09-09] MEDS: 0.9% NACL WITH KCL 20 MEQ/L 1,000 ML IV SCH ×2 (02:08→03:17)
[2019-09-09] MEDS: HYDROmorphone 1 MG/ML 1 ML SYRINGE IVP PRN (03:07)
[2019-09-09] MEDS: ENOXAPARIN 40 MG/0.4 ML SYRINGE SQ SCH ×2 (07:51→20:37)
[2019-09-09] MEDS: PANTOPRAZOLE 40 MG/10 ML VIAL IV SCH (07:51)
[2019-09-09 08:04] LABS: Basophils % (A) 0 %; Eosinophils % (A) 0 %; HCT 37.5 % (34.0-46.0); Lymphocytes # (A) 2.3 k/uL (1.0-4.8); Lymphocytes % (A) 18 %; MCH 29.3 pg (25.0-35.0); MCV 91.5 fL (80.0-100.0); Monocytes # (A) 0.5 k/uL (0-1.0); Monocytes % (A) 4 %; Neutrophils # (A) 9.5 k/uL (1.3-7.7); Neutrophils % (A) 76 %; Platelet Count 389 k/uL (150-450); RDW 12.6 % (11.5-15.5); WBC 12.5 k/uL (3.8-10.6)
[2019-09-09 08:10] LABS: African American GFR (CKD) >90 (>60 ml/min/1.73 sqM); Anion Gap 9 mmol/L; Blood Urea Nitrogen 5 mg/dL (7-17); Calcium 8.4 mg/dL (8.4-10.2); Carbon Dioxide 23 mmol/L (22-30); Chloride 106 mmol/L (98-107); Magnesium 2.1 mg/dL (1.6-2.3); Non-African American GFR(CKD) >90 (>60 ml/min/1.73 sqM); Phosphorus 2.8 mg/dL (2.5-4.5); Potassium 4.8 mmol/L (3.5-5.1); Sodium 138 mmol/L (137-145)
[2019-09-09] MEDS ORDERED: METOCLOPRAMIDE 5 MG/ML 2 ML VIAL IVP STA (08:34)
[2019-09-09] MEDS ORDERED: ONDANSETRON 4 MG/2 ML VIAL IVP PRN (08:34)
[2019-09-09] MEDS: SIMETHICONE 40 MG/0.6 ML DROPS 2,000 MG/30 ML BOTTLE PO PRN (08:52)
[2019-09-09] MEDS: KETOROLAC 30 MG/ML 1 ML VIAL IVP PRN ×2 (08:53→19:06)
[2019-09-09] MEDS: 1: MVI, ADULT NO.4 WITH VIT K 10 ML, THIAMINE 100 MG, FOLIC ACID 1 MG, POTASSIUM CHLORID IV SCH ×12 (08:55→20:37)
--- NOTE | 2019-09-09 09:45 | FL ---
EXAMINATION TYPE: FL UGI DATE OF EXAM: 09/09/2019 LIMITED UGI: CLINICAL HISTORY: Evaluation status post gastric sleeve. TECHNIQUE: Limited esophagram is performed utilizing 50 mL of Isovue-370. A total of 28 seconds of f luoroscopic time was utilized during procedure. 22 fluoroscopic images were saved during the examinat ion. COMPARISON: None. FINDINGS: The patient swallowed contrast without difficulty or delay. Esophageal peristalsis and mo tility are within normal limits. There is mildly delayed flow of contrast along the diaphragmatic hi atus into proximal stomach and subsequent flow into gastric sleeve. There is good flow from distal sl eeve into pylorus and duodenal sweep. Patient remains asymptomatic. There is no evidence of contrast extravasation to suggest leak. IMPRESSION: No evidence of leak or significant obstruction status post recent gastric sleeve surgery. Mildly delayed flow of contrast along the diaphragmatic hiatus likely relates to postoperative edema .
[2019-09-09] MEDS: ALBUTEROL NEBULIZED 2.5 MG/3 ML INHALATION SCH ×4 (10:00→20:24)
--- NOTE | 2019-09-09 11:11 | P.PN ---
<JonesJessica Monica - Last Filed: 09/09/19 11:06> Subjective Progress Note Date: 09/09/19 CHIEF COMPLAINT: Morbid obesity HISTORY OF PRESENT ILLNESS: 39-year-old female who underwent laparoscopic sleeve gastrectomy. Postop day #1. Postoperative esophagram negative for leak or ob struction. She reports some abdominal discomfort this morning. Reports nausea and dry heaves. Vital signs are stable. Afebrile. PHYSICAL EXAM: VITAL SIGNS: Reviewed. GENERAL: Well-developed in no acute distress. HEENT: No sclera icterus. Extraocular movements grossly intact. Moist buccal mucosa. Head is atraumatic, normocephalic. ABDOMEN: Soft. Nondistended. Nontender. Surgical sites clean dry intact. NEUROLOGIC: Alert and oriented. Cranial nerves II through XII grossly intact. ASSESSMENT: 1. Morbid obesity, status post laparoscopic sleeve gastrectomy PLAN: -Increase Zofran to Q6 hours. Reglan 10mg x1 dose now. Reglan PRN also available. -Bariatric clear liquid diet if nausea improves -Encouraged patient to ambulate in the hallway and increase activity as tolerated -Incentive spirometer -Pain control. Continue IV Dilaudid. Add Toradol 15mg Q6 hours PRN Nurse practitioner note has been reviewed by physician. Signing provider agrees with the documented findings, assessment, and plan of care. Objective - Vital Signs Vital signs: Vital Signs Temp 98.4 F 09/09/19 07:00 Pulse 75 09/09/19 07:00 Resp 16 09/09/19 07:00 BP 112/66 09/09/19 07:00 Pulse Ox 98 09/09/19 07:00 Intake & Output 09/08/19 09/09/19 09/09/19 18:59 06:59 18:59 Intake Total 1800 1500 Output Total 10 1450 Balance 1790 50 Weight 120 kg Intake: IV 1800 Intake, IV Titration 1500 Amount 0.9% NaCl with KCl 20 Meq 1500 /l 1,000 ml @ 150 mls/hr IV .Q6H40M CARLEEN Rx#: [id number] Output: Urine 1450 Estimated Blood Loss 10 Other: Voiding Method Toilet Toilet # Voids 1 - Labs CBC & Chem 7: 09/09/19 07:14 09/09/19 07:14 Labs: Abnormal Lab Results - Last 24 Hours (Table) 09/09/19 09/09/19 Range/Units 07:14 07:14 WBC 12.5 H (3.8-10.6) k/uL Neutrophils # 9.5 H (1.3-7.7) k/uL BUN 5 L (7-17) mg/dL <Don August - Last Filed: 09/09/19 17:00> Subjective As above. Patient tolerating liquids. She is having some discomfort. Continue bariatric clears. Ambulate. Reassess tomorrow. Objective - Vital Signs Vital signs: Vital Signs Temp 98.6 F 09/09/19 15:00 Pulse 72 09/09/19 16:59 Resp 17 09/09/19 15:00 BP 131/75 09/09/19 15:00 Pulse Ox 94 L 09/09/19 15:00 Intake & Output 09/08/19 09/09/19 09/09/19 18:59 06:59 18:59 Intake Total 1800 1500 760 Output Total 10 1450 Balance 1790 50 760 Weight 120 kg Intake: IV 1800 Intake, IV Titration 1500 700 Amount 0.9% NaCl with KCl 20 Meq 400 /l 1,000 ml @ 100 mls/hr IV .BY DURATION CARLEEN Rx#: [id number] 0.9% NaCl with KCl 20 Meq 1500 /l 1,000 ml @ 150 mls/hr IV .Q6H40M CARLEEN Rx#: [id number] Mvi, Adult No.4 with Vit 300 K 10 ml Thiamine 100 mg Folic Acid 1 mg Potassium Chloride 20 meq In Sodium Chloride 0.9% 1, 000 ml @ 100 mls/hr IV . BY DURATION CARLEEN Rx#: [id number] Oral 60 Output: Urine 1450 Estimated Blood Loss 10 Other: Voiding Method Toilet Toilet # Voids 1 - Labs CBC & Chem 7: 09/09/19 07:14 09/09/19 07:14 Labs: Abnormal Lab Results - Last 24 Hours (Table) 09/09/19 09/09/19 Range/Units 07:14 07:14 WBC 12.5 H (3.8-10.6) k/uL Neutrophils # 9.5 H (1.3-7.7) k/uL BUN 5 L (7-17) mg/dL Assessment and Plan (1) Morbid obesity with BMI of 40.0-44.9, adult Current Visit: No Status: Acute Code(s): E66.01 - MORBID (SEVERE) OBESITY DUE TO EXCESS CALORIES; Z68.41 - BODY MASS INDEX (BMI) 40.0-44.9, ADULT SNOMED Code(s): 821858923
[2019-09-09] MEDS: HYDROcodone/APAP 5-325MG 1 EACH TAB PO PRN ×2 (15:24→23:42)
--- NOTE | 2019-09-09 16:39 | PN ---
PROGRESS NOTE DATE OF SERVICE: 09/09/2019 This 39-year-old woman who was admitted after laparoscopic sleeve gastrectomy is improving significantly. No chest pain. No palpitations. No fever. PHYSICAL EXAMINATION: Alert and oriented x3. Pulse 70, blood pressure 112/66, respirations 16, temperature 98.4, pulse ox 98% on room air. HEENT: Conjunctivae normal. NECK: No jugular venous distention. CARDIOVASCULAR SYSTEM: S1, S2 muffled. RESPIRATORY SYSTEM: Breath sounds diminished at the bases. A few scattered rhonchi. ABDOMEN: Soft. Status post surgery. LEGS: No edema. No swelling. NERVOUS SYSTEM: No focal deficit. LABS: WBC 12.5. Other labs are noted. ASSESSMENT: 1. Status post laparoscopic sleeve gastrectomy for morbid obesity. 2. History of seizure disorder, both grand mal and petit mal. 3. Increased white count, possibly reactive. 4. History of sleep apnea. 5. Gastroesophageal reflux disease. 6. Migraines. 7. History of psoriasis. 8. History of cholecystectomy. 9. History of anxiety. 10.Remote history of nicotine dependence. 11.FULL CODE. RECOMMENDATIONS AND DISCUSSION: I recommend to continue current medications, continue with the monitoring, symptomatic treatment. DVT prophylaxis. Protonix. Closely follow with Surgery. Further recommendations to follow. MMODL / IJN: [id number] /
[2019-09-10] MEDS: KETOROLAC 30 MG/ML 1 ML VIAL IVP PRN ×4 (01:10→23:30)
[2019-09-10] MEDS: 1: MVI, ADULT NO.4 WITH VIT K 10 ML, THIAMINE 100 MG, FOLIC ACID 1 MG, POTASSIUM CHLORID IV SCH ×18 (05:20→19:00)
[2019-09-10] MEDS: LACTATED RINGERS 1,000 ML IV SCH (05:21)
[2019-09-10 07:45] LABS: Basophils % (A) 0 %; Eosinophils # (A) 0.1 k/uL (0-0.7); Eosinophils % (A) 1 %; HCT 34.2 % (34.0-46.0); Lymphocytes # (A) 2.6 k/uL (1.0-4.8); Lymphocytes % (A) 31 %; MCH 29.8 pg (25.0-35.0); MCHC 32.3 g/dL (31.0-37.0); MCV 92.1 fL (80.0-100.0); Mean Platelet Volume 7.3; Monocytes # (A) 0.5 k/uL (0-1.0); Monocytes % (A) 6 %; Neutrophils % (A) 60 %; Platelet Count 296 k/uL (150-450); RBC 3.71 m/uL (3.80-5.40); RDW 12.9 % (11.5-15.5); WBC 8.3 k/uL (3.8-10.6)
[2019-09-10 08:00] LABS: African American GFR (CKD) >90 (>60 ml/min/1.73 sqM); Anion Gap 7 mmol/L; Blood Urea Nitrogen 5 mg/dL (7-17); Calcium 8.2 mg/dL (8.4-10.2); Carbon Dioxide 23 mmol/L (22-30); Chloride 108 mmol/L (98-107); Glucose 82 mg/dL (74-99); Non-African American GFR(CKD) >90 (>60 ml/min/1.73 sqM); Potassium 4.4 mmol/L (3.5-5.1); Sodium 138 mmol/L (137-145)
[2019-09-10] MEDS: ENOXAPARIN 40 MG/0.4 ML SYRINGE SQ SCH ×2 (08:04→23:32)
[2019-09-10] MEDS: PANTOPRAZOLE 40 MG/10 ML VIAL IV SCH (08:04)
[2019-09-10] MEDS: ALBUTEROL NEBULIZED 2.5 MG/3 ML INHALATION SCH ×4 (09:07→19:29)
--- NOTE | 2019-09-10 10:03 | P.PN ---
<Jessica Jones Monica - Last Filed: 09/10/19 10:01> Subjective Progress Note Date: 09/10/19 CHIEF COMPLAINT: Morbid obesity HISTORY OF PRESENT ILLNESS: 39-year-old female who underwent laparoscopic sleeve gastrectomy. Postop day #2. Patient reports improvement in nausea. She states her pain is tolerable at this time. She has tolerating liquids. Patient reports drinking a few sips of water this morning, half of her broth, and a jello. Vital signs stable. PHYSICAL EXAM: VITAL SIGNS: Reviewed. GENERAL: Well-developed in no acute distress. HEENT: No sclera icterus. Extraocular movements grossly intact. Moist buccal mucosa. Head is atraumatic, normocephalic. ABDOMEN: Soft. Nondistended. Nontender. Surgical sites clean dry intact. NEUROLOGIC: Alert and oriented. Cranial nerves II through XII grossly intact. ASSESSMENT: 1. Morbid obesity, status post laparoscopic sleeve gastrectomy PLAN: -Continue clear liquid diet -Incentive spirometer -Pain control -Discharge home when patient tolerating adequate fluid intake. Patient encouraged to increase oral intake as tolerated. Possible discharge home this afternoon versus tomorrow pending PO intake for remainder of the day today Nurse practitioner note has been reviewed by physician. Signing provider agrees with the documented findings, assessment, and plan of care. Objective - Vital Signs Vital signs: Vital Signs Temp 98.3 F 09/10/19 07:00 Pulse 76 09/10/19 09:19 Resp 18 09/10/19 07:00 BP 134/84 09/10/19 07:00 Pulse Ox 97 09/10/19 07:00 Intake & Output 09/09/19 09/10/19 09/10/19 18:59 06:59 18:59 Intake Total 960 1050 350 Balance 960 1050 350 Intake: Intake, IV Titration 700 1050 Amount 0.9% NaCl with KCl 20 Meq 400 1050 /l 1,000 ml @ 100 mls/hr IV .BY DURATION CARLEEN Rx#: [id number] Mvi, Adult No.4 with Vit 300 K 10 ml Thiamine 100 mg Folic Acid 1 mg Potassium Chloride 20 meq In Sodium Chloride 0.9% 1, 000 ml @ 100 mls/hr IV . BY DURATION CARLEEN Rx#: [id number] Oral 260 350 Other: Voiding Method Toilet Toilet # Voids 3 - Labs CBC & Chem 7: 03/04/20 06:45 09/10/19 06:45 Labs: Abnormal Lab Results - Last 24 Hours (Table) 09/10/19 09/10/19 Range/Units 06:45 06:45 RBC 3.71 L (3.80-5.40) m/uL Hgb 11.0 L (11.4-16.0) gm/dL Chloride 108 H (98-107) mmol/L BUN 5 L (7-17) mg/dL Calcium 8.2 L (8.4-10.2) mg/dL <Don August - Last Filed: 09/10/19 14:58> Subjective As above. Patient complaining of some spastic abdominal pain. Better than yesterday however. Tolerating some of the liquids. Reevaluate tomorrow for possible discharge. Objective - Vital Signs Vital signs: Vital Signs Temp 98.3 F 09/10/19 07:00 Pulse 76 09/10/19 13:14 Resp 18 09/10/19 07:00 BP 134/84 09/10/19 07:00 Pulse Ox 97 09/10/19 07:00 Intake & Output 09/09/19 09/10/19 09/10/19 18:59 06:59 18:59 Intake Total 960 1050 650 Balance 960 1050 650 Weight 120 kg Intake: Intake, IV Titration 700 1050 Amount 0.9% NaCl with KCl 20 Meq 400 1050 /l 1,000 ml @ 100 mls/hr IV .BY DURATION CARLEEN Rx#: [id number] Mvi, Adult No.4 with Vit 300 K 10 ml Thiamine 100 mg Folic Acid 1 mg Potassium Chloride 20 meq In Sodium Chloride 0.9% 1, 000 ml @ 100 mls/hr IV . BY DURATION CARLEEN Rx#: [id number] Oral 260 650 Other: Voiding Method Toilet Toilet # Voids 3 2 - Labs CBC & Chem 7: 09/10/19 06:45 09/10/19 06:45 Labs: Abnormal Lab Results - Last 24 Hours (Table) 09/10/19 09/10/19 Range/Units 06:45 06:45 RBC 3.71 L (3.80-5.40) m/uL Hgb 11.0 L (11.4-16.0) gm/dL Chloride 108 H (98-107) mmol/L BUN 5 L (7-17) mg/dL Calcium 8.2 L (8.4-10.2) mg/dL Assessment and Plan (1) Morbid obesity with BMI of 40.0-44.9, adult Current Visit: No Status: Acute Code(s): E66.01 - MORBID (SEVERE) OBESITY DUE TO EXCESS CALORIES; Z68.41 - BODY MASS INDEX (BMI) 40.0-44.9, ADULT SNOMED Code(s): 358989821
[2019-09-10 11:20] VITALS: BMI 42.7
[2019-09-10] MEDS: SIMETHICONE 40 MG/0.6 ML DROPS 2,000 MG/30 ML BOTTLE PO PRN ×2 (14:07→20:19)
--- NOTE | 2019-09-10 17:33 | PN ---
PROGRESS NOTE DATE OF SERVICE: 09/10/2019 This 39-year-old woman who was admitted for laparoscopic sleeve gastrectomy for morbid obesity is being closely monitored. No chest pain. No palpitations. No fever. Occasional cough is reported. PHYSICAL EXAMINATION: Alert and oriented x3. Pulse 80, blood pressure 139/69, respirations 17, temperature 98.2, pulse ox 97% on room air. HEENT: Conjunctivae normal. NECK: No jugular venous distention. CARDIOVASCULAR SYSTEM: S1, S2 muffled. RESPIRATORY SYSTEM: Breath sounds diminished at the bases. No rhonchi. No crackles. ABDOMEN: Soft. Status post surgery. LEGS: No edema. No swelling. NERVOUS SYSTEM: No focal deficit. LABS: WBC 8.3, hemoglobin 11, sodium 138, potassium 4.4. ASSESSMENT: 1. Status post laparoscopic sleeve gastrectomy for morbid obesity. 2. History of seizure disorder, both grand mal and petit mal. 3. Increased white count, possibly reactive. 4. History of sleep apnea. 5. Gastroesophageal reflux disease. 6. Migraine. 7. History of psoriasis. 8. History of cholecystectomy. 9. History of anxiety. 10.Remote history of nicotine dependence. 11.FULL CODE. RECOMMENDATIONS AND DISCUSSION: I recommend to continue current medications, continue with the monitoring, symptomatic treatment. I recommend continuing with incentive spirometry. Resume the home medication. Rest of the recommendations per Dr. August. Follow with Dr. Hidalgo as recommended. MMODL / NAVN: [id number] /
[2019-09-11] MEDS: SIMETHICONE 40 MG/0.6 ML DROPS 2,000 MG/30 ML BOTTLE PO PRN (02:02)
[2019-09-11] MEDS: 1: MVI, ADULT NO.4 WITH VIT K 10 ML, THIAMINE 100 MG, FOLIC ACID 1 MG, POTASSIUM CHLORID IV SCH ×12 (05:12→17:29)
[2019-09-11] MEDS: LACTATED RINGERS 1,000 ML IV SCH (07:29)
[2019-09-11] MEDS: ALBUTEROL NEBULIZED 2.5 MG/3 ML INHALATION SCH ×4 (07:33→21:44)
[2019-09-11] MEDS: PANTOPRAZOLE 40 MG/10 ML VIAL IV SCH (07:51)
[2019-09-11] MEDS: KETOROLAC 30 MG/ML 1 ML VIAL IVP PRN (07:51)
[2019-09-11] MEDS: ENOXAPARIN 40 MG/0.4 ML SYRINGE SQ SCH ×2 (07:51→20:54)
[2019-09-11] MEDS ORDERED: DEXAMETHASONE SOD PHOSPHATE 10 MG/ML 1 ML VIAL IV STA (09:49)
--- NOTE | 2019-09-11 10:16 | P.PN ---
<Jessica Jones - Last Filed: 09/11/19 10:14> Subjective Progress Note Date: 09/11/19 CHIEF COMPLAINT: Morbid obesity HISTORY OF PRESENT ILLNESS: 39-year-old female who underwent laparoscopic sleeve gastrectomy. Postop day #3. Patient reports her pain is tolerable this morning. She reports waking up at 0200 this morning and ate a jello. She reports afterwards she began having nausea. She reports an episode of emesis this morning. She is hesitant to try fluids again this morning. Vital signs stable. She is afebrile. PHYSICAL EXAM: VITAL SIGNS: Reviewed. GENERAL: Well-developed in no acute distress. HEENT: No sclera icterus. Extraocular movements grossly intact. Moist buccal mucosa. Head is atraumatic, normocephalic. ABDOMEN: Soft. Nondistended. Nontender. Surgical sites clean dry intact. NEUROLOGIC: Alert and oriented. Cranial nerves II through XII grossly intact. ASSESSMENT: 1. Morbid obesity, status post laparoscopic sleeve gastrectomy PLAN: -Continue clear liquid diet -Continue antiemetics. Decadron 10 mg IV 1 dose -Pain control -Incentive spirometer 10 times an hour -Increase activity as tolerated -Possible discharge home tomorrow Nurse practitioner note has been reviewed by physician. Signing provider agrees with the documented findings, assessment, and plan of care. Objective - Vital Signs Vital signs: Vital Signs Temp 97.9 F 09/11/19 07:00 Pulse 80 09/11/19 07:45 Resp 18 09/11/19 07:00 BP 120/71 09/11/19 07:00 Pulse Ox 98 09/11/19 07:00 Intake & Output 09/10/19 09/11/19 09/11/19 18:59 06:59 18:59 Intake Total 650 1000 Balance 650 1000 Weight 120 kg Intake: Intake, IV Titration 1000 Amount 0.9% NaCl with KCl 20 Meq 1000 /l 1,000 ml @ 100 mls/hr IV .BY DURATION CARLEEN Rx#: [id number] Oral 650 Other: Voiding Method Toilet # Voids 2 1 - Labs CBC & Chem 7: 09/10/19 06:45 09/10/19 06:45 <Don August - Last Filed: 09/11/19 19:02> Subjective As above. Patient doing well. Her fluid intake was approximate 45 ounces by evening time. Pain is minimal at this point. Anticipate discharge tomorrow. Objective - Vital Signs Vital signs: Vital Signs Temp 98.8 F 09/11/19 15:00 Pulse 80 09/11/19 15:34 Resp 18 09/11/19 15:00 BP 108/70 09/11/19 15:00 Pulse Ox 95 09/11/19 15:00 Intake & Output 09/11/19 09/11/19 09/12/19 06:59 18:59 06:59 Intake Total 1000 Balance 1000 Intake: Intake, IV Titration 1000 Amount 0.9% NaCl with KCl 20 Meq 1000 /l 1,000 ml @ 100 mls/hr IV .BY DURATION CARLEEN Rx#: [id number] Other: Voiding Method Toilet # Voids 1 3 - Labs CBC & Chem 7: 09/10/19 06:45 09/10/19 06:45 Assessment and Plan (1) Morbid obesity with BMI of 40.0-44.9, adult Current Visit: No Status: Acute Code(s): E66.01 - MORBID (SEVERE) OBESITY DUE TO EXCESS CALORIES; Z68.41 - BODY MASS INDEX (BMI) 40.0-44.9, ADULT SNOMED Code(s): 511522618
--- NOTE | 2019-09-11 16:20 | PN ---
PROGRESS NOTE DATE OF SERVICE: 09/11/2019 This 39-year-old woman who was admitted after laparoscopic sleeve gastrectomy for morbid obesity is being closely monitored. The patient was vomiting today. No chest pain. No palpitations. No fever. Upper GI series done on 09/09/19 showed no evidence of leakage or any significant obstruction. No chest pain. No palpitations. No fever. PHYSICAL EXAMINATION: Alert and oriented x3. The pulse is 69, blood pressure 120/70, respiration 18, temperature 97.8, pulse ox 98% on room air. HEENT: Conjunctivae normal. Oral mucosa moist. NECK: No jugular venous distention. No carotid bruit. No lymph node enlargement. CARDIOVASCULAR SYSTEM: S1, S2 muffled. RESPIRATORY SYSTEM: Breath sounds diminished at the bases. A few scattered rhonchi and crackles. ABDOMEN: Soft. Status post surgery. LEGS: No edema. No swelling. NERVOUS SYSTEM: No focal deficit. LABS: WBC 8.3, hemoglobin 11, sodium 138, potassium 4.4. ASSESSMENT: 1. Status post laparoscopic sleeve gastrectomy for morbid obesity. 2. History of seizure disorder, both grand mal and petit mal. 3. Increased white count, possibly reactive. 4. History of sleep apnea. 5. History of gastroesophageal reflux disease. 6. Migraine. 7. History of psoriasis. 8. History of cholecystectomy. 9. History of anxiety. 10.Remote history of nicotine dependence. 11.FULL CODE. RECOMMENDATIONS AND DISCUSSION: I recommend to continue current medications, continue with the monitoring, symptomatic treatment. Otherwise at this time I recommend DVT prophylaxis, incentive spirometry. Follow closely with primary physician in the outpatient setting, Dr. Hidalgo. Thank you, Dr. August. MMODL / NAVN: [id number] /
[2019-09-12 01:26] VITALS: PULSE 76; TEMP 98
[2019-09-12 07:28] VITALS: BP 101/62; RESP 16
[2019-09-12] MEDS: PANTOPRAZOLE 40 MG/10 ML VIAL IV SCH (07:51)
[2019-09-12] MEDS: ENOXAPARIN 40 MG/0.4 ML SYRINGE SQ SCH (07:51)
[2019-09-12] MEDS: 1: MVI, ADULT NO.4 WITH VIT K 10 ML, THIAMINE 100 MG, FOLIC ACID 1 MG, POTASSIUM CHLORID IV SCH ×6 (07:55)
[2019-09-12] MEDS: ALBUTEROL NEBULIZED 2.5 MG/3 ML INHALATION SCH (09:16)
--- NOTE | 2019-09-12 10:42 | P.DS ---
<Jessica Jones - Last Filed: 09/12/19 10:42> Providers Expected date of discharge: 09/12/19 Hospital Course: 39-year-old female who underwent laparoscopic sleeve gastrectomy with Dr. August. Postoperative esophagram negative for leak or obstruction. Patient had prolonged hospitalization secondary to nausea, pain, and inability to tolerate adequate amounts of fluids. Patient is now able to tolerate liquids with no further nausea. Pain controlled on oral medications. She is stable for discharge home today. Please see EMR for further hospital course details. Discharge Diagnosis: 1. Morbid obesity, status post laparoscopic sleeve gastrectomy Nurse practitioner note has been reviewed by physician. Signing provider agrees with the documented findings, assessment, and plan of care. Patient Condition at Discharge: Stable Plan - Discharge Summary Discharge Rx Participant: Yes New Discharge Prescriptions: New Bisacodyl [Dulcolax] 5 mg PO DAILY PRN #10 tablet. PRN Reason: Constipation Simethicone 40 mg/0.6 ml Drops [Mylicon Drops] 40 mg PO PCHS PRN #30 ml PRN Reason: gas Omeprazole [PriLOSEC] 40 mg PO DAILY #30 cap Ondansetron Odt [Zofran Odt] 4 mg PO Q8HR PRN #9 tab PRN Reason: Nausea Continue HYDROcodone/APAP 5-325MG [[place] 5-325] 1 tab PO BID PRN PRN Reason: Pain Discontinued Ibuprofen [Motrin] 800 mg PO TID PRN PRN Reason: Pain No Action Phentermine HCl [Adipex-P] 37.5 mg PO DAILY rOPINIRole HCL [Requip] 1 mg PO HS PRN PRN Reason: restless legs Discharge Medication List HYDROcodone/APAP 5-325MG [[place] 5-325] 1 tab PO BID PRN 02/20/19 [History] Phentermine HCl [Adipex-P] 37.5 mg PO DAILY 02/20/19 [History] rOPINIRole HCL [Requip] 1 mg PO HS PRN 09/03/19 [History] Bisacodyl [Dulcolax] 5 mg PO DAILY PRN #10 tablet. 09/11/19 [Rx] Omeprazole [PriLOSEC] 40 mg PO DAILY #30 cap 09/11/19 [Rx] Ondansetron Odt [Zofran Odt] 4 mg PO Q8HR PRN #9 tab 09/11/19 [Rx] Simethicone 40 mg/0.6 ml Drops [Mylicon Drops] 40 mg PO PCHS PRN #30 ml 09/11/19 [Rx] Follow up Appointment(s)/Referral(s): Duke Hidalgo MD [Primary Care Provider] - 09/17/19 1:30 pm [place], [place] [NON-STAFF] - 09/16/19 2:30 pm Patient Instructions/Handouts: Nutrition after Bariatric Surgery (DC), Laparoscopic Sleeve Gastrectomy (DC) Activity/Diet/Wound Care/Special Instructions: No lifting over 10 pounds You may shower. No soaking or tub baths Very light activity until you are reevaluated at your follow up appointment with your surgeon Discharge Disposition: HOME SELF-CARE <Don August - Last Filed: 09/12/19 11:45> Providers Date of admission: 09/08/19 09:15 Attending physician: Don August Consults: 09/08/19 14:49 Consult Physician Routine Consulting Provider: Dory Garcia Consult Reason/Comments: Medical management Do you want consulting provider notified?: Yes Primary care physician: Gwen Wall - Discharge Diagnosis(es) (1) Morbid obesity with BMI of 40.0-44.9, adult Status: Acute
--- NOTE | 2019-09-12 17:18 | PN ---
PROGRESS NOTE DATE OF SERVICE: 09/12/2019 This 39-year-old woman who was admitted after laparoscopic sleeve gastrectomy for morbid obesity is improving significantly. No chest pain. No palpitations. No fever. PHYSICAL EXAMINATION: Alert and oriented x3. Pulse 76, blood pressure 101/60, respirations 16, temperature 98 degrees, pulse ox 97% on room air. HEENT: Conjunctivae normal. NECK: No jugular venous distention. CARDIOVASCULAR SYSTEM: S1, S2 muffled. RESPIRATORY SYSTEM: Breath sounds diminished at the bases. ABDOMEN: Soft. Status post surgery. NERVOUS SYSTEM: No focal deficit. LABS: WBC 8.3, hemoglobin is 11. ASSESSMENT: 1. Status post laparoscopic sleeve gastrectomy for morbid obesity. 2. History of seizure disorder, both grand mal and petit mal. 3. Increased white count, possibly reactive. 4. History of sleep apnea. 5. History of gastroesophageal reflux disease. 6. History of migraine. 7. History of psoriasis. 8. History of cholecystectomy. 9. Anxiety. 10.Remote history of nicotine dependence. 11.FULL CODE. RECOMMENDATIONS AND DISCUSSION: I recommend to continue current medications, continue with the monitoring, symptomatic treatment. Otherwise at this time I recommend to resume the home medications. Follow up with Dr. Hidalgo in the outpatient setting. Further recommendations to follow per Surgery. Further recommendations to follow. MMODL / IJN: [id number] / MTDD
== END 2019-09-12 11:42 | disposition home or self-care (01) | DRG 621 ==
LOC: 2ORMAIN 09:15 → 4SSUR 16:46
PROVIDERS: ADMIT Surgery; ATTEND Surgery
PROC: 0DB64Z3 Excision of Stomach, Percutaneous Endoscopic Approach, Vertical (ICD-10-PCS; principal; 2019-09-08 10:30)
DX: E66.01 Morbid (severe) obesity due to excess calories (principal); F41.9 Anxiety disorder, unspecified; G43.909 Migraine, unspecified, not intractable, without status migrainosus; K21.9 Gastro-esophageal reflux disease without esophagitis; M19.90 Unspecified osteoarthritis, unspecified site; G47.30 Sleep apnea, unspecified; R11.0 Nausea; R05 Cough; I10 Essential (primary) hypertension; L40.9 Psoriasis, unspecified; Z68.41 Body mass index [BMI] 40.0-44.9, adult; Z87.891 Personal history of nicotine dependence; Z90.49 Acquired absence of other specified parts of digestive tract
CPT/HCPCS: 74240; 80048; 80051; 81025; 82310; 82565; 83735; 84100; 84520; 85025; 88307; 94640; 94660; 94760

== ENCOUNTER → 2019-09-16 | Outpatient (CLI) | payer OTHER ==
[2019-09-16 15:53] VITALS: BP 113/66; PULSE 97; RESP 16; TEMP 97.9; BMI 40.5
--- NOTE | 2019-09-16 16:02 | P.BASOAP ---
Subjective Progress Note Date: 09/16/19 Principal diagnosis: Morbid obesity Patient doing well today. Was released from the hospital on Sunday after sleeve gastrectomy. Complaining of mild pain at her umbilical incision site. She has nausea with her protein shakes. No fevers. No GERD. She does feel tired at times. Feels somewhat winded periodically. Says has been present intermittently since surgery. No chest pain. No leg swelling or pain. 50-60 ounces of liquids per day. 30-40 g of protein per day. Objective - Vital Signs Vital signs: Vital Signs Temp 97.9 F 09/16/19 15:50 Pulse 97 09/16/19 15:50 Resp 16 09/16/19 15:50 BP 113/66 09/16/19 15:50 Pulse Ox Intake & Output 09/15/19 09/16/19 09/16/19 18:59 06:59 18:59 Weight 113.852 kg - Exam Abdomen: Soft, nondistended, mild incisional tenderness, incisions clean and dry Assessment/Plan (1) Morbid obesity with BMI of 40.0-44.9, adult Narrative/Plan: Patient 1 week postop from sleep gastrectomy. Will meet with dietitian today to discuss options to increase her protein intake. Continue to monitor her dyspnea on exertion. If this increases she will contact me. Plan recheck here in the office 2 weeks. Continue antiacids. Plan: Date: 09/16/19 Initial Weight: 124.341 kg Initial BMI: 44.2 Current Weight: 113.852 kg Current BMI: 40.5 Type of Surgery: Total Volume in Band: Previous Volume: Volume Removed: Volume Added: Band Size:
== END | disposition home or self-care (01) ==
LOC: BARWHC3 15:30
PROVIDERS: ATTEND Surgery
DX: Z48.815 Encounter for surgical aftercare following surgery on the digestive system (principal); E66.01 Morbid (severe) obesity due to excess calories; R06.09 Other forms of dyspnea; Z98.84 Bariatric surgery status; Z68.41 Body mass index [BMI] 40.0-44.9, adult; Z79.899 Other long term (current) drug therapy
CPT/HCPCS: 97802; G0463; 99211

== ENCOUNTER → 2019-09-30 | Outpatient (CLI) | payer OTHER ==
[2019-09-30 13:41] VITALS: BP 103/62; PULSE 65; RESP 16; TEMP 98.5; BMI 39.6
--- NOTE | 2019-09-30 13:58 | P.BASOAP ---
Subjective Progress Note Date: 09/30/19 Principal diagnosis: Morbid obesity Patient returns for recheck. She is now 3 weeks postop. She is having intermittent episodes of dysphagia and occasional episodes of vomiting. Complaining of increased heartburn. Usually when she tries more solid foods is when she is struggling. She does however admit that she's been tolerating protein bars intermittently. No pain in between episodes. No fevers. Heart rate normal. She is getting 50-60 g of protein daily. She is taking an over 64 ounces of liquids daily. She is due for one month labs next visit. Objective - Vital Signs Vital signs: Vital Signs Temp 98.5 F 09/30/19 13:40 Pulse 65 09/30/19 13:40 Resp 16 09/30/19 13:40 BP 103/62 09/30/19 13:40 Pulse Ox Intake & Output 09/29/19 09/30/19 09/30/19 18:59 06:59 18:59 Weight 111.584 kg - Exam Abdomen: Soft, nontender, nondistended Assessment/Plan (1) Morbid obesity with BMI of 40.0-44.9, adult Narrative/Plan: Patient complaining of increased reflux and occasional episodes of vomiting. She will back off on her diet somewhat. Try to avoid protein bars. We'll add Maalox to her daily PPI. Check one month labs next visit. Follow-up 3 weeks. Plan: Date: 09/30/19 Initial Weight: 124.341 kg Initial BMI: 44.2 Current Weight: 111.584 kg Current BMI: 39.6 Type of Surgery: Total Volume in Band: Previous Volume: Volume Removed: Volume Added: Band Size:
== END | disposition home or self-care (01) ==
LOC: BARWHC3 13:28
PROVIDERS: ATTEND Surgery
DX: E66.01 Morbid (severe) obesity due to excess calories (principal); Z68.41 Body mass index [BMI] 40.0-44.9, adult; R13.10 Dysphagia, unspecified; R11.10 Vomiting, unspecified; R12 Heartburn
CPT/HCPCS: 97803; G0463; 99211

== ENCOUNTER → 2019-12-16 | Outpatient (CLI) | payer OTHER ==
[2019-12-16 14:15] VITALS: BP 102/55; PULSE 63; RESP 16; TEMP 98.2; BMI 35.3
[2019-12-16 15:05] LABS: HCT 40.2 % (34.0-46.0); HGB 13.1 gm/dL (11.4-16.0); MCH 29.8 pg (25.0-35.0); MCHC 32.6 g/dL (31.0-37.0); MCV 91.6 fL (80.0-100.0); Mean Platelet Volume 7.1; Platelet Count 277 k/uL (150-450); RBC 4.39 m/uL (3.80-5.40); RDW 13.5 % (11.5-15.5); WBC 8.5 k/uL (3.8-10.6)
--- NOTE | 2019-12-16 16:14 | P.BASOAP ---
Subjective Progress Note Date: 12/16/19 Principal diagnosis: Morbid obesity Patient repeat returns for 3 month recheck. Doing well since last visit. No further GERD. She is not taking antiacids. She has had good weight loss. She is due for lab work. She is walking more and when to start talking soon. Objective - Vital Signs Vital signs: Vital Signs Temp 98.2 F 12/16/19 14:07 Pulse 63 12/16/19 14:07 Resp 16 12/16/19 14:07 BP 102/55 12/16/19 14:07 Pulse Ox Intake & Output 12/15/19 12/16/19 12/16/19 18:59 06:59 18:59 Weight 99.337 kg - Exam Abdomen: Soft, nontender, nondistended - Labs CBC & Chem 7: 12/16/19 14:43 Assessment/Plan (1) Morbid obesity with BMI of 40.0-44.9, adult Narrative/Plan: Patient doing fairly well. Continue dietary and exercise regimen. Check 3 mo [facility] labs at this time. Follow-up 4-6 weeks. Plan: Date: 12/16/19 Initial Weight: 124.341 kg Initial BMI: 44.2 Current Weight: 99.337 kg Current BMI: 35.3 Type of Surgery: Total Volume in Band: Previous Volume: Volume Removed: Volume Added: Band Size:
[2019-12-16 23:37] LABS: African American GFR (CKD) 127.4 (60.0-200.0); Albumin 4.1 g/dL (3.80-4.90); Albumin/Globulin Ratio 1.52 (1.60-3.17); Anion Gap 7.5 mmol/L (4.00-12.00); BUN/Creat Ratio 14.29 Ratio (12.00-20.00); Calcium 9.2 mg/dL (8.7-10.3); Carbon Dioxide 24.5 mmol/L (21.6-31.8); Globulin 2.7 g/dL (1.6-3.3); Non-African American GFR(CKD) 109.9 (60.0-200.0); Potassium 4.3 mmol/L (3.5-5.5); Total Bilirubin 0.5 mg/dL (0.2-1.2); Total Protein 6.8 g/dL (6.2-8.2)
[2019-12-16 23:45] LABS: Folate, Serum 5.9 ng/mL
== END | disposition home or self-care (01) ==
LOC: BARWHC3 13:33
PROVIDERS: ATTEND Surgery
DX: E66.01 Morbid (severe) obesity due to excess calories (principal); Z68.41 Body mass index [BMI] 40.0-44.9, adult; Z71.3 Dietary counseling and surveillance; K90.89 Other intestinal malabsorption; E55.9 Vitamin D deficiency, unspecified
CPT/HCPCS: 84425; 80053; 82607; 82746; 83540; 85027; 82306; 97803; 36415; G0463; 99211

== ENCOUNTER 2020-05-03 11:19 | Emergency (ER) | payer OTHER ==
[2020-05-03] MEDS ORDERED: SODIUM CHLORIDE 0.9% 1,000 ML IV STA (11:42)
[2020-05-03] MEDS ORDERED: KETOROLAC 15 MG/ML 1 ML VIAL IVP STA (11:42)
[2020-05-03] MEDS ORDERED: ONDANSETRON 4 MG/2 ML VIAL IVP STA (11:42)
--- NOTE | 2020-05-03 11:56 | ED ---
Abdominal Pain HPI - General Chief Complaint: Abdominal Pain Stated Complaint: abd pain Time Seen by Provider: 05/03/20 11:30 Source: patient Mode of arrival: ambulatory Limitations: no limitations - History of Present Illness Initial Comments: Patient is a 40-year-old female presenting to the emergency department complaints of right lower quadrant pain that has been increasing since yesterday. She does have some associated nausea. She currently rates her pain 8/10. She describes as very sharp, nonradiating. She has a history of 3 C- sections, cholecystectomy, tubal ligation and urine ablation, gastric sleeve. She states she does have history of ovarian cysts. She denies any vomiting, diarrhea, she's been having normal bowel movements. She denies any chest pain, shortness of breath, fever, chills. She has no further complaints at this time. Upon arrival to the ER, her vital signs are stable. - Related Data Home Medications Medication Instructions Recorded Confirmed Phentermine HCl [Adipex-P] 37.5 mg PO DAILY 02/20/19 05/03/20 Albuterol Sulfate [Ventolin HFA] 1 - 2 puff INHALATION RT-Q4H PRN 05/03/20 05/03/20 Ibuprofen 800 mg PO Q8H PRN 05/03/20 05/03/20 Allergies Allergy/AdvReac Type Severity Reaction Status Date / Time No Known Allergies Allergy Verified 05/03/20 12:17 Review of Systems ROS Statement: Those systems with pertinent positive or pertinent negative responses have been documented in the HPI. ROS Other: All systems not noted in ROS Statement are negative. 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 PT STATES OFF MEDICATIONS SINCE 13 Y/O AND LAST SEIZURE WAS 12 Y/O. hx migraines, varicose veins, PSORIASIS, hx ulcers, History of Any Multi-Drug Resistant Organisms: None Reported Past Surgical History: Bariatric Surgery, Section, Cholecystectomy, Tubal Ligation, Uterine Ablation Additional Past Surgical History / Comment(s): D&C Gastric Sleeve 09/08/19, Past Anesthesia/Blood Transfusion Reactions: Blood Transfusion Reaction Additional Past Anesthesia/Blood Transfusion Reaction / Comment(s): lightheaded with blood transfusion-"they had to stop it" Past Psychological History: Anxiety Smoking Status: Never smoker Past Alcohol Use History: Rare Past Drug Use History: Marijuana - Past Family History Mother Family Medical History: No Reported History Additional Family Medical History / Comment(s): . Father Family Medical History: No Reported History General Exam - General Exam Comments Initial Comments: GENERAL: Patient is well-developed and well-nourished. Patient is nontoxic and in no acute distress. HEAD: Atraumatic, normocephalic. EYES: Pupils equal round and reactive to light, extraocular movements intact, sclera anicteric, conjunctiva are normal. Eyelids were unremarkable. ENT: TMs normal, nares patent, oropharynx clear without exudates. Moist mucous membr anes. NECK: Normal range of motion, supple without lymphadenopathy or JVD. LUNGS: Unlabored respirations. Breath sounds clear to auscultation bilaterally and equal. No wheezes rales or rhonchi. HEART: Regular rate and rhythm without murmurs, rubs or gallops. ABDOMEN: Patient has tenderness to the right lower quadrant, right side of the abdomen. Positive guarding. Soft, normoactive bowel sounds. No masses appreciated. : Deferred MUSCULOSKELETAL: Normal extremities with adequate strength and normal range of motion, no pitting or edema. No clubbing or cyanosis. NEUROLOGICAL: Patient is alert and oriented x 3. Motor and sensory are also intact. Cranial nerves II through XII grossly intact. Symmetrical smile. Normal speech, normal gait. PSYCH: Normal mood, normal affect. SKIN: Warm, Dry, normal turgor, no rashes or lesions noted. Limitations: no limitations Course Vital Signs 05/03/20 11:25 Temperature 97.0 F L Pulse Rate 78 Respiratory 18 Rate Blood Pressure 108/70 O2 Sat by Pulse 100 Oximetry Medical Decision Making - Medical Decision Making Patient is a 40-year-old female here for right lower quadrant pain has been increasing since yesterday. She does have history of multiple abdominal surgeries, she did have normal bowel movements. She is quite tender in the right lower quadrant. Vital signs are stable. Labs show normal white count, normal lactic acid, kidney function stable. Urine is negative for infection, hCG is not detected. I did do a CT the abdomen to rule out appendicitis, there was no acute process, normal appendix. We did do a pelvic ultrasound which shows no evidence for ovarian torsion, some mild fluid along the endometrium. Patient was given fluids, pain control. She has been resting completely in the ER. I did review these findings with her. She did have an history of an ovarian cyst, her pain could be related to a rupture. I recommended continuing with Tylenol and Motrin at home. I will give her a starter pack of tramadol to go home with. She is in agreement with this plan of care. She is stable for discharge. She'll follow-up with her PCP or [facility]. Return parameters were discussed with the patient she verbalized understanding. Case discussed with Dr. Smith. - Lab Data Result diagrams: 05/03/20 11:46 05/03/20 11:46 Lab Results 05/03/20 05/03/20 05/03/20 Range/Units 11:46 11:46 11:46 WBC 8.2 (3.8-10.6) k/uL RBC 4.38 (3.80-5.40) m/uL Hgb 12.6 (11.4-16.0) gm/dL Hct 40.1 (34.0-46.0) % MCV 91.4 (80.0-100.0) fL MCH 28.9 (25.0-35.0) pg MCHC 31.6 (31.0-37.0) g/dL RDW 15.4 (11.5-15.5) % Plt Count 336 (150-450) k/uL Neutrophils % 65 % Lymphocytes % 26 % Monocytes % 4 % Eosinophils % 4 % Basophils % 1 % Neutrophils # 5.3 (1.3-7.7) k/uL Lymphocytes # 2.1 (1.0-4.8) k/uL Monocytes # 0.3 (0-1.0) k/uL Eosinophils # 0.3 (0-0.7) k/uL Basophils # 0.1 (0-0.2) k/uL Hypochromasia Slight Sodium (137-145) mmol/L Potassium (3.5-5.1) mmol/L Chloride (98-107) mmol/L Carbon Dioxide (22-30) mmol/L Anion Gap mmol/L BUN (7-17) mg/dL Creatinine (0.52-1.04) mg/dL Est GFR (CKD-EPI)AfAm (>60 ml/min/1.73 sqM) Est GFR (CKD-EPI)NonAf (>60 ml/min/1.73 sqM) Glucose (74-99) mg/dL Plasma Lactic Acid [place] (0.7-2.0) mmol/L Calcium (8.4-10.2) mg/dL Total Bilirubin (0.2-1.3) mg/dL AST (14-36) U/L ALT (4-34) U/L Alkaline Phosphatase (38-126) U/L Total Protein (6.3-8.2) g/dL Albumin (3.5-5.0) g/dL Amylase (30-110) U/L Lipase (23-300) U/L Urine Color Yellow Urine Appearance Cloudy H (Clear) Urine pH 6.0 (5.0-8.0) Ur Specific [place] 1.035 (1.001-1.035) Urine Protein 1+ H (Negative) Urine Glucose (UA) Negative (Negative) Urine Ketones Negative (Negative) Urine Blood Negative (Negative) Urine Nitrite Negative (Negative) Urine Bilirubin Negative (Negative) Urine Urobilinogen 2.0 (<2.0) mg/dL Ur Leukocyte Esterase Negative (Negative) Urine WBC 2 (0-5) /hpf Ur Squamous Epith Cells 27 H (0-4) /hpf Urine Mucus Many H (None) /hpf Urine HCG, Qual Not Detected (Not Detectd) 05/03/20 05/03/20 Range/Units 11:46 11:46 WBC (3.8-10.6) k/uL RBC (3.80-5.40) m/uL Hgb (11.4-16.0) gm/dL Hct (34.0-46.0) % MCV (80.0-100.0) fL MCH (25.0-35.0) pg MCHC (31.0-37.0) g/dL RDW (11.5-15.5) % Plt Count (150-450) k/uL Neutrophils % % Lymphocytes % % Monocytes % % Eosinophils % % Basophils % % Neutrophils # (1.3-7.7) k/uL Lymphocytes # (1.0-4.8) k/uL Monocytes # (0-1.0) k/uL Eosinophils # (0-0.7) k/uL Basophils # (0-0.2) k/uL Hypochromasia Sodium 137 (137-145) mmol/L Potassium 4.1 (3.5-5.1) mmol/L Chloride 106 (98-107) mmol/L Carbon Dioxide 26 (22-30) mmol/L Anion Gap 5 mmol/L BUN 9 (7-17) mg/dL Creatinine 0.66 (0.52-1.04) mg/dL Est GFR (CKD-EPI)AfAm >90 (>60 ml/min/1.73 sqM) Est GFR (CKD-EPI)NonAf >90 (>60 ml/min/1.73 sqM) Glucose 105 H (74-99) mg/dL Plasma Lactic Acid Saúl 1.4 (0.7-2.0) mmol/L Calcium 9.2 (8.4-10.2) mg/dL Total Bilirubin 0.7 (0.2-1.3) mg/dL AST 17 (14-36) U/L ALT 13 (4-34) U/L Alkaline Phosphatase 78 (38-126) U/L Total Protein 7.4 (6.3-8.2) g/dL Albumin 3.8 (3.5-5.0) g/dL Amylase 54 (30-110) U/L Lipase 87 (23-300) U/L Urine Color Urine Appearance (Clear) Urine pH (5.0-8.0) Ur Specific [place] (1.001-1.035) Urine Protein (Negative) Urine Glucose (UA) (Negative) Urine Ketones (Negative) Urine Blood (Negative) Urine Nitrite (Negative) Urine Bilirubin (Negative) Urine Urobilinogen (<2.0) mg/dL Ur Leukocyte Esterase (Negative) Urine WBC (0-5) /hpf Ur Squamous Epith Cells (0-4) /hpf Urine Mucus (None) /hpf Urine HCG, Qual (Not Detectd) Disposition Clinical Impression: RLQ abdominal pain Disposition: HOME SELF-CARE Condition: Stable Instructions (If sedation given, give patient instructions): Abdominal Pain (ED) Additional Instructions: Please return to the Emergency Department if symptoms worsen or any other concerns. Lab work, computed tomography scan, ultrasound is normal today. Recommend continuing with ibuprofen for pain relief. Follow-up with PCP. Is patient prescribed a controlled substance at d/c from ED?: No Referrals: Duke Hidalgo MD [Primary Care Provider] - 1-2 days
[2020-05-03 12:09] LABS: Basophils # (A) 0.1 k/uL (0-0.2); Basophils % (A) 1 %; Eosinophils # (A) 0.3 k/uL (0-0.7); Eosinophils % (A) 4 %; HCT 40.1 % (34.0-46.0); HGB 12.6 gm/dL (11.4-16.0); Hypochromasia Slight; Lymphocytes # (A) 2.1 k/uL (1.0-4.8); Lymphocytes % (A) 26 %; MCH 28.9 pg (25.0-35.0); MCHC 31.6 g/dL (31.0-37.0); MCV 91.4 fL (80.0-100.0); Mean Platelet Volume 6.9; Monocytes # (A) 0.3 k/uL (0-1.0); Monocytes % (A) 4 %; Neutrophils # (A) 5.3 k/uL (1.3-7.7); Neutrophils % (A) 65 %; Platelet Count 336 k/uL (150-450); RBC 4.38 m/uL (3.80-5.40); RDW 15.4 % (11.5-15.5); WBC 8.2 k/uL (3.8-10.6)
[2020-05-03 12:15] LABS: ALT 13 U/L (4-34); AST 17 U/L (14-36); African American GFR (CKD) >90 (>60 ml/min/1.73 sqM); Albumin 3.8 g/dL (3.5-5.0); Alkaline Phosphatase 78 U/L (38-126); Amylase 54 U/L (30-110); Anion Gap 5 mmol/L; Blood Urea Nitrogen 9 mg/dL (7-17); Calcium 9.2 mg/dL (8.4-10.2); Carbon Dioxide 26 mmol/L (22-30); Chloride 106 mmol/L (98-107); Glucose 105 mg/dL (74-99); Non-African American GFR(CKD) >90 (>60 ml/min/1.73 sqM); Potassium 4.1 mmol/L (3.5-5.1); Sodium 137 mmol/L (137-145); Total Bilirubin 0.7 mg/dL (0.2-1.3); Total Protein 7.4 g/dL (6.3-8.2)
[2020-05-03 12:19] LABS: Appearance,Urine Cloudy (Clear); Bilirubin,Urine Negative (Negative); Blood,Urine Negative (Negative); Color,Urine Yellow; Glucose,Urine (UA) Negative (Negative); Ketones,Urine Negative (Negative); Leukocyte Esterase,Urine Negative (Negative); Mucus,Urine Many /hpf; Nitrite,Urine Negative (Negative); Protein,Urine 1+ (Negative); Specific Gravity,Urine 1.035 (1.001-1.035); Squamous Epithelial Cell,Urine 27 /hpf (0-4); WBC,Urine 2 /hpf (0-5)
[2020-05-03] MEDS ORDERED: MORPHINE SULFATE 4 MG/ML SYRINGE IVP STA (13:11)
--- NOTE | 2020-05-03 13:12 | CT ---
EXAMINATION TYPE: CT abdomen pelvis w con DATE OF EXAM: 05/03/2020 COMPARISON: CT abdomen pelvis 03/06/2020 HISTORY: Right lower quadrant pain CT DLP: 1115.4 mGycm Automated exposure control for dose reduction was used. TECHNIQUE: Helical acquisition of images was performed from the lung bases through the pelvis. CONTRAST: Performed without Oral Contrast and with IV Contrast, patient injected with 100 mL of Isovue 300. FINDINGS: LUNG BASES: Normal. LIVER: Normal. BILIARY SYSTEM: Status post cholecystectomy. No intrahepatic or extrahepatic biliary ductal dilatatio n. PANCREAS: Normal. SPLEEN: Normal. Splenule. ADRENALS: Normal. KIDNEYS: Normal. BOWEL: Postsurgical changes of the stomach. No obstruction or thickening. Normal appendix. PERITONEUM: No pneumoperitoneum. No free fluid. LYMPH NODES: No lymphadenopathy. PELVIS: Normal. VASCULATURE: No abdominal aortic aneurysm. MUSCULOSKELETAL: Degenerative changes of the spine. IMPRESSION: No acute abdominopelvic process. Normal appendix.
--- NOTE | 2020-05-03 14:42 | US ---
EXAMINATION TYPE: US transvaginal DATE OF EXAM: 05/03/2020 COMPARISON: CT 05/03/2020, ultrasound 03/30/2019 CLINICAL HISTORY: RLQ pain. RIGHT SIDED PAIN FOR 1 DAY, , c-sections, tubal TECHNIQUE: TV. Transvaginal sonographic images Date of LMP: ablation 2012 EXAM MEASUREMENTS: Uterus: 8.6 x 4.3 x 3.7 cm Endometrial Stripe: 0.5 cm Right Ovary: 2.5 x 2.6 x 2.6 cm Left Ovary: 2.4 x 1.9 x 2.0 cm 1. Uterus: Anteverted scar shadow present throughout imaging of [place] 2. Endometrium: cystic areas seen at endometrial canal, post ablation changes, cystis areas seen pre vious. 3. Right Ovary: follicles seen under 1cm 4. Left Ovary: follicles seen under 1cm Spectral, color and waveform doppler imaging shows arterial and venous flow within the ovaries; the re is no evidence for ovarian torsion. 5. Bilateral Adnexa: wnl 6. Posterior cul-de-sac: wnl IMPRESSION: Fluid along the endometrium is minimal and may be chronic.
[2020-05-03] MEDS ORDERED: traMADol 50 MG STARTER PACK 3 TAB BTL PO STA (14:54)
[2020-05-03 15:20] VITALS: BP 113/86; PULSE 86; RESP 16; TEMP 98.9
== END 2020-05-03 15:19 | disposition home or self-care (01) ==
LOC: EC 11:19
DX: R10.31 Right lower quadrant pain (principal); G47.33 Obstructive sleep apnea (adult) (pediatric); Z90.49 Acquired absence of other specified parts of digestive tract; Z98.51 Tubal ligation status; Z99.89 Dependence on other enabling machines and devices
CPT/HCPCS: 36415; 80053; 82150; 83605; 83690; 85025; 81001; 81025; 93975; 76830; 74177; 99284; 96374; 96375 ×2; 96361; J2270; J2405; J1885; Q9967

== ENCOUNTER 2020-06-15 16:30 | Emergency (ER) | payer OTHER ==
[2020-06-15 16:38] VITALS: TEMP 98.9
[2020-06-15] MEDS ORDERED: SODIUM CHLORIDE 0.9% 500 ML 500 ML IV STA (17:32)
[2020-06-15] MEDS ORDERED: ONDANSETRON 4 MG/2 ML VIAL IVP STA (17:32)
[2020-06-15] MEDS ORDERED: MORPHINE SULFATE 2 MG/ML SYRINGE IVP STA (17:32)
[2020-06-15 18:34] LABS: Basophils # (A) 0.1 k/uL (0-0.2); Basophils % (A) 1 %; Eosinophils # (A) 0.3 k/uL (0-0.7); Eosinophils % (A) 4 %; HCT 37.6 % (34.0-46.0); Lymphocytes # (A) 2.5 k/uL (1.0-4.8); Lymphocytes % (A) 30 %; MCH 29.2 pg (25.0-35.0); MCHC 31.8 g/dL (31.0-37.0); MCV 91.8 fL (80.0-100.0); Mean Platelet Volume 7.2; Monocytes # (A) 0.3 k/uL (0-1.0); Monocytes % (A) 4 %; Neutrophils % (A) 60 %; Platelet Count 268 k/uL (150-450); WBC 8.3 k/uL (3.8-10.6)
[2020-06-15 18:39] LABS: Appearance,Urine Cloudy (Clear); Bilirubin,Urine Negative (Negative); Blood,Urine Negative (Negative); Color,Urine Yellow; Glucose,Urine (UA) Negative (Negative); Ketones,Urine Negative (Negative); Leukocyte Esterase,Urine Trace (Negative); Mucus,Urine Many /hpf; Nitrite,Urine Negative (Negative); PH, Urine 6.5 (5.0-8.0); Protein,Urine Trace (Negative); RBC,Urine 1 /hpf (0-5); Specific Gravity,Urine 1.027 (1.001-1.035); Squamous Epithelial Cell,Urine 9 /hpf (0-4); WBC,Urine 1 /hpf (0-5)
[2020-06-15 19:05] LABS: ALT 11 U/L (4-34); AST 18 U/L (14-36); African American GFR (CKD) >90 (>60 ml/min/1.73 sqM); Albumin 3.7 g/dL (3.5-5.0); Alkaline Phosphatase 69 U/L (38-126); Amylase 59 U/L (30-110); Anion Gap 4 mmol/L; Blood Urea Nitrogen 9 mg/dL (7-17); Calcium 8.7 mg/dL (8.4-10.2); Carbon Dioxide 26 mmol/L (22-30); Chloride 109 mmol/L (98-107); Glucose 80 mg/dL (74-99); Lipase 104 U/L (23-300); Non-African American GFR(CKD) >90 (>60 ml/min/1.73 sqM); Potassium 4.3 mmol/L (3.5-5.1); Sodium 139 mmol/L (137-145); Total Bilirubin 0.5 mg/dL (0.2-1.3)
--- NOTE | 2020-06-15 19:42 | ED ---
Abdominal Pain HPI - General Chief Complaint: Abdominal Pain Stated Complaint: abd pain Time Seen by Provider: 06/15/20 17:16 Source: patient Mode of arrival: ambulatory Limitations: no limitations - History of Present Illness Initial Comments: 40-year-old feel presenting today for chief complaint of right lower pelvic pain. Patient states she has right lower pelvic pain that began today. She states she is somewhat noted associated nausea. Patient denies any urinary symptoms. Vaginal discharge or vaginal bleeding. Denies stating that she had an ablation. Patient denies upper bowel pain chest pain shortness of breath. Patient states that feels like when she's had ovarian cysts in the past remaining review of systems negative upon arrival patient appears nontoxic, but slightly uncomfortable. - Related Data Home Medications Medication Instructions Recorded Confirmed No Known Home Medications 06/15/20 06/15/20 Allergies Allergy/AdvReac Type Severity Reaction Status Date / Time No Known Allergies Allergy Verified 06/15/20 18:35 Review of Systems ROS Statement: Those systems with pertinent positive or pertinent negative responses have been documented in the HPI. ROS Other: All systems not noted in ROS Statement are negative. 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 PT STATES OFF MEDICATIONS SINCE 13 Y/O AND LAST SEIZURE WAS 12 Y/O. hx migraines, varicose veins, PSORIASIS, hx ulcers, History of Any Multi-Drug Resistant Organisms: None Reported Past Surgical History: Bariatric Surgery, Section, Cholecystectomy, Tubal Ligation, Uterine Ablation Additional Past Surgical History / Comment(s): D&C Gastric Sleeve 09/08/19, Past Anesthesia/Blood Transfusion Reactions: Blood Transfusion Reaction Additional Past Anesthesia/Blood Transfusion Reaction / Comment(s): lightheaded with blood transfusion-"they had to stop it" Past Psychological History: Anxiety Smoking Status: Never smoker Past Alcohol Use History: Rare Past Drug Use History: Marijuana - Past Family History Mother Family Medical History: No Reported History Additional Family Medical History / Comment(s): . Father Family Medical History: No Reported History General Exam - General Exam Comments Initial Comments: General: The patient is awake and alert, in no distress, and does not appear acutely ill. Eye: Pupils are equal, round and reactive to light, extra-ocular movements are intact. No nystagmus. There is normal conjunctiva bilaterally. No signs of icterus. Cardiovascular: There is a regular rate and rhythm. No murmur, rub or gallop is appreciated. Respiratory: Lungs are clear to auscultation, respirations are non-labored, breath sounds are equal. No wheezes, stridor, rales, or rhonchi. Gastrointestinal: Soft, non-distended, right lower abdominal tenderness to palpation of the abdomen, abdomen without masses or organomegaly noted. There is no rebound or guarding present. Refused pelvic examination Musculoskeletal: Normal ROM, no tenderness. Strength 5/5. Sensation intact. Radial pulses equal bilaterally 2+. Neurological: A&O x 3. CN II-XII intact grossly, There are no obvious motor or sensory deficits. Coordination appears grossly intact. Speech is normal. Skin: Skin is warm and dry and no rashes or lesions are noted. Psychiatric: Cooperative, appropriate mood & affect, normal judgment. Limitations: no limitations Course Vital Signs 06/15/20 06/15/20 16:37 20:18 Temperature 98.9 F Pulse Rate 72 60 Respiratory 20 18 Rate Blood Pressure 114/71 94/52 O2 Sat by Pulse 98 100 Oximetry Medical Decision Making - Medical Decision Making US no torsion, pain controlled with one does IV medications. CT no appendicitis. Pt has irregularity in uterus, recommended obgyn f/u. Suspect ruptured cyst as cause of pain. UA no acute findings. At this time i feel patient stable for discharge with OBGYN and pcp f/u. return for worsening pain/fevers. patient agreeable. Refused pelvic, denied bleeding/discharge. Dr. Smith agreeable to care plan and discharge. - Lab Data Result diagrams: 06/15/20 18:09 06/15/20 18:09 Lab Results 06/15/20 06/15/20 06/15/20 Range/Units 18:09 18:09 18:09 WBC 8.3 (3.8-10.6) k/uL RBC 4.10 (3.80-5.40) m/uL Hgb 12.0 (11.4-16.0) gm/dL Hct 37.6 (34.0-46.0) % MCV 91.8 (80.0-100.0) fL MCH 29.2 (25.0-35.0) pg MCHC 31.8 (31.0-37.0) g/dL RDW 15.0 (11.5-15.5) % Plt Count 268 (150-450) k/uL MPV 7.2 Neutrophils % 60 % Lymphocytes % 30 % Monocytes % 4 % Eosinophils % 4 % Basophils % 1 % Neutrophils # 5.0 (1.3-7.7) k/uL Lymphocytes # 2.5 (1.0-4.8) k/uL Monocytes # 0.3 (0-1.0) k/uL Eosinophils # 0.3 (0-0.7) k/uL Basophils # 0.1 (0-0.2) k/uL Sodium (137-145) mmol/L Potassium (3.5-5.1) mmol/L Chloride (98-107) mmol/L Carbon Dioxide (22-30) mmol/L Anion Gap mmol/L BUN (7-17) mg/dL Creatinine (0.52-1.04) mg/dL Est GFR (CKD-EPI)AfAm (>60 ml/min/1.73 sqM) Est GFR (CKD-EPI)NonAf (>60 ml/min/1.73 sqM) Glucose (74-99) mg/dL Calcium (8.4-10.2) mg/dL Total Bilirubin (0.2-1.3) mg/dL AST (14-36) U/L ALT (4-34) U/L Alkaline Phosphatase (38-126) U/L Total Protein (6.3-8.2) g/dL Albumin (3.5-5.0) g/dL Amylase (30-110) U/L Lipase (23-300) U/L Urine Color Yellow Urine Appearance Cloudy H (Clear) Urine pH 6.5 (5.0-8.0) Ur Specific [place] 1.027 (1.001-1.035) Urine Protein Trace H (Negative) Urine Glucose (UA) Negative (Negative) Urine Ketones Negative (Negative) Urine Blood Negative (Negative) Urine Nitrite Negative (Negative) Urine Bilirubin Negative (Negative) Urine Urobilinogen 3.0 (<2.0) mg/dL Ur Leukocyte Esterase Trace H (Negative) Urine RBC 1 (0-5) /hpf Urine WBC 1 (0-5) /hpf Ur Squamous Epith Cells 9 H (0-4) /hpf Urine Mucus Many H (None) /hpf Urine HCG, Qual Not Detected (Not Detectd) 06/15/20 Range/Units 18:09 WBC (3.8-10.6) k/uL RBC (3.80-5.40) m/uL Hgb (11.4-16.0) gm/dL Hct (34.0-46.0) % MCV (80.0-100.0) fL MCH (25.0-35.0) pg MCHC (31.0-37.0) g/dL RDW (11.5-15.5) % Plt Count (150-450) k/uL MPV Neutrophils % % Lymphocytes % % Monocytes % % Eosinophils % % Basophils % % Neutrophils # (1.3-7.7) k/uL Lymphocytes # (1.0-4.8) k/uL Monocytes # (0-1.0) k/uL Eosinophils # (0-0.7) k/uL Basophils # (0-0.2) k/uL Sodium 139 (137-145) mmol/L Potassium 4.3 (3.5-5.1) mmol/L Chloride 109 H (98-107) mmol/L Carbon Dioxide 26 (22-30) mmol/L Anion Gap 4 mmol/L BUN 9 (7-17) mg/dL Creatinine 0.55 (0.52-1.04) mg/dL Est GFR (CKD-EPI)AfAm >90 (>60 ml/min/1.73 sqM) Est GFR (CKD-EPI)NonAf >90 (>60 ml/min/1.73 sqM) Glucose 80 (74-99) mg/dL Calcium 8.7 (8.4-10.2) mg/dL Total Bilirubin 0.5 (0.2-1.3) mg/dL AST 18 (14-36) U/L ALT 11 (4-34) U/L Alkaline Phosphatase 69 (38-126) U/L Total Protein 7.0 (6.3-8.2) g/dL Albumin 3.7 (3.5-5.0) g/dL Amylase 59 (30-110) U/L Lipase 104 (23-300) U/L Urine Color Urine Appearance (Clear) Urine pH (5.0-8.0) Ur Specific [place] (1.001-1.035) Urine Protein (Negative) Urine Glucose (UA) (Negative) Urine Ketones (Negative) Urine Blood (Negative) Urine Nitrite (Negative) Urine Bilirubin (Negative) Urine Urobilinogen (<2.0) mg/dL Ur Leukocyte Esterase (Negative) Urine RBC (0-5) /hpf Urine WBC (0-5) /hpf Ur Squamous Epith Cells (0-4) /hpf Urine Mucus (None) /hpf Urine HCG, Qual (Not Detectd) Disposition Clinical Impression: Pelvic pain Disposition: HOME SELF-CARE Condition: Good Instructions (If sedation given, give patient instructions): Pelvic Pain in Women (ED) Additional Instructions: Please use medication as discussed. Please follow-up with family doctor in the next 2 days. Please return to emergency room if the symptoms increase or worsen or for any other concerns. Is patient prescribed a controlled substance at d/c from ED?: No Referrals: Duke Hidalgo MD [Primary Care Provider] - 1-2 days Itzel Alejandre DO [Doctor of Osteopathic Medicine] - 1-2 days Time of Disposition: 20:42
--- NOTE | 2020-06-15 19:43 | US ---
EXAMINATION TYPE: US transvaginal DATE OF EXAM: 06/15/2020 COMPARISON: US CLINICAL HISTORY: RLQ pain. RLQ pain x 1 day. Hx C-Sections, twin , tubal ligation, uterine ablation. . TECHNIQUE: Transvaginal (TV). Date of LMP: July 2012. EXAM MEASUREMENTS: Uterus: 7.9 x 4.8 x 3.7 cm Endometrial Stripe: Difficult to distinguish, measured at 0.61 cm Right Ovary: 3.6 x 2.1 x 2.1 cm Left Ovary: 3.1 x 1.5 x 1.3 cm 1. Uterus: Anteverted Subcentimeter anechoic area seen in cervix. 2. Endometrium: Complex fluid seen measuring approximately 1.2 x 0.9 x 1.0 cm. 3. Right Ovary: Measures upper limits of normal. Hypoechoic area seen measuring 1.1 x 1.0 x 1.2 cm. 4. Left Ovary: Anechoic area seen measuring 0.7 x 0.6 x 0.6 cm. Spectral, color and waveform doppler imaging shows arterial and venous flow within the right ovary. Venous waveform seen left ovary. Difficult to show arterial waveform within the left ovary, limited waveform imaged. Limited visibility. 5. Bilateral Adnexa: Appear wnl 6. Posterior cul-de-sac: Fluid seen measuring 0.8 x 1.3 x 2.2 cm. IMPRESSION: No evidence of ovarian torsion. Small irregular intrauterine fluid collection of uncertain significan ce. No solid adnexal mass. Small amount of free fluid in the cul-de-sac.
[2020-06-15 20:21] VITALS: BP 94/52; PULSE 60; RESP 18
--- NOTE | 2020-06-15 20:39 | CT ---
EXAMINATION TYPE: CT abdomen pelvis w con DATE OF EXAM: 06/15/2020 COMPARISON: 05/03/2020 HISTORY: Abdominal pain CT DLP: 1048.7 mGycm Automated exposure control for dose reduction was used. CONTRAST: Performed with IV Contrast, patient injected with 100 mL of Isovue 300. Lung bases are clear. There is no pleural effusion. Heart size is normal. There is no pericardial eff usion. There are surgical clips at the greater curvature of the stomach. Liver spleen pancreas appear normal. There are clips from cholecystectomy. The bile ducts are not dilated. There is no adrenal mass. Kidneys show satisfactory contrast opacification. There is no hydronephrosi s. Ureters are not dilated. There is no retroperitoneal adenopathy. Bladder distends smoothly. There is no inguinal hernia. Uterus is anteverted. There is no free fluid in the pelvis. There multiple sig moid diverticula. There is no sign of diverticulitis. The appendix is posterior and appears normal. A ppendix is partly filled with air. Uterus is anteverted. There is no evidence of a pelvic mass. Delay ed images show normal renal excretion. There is no mesenteric edema. There is no ascites or free air. There is no bowel obstruction. Lumbar vertebra have fairly normal spacing and alignment. There is no compression fracture. Posterior elemen ts are intact. The bony pelvis is intact. IMPRESSION: There is sigmoid diverticulosis without diverticulitis. Normal appendix. No acute abnormality of the abdomen pelvis. No adverse change compared to old exam.
== END 2020-06-15 22:02 | disposition home or self-care (01) ==
LOC: EC 16:30
DX: R10.2 Pelvic and perineal pain (principal); R11.0 Nausea; R10.813 Right lower quadrant abdominal tenderness; G47.30 Sleep apnea, unspecified; Z99.89 Dependence on other enabling machines and devices; Z87.19 Personal history of other diseases of the digestive system; Z90.49 Acquired absence of other specified parts of digestive tract; Z98.84 Bariatric surgery status; Z98.890 Other specified postprocedural states
CPT/HCPCS: 36415; 80053; 82150; 83690; 85025; 81001; 81025; 93975; 76830; 74177; 96374; 96375; 96361 ×4; 99284; J2405; J2270; Q9967

== ENCOUNTER 2020-07-13 08:15 | Emergency (ER) | payer OTHER ==
[2020-07-13 08:21] VITALS: BP 149/81; PULSE 72; RESP 18; TEMP 98.3
[2020-07-13] MEDS ORDERED: MORPHINE SULFATE 4 MG/ML SYRINGE IVP STA (08:55)
[2020-07-13] MEDS ORDERED: SODIUM CHLORIDE 0.9% 1,000 ML IV ONE (08:55)
[2020-07-13 09:00] LABS: Appearance,Urine Cloudy (Clear); Bacteria,Urine Moderate /hpf; Bilirubin,Urine Negative (Negative); Blood,Urine Negative (Negative); Color,Urine Yellow; Glucose,Urine (UA) Negative (Negative); Hyaline Casts,Urine 1 /lpf (0-2); Ketones,Urine Negative (Negative); Leukocyte Esterase,Urine Trace (Negative); Mucus,Urine Many /hpf; Nitrite,Urine Negative (Negative); Protein,Urine Trace (Negative); RBC,Urine 4 /hpf (0-5); Specific Gravity,Urine 1.026 (1.001-1.035); Squamous Epithelial Cell,Urine 7 /hpf (0-4); Urobilinogen,Urine <2.0 mg/dL (<2.0); WBC,Urine 5 /hpf (0-5)
[2020-07-13 09:02] LABS: Basophils # (A) 0.1 k/uL (0-0.2); Basophils % (A) 1 %; Eosinophils # (A) 0.2 k/uL (0-0.7); Eosinophils % (A) 3 %; HCT 38.4 % (34.0-46.0); HGB 12.5 gm/dL (11.4-16.0); Lymphocytes # (A) 2.3 k/uL (1.0-4.8); Lymphocytes % (A) 28 %; MCH 30.1 pg (25.0-35.0); MCHC 32.4 g/dL (31.0-37.0); MCV 92.6 fL (80.0-100.0); Monocytes # (A) 0.4 k/uL (0-1.0); Monocytes % (A) 4 %; Neutrophils # (A) 5.1 k/uL (1.3-7.7); Neutrophils % (A) 63 %; Platelet Count 287 k/uL (150-450); RBC 4.15 m/uL (3.80-5.40); RDW 14.2 % (11.5-15.5); WBC 8.1 k/uL (3.8-10.6)
[2020-07-13 09:10] LABS: ALT 12 U/L (4-34); AST 18 U/L (14-36); African American GFR (CKD) >90 (>60 ml/min/1.73 sqM); Albumin 3.7 g/dL (3.5-5.0); Alkaline Phosphatase 66 U/L (38-126); Anion Gap 4 mmol/L; Blood Urea Nitrogen 9 mg/dL (7-17); Calcium 8.9 mg/dL (8.4-10.2); Carbon Dioxide 26 mmol/L (22-30); Chloride 108 mmol/L (98-107); Glucose 95 mg/dL (74-99); Lipase 104 U/L (23-300); Non-African American GFR(CKD) >90 (>60 ml/min/1.73 sqM); Potassium 3.9 mmol/L (3.5-5.1); Sodium 138 mmol/L (137-145); Total Bilirubin 0.6 mg/dL (0.2-1.3); Total Protein 7.1 g/dL (6.3-8.2)
--- NOTE | 2020-07-13 09:45 | CT ---
EXAMINATION TYPE: CT abdomen pelvis w con DATE OF EXAM: 07/13/2020 COMPARISON: 06/15/2020 HISTORY: 40-year-old female Right lower quadrant pain TECHNIQUE: Contiguous axial scanning of the abdomen and pelvis following administration of 100 ml Iso stephen 300 IV contrast. Delayed images through the kidneys and coronal/sagittal reconstructions perform ed. CT DLP: 1048.5 mGycm Automated exposure control for dose reduction was used. FINDINGS: Heart normal size without pericardial effusion. Lung bases clear without pleural effusion. Posttreatment changes of sleeve gastrectomy. Small amount focal fat along the anterior falciform ligament. Liver enlarged at 20.3 cm. Cholecystectomy clips. No biliary ductal dilatation. The venous system is patent. Adrenal glands, kidneys, spleen with hilar splenule, and pancreas show no gross abnormality. No dilated small bowel, free fluid, or free air. No mesenteric or retroperitoneal lymphadenopathy. Normal appendix. Mild scattered stool there are no pericolonic inflammatory change. Uterus is anteverted. Unusual elongated area of hypodensity extending from the mid fundus of the uter us to the right cornual, possibly towards the right fallopian tube. Reference to axial image 81 and c oronal images 43 through 50. Mild cul-de-sac and right adnexal free fluid. There is a 3.3 cm dominant follicle or functional cyst in the right ovary. Left ovary is visualized. Bones: Mild degenerative disc disease. No osseous destructive process. IMPRESSION: 1. UNUSUAL ELONGATED AREA OF HYPODENSITY EXTENDING FROM THE MID FUNDUS OF THE UTERUS TO THE RIGHT COR NUA, POSSIBLY INTO THE RIGHT FALLOPIAN TUBE. CORRELATE TO EXCLUDE ANY SYMPTOMS OF PID. IF THERE IS A HISTORY OF PRIOR ENDOMETRIAL ABLATION, FOCAL HEMATOMETRA AND RETROGRADE MENSES IS AN ALTERNATIVE CONS IDERATION. 2. MILD CUL-DE-SAC AND RIGHT ADNEXAL FREE FLUID MAY BE PHYSIOLOGIC. A 3.3 CM DOMINANT FOLLICLE OR FUN CTIONAL CYST OF THE RIGHT OVARY. 3. STATUS POST SLEEVE GASTRECTOMY. HEPATOMEGALY AT 20.3 CM. NORMAL APPENDIX.
[2020-07-13] MEDS ORDERED: cefTRIAXone IN SWFI 1,000 MG/10 ML SYRINGE IVP STA (10:45)
--- NOTE | 2020-07-13 10:53 | US ---
EXAMINATION TYPE: US transvaginal DATE OF EXAM: 07/13/2020 COMPARISON: CT today, ultrasound in June CLINICAL HISTORY: rlq pain. TECHNIQUE: Transvaginal (TV). Date of LMP: 2016, patient had ablation at that time EXAM MEASUREMENTS: Uterus: 8.0 x 3.4 x 4.5 cm Endometrial Stripe: 0.9 cm Right Ovary: 2.8 x 2.8 x 2.7 cm Left Ovary: 2.8 x 1.5 x 1.5 cm 1. Uterus: Elongated area extending from fundus to right adnexa of unknown etiology . This may be re lated to thickening of the broad ligament. Hydrosalpinx may be present. 2. Endometrium: irregular shaped with hyperechoic focus measuring 0.9 x 0.7 x 0.6cm 3. Right Ovary: cystic structure with internal echoes measuring 2.7 x 2.9 x 2.6cm 4. Left Ovary: wnl Spectral, color and waveform doppler imaging shows good arterial and venous flow within the ovaries ; there is no evidence for ovarian torsion. 5. Bilateral Adnexa: wnl 6. Posterior cul-de-sac: small amount of free fluid IMPRESSION: 1. Clinical consideration for mild right hydrosalpinx is recommended. Please also see CT report same date 2. Complex cyst right ovary. Follow-up in 6 weeks is recommended.
--- NOTE | 2020-07-13 11:53 | ED ---
Abdominal Pain HPI - General Chief Complaint: Abdominal Pain Stated Complaint: Lower Abd Pain Time Seen by Provider: 07/13/20 08:24 Source: patient Mode of arrival: ambulatory Limitations: no limitations - History of Present Illness Initial Comments: Patient is a 40-year-old female with past medical history of seizure disorder who presents emergency department with reported right lower quadrant abdominal pain. Patient does report to a history of similar in the past. States she was diagnosed with ovarian cysts. States she normally follows with Dr. Lockett. Patient began having mild pain yesterday. Reports that the pain has gotten significantly worse over the course of the 2 days. She is taking any medications at home for her symptoms. Denies any pain that radiates into the leg. No fevers or chills. Denies nausea or vomiting. No changes in her urination to include dysuria, hematuria or occult he voiding. Denies diarrhea, constipation, melenic stools or hematochezia. No concern for . Denies any vaginal bleeding or discharge. She did have an [place] [address] Duvall. No other alleviating, precipitating or modifying factors - Related Data Previous Rx's Medication Instructions Recorded Hydrocodone/Acetaminophen [[place] 1 tab PO Q6HR PRN #12 tab 07/13/20 5-325] Allergies Allergy/AdvReac Type Severity Reaction Status Date / Time No Known Allergies Allergy Verified 07/13/20 09:48 Review of Systems ROS Statement: Those systems with pertinent positive or pertinent negative responses have been documented in the HPI. ROS Other: All systems not noted in ROS Statement are negative. 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 PT STATES OFF MEDICATIONS SINCE 13 Y/O AND LAST SEIZURE WAS 12 Y/O. hx migraines, varicose veins, PSORIASIS, hx ulcers, History of Any Multi-Drug Resistant Organisms: None Reported Past Surgical History: Bariatric Surgery, Section, Cholecystectomy, Tubal Ligation, Uterine Ablation Additional Past Surgical History / Comment(s): D&C Gastric Sleeve 09/08/19, Past Anesthesia/Blood Transfusion Reactions: Blood Transfusion Reaction Additional Past Anesthesia/Blood Transfusion Reaction / Comment(s): lightheaded with blood transfusion-"they had to stop it" Past Psychological History: Anxiety Smoking Status: Never smoker Past Alcohol Use History: Rare Past Drug Use History: Marijuana - Past Family History Mother Family Medical History: No Reported History Additional Family Medical History / Comment(s): . Father Family Medical History: No Reported History General Exam Limitations: no limitations Course Vital Signs 07/13/20 08:17 Temperature 98.3 F Pulse Rate 72 Respiratory 18 Rate Blood Pressure 149/81 O2 Sat by Pulse 99 Oximetry Medical Decision Making - Medical Decision Making Arrival patient was placed into room 14. A thorough history and physical exam was performed. Peripheral IV is established. The patient was given a liter bolus of normal saline, 4 mg of morphine for pain control. Laboratory studies are conducted in the patient went for CT for abdomen and pelvis. Ultrasound was also performed. Laboratory studies are reviewed. Urinalysis does demonstrate moderate bacteria with 7 squamous cells. I did cover her with a dose of Rocephin however we will send a specimen for culture as she does not have any UTI symptoms. CT of the patient's abdomen and pelvis demonstrates a elongated area of hypodensity extending from the mid fundus of the uterus to the right schwartz. Could be a focal hematometra or retrograde menses. 3.3 cm cyst of the right ovary. Transvaginal ultrasound is performed which demonstrates similar with concern for possible right hydrosalpinx. Patient is not actually active. Reports no concern for sexually transmitted infections. No abnormal discharge or fevers. Results are discussed the patient. I did discuss the results with Dr. Lockett who agreed to follow up with the patient in office. Patient states that she has spoke to him previously about laparoscopy for possible hysterectomy however work has made it difficult to see him. I did instruct her that she needs to follow-up within the next 1-2 weeks. She will need a repeat ultrasound in about 6 weeks. She needs to return to the emergency room for any new or wo rsening symptoms. Patient agreed to this. Prescription for pain medication was called pharmacy and the patient was discharged home in stable condition - Lab Data Result diagrams: 07/13/20 08:45 07/13/20 08:45 Lab Results 07/13/20 07/13/20 07/13/20 Range/Units 08:30 08:30 08:45 WBC 8.1 (3.8-10.6) k/uL RBC 4.15 (3.80-5.40) m/uL Hgb 12.5 (11.4-16.0) gm/dL Hct 38.4 (34.0-46.0) % MCV 92.6 (80.0-100.0) fL MCH 30.1 (25.0-35.0) pg MCHC 32.4 (31.0-37.0) g/dL RDW 14.2 (11.5-15.5) % Plt Count 287 (150-450) k/uL MPV 7.0 Neutrophils % 63 % Lymphocytes % 28 % Monocytes % 4 % Eosinophils % 3 % Basophils % 1 % Neutrophils # 5.1 (1.3-7.7) k/uL Lymphocytes # 2.3 (1.0-4.8) k/uL Monocytes # 0.4 (0-1.0) k/uL Eosinophils # 0.2 (0-0.7) k/uL Basophils # 0.1 (0-0.2) k/uL Sodium (137-145) mmol/L Potassium (3.5-5.1) mmol/L Chloride (98-107) mmol/L Carbon Dioxide (22-30) mmol/L Anion Gap mmol/L BUN (7-17) mg/dL Creatinine (0.52-1.04) mg/dL Est GFR (CKD-EPI)AfAm (>60 ml/min/1.73 sqM) Est GFR (CKD-EPI)NonAf (>60 ml/min/1.73 sqM) Glucose (74-99) mg/dL Plasma Lactic Acid [place] (0.7-2.0) mmol/L Calcium (8.4-10.2) mg/dL Total Bilirubin (0.2-1.3) mg/dL AST (14-36) U/L ALT (4-34) U/L Alkaline Phosphatase (38-126) U/L Total Protein (6.3-8.2) g/dL Albumin (3.5-5.0) g/dL Lipase (23-300) U/L Urine Color Yellow Urine Appearance Cloudy H (Clear) Urine pH 6.0 (5.0-8.0) Ur Specific [place] 1.026 (1.001-1.035) Urine Protein Trace H (Negative) Urine Glucose (UA) Negative (Negative) Urine Ketones Negative (Negative) Urine Blood Negative (Negative) Urine Nitrite Negative (Negative) Urine Bilirubin Negative (Negative) Urine Urobilinogen <2.0 (<2.0) mg/dL Ur Leukocyte Esterase Trace H (Negative) Urine RBC 4 (0-5) /hpf Urine WBC 5 (0-5) /hpf Ur Squamous Epith Cells 7 H (0-4) /hpf Urine Bacteria Moderate H (None) /hpf Hyaline Casts 1 (0-2) /lpf Urine Mucus Many H (None) /hpf Urine HCG, Qual Not Detected (Not Detectd) 07/13/20 07/13/20 Range/Units 08:45 08:45 WBC (3.8-10.6) k/uL RBC (3.80-5.40) m/uL Hgb (11.4-16.0) gm/dL Hct (34.0-46.0) % MCV (80.0-100.0) fL MCH (25.0-35.0) pg MCHC (31.0-37.0) g/dL RDW (11.5-15.5) % Plt Count (150-450) k/uL MPV Neutrophils % % Lymphocytes % % Monocytes % % Eosinophils % % Basophils % % Neutrophils # (1.3-7.7) k/uL Lymphocytes # (1.0-4.8) k/uL Monocytes # (0-1.0) k/uL Eosinophils # (0-0.7) k/uL Basophils # (0-0.2) k/uL Sodium 138 (137-145) mmol/L Potassium 3.9 (3.5-5.1) mmol/L Chloride 108 H (98-107) mmol/L Carbon Dioxide 26 (22-30) mmol/L Anion Gap 4 mmol/L BUN 9 (7-17) mg/dL Creatinine 0.61 (0.52-1.04) mg/dL Est GFR (CKD-EPI)AfAm >90 (>60 ml/min/1.73 sqM) Est GFR (CKD-EPI)NonAf >90 (>60 ml/min/1.73 sqM) Glucose 95 (74-99) mg/dL Plasma Lactic Acid Salú 1.3 (0.7-2.0) mmol/L Calcium 8.9 (8.4-10.2) mg/dL Total Bilirubin 0.6 (0.2-1.3) mg/dL AST 18 (14-36) U/L ALT 12 (4-34) U/L Alkaline Phosphatase 66 (38-126) U/L Total Protein 7.1 (6.3-8.2) g/dL Albumin 3.7 (3.5-5.0) g/dL Lipase 104 (23-300) U/L Urine Color Urine Appearance (Clear) Urine pH (5.0-8.0) Ur Specific [place] (1.001-1.035) Urine Protein (Negative) Urine Glucose (UA) (Negative) Urine Ketones (Negative) Urine Blood (Negative) Urine Nitrite (Negative) Urine Bilirubin (Negative) Urine Urobilinogen (<2.0) mg/dL Ur Leukocyte Esterase (Negative) Urine RBC (0-5) /hpf Urine WBC (0-5) /hpf Ur Squamous Epith Cells (0-4) /hpf Urine Bacteria (None) /hpf Hyaline Casts (0-2) /lpf Urine Mucus (None) /hpf Urine HCG, Qual (Not Detectd) Disposition Clinical Impression: RLQ abdominal pain, Ovarian cyst, Hydrosalpinx Disposition: HOME SELF-CARE Condition: Stable Instructions (If sedation given, give patient instructions): Ovarian Cyst (ED), Abdominal Pain (ED) Additional Instructions: Please follow up with Dr. Lockett in 1 week. You will need a repeat ultrasound. Return to the emergency room for any new or worsening symptoms Prescriptions: Hydrocodone/Acetaminophen [[place] 5-325] 1 tab PO Q6HR PRN #12 tab PRN Reason: Pain Is patient prescribed a controlled substance at d/c from ED?: Yes When asked, does pt state using other controlled substances?: No If prescribed controlled substance>3 days was MAPS reviewed?: Prescribed <3 Days If opioid is for acute pain is fill amount 7 days or less?: Yes If Rx opioid, was Start Talking consent form obtained?: Yes Referrals: Duke Hidalgo MD [Primary Care Provider] - 1-2 days Hari Lockett DO [Family Provider] - 1-2 days Time of Disposition: 11:53
== END 2020-07-13 12:17 | disposition home or self-care (01) ==
LOC: EC 08:15
DX: N83.201 Unspecified ovarian cyst, right side (principal); N70.11 Chronic salpingitis; G47.30 Sleep apnea, unspecified; Z99.89 Dependence on other enabling machines and devices; Z98.84 Bariatric surgery status; Z90.49 Acquired absence of other specified parts of digestive tract
CPT/HCPCS: 36415; 80053; 83605; 83690; 85025; 81001; 81025; 93975; 76830; 74177; 99284; 96374; 96375; 96361 ×2; J2270; J0696; Q9967

== ENCOUNTER 2020-07-14 20:16 | Emergency (ER) | payer OTHER ==
[2020-07-14] MEDS ORDERED: SODIUM CHLORIDE 0.9% 1,000 ML IV STA (20:37)
[2020-07-14] MEDS ORDERED: ONDANSETRON 4 MG/2 ML VIAL IVP STA (20:37)
[2020-07-14] MEDS ORDERED: MORPHINE SULFATE 4 MG/ML SYRINGE IV STA (20:37)
[2020-07-14] MEDS ORDERED: KETOROLAC 15 MG/ML 1 ML VIAL IVP STA (20:37)
--- NOTE | 2020-07-14 20:48 | ED ---
Abdominal Pain HPI - General Chief Complaint: Abdominal Pain Stated Complaint: ABD pain Time Seen by Provider: 07/14/20 20:30 Source: patient Mode of arrival: ambulatory Limitations: no limitations - History of Present Illness Initial Comments: 40-year-old female patient presents to the emergency department today for evaluation of increased right lower quadrant abdominal pain. Patient was seen and evaluated in the emergency department yesterday was diagnosed with a right ovarian cyst and hydrosalpinx. Patient states that her pain is worsened today. States she has taken the [place] she was prescribed without relief. She denies any nausea or vomiting. Denies constipation or diarrhea. Denies any fever or chills. Denies any abnormal vaginal bleeding or discharge. Patient states that she does have an appointment with her motor carrier inspector on Sunday. Patient denies any recent rash, cough, shortness of breath, chest pain, abdominal pain, back pain, numbness, tingling, dizziness, weakness, hematuria, dysuria, urinary urgency, urinary frequency, headache, visual changes, or any other complaints. - Related Data Previous Rx's Medication Instructions Recorded Hydrocodone/Acetaminophen [[place] 1 tab PO Q6HR PRN #12 tab 07/13/20 5-325] Allergies Allergy/AdvReac Type Severity Reaction Status Date / Time No Known Allergies Allergy Verified 07/14/20 21:00 Review of Systems ROS Statement: Those systems with pertinent positive or pertinent negative responses have been documented in the HPI. ROS Other: All systems not noted in ROS Statement are negative. 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 PT STATES OFF MEDICATIONS SINCE 13 Y/O AND LAST SEIZURE WAS 12 Y/O. hx migraines, varicose veins, PSORIASIS, hx ulcers, History of Any Multi-Drug Resistant Organisms: None Reported Past Surgical History: Bariatric Surgery, Section, Cholecystectomy, Tubal Ligation, Uterine Ablation Additional Past Surgical History / Comment(s): D&C Gastric Sleeve 09/08/19, Past Anesthesia/Blood Transfusion Reactions: Blood Transfusion Reaction Additional Past Anesthesia/Blood Transfusion Reaction / Comment(s): lightheaded with blood transfusion-"they had to stop it" Past Psychological History: Anxiety Smoking Status: Never smoker Past Alcohol Use History: Rare Past Drug Use History: Marijuana - Past Family History Mother Family Medical History: No Reported History Additional Family Medical History / Comment(s): . Father Family Medical History: No Reported History General Exam Limitations: no limitations General appearance: alert, in no apparent distress, other (This is a well- developed, well-nourished adult female patient in no acute distress. Vital signs upon presentation temperature 98.6F, pulse 83, respirations 20, blood pressure 137/73, pulse ox 100% on room air.) Eye exam: Present: normal appearance, PERRL, EOMI. Absent: scleral icterus, conjunctival injection, periorbital swelling ENT exam: Present: normal exam, normal oropharynx, mucous membranes moist Respiratory exam: Present: normal lung sounds bilaterally. Absent: respiratory distress, wheezes, rales, rhonchi, stridor Cardiovascular Exam: Present: regular rate, normal rhythm, normal heart sounds. Absent: systolic murmur, diastolic murmur, rubs, gallop, clicks GI/Abdominal exam: Present: soft, tenderness (Right lower quadrant), normal bowel sounds. Absent: distended, guarding, rebound, rigid Neurological exam: Present: alert, oriented X3, CN II-XII intact Psychiatric exam: Present: normal affect, normal mood Skin exam: Present: warm, dry, intact, normal color. Absent: rash Course Vital Signs 07/14/20 07/14/20 20:21 21:22 Temperature 98.6 F 98.3 F Pulse Rate 83 86 Respiratory 20 16 Rate Blood Pressure 137/73 122/58 O2 Sat by Pulse 100 98 Oximetry Medical Decision Making - Medical Decision Making 40-year-old female patient presented to the emergency department today for evaluation of right lower quadrant pain. Patient was seen and evaluated for the same pain yesterday underwent CT scan and ultrasound which ended up revealing hydrosalpinx on the right side as well as a 3 cm ovarian cyst. Patient states her pain worsen today. Physical examination did reveal right lower quadrant tenderness. Labs reviewed and are unremarkable. Repeat ultrasound showed no evidence for torsion. White blood cell count is normal. She is afebrile normal vital signs. Lactic acid was negative. She'll be discharged to follow-up with her motor carrier inspector as soon as possible, she is urged to call morning for a sooner appointment. Return parameters were discussed in detail. She verbalizes understanding and agrees with this plan. - Lab Data Result diagrams: 07/14/20 20:57 07/14/20 20:57 Lab Results 07/14/20 07/14/20 07/14/20 Range/Units 20:57 20:57 20:57 WBC 8.9 (3.8-10.6) k/uL RBC 4.03 (3.80-5.40) m/uL Hgb 12.5 (11.4-16.0) gm/dL Hct 37.3 (34.0-46.0) % MCV 92.4 (80.0-100.0) fL MCH 31.1 (25.0-35.0) pg MCHC 33.6 (31.0-37.0) g/dL RDW 14.3 (11.5-15.5) % Plt Count 291 (150-450) k/uL MPV 6.9 Neutrophils % 70 % Lymphocytes % 21 % Monocytes % 4 % Eosinophils % 3 % Basophils % 1 % Neutrophils # 6.2 (1.3-7.7) k/uL Lymphocytes # 1.8 (1.0-4.8) k/uL Monocytes # 0.4 (0-1.0) k/uL Eosinophils # 0.3 (0-0.7) k/uL Basophils # 0.1 (0-0.2) k/uL Sodium 138 (137-145) mmol/L Potassium 4.1 (3.5-5.1) mmol/L Chloride 109 H (98-107) mmol/L Carbon Dioxide 24 (22-30) mmol/L Anion Gap 5 mmol/L BUN 8 (7-17) mg/dL Creatinine 0.58 (0.52-1.04) mg/dL Est GFR (CKD-EPI)AfAm >90 (>60 ml/min/1.73 sqM) Est GFR (CKD-EPI)NonAf >90 (>60 ml/min/1.73 sqM) Glucose 92 (74-99) mg/dL Plasma Lactic Acid Saúl (0.7-2.0) mmol/L Calcium 8.7 (8.4-10.2) mg/dL Total Bilirubin 0.4 (0.2-1.3) mg/dL AST 20 (14-36) U/L ALT 13 (4-34) U/L Alkaline Phosphatase 66 (38-126) U/L Total Protein 7.1 (6.3-8.2) g/dL Albumin 3.7 (3.5-5.0) g/dL Lipase 113 (23-300) U/L Urine Color Yellow Urine Appearance Clear (Clear) Urine pH 6.5 (5.0-8.0) Ur Specific [place] 1.024 (1.001-1.035) Urine Protein Trace H (Negative) Urine Glucose (UA) Negative (Negative) Urine Ketones Negative (Negative) Urine Blood Negative (Negative) Urine Nitrite Negative (Negative) Urine Bilirubin Negative (Negative) Urine Urobilinogen <2.0 (<2.0) mg/dL Ur Leukocyte Esterase Trace H (Negative) Urine RBC 1 (0-5) /hpf Urine WBC 1 (0-5) /hpf Ur Squamous Epith Cells 4 (0-4) /hpf Hyaline Casts 1 (0-2) /lpf Urine Mucus Many H (None) /hpf 07/14/20 Range/Units 20:57 WBC (3.8-10.6) k/uL RBC (3.80-5.40) m/uL Hgb (11.4-16.0) gm/dL Hct (34.0-46.0) % MCV (80.0-100.0) fL MCH (25.0-35.0) pg MCHC (31.0-37.0) g/dL RDW (11.5-15.5) % Plt Count (150-450) k/uL MPV Neutrophils % % Lymphocytes % % Monocytes % % Eosinophils % % Basophils % % Neutrophils # (1.3-7.7) k/uL Lymphocytes # (1.0-4.8) k/uL Monocytes # (0-1.0) k/uL Eosinophils # (0-0.7) k/uL Basophils # (0-0.2) k/uL Sodium (137-145) mmol/L Potassium (3.5-5.1) mmol/L Chloride (98-107) mmol/L Carbon Dioxide (22-30) mmol/L Anion Gap mmol/L BUN (7-17) mg/dL Creatinine (0.52-1.04) mg/dL Est GFR (CKD-EPI)AfAm (>60 ml/min/1.73 sqM) Est GFR (CKD-EPI)NonAf (>60 ml/min/1.73 sqM) Glucose (74-99) mg/dL Plasma Lactic Acid Saúl 1.1 (0.7-2.0) mmol/L Calcium (8.4-10.2) mg/dL Total Bilirubin (0.2-1.3) mg/dL AST (14-36) U/L ALT (4-34) U/L Alkaline Phosphatase (38-126) U/L Total Protein (6.3-8.2) g/dL Albumin (3.5-5.0) g/dL Lipase (23-300) U/L Urine Color Urine Appearance (Clear) Urine pH (5.0-8.0) Ur Specific [place] (1.001-1.035) Urine Protein (Negative) Urine Glucose (UA) (Negative) Urine Ketones (Negative) Urine Blood (Negative) Urine Nitrite (Negative) Urine Bilirubin (Negative) Urine Urobilinogen (<2.0) mg/dL Ur Leukocyte Esterase (Negative) Urine RBC (0-5) /hpf Urine WBC (0-5) /hpf Ur Squamous Epith Cells (0-4) /hpf Hyaline Casts (0-2) /lpf Urine Mucus (None) /hpf - Radiology Data Radiology results: report reviewed, image reviewed Transvaginal ultrasound was obtained. Report was reviewed in its entirety. Impression by Dr. Sauceda shows endometrial echogenicity measuring 9 x 6 mm is unchanged. Small amount of free fluid in the cul-de-sac of uncertain significance. 3 cm cyst on the right ovary unchanged. No evidence of ovarian torsion. Disposition Clinical Impression: Ovarian cyst, right, Hydrosalpinx, Abdominal pain Disposition: HOME SELF-CARE Condition: Good Instructions (If sedation given, give patient instructions): Ovarian Cyst (ED), Abdominal Pain (ED) Additional Instructions: Continue home medications as directed. Follow-up with Dr. Lockett as soon as possible. Return to the emergency department for any new, worsening, or concerning symptoms. Is patient prescribed a controlled substance at d/c from ED?: No Referrals: Duke Hidalgo MD [Primary Care Provider] - 1-2 days Time of Disposition: 23:02
[2020-07-14 21:05] LABS: Basophils # (A) 0.1 k/uL (0-0.2); Basophils % (A) 1 %; Eosinophils # (A) 0.3 k/uL (0-0.7); Eosinophils % (A) 3 %; HCT 37.3 % (34.0-46.0); HGB 12.5 gm/dL (11.4-16.0); Lymphocytes # (A) 1.8 k/uL (1.0-4.8); Lymphocytes % (A) 21 %; MCH 31.1 pg (25.0-35.0); MCHC 33.6 g/dL (31.0-37.0); MCV 92.4 fL (80.0-100.0); Mean Platelet Volume 6.9; Monocytes # (A) 0.4 k/uL (0-1.0); Monocytes % (A) 4 %; Neutrophils # (A) 6.2 k/uL (1.3-7.7); Neutrophils % (A) 70 %; Platelet Count 291 k/uL (150-450); RBC 4.03 m/uL (3.80-5.40); RDW 14.3 % (11.5-15.5); WBC 8.9 k/uL (3.8-10.6)
[2020-07-14 21:12] LABS: Appearance,Urine Clear (Clear); Bilirubin,Urine Negative (Negative); Blood,Urine Negative (Negative); Color,Urine Yellow; Glucose,Urine (UA) Negative (Negative); Hyaline Casts,Urine 1 /lpf (0-2); Ketones,Urine Negative (Negative); Leukocyte Esterase,Urine Trace (Negative); Mucus,Urine Many /hpf; Nitrite,Urine Negative (Negative); PH, Urine 6.5 (5.0-8.0); Protein,Urine Trace (Negative); RBC,Urine 1 /hpf (0-5); Specific Gravity,Urine 1.024 (1.001-1.035); Squamous Epithelial Cell,Urine 4 /hpf (0-4); Urobilinogen,Urine <2.0 mg/dL (<2.0); WBC,Urine 1 /hpf (0-5)
[2020-07-14 21:14] LABS: ALT 13 U/L (4-34); AST 20 U/L (14-36); African American GFR (CKD) >90 (>60 ml/min/1.73 sqM); Albumin 3.7 g/dL (3.5-5.0); Alkaline Phosphatase 66 U/L (38-126); Anion Gap 5 mmol/L; Blood Urea Nitrogen 8 mg/dL (7-17); Calcium 8.7 mg/dL (8.4-10.2); Carbon Dioxide 24 mmol/L (22-30); Chloride 109 mmol/L (98-107); Glucose 92 mg/dL (74-99); Lipase 113 U/L (23-300); Non-African American GFR(CKD) >90 (>60 ml/min/1.73 sqM); Potassium 4.1 mmol/L (3.5-5.1); Sodium 138 mmol/L (137-145); Total Bilirubin 0.4 mg/dL (0.2-1.3); Total Protein 7.1 g/dL (6.3-8.2)
[2020-07-14 21:23] VITALS: BP 122/58; PULSE 86; RESP 16; TEMP 98.3
--- NOTE | 2020-07-14 22:23 | US ---
EXAMINATION TYPE: US transvaginal DATE OF EXAM: 07/14/2020 COMPARISON: US, CT CLINICAL HISTORY: known Ovarian cyst; worse RLQ pain today. RLQ pain today. Hx ovarian cyst, twin pre gnancy, , Tubal ligation, ablation. . TECHNIQUE: Transvaginal (TV). Date of LMP: 2012 after ablation. EXAM MEASUREMENTS: Uterus: 8.3 x 4.4 x 4.1 cm Endometrial Stripe: 0.79 cm Right Ovary: 4.0 x 2.4 x 3.3 cm Left Ovary: Not seen. 1. Uterus: Anteverted Appears heterogeneous. Complex area seen fundally as seen on last exam measu ring 1.1 x 1.3 x 0.6 cm. Anechoic fluid-appearing area seen mid uterus measuring 1.2 x 0.5 x 0.2 cm. 2. Endometrium: Not well distinguished, measured at 0.79 cm. 3. Right Ovary: Appears slightly enlarged. Complex area seen measuring 2.7 x 2.0 x 3.1 cm. 4. Left Ovary: Not seen. Spectral, color and waveform doppler imaging shows arterial and venous flow within the right ovary. Left ovary not seen. 5. Bilateral Adnexa: Hypoechoic, indistinct area seen adjacent to the uterus in the right adnexa subha suring 1.3 x 1.6 x 1.1 cm. 6. Posterior cul-de-sac: Minimal fluid seen. Imaging under OB setting, appeared to have better image quality for most of exam. At end of exam, set ting changed back to HOUSEKEEPING AIDE and showed better appearance at that time. IMPRESSION: Endometrial echogenicity measures 9 x 6 mm unchanged. Small amount of free fluid in the cul-de-sac of uncertain significance. 3 cm cyst on the right ovary unchanged. No evidence of ovarian torsion.
== END 2020-07-14 23:16 | disposition home or self-care (01) ==
LOC: EC 20:16
DX: N83.201 Unspecified ovarian cyst, right side (principal); N70.11 Chronic salpingitis; G47.30 Sleep apnea, unspecified; Z98.84 Bariatric surgery status; Z90.49 Acquired absence of other specified parts of digestive tract; Z98.51 Tubal ligation status; Z99.89 Dependence on other enabling machines and devices
CPT/HCPCS: 36415; 80053; 83605; 83690; 85025; 81001; 93976; 76830; 99284; 96374; 96375 ×2; 96361; J2270; J2405; J1885

== ENCOUNTER 2020-07-17 09:16 | Emergency (ER) | payer OTHER ==
[2020-07-17 09:20] VITALS: BP 129/74; PULSE 71; RESP 18; TEMP 97.8
[2020-07-17] MEDS ORDERED: KETOROLAC 15 MG/ML 1 ML VIAL IM STA (09:37)
--- NOTE | 2020-07-17 09:40 | ED ---
General Adult HPI - General Chief complaint: Abdominal Pain Stated complaint: Cyst on ovary Time Seen by Provider: 07/17/20 09:16 Source: patient, RN notes reviewed, old records reviewed Mode of arrival: ambulatory Limitations: no limitations - History of Present Illness Initial comments: This is a 40-year-old female presents emergency department and states that she has been here multiple times gotten multiple studies and is here because the pain continues and she has an appointment on Sunday with her doctor. Patient states she does not want any workup she doesn't want any more CAT scans or ultrasounds because they have not shown any change and not found a cause for her acute pain. Patient states the pain is been ongoing since summer. Patient states she's not nauseated. Patient states the pain is in the right lower quadrant. Patient thinks it's ovarian cyst. Patient denies any shortness of breath or difficulty breathing. Patient has any back pain. Patient denies any dysuria hematuria urinary frequency. - Related Data Previous Rx's Medication Instructions Recorded Hydrocodone/Acetaminophen [[place] 1 tab PO Q6HR PRN #12 tab 07/13/20 5-325] Allergies Allergy/AdvReac Type Severity Reaction Status Date / Time No Known Allergies Allergy Verified 07/17/20 09:20 Review of Systems ROS Statement: Those systems with pertinent positive or pertinent negative responses have been documented in the HPI. ROS Other: All systems not noted in ROS Statement are negative. 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 PT STATES OFF MEDICATIONS SINCE 13 Y/O AND LAST SEIZURE WAS 12 Y/O. hx migraines, varicose veins, PSORIASIS, hx ulcers, History of Any Multi-Drug Resistant Organisms: None Reported Past Surgical History: Bariatric Surgery, Section, Cholecystectomy, Tubal Ligation, Uterine Ablation Additional Past Surgical History / Comment(s): D&C Gastric Sleeve 09/08/19, Past Anesthesia/Blood Transfusion Reactions: Blood Transfusion Reaction Additional Past Anesthesia/Blood Transfusion Reaction / Comment(s): lightheaded with blood transfusion-"they had to stop it" Past Psychological History: Anxiety Smoking Status: Never smoker Past Alcohol Use History: Rare Past Drug Use History: Marijuana - Past Family History Mother Family Medical History: No Reported History Additional Family Medical History / Comment(s): . Father Family Medical History: No Reported History General Exam - General Exam Comments Initial Comments: GENERAL: Patient is well-developed and well-nourished. Patient is nontoxic and well- hydrated and is in mild distress. ENT: Neck is soft and supple. No significant lymphadenopathy is noted. Oropharynx is clear. Moist mucous membranes. Neck has full range of motion without eliciting any pain. EYES: The sclera were anicteric and conjunctiva were pink and moist. Extraocular movements were intact and pupils were equal round and reactive to light. Eyelids were unremarkable. PULMONARY: Unlabored respirations. Good breath sounds bilaterally. No audible rales rhonchi or wheezing was noted. CARDIOVASCULAR: There is a regular rate and rhythm without any murmurs gallops or rubs. ABDOMEN: Soft and nontender with normal bowel sounds. Patient has a little right lower quadrant abdominal tenderness but when I distracted her and pressed it did not seem to elicit any pain SKIN: Skin is clear with no lesions or rashes and otherwise unremarkable. NEUROLOGIC: Patient is alert and oriented x3. Cranial nerves II through XII are grossly intact. Motor and sensory are also intact. Normal speech, volume and content. Symmetrical smile. Cerebellar exam grossly intact. MUSCULOSKELETAL: Normal extremities with adequate strength and full range of motion. No lower extremity swelling or edema. No calf tenderness. LYMPHATICS: No significant lymphadenopathy is noted PSYCHIATRIC: Normal psychiatric evaluation. 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 Disposition Clinical Impression: Chronic abdominal pain, History of ovarian cyst Disposition: HOME SELF-CARE Condition: Good Instructions (If sedation given, give patient instructions): Abdominal Pain (ED) Is patient prescribed a controlled substance at d/c from ED?: No Referrals: Duke Hidalgo MD [Primary Care Provider] - 1-2 days Time of Disposition: 09:40
== END 2020-07-17 09:50 | disposition home or self-care (01) ==
LOC: EC 09:16
DX: G89.29 Other chronic pain (principal); R10.31 Right lower quadrant pain; R10.813 Right lower quadrant abdominal tenderness; G47.30 Sleep apnea, unspecified; Z99.89 Dependence on other enabling machines and devices; Z98.84 Bariatric surgery status; Z90.49 Acquired absence of other specified parts of digestive tract; Z98.51 Tubal ligation status
CPT/HCPCS: 99284; 96372; J1885

== ENCOUNTER 2020-08-09 19:34 | Emergency (ER) | payer OTHER ==
[2020-08-09 19:41] VITALS: RESP 18; TEMP 98.7
[2020-08-09 20:42] LABS: Appearance,Urine Cloudy (Clear); Bacteria,Urine Rare /hpf; Bilirubin,Urine Negative (Negative); Blood,Urine Large (Negative); Color,Urine Yellow; Glucose,Urine (UA) Negative (Negative); Ketones,Urine Negative (Negative); Leukocyte Esterase,Urine Large (Negative); Mucus,Urine Occasional /hpf; Nitrite,Urine Negative (Negative); PH, Urine 7.5 (5.0-8.0); Protein,Urine 1+ (Negative); RBC,Urine >182 /hpf (0-5); Squamous Epithelial Cell,Urine 2 /hpf (0-4); Urobilinogen,Urine <2.0 mg/dL (<2.0); WBC,Urine >182 /hpf (0-5)
[2020-08-09] MEDS ORDERED: cefTRIAXone 1,000 MG VIAL (IM USE) IM STA (20:53)
--- NOTE | 2020-08-09 20:53 | ED ---
Female Urogenital HPI - General Chief complaint: Urogenital Stated complaint: ABD/back pain Time Seen by Provider: 08/09/20 19:47 Source: patient Mode of arrival: ambulatory Limitations: no limitations - History of Present Illness Initial comments: Patient is a 40-year-old female presenting to the emergency Department with complaints of UTI-type symptoms for the last 3 days. Patient states she started having some suprapubic discomfort over the last 3 days, increase in urgency and frequency. She also started having some dysuria and now is complaining of some mild low back pain. She denies any fever or chills, no nausea or vomiting. She denies history of kidney stones. She is no further complaints at this time. She denies being secondary to tubal ligation. Upon arrival to the ER, her vital signs are stable. - Related Data Previous Rx's Medication Instructions Recorded Cephalexin [Keflex] 500 mg PO BID 7 Days #14 cap 08/09/20 Phenazopyridine [Pyridium] 200 mg PO TID #6 tablet 08/09/20 Allergies Allergy/AdvReac Type Severity Reaction Status Date / Time No Known Allergies Allergy Verified 08/09/20 20:09 Review of Systems ROS Statement: Those systems with pertinent positive or pertinent negative responses have been documented in the HPI. ROS Other: All systems not noted in ROS Statement are negative. 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 PT STATES OFF MEDICATIONS SINCE 13 Y/O AND LAST SEIZURE WAS 12 Y/O. hx migraines, varicose veins, PSORIASIS, hx ulcers, History of Any Multi-Drug Resistant Organisms: None Reported Past Surgical History: Bariatric Surgery, Section, Cholecystectomy, Tubal Ligation, Uterine Ablation Additional Past Surgical History / Comment(s): D&C Gastric Sleeve 09/08/19, Past Anesthesia/Blood Transfusion Reactions: Blood Transfusion Reaction Additional Past Anesthesia/Blood Transfusion Reaction / Comment(s): lightheaded with blood transfusion-"they had to stop it" Past Psychological History: Anxiety Smoking Status: Never smoker Past Alcohol Use History: Rare Past Drug Use History: None Reported - Past Family History Mother Family Medical History: No Reported History Additional Family Medical History / Comment(s): . Father Family Medical History: No Reported History General Exam - General Exam Comments Initial Comments: GENERAL: Patient is well-developed and well-nourished. Patient is nontoxic and in no acute distress. HEAD: Atraumatic, normocephalic. EYES: Pupils equal round and reactive to light, extraocular movements intact, sclera anicteric, conjunctiva are normal. Eyelids were unremarkable. ENT: TMs normal, nares patent, oropharynx clear without exudates. Moist mucous membranes. NECK: Normal range of motion, supple without lymphadenopathy or JVD. LUNGS: Unlabored respirations. Breath sounds clear to auscultation bilaterally and equal. No wheezes rales or rhonchi. HEART: Regular rate and rhythm without murmurs, rubs or gallops. ABDOMEN: Mild suprapubic discomfort on palpation, no other areas of pain. No flank pain. Soft, normoactive bowel sounds. No guarding, no rebound. No masses appreciated. : Deferred MUSCULOSKELETAL: Normal extremities with adequate strength and normal range of motion, no pitting or edema. No clubbing or cyanosis. NEUROLOGICAL: Patient is alert and oriented x 3. Motor and sensory are also intact. Cranial nerves II through XII grossly intact. Symmetrical smile. Normal speech, normal gait. PSYCH: Normal mood, normal affect. SKIN: Warm, Dry, normal turgor, no rashes or lesions noted. Limitations: no limitations Course Vital Signs 08/09/20 19:38 Temperature 98.7 F Pulse Rate 87 Respiratory 18 Rate Blood Pressure 126/80 O2 Sat by Pulse 99 Oximetry Medical Decision Making - Medical Decision Making Patient is a 40-year-old female here with UTI-type symptoms for the last 3 days. She is afebrile, vitals are normal. Very mild suprapubic tenderness on palpation. No flank pain. Urine shows large amount of blood, wbc clumps. Urine culture is pending. Patient will be given 1 g Rocephin in the ER and started on Keflex. Patient is stable for discharge. Also recommended Pyridium for discomfort. Return parameters were discussed with the patient and she verbalized understanding. Case discussed with Dr. Whitney. - Lab Data Lab Results 08/09/20 Range/Units 20:12 Urine Color Yellow Urine Appearance Cloudy H (Clear) Urine pH 7.5 (5.0-8.0) Ur Specific [place] 1.020 (1.001-1.035) Urine Protein 1+ H (Negative) Urine Glucose (UA) Negative (Negative) Urine Ketones Negative (Negative) Urine Blood Large H (Negative) Urine Nitrite Negative (Negative) Urine Bilirubin Negative (Negative) Urine Urobilinogen <2.0 (<2.0) mg/dL Ur Leukocyte Esterase Large H (Negative) Urine RBC >182 H (0-5) /hpf Urine WBC >182 H (0-5) /hpf Urine WBC Clumps Moderate H (None) /hpf Ur Squamous Epith Cells 2 (0-4) /hpf Urine Bacteria Rare H (None) /hpf Urine Mucus Occasional H (None) /hpf Disposition Clinical Impression: Urinary tract infection Disposition: HOME SELF-CARE Condition: Stable Instructions (If sedation given, give patient instructions): Urinary Tract Infection in Women (ED) Additional Instructions: Please return to the Emergency Department if symptoms worsen or any other concerns. Take antibiotic as prescribed. Drink plenty of fluids as well. Follow-up with her regular doctor. Prescriptions: Cephalexin [Keflex] 500 mg PO BID 7 Days #14 cap Phenazopyridine [Pyridium] 200 mg PO TID #6 tablet Is patient prescribed a controlled substance at d/c from ED?: No Referrals: Duke Hidalgo MD [Primary Care Provider] - 1-2 days
[2020-08-09 21:09] VITALS: BP 108/69; PULSE 68
== END 2020-08-09 21:05 | disposition home or self-care (01) ==
LOC: EC 19:34
DX: N39.0 Urinary tract infection, site not specified (principal); G47.30 Sleep apnea, unspecified; Z99.89 Dependence on other enabling machines and devices; Z98.84 Bariatric surgery status; Z90.49 Acquired absence of other specified parts of digestive tract
CPT/HCPCS: 87086; 99284; 96372; J0696; 81001

== ENCOUNTER → 2020-08-31 | Outpatient (CLI) | payer OTHER ==
[2020-08-31 14:33] VITALS: BP 105/67; PULSE 80; RESP 16; TEMP 98.2; BMI 30.7
--- NOTE | 2020-08-31 17:46 | P.BASOAP ---
Subjective Progress Note Date: 08/31/20 Principal diagnosis: Morbid obesity Patient doing well. Last seen 12/15. Sleeve performed last September. Since her last visit she has lost 29 pounds. Underwent hysterectomy earlier this month. No significant weight loss over the last 3-4 months. Decent exercise routine she states. Patient has occasional reflux at night. He has episodes of vomiting may be 1-2 times per month after taking too big of bites/meals. Objective - Vital Signs Vital signs: Vital Signs Temp 98.2 F 08/31/20 14:30 Pulse 80 08/31/20 14:30 Resp 16 08/31/20 14:30 BP 105/67 08/31/20 14:30 Pulse Ox Intake & Output 08/30/20 08/31/20 08/31/20 18:59 06:59 18:59 Weight 86.183 kg - Exam Abdomen: Soft, nontender, nondistended Assessment/Plan (1) Morbid obesity with BMI of 40.0-44.9, adult Narrative/Plan: Patient doing well at this time. Continue dietary and exercise regimen. Check annual labs. Follow-up 6 months. Plan: Date: 08/31/20 Initial Weight: 124.341 kg Initial BMI: 44.2 Current Weight: 86.183 kg Current BMI: 30.7 Type of Surgery: Vertical Sleeve Gastrectomy Total Volume in Band: Previous Volume: Volume Removed: Volume Added: Band Size:
== END | disposition home or self-care (01) ==
LOC: BARWHC3 14:02
PROVIDERS: ATTEND Surgery
DX: E66.01 Morbid (severe) obesity due to excess calories (principal); Z68.41 Body mass index [BMI] 40.0-44.9, adult
CPT/HCPCS: 99211

== ENCOUNTER 2021-01-13 18:27 | Emergency (ER) | payer OTHER ==
[2021-01-13 18:35] VITALS: BP 113/59; PULSE 70; RESP 16; TEMP 98.3
[2021-01-13] MEDS ORDERED: MORPHINE SULFATE 4 MG/ML SYRINGE IVP STA (19:01)
[2021-01-13] MEDS ORDERED: methylPREDNISolone SOD SUCCI 125 MG/2 ML VIAL IM ONE (19:01)
[2021-01-13] MEDS ORDERED: MORPHINE SULFATE 4 MG/ML SYRINGE IM STA (19:11)
--- NOTE | 2021-01-13 19:47 | XR ---
EXAMINATION TYPE: XR lumbar spine 2 or 3V DATE OF EXAM: 01/13/2021 CLINICAL HISTORY: Sciatica. TECHNIQUE: Frontal and lateral images of the lumbar spine are obtained. COMPARISON: Lumbar spine x-ray September 06, 2018 FINDINGS: There are 5 lumbar type vertebral bodies redemonstrated. The lumbar spine shows stable al ignment without evidence of acute fracture or dislocation. Mild to moderate disc space narrowing L2-L 3 level redemonstrated. Prominent Schmorl node anterior inferior L2 endplate redemonstrated. Mild dis c space narrowing L5-S1 level redemonstrated. The overlying soft tissue appears unremarkable. IMPRESSION: As above. No significant change from prior
--- NOTE | 2021-01-13 19:53 | ED ---
Back Pain HPI - General Chief Complaint: Back Pain/Injury Stated Complaint: Lower Back Pain Time Seen by Provider: 01/13/21 18:56 Source: patient, RN notes reviewed Limitations: no limitations - History of Present Illness Initial Comments: Patient is a 40-year-old female that presents to the emergency department complaining of left lower back pain with radiation of the left leg. She does note that she has a history of sciatica and lower back pain. She notes that for the last several days to pain has been increasingly worse. She denied any injury or trauma. She denied any saddle anesthesia bladder or bowel incontinence retention. Patient was a well-appearing 40-year-old female who was well-hydrated in no apparent distress sitting up during the exam and interview. She denied any chest pain shortness of breath headache nausea vomiting diarrhea constipation fever fatigue chills. - Related Data Previous Rx's Medication Instructions Recorded Cephalexin [Keflex] 500 mg PO BID 7 Days #14 cap 08/09/20 Phenazopyridine [Pyridium] 200 mg PO TID #6 tablet 08/09/20 predniSONE 50 mg PO DAILY #5 tab 01/13/21 Allergies Allergy/AdvReac Type Severity Reaction Status Date / Time No Known Allergies Allergy Verified 01/13/21 18:35 Review of Systems ROS Statement: Those systems with pertinent positive or pertinent negative responses have been documented in the HPI. ROS Other: All systems not noted in ROS Statement are negative. 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 PT STATES OFF MEDICATIONS SINCE 13 Y/O AND LAST SEIZURE WAS 12 Y/O. hx migraines, varicose veins, PSORIASIS, hx ulcers, History of Any Multi-Drug Resistant Organisms: None Reported Past Surgical History: Bariatric Surgery, Section, Cholecystectomy, Hysterectomy, Tubal Ligation, Uterine Ablation Additional Past Surgical History / Comment(s): D&C Gastric Sleeve 09/08/19, Past Anesthesia/Blood Transfusion Reactions: Blood Transfusion Reaction Additional Past Anesthesia/Blood Transfusion Reaction / Comment(s): lightheaded with blood transfusion-"they had to stop it" Past Psychological History: Anxiety Smoking Status: Never smoker Past Alcohol Use History: Rare Past Drug Use History: None Reported - Past Family History Mother Family Medical History: No Reported History Additional Family Medical History / Comment(s): . Father Family Medical History: No Reported History General Exam Limitations: no limitations General appearance: alert, in no apparent distress Head exam: Present: atraumatic, normocephalic, normal inspection Eye exam: Present: normal appearance, PERRL, EOMI. Absent: scleral icterus, conjunctival injection, periorbital swelling Neck exam: Present: normal inspection Respiratory exam: Present: normal lung sounds bilaterally. Absent: respiratory distress, wheezes, rales, rhonchi, stridor Cardiovascular Exam: Present: regular rate, normal rhythm, normal heart sounds. Absent: systolic murmur, diastolic murmur, rubs, gallop, clicks Extremities exam: Present: normal inspection, full ROM, normal capillary refill. Absent: tenderness, pedal edema, joint swelling, calf tenderness Back exam: Present: normal inspection, tenderness (Left SI) Neurological exam: Present: alert, oriented X3 Psychiatric exam: Present: normal affect, normal mood Skin exam: Present: warm, dry, intact, normal color. Absent: rash Course Vital Signs 01/13/21 18:31 Temperature 98.3 F Pulse Rate 70 Respiratory 16 Rate Blood Pressure 113/59 O2 Sat by Pulse 100 Oximetry Medical Decision Making - Medical Decision Making 89-year-old female complaining of left lower back pain with radicular symptoms down the left leg. Lumbar x-ray, 125 mg of Solu-Medrol, 4 mg of morphine ordered. Lumbar x-ray negative for any acute fractures dislocations. Case discussed with Dr. Campo, patient can discharge home with follow-up to orthopedist. - Radiology Data Radiology results: report reviewed, image reviewed Lumbar x-ray: There are 5 lumbar vertebral bodies demonstrate. The lumbar spine shows stable line without evidence of acute fracture dislocation. Mild to moderate disc space narrowing L2 to L3 level redemonstrated. Prominent Schmorl node anterior inferior L2 endplate redemonstrated. Mild dissipate snowing L5-S1 level redemonstrated overlying soft tissue appears unremarkable. Disposition Clinical Impression: Sciatica, Lumbar radiculopathy Disposition: HOME SELF-CARE Condition: Stable Instructions (If sedation given, give patient instructions): Acute Low Back Pain (ED) Additional Instructions: Please return to the Emergency Department if symptoms worsen or any other concerns. Follow-up with primary care and orthopedist as needed. Take steroids as prescribed. Take Tylenol and/or Motrin as needed for pain control. Avoid any shortness activity or exercise. Is patient prescribed a controlled substance at d/c from ED?: No Referrals: Duke Hidalgo MD [Primary Care Provider] - 1-2 days Time of Disposition: 19:53
== END 2021-01-13 20:18 | disposition home or self-care (01) ==
LOC: EC 18:27
DX: M54.42 Lumbago with sciatica, left side (principal); M54.16 Radiculopathy, lumbar region; G40.909 Epilepsy, unspecified, not intractable, without status epilepticus; K21.9 Gastro-esophageal reflux disease without esophagitis; F41.9 Anxiety disorder, unspecified; Z79.899 Other long term (current) drug therapy
CPT/HCPCS: 72100; 96372 ×2; 99283; J2270; J2930

== ENCOUNTER 2021-02-05 23:13 | Emergency (ER) | payer OTHER ==
[2021-02-05 23:16] VITALS: BP 116/55; PULSE 77; RESP 18; TEMP 98.2
[2021-02-05] MEDS ORDERED: MORPHINE SULFATE 4 MG/ML SYRINGE IM STA (23:27)
[2021-02-05] MEDS ORDERED: methylPREDNISolone SOD SUCCI 125 MG/2 ML VIAL IM STA (23:27)
[2021-02-05] MEDS ORDERED: ACET/COD 300 MG/30 MG STARTER PACK 6 TAB BTL PO STA (23:51)
--- NOTE | 2021-02-05 23:52 | ED ---
Back Pain HPI - General Chief Complaint: Back Pain/Injury Stated Complaint: Back pain Time Seen by Provider: 02/05/21 23:22 Source: patient, RN notes reviewed Limitations: no limitations - History of Present Illness Initial Comments: Patient is a 40-year-old female that presents to emergency room complaining of left lower back pain with radicular symptoms on the left leg. She notes that she was seen here several weeks ago and the problem resolved. She notes that she did not follow up with her primary care as she was instructed to. She notes that today it flared up out of nowhere. She denied any injury trauma. She denied any odd bending twisting or lifting motions. She will otherwise a well- appearing 40-year-old female in no apparent distress or pain. She denied any chest pain shortness breath headache nausea vomiting diarrhea constipation fever fatigue chills. - Related Data Previous Rx's Medication Instructions Recorded Cephalexin [Keflex] 500 mg PO BID 7 Days #14 cap 08/09/20 Phenazopyridine [Pyridium] 200 mg PO TID #6 tablet 08/09/20 predniSONE 50 mg PO DAILY #5 tab 01/13/21 Allergies Allergy/AdvReac Type Severity Reaction Status Date / Time No Known Allergies Allergy Verified 02/05/21 23:16 Review of Systems ROS Statement: Those systems with pertinent positive or pertinent negative responses have been documented in the HPI. ROS Other: All systems not noted in ROS Statement are negative. 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 PT STATES OFF MEDICATIONS SINCE 13 Y/O AND LAST SEIZURE WAS 12 Y/O. hx migraines, varicose veins, PSORIASIS, hx ulcers, History of Any Multi-Drug Resistant Organisms: None Reported Past Surgical History: Bariatric Surgery, Section, Cholecystectomy, H ysterectomy, Tubal Ligation, Uterine Ablation Additional Past Surgical History / Comment(s): D&C Gastric Sleeve 09/08/19, Past Anesthesia/Blood Transfusion Reactions: Blood Transfusion Reaction Additional Past Anesthesia/Blood Transfusion Reaction / Comment(s): lightheaded with blood transfusion-"they had to stop it" Past Psychological History: Anxiety Smoking Status: Never smoker Past Alcohol Use History: Rare Past Drug Use History: None Reported - Past Family History Mother Family Medical History: No Reported History Additional Family Medical History / Comment(s): . Father Family Medical History: No Reported History General Exam Limitations: no limitations General appearance: alert, in no apparent distress Head exam: Present: atraumatic, normocephalic, normal inspection Eye exam: Present: normal appearance, PERRL, EOMI. Absent: scleral icterus, conjunctival injection, periorbital swelling Neck exam: Present: normal inspection Respiratory exam: Present: normal lung sounds bilaterally. Absent: respiratory distress, wheezes, rales, rhonchi, stridor Cardiovascular Exam: Present: regular rate, normal rhythm, normal heart sounds. Absent: systolic murmur, diastolic murmur, rubs, gallop, clicks Extremities exam: Present: normal inspection, full ROM, normal capillary refill. Absent: tenderness, pedal edema, joint swelling, calf tenderness Back exam: Present: normal inspection, tenderness (Left SI) Neurological exam: Present: alert, oriented X3 Psychiatric exam: Present: normal affect, normal mood Skin exam: Present: warm, dry, intact, normal color. Absent: rash Course Vital Signs 02/05/21 23:14 Temperature 98.2 F Pulse Rate 77 Respiratory 18 Rate Blood Pressure 116/55 O2 Sat by Pulse 100 Oximetry Medical Decision Making - Medical Decision Making 40-year-old female complaining of left lower back pain with radicular symptoms on the left flank, recently diagnosed with sciatica has not followed up with a primary care as directed. 125 mg of Solu-Medrol, 4 mg of morphine ordered. Given clinical signs and symptoms patient is having a flareup of sciatica with radicular symptoms. Case discussed with Dr. Hinds, patient can discharge home with follow-up to primary care. Disposition Clinical Impression: Sciatica, Lumbar radiculopathy Disposition: HOME SELF-CARE Condition: Stable Instructions (If sedation given, give patient instructions): Acute Low Back Pain (ED) Additional Instructions: Please return to the Emergency Department if symptoms worsen or any other concerns. Follow-up with primary care get referral for physical therapy to help with chronic sciatic pain. Take Tylenol 3 as prescribed. Avoid any strenuous activity or exercise. Is patient prescribed a controlled substance at d/c from ED?: No Referrals: Duke Hidalgo MD [Primary Care Provider] - 1-2 days Time of Disposition: 23:51
== END 2021-02-06 00:07 | disposition home or self-care (01) ==
LOC: EC 23:13
DX: M54.16 Radiculopathy, lumbar region (principal); M54.42 Lumbago with sciatica, left side; K21.9 Gastro-esophageal reflux disease without esophagitis; G40.909 Epilepsy, unspecified, not intractable, without status epilepticus; F41.9 Anxiety disorder, unspecified; Z79.52 Long term (current) use of systemic steroids; Z79.899 Other long term (current) drug therapy
CPT/HCPCS: 96372 ×2; 99283; J2270; J2930

== ENCOUNTER 2021-06-06 02:30 | Emergency (ER) | payer OTHER ==
[2021-06-06] MEDS ORDERED: ONDANSETRON 4 MG/2 ML VIAL IVP STA (05:09)
[2021-06-06] MEDS ORDERED: KETOROLAC 30 MG/ML 1 ML VIAL IVP STA (05:09)
[2021-06-06] MEDS ORDERED: SODIUM CHLORIDE 0.9% 1,000 ML IV STA ×2 (05:09)
[2021-06-06] MEDS ORDERED: MORPHINE SULFATE 4 MG/ML SYRINGE IV STA (05:09)
--- NOTE | 2021-06-06 05:12 | ED ---
Abdominal Pain HPI - General Chief Complaint: Abdominal Pain Stated Complaint: NOT FEELING WELL Time Seen by Provider: 06/06/21 04:20 Source: patient, RN notes reviewed, old records reviewed Mode of arrival: ambulatory Limitations: no limitations - History of Present Illness Initial Comments: This is a 41-year-old female to the ER for evaluation today. Patient Dese for evaluation regards to multiple complaints nausea vomiting abdominal pain. Chills bodyaches and pains. She does have a history of recent coronavirus about 6 months ago. No other travel history or sick contacts. No documented fevers patient has history of multiple surgeries in the past. Including bariatric surgery. MD Complaint: abdominal pain, other (Weakness nausea vomiting) -: days(s) Location: diffuse, epigastric, suprapubic Radiation: epigastric, suprapubic Migration to: no migration, epigastric, suprapubic Severity: mild Severity scale (1-10): 3 Quality: stabbing, fullness Consistency: constant, intermittent Improves With: nothing Worsens With: nothing Associated Symptoms: nausea, vomiting Treatments Prior to Arrival: other (none) - Related Data Previous Rx's Medication Instructions Recorded Cephalexin [Keflex] 500 mg PO BID 7 Days #14 cap 08/09/20 Phenazopyridine [Pyridium] 200 mg PO TID #6 tablet 08/09/20 predniSONE 50 mg PO DAILY #5 tab 01/13/21 Allergies Allergy/AdvReac Type Severity Reaction Status Date / Time No Known Allergies Allergy Verified 06/06/21 03:04 Review of Systems ROS Statement: Those systems with pertinent positive or pertinent negative responses have been documented in the HPI. ROS Other: All systems not noted in ROS Statement are negative. 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 PT STATES OFF MEDICATIONS SINCE 13 Y/O AND LAST SEIZURE WAS 12 Y/O. hx migraines, varicose veins, PSORIASIS, hx ulcers, History of Any Multi-Drug Resistant Organisms: None Reported Past Surgical History: Bariatric Surgery, Section, Cholecystectomy, Hysterectomy, Tubal Ligation, Uterine Ablation Additional Past Surgical History / Comment(s): D&C Gastric Sleeve 09/08/19, Past Anesthesia/Blood Transfusion Reactions: Blood Transfusion Reaction Additional Past Anesthesia/Blood Transfusion Reaction / Comment(s): lightheaded with blood transfusion-"they had to stop it" Past Psychological History: Anxiety Smoking Status: Never smoker Past Alcohol Use History: Rare Past Drug Use History: None Reported - Past Family History Mother Family Medical History: No Reported History Additional Family Medical History / Comment(s): . Father Family Medical History: No Reported History General Exam Limitations: no limitations General appearance: alert, in no apparent distress Head exam: Present: atraumatic, normocephalic, normal inspection Eye exam: Present: normal appearance, PERRL, EOMI. Absent: scleral icterus, conjunctival injection, periorbital swelling ENT exam: Present: normal exam, mucous membranes moist Neck exam: Present: normal inspection. Absent: tenderness, meningismus, lymphadenopathy Respiratory exam: Present: normal lung sounds bilaterally. Absent: respiratory distress, wheezes, rales, rhonchi, stridor Cardiovascular Exam: Present: regular rate, normal rhythm, normal heart sounds. Absent: systolic murmur, diastolic murmur, rubs, gallop, clicks GI/Abdominal exam: Present: soft, normal bowel sounds. Absent: distended, tenderness, guarding, rebound, rigid Extremities exam: Present: normal inspection, full ROM, normal capillary refill. Absent: tenderness, pedal edema, joint swelling, calf tenderness Back exam: Present: normal inspection Neurological exam: Present: alert, oriented X3, CN II-XII intact Psychiatric exam: Present: normal affect, normal mood Skin exam: Present: warm, dry, intact, normal color. Absent: rash Course Vital Signs 06/06/21 02:58 Temperature 98.2 F Pulse Rate 68 Respiratory 18 Rate Blood Pressure 116/78 O2 Sat by Pulse 99 Oximetry - Reevaluation(s) Reevaluation #1: 06/06/21 06:04 Medical record is reviewed Medical Decision Making - Lab Data Result diagrams: 06/06/21 06:33 Lab Results 06/06/21 06/06/21 06/06/21 Range/Units 03:06 05:47 06:33 WBC 7.2 (3.8-10.6) k/uL RBC 3.77 L (3.80-5.40) m/uL Hgb 11.9 (11.4-16.0) gm/dL Hct 34.3 (34.0-46.0) % MCV 90.9 (80.0-100.0) fL MCH 31.4 (25.0-35.0) pg MCHC 34.6 (31.0-37.0) g/dL RDW 12.0 (11.5-15.5) % Plt Count 274 (150-450) k/uL MPV 7.6 Neutrophils % 50 % Lymphocytes % 39 % Monocytes % 5 % Eosinophils % 4 % Basophils % 1 % Neutrophils # 3.6 (1.3-7.7) k/uL Lymphocytes # 2.8 (1.0-4.8) k/uL Monocytes # 0.4 (0-1.0) k/uL Eosinophils # 0.3 (0-0.7) k/uL Basophils # 0.0 (0-0.2) k/uL Urine Color Yellow Urine Appearance Cloudy H (Clear) Urine pH 6.0 (5.0-8.0) Ur Specific Somis 1.031 (1.001-1.035) Urine Protein Trace H (Negative) Urine Glucose (UA) Negative (Negative) Urine Ketones Negative (Negative) Urine Blood Negative (Negative) Urine Nitrite Positive H (Negative) Urine Bilirubin Negative (Negative) Urine Urobilinogen <2.0 (<2.0) mg/dL Ur Leukocyte Esterase Trace H (Negative) Urine RBC 1 (0-5) /hpf Urine WBC 8 H (0-5) /hpf Ur Squamous Epith Cells 10 H (0-4) /hpf Urine Bacteria Rare H (None) /hpf Urine Mucus Many H (None) /hpf Coronavirus (PCR) Not Detected (Not Detectd) Disposition Clinical Impression: Abdominal pain, UTI (urinary tract infection) Disposition: HOME SELF-CARE Condition: Good Instructions (If sedation given, give patient instructions): Abdominal Pain (ED) Is patient prescribed a controlled substance at d/c from ED?: No Referrals: Duke Hidalgo MD [Primary Care Provider] - 1-2 days
[2021-06-06 06:31] LABS: ALT 16 U/L (4-34); African American GFR (CKD) >90 (>60 ml/min/1.73 sqM); Albumin 3.8 g/dL (3.5-5.0); Amylase 72 U/L (30-110); Anion Gap 7 mmol/L; Blood Urea Nitrogen 13 mg/dL (7-17); Calcium 8.8 mg/dL (8.4-10.2); Carbon Dioxide 24 mmol/L (22-30); Chloride 107 mmol/L (98-107); Glucose 92 mg/dL (74-99); Lipase 110 U/L (23-300); Non-African American GFR(CKD) >90 (>60 ml/min/1.73 sqM); Sodium 138 mmol/L (137-145); Total Bilirubin 0.7 mg/dL (0.2-1.3); Total Protein 7.4 g/dL (6.3-8.2)
[2021-06-06 06:43] LABS: Appearance,Urine Cloudy (Clear); Bacteria,Urine Rare /hpf; Bilirubin,Urine Negative (Negative); Blood,Urine Negative (Negative); Color,Urine Yellow; Glucose,Urine (UA) Negative (Negative); Ketones,Urine Negative (Negative); Leukocyte Esterase,Urine Trace (Negative); Mucus,Urine Many /hpf; Nitrite,Urine Positive (Negative); Protein,Urine Trace (Negative); RBC,Urine 1 /hpf (0-5); Specific Gravity,Urine 1.031 (1.001-1.035); Squamous Epithelial Cell,Urine 10 /hpf (0-4); Urobilinogen,Urine <2.0 mg/dL (<2.0); WBC,Urine 8 /hpf (0-5)
[2021-06-06 06:50] LABS: Basophils % (A) 1 %; Eosinophils # (A) 0.3 k/uL (0-0.7); Eosinophils % (A) 4 %; HCT 34.3 % (34.0-46.0); HGB 11.9 gm/dL (11.4-16.0); Lymphocytes # (A) 2.8 k/uL (1.0-4.8); Lymphocytes % (A) 39 %; MCH 31.4 pg (25.0-35.0); MCHC 34.6 g/dL (31.0-37.0); MCV 90.9 fL (80.0-100.0); Mean Platelet Volume 7.6; Monocytes # (A) 0.4 k/uL (0-1.0); Monocytes % (A) 5 %; Neutrophils # (A) 3.6 k/uL (1.3-7.7); Neutrophils % (A) 50 %; Platelet Count 274 k/uL (150-450); RBC 3.77 m/uL (3.80-5.40); WBC 7.2 k/uL (3.8-10.6)
[2021-06-06 07:11] LABS: Alkaline Phosphatase 51 U/L (38-126); Potassium 4.7 mmol/L (3.5-5.1)
[2021-06-06 07:12] LABS: AST 30 U/L (14-36)
[2021-06-06 08:00] VITALS: BP 101/66; PULSE 73; RESP 16; TEMP 98.6
== END 2021-06-06 08:34 | disposition home or self-care (01) ==
LOC: EC 02:30
DX: N39.0 Urinary tract infection, site not specified (principal); Z20.822 Contact with and (suspected) exposure to COVID-19; K21.9 Gastro-esophageal reflux disease without esophagitis; G40.909 Epilepsy, unspecified, not intractable, without status epilepticus; F41.9 Anxiety disorder, unspecified; Z79.52 Long term (current) use of systemic steroids; Z79.899 Other long term (current) drug therapy
CPT/HCPCS: 36415; 80053; 82150; 83690; 85025; 81001; 87635; 96365; 96375 ×3; 96361; 99284; J2270; J2405; J0696; J1885

== ENCOUNTER 2021-06-11 08:11 | Emergency (ER) | payer OTHER ==
[2021-06-11 08:28] VITALS: TEMP 98.7
--- NOTE | 2021-06-11 08:44 | XR ---
KUB HISTORY: Right lower quadrant pain COMPARISON: 04/24/2018. TECHNIQUE: 2 upright views the abdomen were obtained FINDINGS: The lung bases are clear and there is no free air beneath the diaphragm. There are clips the right upper quadrant indicating prior cholecystectomy. The bowel gas pattern is nonspecific and there is no evidence of obstruction. No suspicious abdominal or pelvic calcification are seen. The osseous structures are IMPRESSION: 1. Cholecystectomy. 2. Clear lung bases and no free air. 3. Nonspecific bowel gas pattern.
[2021-06-11] MEDS ORDERED: SODIUM CHLORIDE 0.9% 500 ML 500 ML IV STA (10:28)
[2021-06-11] MEDS ORDERED: HYDROmorphone 0.5 MG/0.5 ML SYRINGE IVP STA (10:28)
[2021-06-11] MEDS ORDERED: SODIUM CHLORIDE 0.9% 1,000 ML IV STA (10:28)
[2021-06-11] MEDS ORDERED: KETOROLAC 30 MG/ML 1 ML VIAL IVP STA (10:28)
[2021-06-11] MEDS ORDERED: ONDANSETRON 4 MG/2 ML VIAL IVP STA (10:29)
[2021-06-11 11:12] LABS: Basophils % (A) 1 %; Eosinophils # (A) 0.2 k/uL (0-0.7); Eosinophils % (A) 3 %; HCT 37.5 % (34.0-46.0); HGB 12.5 gm/dL (11.4-16.0); Lymphocytes # (A) 2.3 k/uL (1.0-4.8); Lymphocytes % (A) 29 %; MCH 30.3 pg (25.0-35.0); MCHC 33.2 g/dL (31.0-37.0); MCV 91.2 fL (80.0-100.0); Mean Platelet Volume 7.8; Monocytes # (A) 0.4 k/uL (0-1.0); Monocytes % (A) 5 %; Neutrophils # (A) 4.8 k/uL (1.3-7.7); Neutrophils % (A) 61 %; Platelet Count 309 k/uL (150-450); RBC 4.12 m/uL (3.80-5.40); RDW 12.1 % (11.5-15.5); WBC 7.9 k/uL (3.8-10.6)
[2021-06-11 11:26] LABS: ALT 16 U/L (4-34); AST 21 U/L (14-36); African American GFR (CKD) >90 (>60 ml/min/1.73 sqM); Albumin 4.2 g/dL (3.5-5.0); Alkaline Phosphatase 65 U/L (38-126); Amylase 80 U/L (30-110); Anion Gap 8 mmol/L; Blood Urea Nitrogen 11 mg/dL (7-17); Calcium 9.4 mg/dL (8.4-10.2); Carbon Dioxide 25 mmol/L (22-30); Chloride 105 mmol/L (98-107); Glucose 95 mg/dL (74-99); Lipase 135 U/L (23-300); Non-African American GFR(CKD) >90 (>60 ml/min/1.73 sqM); Potassium 4.2 mmol/L (3.5-5.1); Sodium 138 mmol/L (137-145)
[2021-06-11 11:27] LABS: Appearance,Urine Cloudy (Clear); Bilirubin,Urine Negative (Negative); Blood,Urine Negative (Negative); Color,Urine Yellow; Glucose,Urine (UA) Negative (Negative); Ketones,Urine Negative (Negative); Leukocyte Esterase,Urine Negative (Negative); Mucus,Urine Many /hpf; Nitrite,Urine Negative (Negative); PH, Urine 5.5 (5.0-8.0); Protein,Urine Trace (Negative); RBC,Urine 1 /hpf (0-5); Specific Gravity,Urine 1.032 (1.001-1.035); Squamous Epithelial Cell,Urine 11 /hpf (0-4); Urobilinogen,Urine <2.0 mg/dL (<2.0); WBC,Urine 1 /hpf (0-5)
--- NOTE | 2021-06-11 12:15 | CT ---
EXAMINATION TYPE: CT abdomen pelvis w con DATE OF EXAM: 06/11/2021 COMPARISON: 07/13/20 HISTORY: RLQ pain CT DLP: 1488 mGycm Automated exposure control for dose reduction was used. TECHNIQUE: Helical acquisition of images was performed from the lung bases through the pelvis. CONTRAST: Performed without Oral Contrast and with IV Contrast, patient injected with 100 mL of Isovue 300. FINDINGS: LUNG BASES: No significant abnormality is appreciated. LIVER/GB: cholecystectomy. No liver abnormality PANCREAS: No significant abnormality is seen. SPLEEN: No significant abnormality is seen. ADRENALS: No significant abnormality is seen. KIDNEYS: No significant abnormality is seen. FREE AIR: No free air is visualized. RETROPERITONEAL ADENOPATHY: None visualized REPRODUCTIVE ORGANS: No significant abnormality is seen URINARY BLADDER: No significant abnormality is seen. PELVIC ADENOPATHY: None visualized. OSSEOUS STRUCTURES: No significant abnormality is seen. BOWEL: No significant abnormality is seen. OTHER: post bariatric surgical change of stomach IMPRESSION: post surgical changes of stomach o/w no sig abn seen
[2021-06-11] MEDS ORDERED: ACET/COD 300 MG/30 MG STARTER PACK 6 TAB BTL PO STA (12:21)
--- NOTE | 2021-06-11 12:22 | ED ---
Abdominal Pain HPI - General Chief Complaint: Abdominal Pain Stated Complaint: Abd Pain/Bodyaches Time Seen by Provider: 06/11/21 10:13 Source: patient, RN notes reviewed Mode of arrival: ambulatory Limitations: no limitations - History of Present Illness Initial Comments: 5-year-old female presents emergency Department chief complaint abdominal pain patient was seen here last week diagnosed UTI. She states she took the antibiotics but still has right lower quadrant pain. She's had a prior tubal ligation, hysterectomy multiple (issue. Patient is concerned about possible appendicitis. Patient denies any chest pain no shortness breath no flank pain - Related Data Previous Rx's Medication Instructions Recorded Cephalexin [Keflex] 500 mg PO BID 7 Days #14 cap 08/09/20 Phenazopyridine [Pyridium] 200 mg PO TID #6 tablet 08/09/20 predniSONE 50 mg PO DAILY #5 tab 01/13/21 Sulfamethox-Tmp 800-160Mg [Bactrim 1 tab PO Q12HR #100 tab 06/06/21 DS 800-160 mg] Allergies Allergy/AdvReac Type Severity Reaction Status Date / Time No Known Allergies Allergy Verified 06/11/21 08:28 Review of Systems ROS Statement: Those systems with pertinent positive or pertinent negative responses have been documented in the HPI. ROS Other: All systems not noted in ROS Statement are negative. 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 PT STATES OFF MEDICATIONS SINCE 13 Y/O AND LAST SEIZURE WAS 12 Y/O. hx migraines, varicose veins, PSORIASIS, hx ulcers, History of Any Multi-Drug Resistant Organisms: None Reported Past Surgical History: Bariatric Surgery, Section, Cholecystectomy, Hysterectomy, Tubal Ligation, Uterine Ablation Additional Past Surgical History / Comment(s): D&C Gastric Sleeve 09/08/19, Past Anesthesia/Blood Transfusion Reactions: Blood Transfusion Reaction Additional Past Anesthesia/Blood Transfusion Reaction / Comment(s): lightheaded with blood transfusion-"they had to stop it" Past Psychological History: Anxiety Smoking Status: Never smoker Past Alcohol Use History: Rare Past Drug Use History: None Reported - Past Family History Mother Family Medical History: No Reported History Additional Family Medical History / Comment(s): . Father Family Medical History: No Reported History General Exam Limitations: no limitations General appearance: alert, in no apparent distress Head exam: Present: atraumatic, normocephalic, normal inspection Eye exam: Present: normal appearance, PERRL, EOMI. Absent: scleral icterus, conjunctival injection, periorbital swelling ENT exam: Present: normal exam, mucous membranes moist Neck exam: Present: normal inspection. Absent: tenderness, meningismus, lymphadenopathy Respiratory exam: Present: normal lung sounds bilaterally. Absent: respiratory distress, wheezes, rales, rhonchi, stridor Cardiovascular Exam: Present: regular rate, normal rhythm, normal heart sounds. Absent: systolic murmur, diastolic murmur, rubs, gallop, clicks GI/Abdominal exam: Present: soft, tenderness, normal bowel sounds. Absent: distended, guarding, rebound, rigid Course Vital Signs 06/11/21 08:25 Temperature 98.7 F Pulse Rate 63 Respiratory 22 Rate Blood Pressure 110/74 O2 Sat by Pulse 100 Oximetry Medical Decision Making - Medical Decision Making CT and labs were reviewed no significant findings. Patient discharged in stable condition. Return parameters discussed. - Lab Data Result diagrams: 06/11/21 11:00 06/11/21 11:00 Lab Results 06/11/21 06/11/21 06/11/21 Range/Units 08:30 11:00 11:00 WBC 7.9 (3.8-10.6) k/uL RBC 4.12 (3.80-5.40) m/uL Hgb 12.5 (11.4-16.0) gm/dL Hct 37.5 (34.0-46.0) % MCV 91.2 (80.0-100.0) fL MCH 30.3 (25.0-35.0) pg MCHC 33.2 (31.0-37.0) g/dL RDW 12.1 (11.5-15.5) % Plt Count 309 (150-450) k/uL MPV 7.8 Neutrophils % 61 % Lymphocytes % 29 % Monocytes % 5 % Eosinophils % 3 % Basophils % 1 % Neutrophils # 4.8 (1.3-7.7) k/uL Lymphocytes # 2.3 (1.0-4.8) k/uL Monocytes # 0.4 (0-1.0) k/uL Eosinophils # 0.2 (0-0.7) k/uL Basophils # 0.0 (0-0.2) k/uL Sodium (137-145) mmol/L Potassium (3.5-5.1) mmol/L Chloride (98-107) mmol/L Carbon Dioxide (22-30) mmol/L Anion Gap mmol/L BUN (7-17) mg/dL Creatinine (0.52-1.04) mg/dL Est GFR (CKD-EPI)AfAm (>60 ml/min/1.73 sqM) Est GFR (CKD-EPI)NonAf (>60 ml/min/1.73 sqM) Glucose (74-99) mg/dL Plasma Lactic Acid Saúl (0.7-2.0) mmol/L Calcium (8.4-10.2) mg/dL Total Bilirubin (0.2-1.3) mg/dL AST (14-36) U/L ALT (4-34) U/L Alkaline Phosphatase (38-126) U/L Total Protein (6.3-8.2) g/dL Albumin (3.5-5.0) g/dL Amylase (30-110) U/L Lipase (23-300) U/L Urine Color Yellow Urine Appearance Cloudy H (Clear) Urine pH 5.5 (5.0-8.0) Ur Specific Par[place] 1.032 (1.001-1.035) Urine Protein Trace H (Negative) Urine Glucose (UA) Negative (Negative) Urine Ketones Negative (Negative) Urine Blood Negative (Negative) Urine Nitrite Negative (Negative) Urine Bilirubin Negative (Negative) Urine Urobilinogen <2.0 (<2.0) mg/dL Ur Leukocyte Esterase Negative (Negative) Urine RBC 1 (0-5) /hpf Urine WBC 1 (0-5) /hpf Ur Squamous Epith Cells 11 H (0-4) /hpf Urine Mucus Many H (None) /hpf Coronavirus (PCR) Not Detected (Not Detectd) 06/11/21 06/11/21 Range/Units 11:00 11:00 WBC (3.8-10.6) k/uL RBC (3.80-5.40) m/uL Hgb (11.4-16.0) gm/dL Hct (34.0-46.0) % MCV (80.0-100.0) fL MCH (25.0-35.0) pg MCHC (31.0-37.0) g/dL RDW (11.5-15.5) % Plt Count (150-450) k/uL MPV Neutrophils % % Lymphocytes % % Monocytes % % Eosinophils % % Basophils % % Neutrophils # (1.3-7.7) k/uL Lymphocytes # (1.0-4.8) k/uL Monocytes # (0-1.0) k/uL Eosinophils # (0-0.7) k/uL Basophils # (0-0.2) k/uL Sodium 138 (137-145) mmol/L Potassium 4.2 (3.5-5.1) mmol/L Chloride 105 (98-107) mmol/L Carbon Dioxide 25 (22-30) mmol/L Anion Gap 8 mmol/L BUN 11 (7-17) mg/dL Creatinine 0.66 (0.52-1.04) mg/dL Est GFR (CKD-EPI)AfAm >90 (>60 ml/min/1.73 sqM) Est GFR (CKD-EPI)NonAf >90 (>60 ml/min/1.73 sqM) Glucose 95 (74-99) mg/dL Plasma Lactic Acid Saúl 0.8 (0.7-2.0) mmol/L Calcium 9.4 (8.4-10.2) mg/dL Total Bilirubin 1.0 (0.2-1.3) mg/dL AST 21 (14-36) U/L ALT 16 (4-34) U/L Alkaline Phosphatase 65 (38-126) U/L Total Protein 8.0 (6.3-8.2) g/dL Albumin 4.2 (3.5-5.0) g/dL Amylase 80 (30-110) U/L Lipase 135 (23-300) U/L Urine Color Urine Appearance (Clear) Urine pH (5.0-8.0) Ur Specific [place] (1.001-1.035) Urine Protein (Negative) Urine Glucose (UA) (Negative) Urine Ketones (Negative) Urine Blood (Negative) Urine Nitrite (Negative) Urine Bilirubin (Negative) Urine Urobilinogen (<2.0) mg/dL Ur Leukocyte Esterase (Negative) Urine RBC (0-5) /hpf Urine WBC (0-5) /hpf Ur Squamous Epith Cells (0-4) /hpf Urine Mucus (None) /hpf Coronavirus (PCR) (Not Detectd) Disposition Clinical Impression: Abdominal pain Disposition: HOME SELF-CARE Condition: Stable Instructions (If sedation given, give patient instructions): Abdominal Pain (ED) Additional Instructions: Please return to the Emergency Department if symptoms worsen or any other concerns. Is patient prescribed a controlled substance at d/c from ED?: No Referrals: Duke Hidalgo MD [Primary Care Provider] - 1-2 days Time of Disposition: 12:22
[2021-06-11 12:45] VITALS: BP 125/80; PULSE 80; RESP 16
== END 2021-06-11 12:44 | disposition home or self-care (01) ==
LOC: EC 08:11
DX: R10.31 Right lower quadrant pain (principal); Z20.822 Contact with and (suspected) exposure to COVID-19; K21.9 Gastro-esophageal reflux disease without esophagitis; Z79.52 Long term (current) use of systemic steroids; Z79.899 Other long term (current) drug therapy
CPT/HCPCS: 36415; 80053; 82150; 83605; 83690; 85025; 81001; 87635; 74018; 74177; 99284; 96374; 96375 ×2; J2405; J1885; J1170; Q9967

== ENCOUNTER 2021-07-20 00:14 | Emergency (ER) | payer OTHER ==
[2021-07-20 00:42] VITALS: BP 114/76; PULSE 76; RESP 18; TEMP 99.2
[2021-07-20] MEDS ORDERED: ACETAMINOPHEN TAB 500 MG TAB PO STA (01:43)
--- NOTE | 2021-07-20 01:47 | ED ---
URI HPI - General Chief Complaint: Upper Respiratory Infection Stated Complaint: RT flank pain Time Seen by Provider: 07/20/21 01:21 Source: patient, RN notes reviewed Mode of arrival: ambulatory Limitations: no limitations - History of Present Illness Initial Comments: This is a pleasant 41-year-old female who presents to emergency department complaining of body aches, runny nose, nasal congestion, upset stomach, some nausea, minimal vomiting, patient states symptoms started last Sunday. Patient started getting some body aching on Sunday. Patient has been exposed to COVID-19 at work. Patient being seen during a pandemic. Patient has not vaccinated. Patient previously has had COVID-19 last year. No headache, no fever or chills, no changes in vision or hearing, no sore throat or difficulty with speech, no neck pain, no chest pain or shortness of breath, no abdominal pain, no nausea or vomiting, no changes in urination or bowel movements, no numbness or tingling, no extremity pain, no skin rashes or lesions. - Related Data Previous Rx's Medication Instructions Recorded Cephalexin [Keflex] 500 mg PO BID 7 Days #14 cap 08/09/20 Phenazopyridine [Pyridium] 200 mg PO TID #6 tablet 08/09/20 predniSONE 50 mg PO DAILY #5 tab 01/13/21 Sulfamethox-Tmp 800-160Mg [Bactrim 1 tab PO Q12HR #100 tab 06/06/21 DS 800-160 mg] Allergies Allergy/AdvReac Type Severity Reaction Status Date / Time No Known Allergies Allergy Verified 07/20/21 00:42 Review of Systems ROS Statement: Those systems with pertinent positive or pertinent negative responses have been documented in the HPI. ROS Other: All systems not noted in ROS Statement are negative. 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 PT STATES OFF MEDICATIONS SINCE 13 Y/O AND LAST SEIZURE WAS 12 Y/O. hx migraines, varicose veins, PSORIASIS, hx ulcers, History of Any Multi-Drug Resistant Organisms: None Reported Past Surgical History: Bariatric Surgery, Section, Cholecystectomy, Hysterectomy, Tubal Ligation, Uterine Ablation Additional Past Surgical History / Comment(s): D&C Gastric Sleeve 09/08/19, Past Anesthesia/Blood Transfusion Reactions: Blood Transfusion Reaction Additional Past Anesthesia/Blood Transfusion Reaction / Comment(s): lightheaded with blood transfusion-"they had to stop it" Past Psychological History: Anxiety Smoking Status: Never smoker Past Alcohol Use History: Rare Past Drug Use History: None Reported - Past Family History Mother Family Medical History: No Reported History Additional Family Medical History / Comment(s): . Father Family Medical History: No Reported History General Exam - General Exam Comments Initial Comments: Nontoxic-appearing female. Vital signs stable, patient afebrile. No evidence of respiratory distress. No adventitious lung sounds. Cranial nerves II through XII grossly intact. Adequately hydrated. Capillary refill less than 2 seconds. Limitations: no limitations General appearance: alert, in no apparent distress Head exam: Present: atraumatic, normocephalic, normal inspection Eye exam: Present: normal appearance, PERRL, EOMI. Absent: scleral icterus, conjunctival injection, periorbital swelling ENT exam: Present: normal exam, mucous membranes moist Neck exam: Present: normal inspection. Absent: tenderness, meningismus, lymphadenopathy Respiratory exam: Present: normal lung sounds bilaterally. Absent: respiratory distress, wheezes, rales, rhonchi, stridor Cardiovascular Exam: Present: regular rate, normal rhythm, normal heart sounds. Absent: systolic murmur, diastolic murmur, rubs, gallop, clicks GI/Abdominal exam: Present: soft, normal bowel sounds. Absent: distended, tenderness, guarding, rebound, rigid Extremities exam: Present: normal inspection, full ROM, normal capillary refill. Absent: tenderness, pedal edema, joint swelling, calf tenderness Back exam: Present: normal inspection Neurological exam: Present: alert, oriented X3, CN II-XII intact Psychiatric exam: Present: normal affect, normal mood Skin exam: Present: warm, dry, intact, normal color. Absent: rash Course Vital Signs 07/20/21 00:37 Temperature 99.2 F Pulse Rate 76 Respiratory 18 Rate Blood Pressure 114/76 O2 Sat by Pulse 98 Oximetry Medical Decision Making - Medical Decision Making Patient counseled extensively on quarantine measures. Counseled on treatment for COVID-19. Return ethanol primary was discussed in detail. Patient voiced understanding. All questions answered. Patient was told to return to the ER for any signs or symptoms worsen. Told to return immediately if any other problems arise. All questions answered. Treatment plan discussed. Patient in agreement - Lab Data Lab Results 07/20/21 Range/Units 00:43 Coronavirus (PCR) Detected A (Not Detectd) Disposition Clinical Impression: COVID-19 Disposition: HOME SELF-CARE Condition: Stable Instructions (If sedation given, give patient instructions): Coronavirus Disease 2019 (COVID-19) Additional Instructions: SELF QUARANTINE DISCHARGE: As you are at risk for symptoms due to coronavirus, please stay home and stay away from others as much as possible. Please maintain social distance of 6 feet if possible. You should not return to work until at least 3 days (72 hours) have passed since recovery of symptoms. This defined as resolution of fever without the use of fever reducing medicines and improvement in respiratory symptoms (e.g,, cough, shortness of breath) and, At least 5 days have passed since symptoms first appeared. More information about what to do if you are sick can be found on the CDC website at https://www.cdc.gov/schwartz virus/2019-ncov/xh-bhg-okb-sick/akipj-jmex-buby.html Expect the symptoms to last for 7-14 days from onset. Use acetaminophen (Tylenol) as needed for discomfort. You can take a maximum of 1 gram every 6 hours for discomfort, with your total dose in 24 hours not exceeding 4 grams. Be sure to maintain hydration. Drink continuous water and/or items high in vitamin C, such as orange juice and/or lemonade. Unless you have high blood pressure, you may consider Sudafed (which is [id number]) for nasal congestion. I would suggest that a short acting Sudafed rather than the 24 hour Sudafed. For a cough you may take Mucinex or Robitussin. Also consider the use of Vicks Vapor Rub or your chest when you sleep. Use a humidifier that is cleaned frequently, in the bedroom at night. For Nausea /Vomiting/Diarrhea associated with your Illness: o Small frequent sips of room temperature liquids. o Diet: Reserve Foods - If you are still experiencing discomfort and/or nausea please slowly advancing your diet using the BRAT Diet = bananas, rice, apples/apple sauce, toast. o With diarrhea avoid any dairy for 48 hours after symptoms resolved. o Continue with activity as tolerated. If your symptoms do get worse and you believe that the upper respiratory infection has developed into something else, such as pneumonia or severe dehydration, please return to the emergency department or follow-up with your primary care. But expect to be symptomatic for the days as indicated above Is patient prescribed a controlled substance at d/c from ED?: No Referrals: Duke Hidalgo MD [Primary Care Provider] - 07/27/21 Time of Disposition: 01:39
== END 2021-07-20 01:52 | disposition home or self-care (01) ==
LOC: EC 00:14
DX: U07.1 COVID-19 (principal); K21.9 Gastro-esophageal reflux disease without esophagitis; F41.9 Anxiety disorder, unspecified; Z98.84 Bariatric surgery status; Z90.49 Acquired absence of other specified parts of digestive tract; Z90.710 Acquired absence of both cervix and uterus; Z98.51 Tubal ligation status
CPT/HCPCS: 87635; 99284

== ENCOUNTER 2021-07-26 23:25 | Emergency (ER) | payer OTHER ==
[2021-07-26 23:42] VITALS: TEMP 98.5
[2021-07-27] MEDS ORDERED: DEXAMETHASONE SOD PHOSPHATE 10 MG/ML 1 ML VIAL IVP STA (02:28)
[2021-07-27] MEDS ORDERED: ONDANSETRON 4 MG/2 ML VIAL IVP STA (02:28)
[2021-07-27] MEDS ORDERED: ACETAMINOPHEN TAB 500 MG TAB PO STA (02:28)
[2021-07-27] MEDS ORDERED: SODIUM CHLORIDE 0.9% 500 ML 500 ML IV STA (02:28)
[2021-07-27] MEDS ORDERED: PANTOPRAZOLE 40 MG/10 ML VIAL IVP STA (02:28)
[2021-07-27] MEDS ORDERED: SODIUM CHLORIDE 0.9% 1,000 ML IV STA ×2 (02:28)
[2021-07-27] MEDS ORDERED: KETOROLAC 15 MG/ML 1 ML VIAL IVP STA (02:28)
--- NOTE | 2021-07-27 02:50 | ED ---
Recheck HPI - General Chief Complaint: Upper Respiratory Infection Stated Complaint: NVD Time Seen by Provider: 07/27/21 01:52 Source: patient, RN notes reviewed, old records reviewed Mode of arrival: ambulatory Limitations: no limitations - History of Present Illness Initial Comments: This is a 41-year-old female DF for evaluation positive Kovic test for about a week. Patient states symptoms of been progressively catching up with her with bodyaches dehydration weakness nausea vomiting occasional diarrhea. Occasional abdominal pain no shortness of breath she is having some occasional persistent fevers. She has recent sore throat which is significant. Otherwise she denies any history of travel she's been staying home, Complaint: abnormal lab (Positive for coronavirus) -: week(s) Returns Today for: Called Because of Abnormal Lab/Test, persistent/worsening pain related to initial visit Symptoms Since Prior Visit: worsening pain, fever Context: planned re-check, ran out of medication Associated Symptoms: fever, chills, malaise, nausea, abdominal pain Treatments Prior to Arrival: other medications - Related Data Previous Rx's Medication Instructions Recorded Cephalexin [Keflex] 500 mg PO BID 7 Days #14 cap 08/09/20 Phenazopyridine [Pyridium] 200 mg PO TID #6 tablet 08/09/20 predniSONE 50 mg PO DAILY #5 tab 01/13/21 Sulfamethox-Tmp 800-160Mg [Bactrim 1 tab PO Q12HR #100 tab 06/06/21 DS 800-160 mg] Dexamethasone [Decadron] 6 mg PO DAILY #5 tablet 07/27/21 Allergies Allergy/AdvReac Type Severity Reaction Status Date / Time No Known Allergies Allergy Verified 07/26/21 23:42 Review of Systems ROS Statement: Those systems with pertinent positive or pertinent negative responses have been documented in the HPI. ROS Other: All systems not noted in ROS Statement are negative. 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 PT STATES OFF MEDICATIONS SINCE 13 Y/O AND LAST SEIZURE WAS 12 Y/O. hx migraines, varicose veins, PSORIASIS, hx ulcers, History of Any Multi-Drug Resistant Organisms: None Reported Past Surgical History: Bariatric Surgery, Section, Cholecystectomy, Hysterectomy, Tubal Ligation, Uterine Ablation Additional Past Surgical History / Comment(s): D&C Gastric Sleeve 09/08/19, Past Anesthesia/Blood Transfusion Reactions: Blood Transfusion Reaction Additional Past Anesthesia/Blood Transfusion Reaction / Comment(s): lightheaded with blood transfusion-"they had to stop it" Past Psychological History: Anxiety Smoking Status: Never smoker Past Alcohol Use History: Rare Past Drug Use History: None Reported - Past Family History Mother Family Medical History: No Reported History Additional Family Medical History / Comment(s): . Father Family Medical History: No Reported History General Exam Limitations: no limitations General appearance: alert, in no apparent distress Head exam: Present: atraumatic, normocephalic, normal inspection Eye exam: Present: normal appearance, PERRL, EOMI. Absent: scleral icterus, conjunctival injection, periorbital swelling ENT exam: Present: normal exam, mucous membranes moist Neck exam: Present: normal inspection. Absent: tenderness, meningismus, lymphadenopathy Respiratory exam: Present: normal lung sounds bilaterally. Absent: respiratory distress, wheezes, rales, rhonchi, stridor Cardiovascular Exam: Present: regular rate, normal rhythm, normal heart sounds. Absent: systolic murmur, diastolic murmur, rubs, gallop, clicks GI/Abdominal exam: Present: soft, normal bowel sounds. Absent: distended, tenderness, guarding, rebound, rigid Extremities exam: Present: normal inspection, full ROM, normal capillary refill. Absent: tenderness, pedal edema, joint swelling, calf tenderness Back exam: Present: normal inspection Neurological exam: Present: alert, oriented X3, CN II-XII intact Psychiatric exam: Present: normal affect, normal mood Skin exam: Present: warm, dry, intact, normal color. Absent: rash Course Vital Signs 07/26/21 07/27/21 23:40 05:00 Temperature 98.5 F Pulse Rate 88 85 Respiratory 18 16 Rate Blood Pressure 111/65 118/58 O2 Sat by Pulse 98 96 Oximetry - Reevaluation(s) Reevaluation #1: 07/27/21 Medical record is reviewed Patient symptoms are significantly improved here in the emergency department Patient informed of results and questions answered Medical Decision Making - Medical Decision Making 41 female to the emergency department for evaluation, presented today for evalua tion regards to abdominal pain with nausea vomiting in the setting of coronavirus. Patient is doing well feeling improved here in the ER is okay for discharge home - Lab Data Result diagrams: 07/27/21 02:43 07/27/21 02:43 Lab Results 07/27/21 07/27/21 07/27/21 Range/Units 02:43 02:43 02:43 WBC 11.3 H (3.8-10.6) k/uL RBC 4.50 (3.80-5.40) m/uL Hgb 13.7 (11.4-16.0) gm/dL Hct 42.2 (34.0-46.0) % MCV 93.8 (80.0-100.0) fL MCH 30.4 (25.0-35.0) pg MCHC 32.4 (31.0-37.0) g/dL RDW 12.8 (11.5-15.5) % Plt Count 337 (150-450) k/uL MPV 7.1 Neutrophils % 78 % Lymphocytes % 15 % Monocytes % 4 % Eosinophils % 1 % Basophils % 0 % Neutrophils # 8.8 H (1.3-7.7) k/uL Lymphocytes # 1.7 (1.0-4.8) k/uL Monocytes # 0.4 (0-1.0) k/uL Eosinophils # 0.1 (0-0.7) k/uL Basophils # 0.1 (0-0.2) k/uL Sodium 137 (137-145) mmol/L Potassium 4.5 (3.5-5.1) mmol/L Chloride 103 (98-107) mmol/L Carbon Dioxide 24 (22-30) mmol/L Anion Gap 10 mmol/L BUN 9 (7-17) mg/dL Creatinine 0.56 (0.52-1.04) mg/dL Est GFR (CKD-EPI)AfAm >90 (>60 ml/min/1.73 sqM) Est GFR (CKD-EPI)NonAf >90 (>60 ml/min/1.73 sqM) Glucose 94 (74-99) mg/dL Plasma Lactic Acid Saúl 0.9 (0.7-2.0) mmol/L Calcium 9.5 (8.4-10.2) mg/dL Magnesium 1.9 (1.6-2.3) mg/dL Total Bilirubin 0.9 (0.2-1.3) mg/dL AST 21 (14-36) U/L ALT 15 (4-34) U/L Alkaline Phosphatase 84 (38-126) U/L Lactate Dehydrogenase 425 (313-618) U/L C-Reactive Protein 2.7 H (<1.0) mg/dL Total Protein 8.3 H (6.3-8.2) g/dL Albumin 4.4 (3.5-5.0) g/dL - EKG Data -: EKG Interpreted by Me (EKG is sinus rhythm 78 MO 152 QRS 84 QTc 405) - Radiology Data Radiology results: report reviewed (Chest x-rays negative for acute disease), image reviewed Disposition Clinical Impression: Acute upper respiratory infection, COVID-19, Nausea & vomiting Disposition: HOME SELF-CARE Condition: Good Instructions (If sedation given, give patient instructions): Coronavirus Disease 2019 (COVID-19), Acute Nausea and Vomiting (ED) Prescriptions: Dexamethasone [Decadron] 6 mg PO DAILY #5 tablet Is patient prescribed a controlled substance at d/c from ED?: No Referrals: Duke Hidalgo MD [Primary Care Provider] - 1-2 days
[2021-07-27 03:04] LABS: Basophils # (A) 0.1 k/uL (0-0.2); Basophils % (A) 0 %; Eosinophils # (A) 0.1 k/uL (0-0.7); Eosinophils % (A) 1 %; HCT 42.2 % (34.0-46.0); HGB 13.7 gm/dL (11.4-16.0); Lymphocytes # (A) 1.7 k/uL (1.0-4.8); Lymphocytes % (A) 15 %; MCH 30.4 pg (25.0-35.0); MCHC 32.4 g/dL (31.0-37.0); MCV 93.8 fL (80.0-100.0); Mean Platelet Volume 7.1; Monocytes # (A) 0.4 k/uL (0-1.0); Monocytes % (A) 4 %; Neutrophils # (A) 8.8 k/uL (1.3-7.7); Neutrophils % (A) 78 %; Platelet Count 337 k/uL (150-450); RDW 12.8 % (11.5-15.5); WBC 11.3 k/uL (3.8-10.6)
--- NOTE | 2021-07-27 03:08 | XR ---
EXAMINATION TYPE: XR chest 1V portable DATE OF EXAM: 07/27/2021 COMPARISON: 04/22/2019 HISTORY: Short of breath TECHNIQUE: Single view FINDINGS: Heart and mediastinum are normal. Lungs are clear. Diaphragm is normal. Bony thorax is inta ct. IMPRESSION: Normal chest. No change.
[2021-07-27 03:22] LABS: ALT 15 U/L (4-34); AST 21 U/L (14-36); African American GFR (CKD) >90 (>60 ml/min/1.73 sqM); Albumin 4.4 g/dL (3.5-5.0); Alkaline Phosphatase 84 U/L (38-126); Anion Gap 10 mmol/L; Blood Urea Nitrogen 9 mg/dL (7-17); C Reactive Protein 2.7 mg/dL (<1.0); Calcium 9.5 mg/dL (8.4-10.2); Carbon Dioxide 24 mmol/L (22-30); Chloride 103 mmol/L (98-107); Glucose 94 mg/dL (74-99); LDH 425 U/L (313-618); Magnesium 1.9 mg/dL (1.6-2.3); Non-African American GFR(CKD) >90 (>60 ml/min/1.73 sqM); Potassium 4.5 mmol/L (3.5-5.1); Sodium 137 mmol/L (137-145); Total Bilirubin 0.9 mg/dL (0.2-1.3); Total Protein 8.3 g/dL (6.3-8.2)
[2021-07-27] MEDS ORDERED: ACET/COD 300 MG/30 MG STARTER PACK 6 TAB BTL PO STA (04:16)
[2021-07-27] MEDS ORDERED: ONDANSETRON 4 MG ODT STARTER PACK 2 TAB BTL PO STA (04:16)
[2021-07-27] MEDS ORDERED: IBUPROFEN 600 MG STARTER PACK 4 TAB BTL PO STA (04:16)
[2021-07-27 05:15] VITALS: BP 118/58; PULSE 85; RESP 16
== END 2021-07-27 05:05 | disposition home or self-care (01) ==
LOC: EC 23:25
DX: U07.1 COVID-19 (principal); J06.9 Acute upper respiratory infection, unspecified; K21.9 Gastro-esophageal reflux disease without esophagitis; F41.9 Anxiety disorder, unspecified; Z98.84 Bariatric surgery status; Z90.49 Acquired absence of other specified parts of digestive tract; Z90.710 Acquired absence of both cervix and uterus; Z98.51 Tubal ligation status
CPT/HCPCS: 99285; 96374; 96375 ×3; 36415; 93005; 80053; 83605; 83615; 83735; 85025; 86140; 71045; J1100; J2405; J1885; S0119; C9113

== ENCOUNTER 2021-08-09 19:04 | Emergency (ER) | payer OTHER ==
[2021-08-09 20:22] VITALS: BP 107/73; PULSE 95; RESP 20; TEMP 98.1
--- NOTE | 2021-08-09 23:02 | ED ---
General Adult HPI - General Chief complaint: Upper Respiratory Infection Stated complaint: chest congestion, SOB Time Seen by Provider: 08/09/21 21:17 Source: patient Mode of arrival: ambulatory Limitations: no limitations - History of Present Illness Initial comments: 41-year-old female presents to the emergency room for a chief complaint of not feeling well. Patient reports she has had a cough sore throat, congestion, and body aches since 2 days ago. Patient states she just had Covid about 3 weeks ago but it feels similar. Patient admits to minimal shortness of breath. Denies any chest pain.Patient has no other complaints at this time including chest pain, abdominal pain, nausea or vomiting, headache, or visual changes. - Related Data Previous Rx's Medication Instructions Recorded Cephalexin [Keflex] 500 mg PO BID 7 Days #14 cap 08/09/20 Phenazopyridine [Pyridium] 200 mg PO TID #6 tablet 08/09/20 predniSONE 50 mg PO DAILY #5 tab 01/13/21 Sulfamethox-Tmp 800-160Mg [Bactrim 1 tab PO Q12HR #100 tab 06/06/21 DS 800-160 mg] Dexamethasone [Decadron] 6 mg PO DAILY #5 tablet 07/27/21 Albuterol Inhaler [Ventolin Hfa 2 puff INHALATION RT-QID PRN #8 gm 08/09/21 Inhaler] Benzonatate [Tessalon Perles] 200 mg PO Q8H PRN #15 capsule 08/09/21 guaiFENesin [Mucinex] 600 mg PO Q12HR PRN #20 tab 08/09/21 Allergies Allergy/AdvReac Type Severity Reaction Status Date / Time No Known Allergies Allergy Verified 08/09/21 20:19 Review of Systems ROS Statement: Those systems with pertinent positive or pertinent negative responses have been documented in the HPI. ROS Other: All systems not noted in ROS Statement are negative. 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 PT STATES OFF MEDICATIONS SINCE 13 Y/O AND LAST SEIZURE WAS 12 Y/O. hx migraines, varicose veins, PSORIASIS, hx ulcers, History of Any Multi-Drug Resistant Organisms: None Reported Past Surgical History: Bariatric Surgery, Section, Cholecystectomy, Hysterectomy, Tubal Ligation, Uterine Ablation Additional Past Surgical History / Comment(s): D&C Gastric Sleeve 09/08/19, Past Anesthesia/Blood Transfusion Reactions: Blood Transfusion Reaction Additional Past Anesthesia/Blood Transfusion Reaction / Comment(s): lightheaded with blood transfusion-"they had to stop it" Past Psychological History: Anxiety Smoking Status: Never smoker Past Alcohol Use History: Rare Past Drug Use History: None Reported - Past Family History Mother Family Medical History: No Reported History Additional Family Medical History / Comment(s): . Father Family Medical History: No Reported History General Exam Limitations: no limitations General appearance: alert, in no apparent distress Head exam: Present: atraumatic Eye exam: Present: normal appearance, PERRL, EOMI. Absent: scleral icterus, conjunctival injection ENT exam: Present: normal exam, normal oropharynx (Uvula midline, no tonsillar exudates bilaterally), mucous membranes moist, normal external ear exam Neck exam: Present: normal inspection, full ROM. Absent: tenderness Respiratory exam: Present: normal lung sounds bilaterally. Absent: respiratory distress, wheezes Cardiovascular Exam: Present: regular rate, normal rhythm, normal heart sounds GI/Abdominal exam: Present: soft, normal bowel sounds. Absent: distended, tenderness Course Vital Signs 08/09/21 20:19 Temperature 98.1 F Pulse Rate 95 Respiratory 20 Rate Blood Pressure 107/73 O2 Sat by Pulse 98 Oximetry Medical Decision Making - Medical Decision Making Vitals are stable. Patient is afebrile. She is well-appearing. Patient did test positive for COVID-19 again. Suspect this is a reinfection of the COVID-19 virus given her acute symptoms. Patient does not qualify for antibody infusion. At this time patient will be discharged home to follow up with primary care. She should return here for any worsening symptoms. - Lab Data Lab Results 08/09/21 Range/Units 20:22 Coronavirus (PCR) Detected A (Not Detectd) Disposition Clinical Impression: COVID-19 Disposition: HOME SELF-CARE Condition: Good Instructions (If sedation given, give patient instructions): Coronavirus Disease 2019 (COVID-19) Additional Instructions: Take vitamin C, D, and zinc [id number]. Take prescription medications as directed. Please follow up with your doctor in 1-2 days. Return to the ER for any worsening symptoms. Prescriptions: guaiFENesin [Mucinex] 600 mg PO Q12HR PRN #20 tab PRN Reason: Congestion Benzonatate [Tessalon Perles] 200 mg PO Q8H PRN #15 capsule PRN Reason: Cough Albuterol Inhaler [Ventolin Hfa Inhaler] 2 puff INHALATION RT-QID PRN #8 gm PRN Reason: Shortness Of Breath Is patient prescribed a controlled substance at d/c from ED?: No Referrals: Duke Hidalgo MD [Primary Care Provider] - 1-2 days Time of Disposition: 23:01
== END 2021-08-09 23:22 | disposition home or self-care (01) ==
LOC: EC 19:04
DX: U07.1 COVID-19 (principal); F41.9 Anxiety disorder, unspecified; K21.9 Gastro-esophageal reflux disease without esophagitis; Z79.52 Long term (current) use of systemic steroids; Z79.899 Other long term (current) drug therapy
CPT/HCPCS: 87635; 99284

== ENCOUNTER 2021-10-25 22:16 | Emergency (ER) | payer OTHER ==
[2021-10-25 22:30] VITALS: BP 107/62; PULSE 74; RESP 18; TEMP 98
[2021-10-25] MEDS ORDERED: KETOROLAC 15 MG/ML 1 ML VIAL IVP STA (23:28)
[2021-10-25] MEDS ORDERED: SODIUM CHLORIDE 0.9% 1,000 ML IV STA (23:28)
[2021-10-25] MEDS ORDERED: ONDANSETRON 4 MG/2 ML VIAL IVP STA (23:28)
--- NOTE | 2021-10-25 23:34 | ED ---
General Adult HPI - General Chief complaint: Back Pain/Injury Stated complaint: Right Side Pain Time Seen by Provider: 10/25/21 23:20 Source: patient, RN notes reviewed, old records reviewed Mode of arrival: ambulatory Limitations: no limitations - History of Present Illness Initial comments: 41-year-old female oriented 4 presents with complaints of right lower quadrant pain started approximately 4 hours ago radiates into her right lower back. Patient states history of cholecystectomy and hysterectomy. She has had problems with ovarian cysts in the past. She denies any fevers. No nausea vomiting or diarrhea. She denies any dysuria or vaginal bleeding. She denies any chest pain and difficulty in breathing. -: hour(s) (4) Location: abdomen (RLQ) Radiation: flank (right flank) Severity scale (1-10): 7 Quality: sharp Consistency: constant Improves with: none Worsens with: other (palpation) Associated Symptoms: denies other symptoms - Related Data Previous Rx's Medication Instructions Recorded Cephalexin [Keflex] 500 mg PO BID 7 Days #14 cap 08/09/20 Phenazopyridine [Pyridium] 200 mg PO TID #6 tablet 08/09/20 predniSONE 50 mg PO DAILY #5 tab 01/13/21 Sulfamethox-Tmp 800-160Mg [Bactrim 1 tab PO Q12HR #100 tab 06/06/21 DS 800-160 mg] Dexamethasone [Decadron] 6 mg PO DAILY #5 tablet 07/27/21 Albuterol Inhaler [Ventolin Hfa 2 puff INHALATION RT-QID PRN #8 gm 08/09/21 Inhaler] Benzonatate [Tessalon Perles] 200 mg PO Q8H PRN #15 capsule 08/09/21 guaiFENesin [Mucinex] 600 mg PO Q12HR PRN #20 tab 08/09/21 Allergies Allergy/AdvReac Type Severity Reaction Status Date / Time No Known Allergies Allergy Verified 10/25/21 22:30 Review of Systems ROS Statement: Those systems with pertinent positive or pertinent negative responses have been documented in the HPI. ROS Other: All systems not noted in ROS Statement are negative. 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 PT STATES OFF MEDICATIONS SINCE 13 Y/O AND LAST SEIZURE WAS 12 Y/O. hx migraines, varicose veins, PSORIASIS, hx ulcers, History of Any Multi-Drug Resistant Organisms: None Reported Past Surgical History: Bariatric Surgery, Section, Cholecystectomy, Hysterectomy, Tubal Ligation, Uterine Ablation Additional Past Surgical History / Comment(s): D&C Gastric Sleeve 09/08/19, Past Anesthesia/Blood Transfusion Reactions: Blood Transfusion Reaction Additional Past Anesthesia/Blood Transfusion Reaction / Comment(s): lightheaded with blood transfusion-"they had to stop it" Past Psychological History: Anxiety Smoking Status: Never smoker Past Alcohol Use History: Rare Past Drug Use History: None Reported - Past Family History Mother Family Medical History: No Reported History Additional Family Medical History / Comment(s): . Father Family Medical History: No Reported History General Exam Limitations: no limitations General appearance: alert, in no apparent distress Head exam: Present: atraumatic, normal inspection ENT exam: Present: normal oropharynx, mucous membranes moist Neck exam: Present: normal inspection, full ROM. Absent: tenderness, meningismus, lymphadenopathy, thyromegaly Respiratory exam: Present: normal lung sounds bilaterally. Absent: respiratory distress, accessory muscle use Cardiovascular Exam: Present: regular rate, normal rhythm. Absent: JVD GI/Abdominal exam: Present: soft, tenderness (Right lower quadrant). Absent: distended, guarding, rebound, rigid, mass Extremities exam: Present: normal inspection, normal capillary refill. Absent: pedal edema Back exam: Present: normal inspection, full ROM. Absent: tenderness, CVA tenderness (R), CVA tenderness (L), rash noted Neurological exam: Present: alert, oriented X3 Psychiatric exam: Present: normal affect, normal mood Skin exam: Present: warm, dry, intact, normal color. Absent: rash, cyanosis, diaphoretic, pallor Course Vital Signs 10/25/21 22:28 Temperature 98 F Pulse Rate 74 Respiratory 18 Rate Blood Pressure 107/62 O2 Sat by Pulse 98 Oximetry Medical Decision Making - Medical Decision Making Patient presents with right lower quadrant abdominal pain that started tonight. She has a history of ovarian cysts. Surgical history of cholecystectomy and partial hysterectomy. She denies any fevers. Ultrasound was done however was unable to visualize ovaries or appendix. CT was done showing a normal appendix. Kidneys without hydronephrosis. No free fluid in the pelvis or pelvic masses. Labs show no evidence of leukocytosis. Electrolytes are unremarkable. Urinalysis is clear infection. Assessment patient continues to have minimal right lower quadrant abdominal pain. She is feeling better after IV fluids and medications. This is likely a viral illness versus ovarian cyst. Patient was directed to return to the emergency room with any new or concerning symptoms including fever, increasing right lower quadrant abdominal pain or persistent nausea vomiting. I also directed the patient to increase her fluid intake. Patient is agreeable to this plan of care. Vital signs are stable at discharge. - Lab Data Result diagrams: 10/25/21 23:30 10/25/21 23:30 Lab Results 10/25/21 10/25/21 10/25/21 Range/Units 23:30 23:30 23:30 WBC 7.7 (3.8-10.6) k/uL RBC 3.98 (3.80-5.40) m/uL Hgb 12.3 (11.4-16.0) gm/dL Hct 37.4 (34.0-46.0) % MCV 94.1 (80.0-100.0) fL MCH 30.8 (25.0-35.0) pg MCHC 32.8 (31.0-37.0) g/dL RDW 12.8 (11.5-15.5) % Plt Count 306 (150-450) k/uL MPV 7.2 Neutrophils % 47 % Lymphocytes % 42 % Monocytes % 5 % Eosinophils % 4 % Basophils % 1 % Neutrophils # 3.6 (1.3-7.7) k/uL Lymphocytes # 3.2 (1.0-4.8) k/uL Monocytes # 0.4 (0-1.0) k/uL Eosinophils # 0.3 (0-0.7) k/uL Basophils # 0.1 (0-0.2) k/uL Sodium 138 (137-145) mmol/L Potassium 4.1 (3.5-5.1) mmol/L Chloride 108 H (98-107) mmol/L Carbon Dioxide 25 (22-30) mmol/L Anion Gap 5 mmol/L BUN 15 (7-17) mg/dL Creatinine 0.69 (0.52-1.04) mg/dL Est GFR (CKD-EPI)AfAm >90 (>60 ml/min/1.73 sqM) Est GFR (CKD-EPI)NonAf >90 (>60 ml/min/1.73 sqM) Glucose 103 H (74-99) mg/dL Calcium 8.6 (8.4-10.2) mg/dL Total Bilirubin 0.5 (0.2-1.3) mg/dL AST 21 (14-36) U/L ALT 15 (4-34) U/L Alkaline Phosphatase 57 (38-126) U/L Total Protein 7.2 (6.3-8.2) g/dL Albumin 3.6 (3.5-5.0) g/dL Amylase 65 (30-110) U/L Lipase 141 (23-300) U/L Urine Color Yellow Urine Appearance Cloudy H (Clear) Urine pH 6.5 (5.0-8.0) Ur Specific [place] 1.027 (1.001-1.035) Urine Protein Negative (Negative) Urine Glucose (UA) Negative (Negative) Urine Ketones Negative (Negative) Urine Blood Negative (Negative) Urine Nitrite Negative (Negative) Urine Bilirubin Negative (Negative) Urine Urobilinogen 2.0 (<2.0) mg/dL Ur Leukocyte Esterase Negative (Negative) Urine RBC 1 (0-5) /hpf Urine WBC 2 (0-5) /hpf Ur Squamous Epith Cells 10 H (0-4) /hpf Urine Mucus Rare H (None) /hpf Disposition Clinical Impression: Abdominal pain Disposition: HOME SELF-CARE Condition: Good Instructions (If sedation given, give patient instructions): Abdominal Pain (ED) Additional Instructions: Tylenol and or Motrin as needed for pain along with warm compresses. Follow-up with the primary care doctor this week. Return to the emergency room with any new or concerning symptoms including increased pain or fevers. Is patient prescribed a controlled substance at d/c from ED?: No Referrals: Duke Hidalgo MD [Primary Care Provider] - 1-2 days Time of Disposition: 01:39
[2021-10-26 00:04] LABS: Basophils # (A) 0.1 k/uL (0-0.2); Basophils % (A) 1 %; Eosinophils # (A) 0.3 k/uL (0-0.7); Eosinophils % (A) 4 %; HCT 37.4 % (34.0-46.0); HGB 12.3 gm/dL (11.4-16.0); Lymphocytes # (A) 3.2 k/uL (1.0-4.8); Lymphocytes % (A) 42 %; MCH 30.8 pg (25.0-35.0); MCHC 32.8 g/dL (31.0-37.0); MCV 94.1 fL (80.0-100.0); Mean Platelet Volume 7.2; Monocytes # (A) 0.4 k/uL (0-1.0); Monocytes % (A) 5 %; Neutrophils # (A) 3.6 k/uL (1.3-7.7); Neutrophils % (A) 47 %; Platelet Count 306 k/uL (150-450); RBC 3.98 m/uL (3.80-5.40); RDW 12.8 % (11.5-15.5); WBC 7.7 k/uL (3.8-10.6)
[2021-10-26] MEDS ORDERED: MORPHINE SULFATE 4 MG/ML SYRINGE IVP STA (00:11)
[2021-10-26 00:13] LABS: Appearance,Urine Cloudy (Clear); Bilirubin,Urine Negative (Negative); Blood,Urine Negative (Negative); Color,Urine Yellow; Glucose,Urine (UA) Negative (Negative); Ketones,Urine Negative (Negative); Leukocyte Esterase,Urine Negative (Negative); Mucus,Urine Rare /hpf; Nitrite,Urine Negative (Negative); PH, Urine 6.5 (5.0-8.0); Protein,Urine Negative (Negative); RBC,Urine 1 /hpf (0-5); Specific Gravity,Urine 1.027 (1.001-1.035); Squamous Epithelial Cell,Urine 10 /hpf (0-4); WBC,Urine 2 /hpf (0-5)
--- NOTE | 2021-10-26 00:28 | US ---
EXAMINATION TYPE: US pelvis complete transvag DATE OF EXAM: 10/26/2021 COMPARISON: CT 2020 CLINICAL HISTORY: RLQ pain, ovarian torsion vs appy. RLQ pain; hx hysterectomy. TECHNIQUE: Transvaginal (TV) and Transabdominal (TA) EXAM MEASUREMENTS: Uterus: Surgically absent Endometrial Stripe: Surgically absent 3. Right Ovary: Obscured by overlying bowel gas 4. Left Ovary: Obscured by overlying bowel gas 5. Bilateral Adnexa: Excessive bowel gas seen 6. Posterior cul-de-sac: Appears wnl Unable to locate either ovary. RLQ assessed, appendix not seen IMPRESSION: Ovaries not seen. No evidence of a pelvic mass. Appendix not seen. No solid or cystic mass identified . No free fluid.
[2021-10-26 00:29] LABS: ALT 15 U/L (4-34); AST 21 U/L (14-36); African American GFR (CKD) >90 (>60 ml/min/1.73 sqM); Albumin 3.6 g/dL (3.5-5.0); Alkaline Phosphatase 57 U/L (38-126); Amylase 65 U/L (30-110); Anion Gap 5 mmol/L; Blood Urea Nitrogen 15 mg/dL (7-17); Calcium 8.6 mg/dL (8.4-10.2); Carbon Dioxide 25 mmol/L (22-30); Chloride 108 mmol/L (98-107); Glucose 103 mg/dL (74-99); Lipase 141 U/L (23-300); Non-African American GFR(CKD) >90 (>60 ml/min/1.73 sqM); Potassium 4.1 mmol/L (3.5-5.1); Sodium 138 mmol/L (137-145); Total Bilirubin 0.5 mg/dL (0.2-1.3); Total Protein 7.2 g/dL (6.3-8.2)
--- NOTE | 2021-10-26 01:33 | CT ---
EXAMINATION TYPE: CT abdomen pelvis w con DATE OF EXAM: 10/26/2021 COMPARISON: 06/11/2021 HISTORY: pain CT DLP: 1531.1 mGycm Automated exposure control for dose reduction was used. CONTRAST: Performed with IV Contrast, patient injected with 100 mL of Isovue 300. Images obtained from the diaphragm to the floor of the pelvis with IV contrast. The lung bases are clear of consolidation. There is minimal subsegmental atelectasis. Heart size is n ormal. There is no pericardial effusion. There is no pleural effusion. Liver spleen pancreas appear i ntact. There are clips from gastric bariatric surgery. There are clips from cholecystectomy. The bile ducts are not dilated. There is no adrenal mass. Kidneys show satisfactory contrast opacification. There is no hydronephrosi s. Ureters are not dilated. There is no retroperitoneal adenopathy. Bladder distends smoothly. There is no abnormal hernia. No free fluid in the pelvis. No pelvic mass. The lumbar vertebrae have normal alignment. No compression fracture. There is L2-3 disc space narrowi ng. The bony pelvis is intact. Hip joints are intact. Abdominal aorta appears normal there is arterial flow in the superior mesenteric artery and celiac ar chavez. There is arterial flow in the renal and iliac and femoral arteries. There is arterial flow in t he inferior mesenteric artery. Appendix is posterior in the pelvis extending to the sacrum and appears normal. IMPRESSION: Negative CT scan abdomen and pelvis. Normal appendix. No adverse change.
== END 2021-10-26 02:05 | disposition home or self-care (01) ==
LOC: EC 22:16
DX: R10.31 Right lower quadrant pain (principal); K21.9 Gastro-esophageal reflux disease without esophagitis; F41.9 Anxiety disorder, unspecified; Z98.84 Bariatric surgery status; Z90.49 Acquired absence of other specified parts of digestive tract; Z90.710 Acquired absence of both cervix and uterus; Z98.51 Tubal ligation status
CPT/HCPCS: 99284; 96374; 96375 ×2; 96361; 36415; 80053; 82150; 83690; 85025; J2405; J1885; 74177; 76830; 76856; 81001

== ENCOUNTER 2022-03-21 13:03 | Emergency (ER) | payer OTHER ==
[2022-03-21 13:46] VITALS: BP 122/81; PULSE 81; RESP 20; TEMP 98
[2022-03-21] MEDS ORDERED: MORPHINE SULFATE 4 MG/ML SYRINGE IV STA (18:30)
[2022-03-21] MEDS ORDERED: ONDANSETRON 4 MG/2 ML VIAL IVP STA (18:30)
[2022-03-21 19:04] LABS: Basophils # (A) 0.1 k/uL (0-0.2); Basophils % (A) 1 %; Eosinophils # (A) 0.3 k/uL (0-0.7); Eosinophils % (A) 3 %; HCT 40.7 % (34.0-46.0); HGB 13.2 gm/dL (11.4-16.0); Lymphocytes # (A) 2.8 k/uL (1.0-4.8); Lymphocytes % (A) 30 %; MCH 30.1 pg (25.0-35.0); MCHC 32.4 g/dL (31.0-37.0); MCV 92.8 fL (80.0-100.0); Mean Platelet Volume 7.2; Monocytes # (A) 0.4 k/uL (0-1.0); Monocytes % (A) 4 %; Neutrophils # (A) 5.8 k/uL (1.3-7.7); Neutrophils % (A) 61 %; Platelet Count 300 k/uL (150-450); RBC 4.39 m/uL (3.80-5.40); RDW 12.6 % (11.5-15.5); WBC 9.4 k/uL (3.8-10.6)
--- NOTE | 2022-03-21 19:04 | ED ---
Abdominal Pain HPI - General Chief Complaint: Abdominal Pain Stated Complaint: abd pain Time Seen by Provider: 03/21/22 18:24 Source: patient, RN notes reviewed Mode of arrival: ambulatory Limitations: no limitations - History of Present Illness Initial Comments: This is a pleasant 42-year-old female who presents to the emergency department complaining of right lower quadrant abdominal pain which actually started yesterday and was quite mild and initially intermittent. Now the pain is more severe, located in the right lower quadrant, exacerbated by palpation. No alleviating factors. Patient denies any urinary problems or bowel problems. Patient has had nausea without vomiting. No known fever. Subtotaled, patient still has her ovaries. Patient denying any hematuria. Does radiate slightly to the right flank but not to the back. No headache, no fever or chills, no changes in vision or hearing, no sore throat or difficulty with speech, no neck pain, no chest pain or shortness of breath, no vomiting, no changes in urination or bowel movements, no numbness or tingling, no extremity pain, no skin rashes or lesions. Past medical, surgical, social, and family history reviewed. MD Complaint: abdominal pain - Related Data Previous Rx's Medication Instructions Recorded Cephalexin [Keflex] 500 mg PO BID 7 Days #14 cap 08/09/20 Phenazopyridine [Pyridium] 200 mg PO TID #6 tablet 08/09/20 predniSONE 50 mg PO DAILY #5 tab 01/13/21 Sulfamethox-Tmp 800-160Mg [Bactrim 1 tab PO Q12HR #100 tab 06/06/21 DS 800-160 mg] dexAMETHasone [Decadron] 6 mg PO DAILY #5 tablet 07/27/21 Albuterol Inhaler [Ventolin Hfa 2 puff INHALATION RT-QID PRN #8 gm 08/09/21 Inhaler] Benzonatate [Tessalon Perles] 200 mg PO Q8H PRN #15 capsule 08/09/21 guaiFENesin [Mucinex] 600 mg PO Q12HR PRN #20 tab 08/09/21 Allergies Allergy/AdvReac Type Severity Reaction Status Date / Time No Known Allergies Allergy Verified 03/21/22 13:46 Review of Systems ROS Statement: Those systems with pertinent positive or pertinent negative responses have been documented in the HPI. ROS Other: All systems not noted in ROS Statement are negative. 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 PT STATES OFF MEDICATIONS SINCE 13 Y/O AND LAST SEIZURE WAS 12 Y/O. hx migraines, varicose veins, PSORIASIS, hx ulcers, History of Any Multi-Drug Resistant Organisms: None Reported Past Surgical History: Bariatric Surgery, Section, Cholecystectomy, Hysterectomy, Tubal Ligation, Uterine Ablation Additional Past Surgical History / Comment(s): D&C Gastric Sleeve 09/08/19, Past Anesthesia/Blood Transfusion Reactions: Blood Transfusion Reaction Additional Past Anesthesia/Blood Transfusion Reaction / Comment(s): lightheaded with blood transfusion-"they had to stop it" Past Psychological History: Anxiety Smoking Status: Never smoker Past Alcohol Use History: Rare Past Drug Use History: None Reported - Past Family History Mother Family Medical History: No Reported History Additional Family Medical History / Comment(s): . Father Family Medical History: No Reported History General Exam - General Exam Comments Initial Comments: Well-developed 42-year-old female in mild distress secondary to right lower quadrant abdominal pain. Patient does not appear to be ill or toxic. Vital signs stable, patient afebrile. Limitations: no limitations General appearance: in distress Head exam: Present: atraumatic, normocephalic, normal inspection Eye exam: Present: normal appearance, PERRL, EOMI. Absent: scleral icterus, conjunctival injection, periorbital swelling ENT exam: Present: normal exam, normal oropharynx, mucous membranes moist, normal external ear exam. Absent: mucous membranes dry Neck exam: Present: normal inspection, full ROM. Absent: tenderness, meningismus, lymphadenopathy Respiratory exam: Present: normal lung sounds bilaterally. Absent: respiratory distress, wheezes, rales, rhonchi, stridor, chest wall tenderness, accessory mus karina use, decreased breath sounds, prolonged expiratory Cardiovascular Exam: Present: regular rate, normal rhythm, normal heart sounds. Absent: systolic murmur, diastolic murmur, rubs, gallop, clicks GI/Abdominal exam: Present: soft, tenderness (Patient has tenderness to right lower quadrant with guarding. No rebound or Percussion tenderness), guarding, hypoactive bowel sounds. Absent: distended, rebound, rigid, normal bowel sounds, diminished bowel sounds, hyperactive bowel sounds, organomegaly, mass, bruit, pulsatile mass, hernia Extremities exam: Present: normal inspection, full ROM, normal capillary refill. Absent: tenderness, pedal edema, joint swelling, calf tenderness Back exam: Present: normal inspection Neurological exam: Present: alert, oriented X3, CN II-XII intact Psychiatric exam: Present: normal affect, normal mood Skin exam: Present: warm, dry, intact, normal color. Absent: rash Course Vital Signs 03/21/22 13:44 Temperature 98 F Pulse Rate 81 Respiratory 20 Rate Blood Pressure 122/81 O2 Sat by Pulse 98 Oximetry Medical Decision Making - Medical Decision Making despite the patient's subtotal hysterectomy, the differential diagnosis is quite wide. Does not appear to be consistent with cardiopulmonary disease or gallbladder disease as this is in the right lower quadrant area. Ovarian pathology is possible, ovarian cyst possible, does not appear to be consistent with ovarian torsion.. Appendicitis is possible. Although the patient is afebrile. Other inflammatory versus infectious etiology hospitals well. Does not appear to be consistent with vascular etiology. apparently this patient left AGAINST MEDICAL ADVICE prior to getting the CAT scan. We had a long wait in the waiting room. I was unable to speak with the patient prior to her leaving. Of course I did not advise her to go. Assuming the patient knows the risk. Given the patient's laboratory work. I think this is relatively low risk. PATIENT left AGAINST MEDICAL ADVICE from the waiting room without speaking to me. Supervising physician Dr. Whitney - Lab Data Result diagrams: 03/21/22 18:50 03/21/22 18:50 Lab Results 03/21/22 03/21/22 03/21/22 Range/Units 18:50 18:50 18:50 WBC 9.4 (3.8-10.6) k/uL RBC 4.39 (3.80-5.40) m/uL Hgb 13.2 (11.4-16.0) gm/dL Hct 40.7 (34.0-46.0) % MCV 92.8 (80.0-100.0) fL MCH 30.1 (25.0-35.0) pg MCHC 32.4 (31.0-37.0) g/dL RDW 12.6 (11.5-15.5) % Plt Count 300 (150-450) k/uL MPV 7.2 Neutrophils % 61 % Lymphocytes % 30 % Monocytes % 4 % Eosinophils % 3 % Basophils % 1 % Neutrophils # 5.8 (1.3-7.7) k/uL Lymphocytes # 2.8 (1.0-4.8) k/uL Monocytes # 0.4 (0-1.0) k/uL Eosinophils # 0.3 (0-0.7) k/uL Basophils # 0.1 (0-0.2) k/uL Sodium 138 (137-145) mmol/L Potassium 4.0 (3.5-5.1) mmol/L Chloride 103 (98-107) mmol/L Carbon Dioxide 24 (22-30) mmol/L Anion Gap 11 mmol/L BUN 9 (7-17) mg/dL Creatinine 0.62 (0.52-1.04) mg/dL Est GFR (CKD-EPI)AfAm >90 (>60 ml/min/1.73 sqM) Est GFR (CKD-EPI)NonAf >90 (>60 ml/min/1.73 sqM) Glucose 91 (74-99) mg/dL Plasma Lactic Acid Saúl 1.2 (0.7-2.0) mmol/L Calcium 8.9 (8.4-10.2) mg/dL Total Bilirubin 0.4 (0.2-1.3) mg/dL AST 20 (14-36) U/L ALT 13 (4-34) U/L Alkaline Phosphatase 82 (38-126) U/L C-Reactive Protein 1.0 H (<1.0) mg/dL Total Protein 7.7 (6.3-8.2) g/dL Albumin 4.3 (3.5-5.0) g/dL Lipase 119 (23-300) U/L Disposition Clinical Impression: Abdominal pain, Left against medical advice Disposition: Left Against Medical Advice Condition: Undetermined Referrals: None,Stated [Primary Care Provider] - 1-2 days
[2022-03-21 19:20] LABS: ALT 13 U/L (4-34); AST 20 U/L (14-36); African American GFR (CKD) >90 (>60 ml/min/1.73 sqM); Albumin 4.3 g/dL (3.5-5.0); Alkaline Phosphatase 82 U/L (38-126); Anion Gap 11 mmol/L; Blood Urea Nitrogen 9 mg/dL (7-17); Calcium 8.9 mg/dL (8.4-10.2); Carbon Dioxide 24 mmol/L (22-30); Chloride 103 mmol/L (98-107); Glucose 91 mg/dL (74-99); Lipase 119 U/L (23-300); Non-African American GFR(CKD) >90 (>60 ml/min/1.73 sqM); Sodium 138 mmol/L (137-145); Total Bilirubin 0.4 mg/dL (0.2-1.3); Total Protein 7.7 g/dL (6.3-8.2)
== END 2022-03-21 21:30 | disposition left against medical advice (07) ==
LOC: EC 13:03
DX: R10.31 Right lower quadrant pain (principal); R11.0 Nausea; Z53.29 Procedure and treatment not carried out because of patient's decision for other reasons; Z86.69 Personal history of other diseases of the nervous system and sense organs; Z90.49 Acquired absence of other specified parts of digestive tract
CPT/HCPCS: 36415; 80053; 83605; 83690; 85025; 86140; 99283

== ENCOUNTER 2022-11-27 11:29 | Emergency (ER) | payer OTHER ==
[2022-11-27] MEDS ORDERED: diphenhydrAMINE 50 MG/ML 1 ML VIAL IVP STA (11:53)
[2022-11-27] MEDS ORDERED: DEXAMETHASONE SOD PHOSPHATE 10 MG/ML 1 ML VIAL IVP STA (11:53)
[2022-11-27] MEDS ORDERED: KETOROLAC 15 MG/ML 1 ML VIAL IVP STA (11:53)
[2022-11-27] MEDS ORDERED: SODIUM CHLORIDE 0.9% 1,000 ML IV STA (11:53)
[2022-11-27] MEDS ORDERED: METOCLOPRAMIDE 5 MG/ML 2 ML VIAL IVP STA (11:53)
--- NOTE | 2022-11-27 12:04 | ED ---
Headache HPI - General Chief Complaint: Headache Stated Complaint: Headache Time Seen by Provider: 11/27/22 11:38 Source: patient, RN notes reviewed Mode of arrival: ambulatory Limitations: no limitations - History of Present Illness Initial Comments: This is a 42-year-old female who presents to the emergency department for a headache. This started 3 days ago. She went to [facility] 2 days ago. She was given a migraine cocktail and had a CT scan of the brain done. Results of the CT scan were normal. The migraine cocktail made her sleepy, however she does not believe that it helped her pain. She cannot recall which medication was in the cocktail. She was discharged with prescriptions for ibuprofen and Flexeril. States that this has not helped whatsoever. Denies any history of migraines or similar symptoms in the past. The headache is described as being in the back of her head. She is unable to describe how the pain feels. She is also having photophobia and nausea. The nausea is improved with the Zofran that she was given at [facility]. Denies any fevers, chills, sore throat, cough, dyspnea, chest pain, palpitations, abdominal pain, diarrhea, or back pain. MD Complaint: headache Onset/Timin -: days(s) Location: occipital - Related Data Previous Rx's Medication Instructions Recorded Cephalexin [Keflex] 500 mg PO BID 7 Days #14 cap 08/09/20 Phenazopyridine [Pyridium] 200 mg PO TID #6 tablet 08/09/20 RX: predniSONE 50 mg PO DAILY #5 tab 01/13/21 RX: Sulfamethox-Tmp 800-160Mg 1 tab PO Q12HR #100 tab 06/06/21 [Bactrim DS 800-160 mg] dexAMETHasone [Decadron] 6 mg PO DAILY #5 tablet 07/27/21 Benzonatate [Tessalon Perles] 200 mg PO Q8H PRN #15 capsule 08/09/21 RX: Albuterol Inhaler [Ventolin 2 puff INHALATION RT-QID PRN #8 gm 08/09/21 Hfa Inhaler] guaiFENesin [Mucinex] 600 mg PO Q12HR PRN #20 tab 08/09/21 Ketorolac [Toradol] 10 mg PO Q6HR PRN #12 tab 11/27/22 Ondansetron Odt [Zofran Odt] 4 mg PO Q8HR PRN #10 tab 11/27/22 Allergies Allergy/AdvReac Type Severity Reaction Status Date / Time No Known Allergies Allergy Verified 03/21/22 13:46 Review of Systems ROS Statement: Those systems with pertinent positive or pertinent negative responses have been documented in the HPI. ROS Other: All systems not noted in ROS Statement are negative. 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 PT STATES OFF MEDICATIONS SINCE 13 Y/O AND LAST SEIZURE WAS 12 Y/O. hx migraines, varicose veins, PSORIASIS, hx ulcers, History of Any Multi-Drug Resistant Organisms: None Reported Past Surgical History: Bariatric Surgery, Section, Cholecystectomy, Hysterectomy, Tubal Ligation, Uterine Ablation Additional Past Surgical History / Comment(s): D&C Gastric Sleeve 09/08/19, Past Anesthesia/Blood Transfusion Reactions: Blood Transfusion Reaction Additional Past Anesthesia/Blood Transfusion Reaction / Comment(s): lightheaded with blood transfusion-"they had to stop it" Past Psychological History: Anxiety Smoking Status: Never smoker Past Alcohol Use History: Rare Past Drug Use History: None Reported - Past Family History Mother Family Medical History: No Reported History Additional Family Medical History / Comment(s): . Father Family Medical History: No Reported History General Exam Limitations: no limitations General appearance: alert, in distress Head exam: Present: atraumatic, normocephalic, normal inspection Eye exam: Present: normal appearance, PERRL, EOMI. Absent: scleral icterus, conjunctival injection, periorbital swelling Respiratory exam: Present: normal lung sounds bilaterally. Absent: respiratory distress, wheezes, rales, rhonchi, stridor Cardiovascular Exam: Present: regular rate, normal rhythm, normal heart sounds. Absent: systolic murmur, diastolic murmur, rubs, gallop, clicks Neurological exam: Present: alert, oriented X3, CN II-XII intact Psychiatric exam: Present: normal affect, normal mood Skin exam: Present: warm, dry, intact, normal color. Absent: rash Course Vital Signs 11/27/22 11/27/22 11:30 13:55 Temperature 98 F 98.0 F Pulse Rate 72 64 Respiratory 16 18 Rate Blood Pressure 111/67 114/69 O2 Sat by Pulse 98 98 Oximetry Medical Decision Making - Medical Decision Making This is a 42-year-old female who presents to the emergency department for a headache. Was pt. sent in by a medical professional or institution? @ -No Did you speak to anyone other than the patient for history? @ -No Did you review nursing and triage notes? @ -Yes, and I agree, it is accurate with regards to the patient's symptoms. Were old charts reviewed? @ -No Differential Diagnosis? @ -Differential Headache: Migraine, tension, cluster, carbon monoxide, central venous thrombosis, pension karma temporal arteritis, acute closure glaucoma, intercranial hemorrhage, mastoiditis, sinusitis, head injury, this is not meant to be an all-inclusive list. EKG interpreted by me (3pts min.)? @ -Not obtained X-rays interpreted by me (1pt min.)? @ -Not obtained CT interpreted by me (1pt min.)? @ -Not obtained U/S interpreted by me (1pt. min.)? @ -Not obtained What testing was considered but not performed? (CT, X-rays, U/S, labs)? Why? @ -None What meds were considered but not given? Why? @ -None Did you discuss the management of the patient with other professionals? @ -No Did you reconcile home meds? @ -No Was smoking cessation discussed for >3mins.? @ -No Was critical care preformed (if so, how long)? @ -No Were there social determinants of health that impacted care today? How? (Homelessness, low income, unemployed, alcoholism, drug addiction, transportation, low edu. Level, literacy, decrease access to med. care, assisted, rehab)? @ -No Was there de-escalation of care discussed even if they declined? (Discuss DNR or withdrawal of care, Hospice)? @ -No What co-morbidities impacted this encounter? (DM, HTN, Smoking, COPD, CAD, Cancer, CVA, Hep., AIDS, mental health diagnosis, sleep apnea, morbid obesity)? @ -None Was patient admitted / discharged? @ -Discharged. Lab work obtained and found to be nonactionable. She was given a migraine cocktail consisting of IV fluids, Reglan, Decadron, Toradol, and Benadryl. She noted significant improvement following medication administration. States that this was much more effective than the medication she received 2 days ago. Patient overall felt much better and stable for discharge home. Prescription for Toradol and Zofran provided with dosing inst ructions reviewed. Patient is instructed to take the Toradol with Tylenol if needed and avoid any other iiai-cgy-lbuhray anti-inflammatories such as ibuprofen with the Toradol. Undiagnosed new problem with uncertain prognosis? @ -None Drug Therapy requiring intensive monitoring for toxicity (Heparin, Nitro, Insulin, Cardizem)? @ -None Were any procedures done? @ -None Diagnosis/symptom? @ -Headache Acute, or Chronic, or Acute on Chronic? @ -Acute Uncomplicated (without systemic symptoms) or Complicated (systemic symptoms)? @ -Uncomplicated Side effects of treatment? @ -None Exacerbation, Progression, or Severe Exacerbation] @ -Not applicable Poses a threat to life or bodily function? @ -No Return precautions reviewed in depth, the patient is instructed to return to the emergency department with any new, worsening, or concerning symptoms. Patient verbalized understanding. This case was discussed in detail with the attending ED physician, Dr. Olson. Presentation, findings, and treatment plan discussed in detail as well. - Lab Data Result diagrams: 11/27/22 11:53 11/27/22 11:53 Lab Results 11/27/22 11/27/22 Range/Units 11:53 11:53 WBC 10.0 (3.8-10.6) k/uL RBC 4.10 (3.80-5.40) m/uL Hgb 11.9 (11.4-16.0) gm/dL Hct 37.6 (34.0-46.0) % MCV 91.8 (80.0-100.0) fL MCH 29.2 (25.0-35.0) pg MCHC 31.8 (31.0-37.0) g/dL RDW 13.1 (11.5-15.5) % Plt Count 318 (150-450) k/uL MPV 7.5 Neutrophils % 65 % Lymphocytes % 28 % Monocytes % 3 % Eosinophils % 1 % Basophils % 0 % Neutrophils # 6.5 (1.3-7.7) k/uL Lymphocytes # 2.8 (1.0-4.8) k/uL Monocytes # 0.3 (0-1.0) k/uL Eosinophils # 0.1 (0-0.7) k/uL Basophils # 0.0 (0-0.2) k/uL Sodium 139 (137-145) mmol/L Potassium 3.7 (3.5-5.1) mmol/L Chloride 107 (98-107) mmol/L Carbon Dioxide 25 (22-30) mmol/L Anion Gap 7 mmol/L BUN 15 (7-17) mg/dL Creatinine 0.62 (0.52-1.04) mg/dL Est GFR (CKD-EPI)AfAm >90 (>60 ml/min/1.73 sqM) Est GFR (CKD-EPI)NonAf >90 (>60 ml/min/1.73 sqM) Glucose 97 (74-99) mg/dL Calcium 8.6 (8.4-10.2) mg/dL Total Bilirubin 0.4 (0.2-1.3) mg/dL AST 25 (14-36) U/L ALT 23 (4-34) U/L Alkaline Phosphatase 55 (38-126) U/L C-Reactive Protein <0.5 (<1.0) mg/dL Total Protein 6.7 (6.3-8.2) g/dL Albumin 3.4 L (3.5-5.0) g/dL Disposition Clinical Impression: Headache Disposition: HOME SELF-CARE Instructions (If sedation given, give patient instructions): Acute Headache (ED) Additional Instructions: Return to the emergency department with any new, worsening, or concerning symptoms. You can take the Toradol up to every 6 hours as needed for pain relief. You may take this with Tylenol. If you take this do not take any other cois-zav-otmigwq anti-inflammatories such as ibuprofen. Follow up with your primary care provider in 1-2 days. Prescriptions: Ketorolac [Toradol] 10 mg PO Q6HR PRN #12 tab PRN Reason: Pain Ondansetron Odt [Zofran Odt] 4 mg PO Q8HR PRN #10 tab PRN Reason: Nausea And Vomiting Is patient prescribed a controlled substance at d/c from ED?: No Referrals: None,Stated [Primary Care Provider] - 1-2 days
[2022-11-27 12:19] LABS: Basophils % (A) 0 %; Eosinophils # (A) 0.1 k/uL (0-0.7); Eosinophils % (A) 1 %; HCT 37.6 % (34.0-46.0); HGB 11.9 gm/dL (11.4-16.0); Lymphocytes # (A) 2.8 k/uL (1.0-4.8); Lymphocytes % (A) 28 %; MCH 29.2 pg (25.0-35.0); MCHC 31.8 g/dL (31.0-37.0); MCV 91.8 fL (80.0-100.0); Mean Platelet Volume 7.5; Monocytes # (A) 0.3 k/uL (0-1.0); Monocytes % (A) 3 %; Neutrophils # (A) 6.5 k/uL (1.3-7.7); Neutrophils % (A) 65 %; Platelet Count 318 k/uL (150-450); RDW 13.1 % (11.5-15.5)
[2022-11-27 12:29] LABS: ALT 23 U/L (4-34); AST 25 U/L (14-36); African American GFR (CKD) >90 (>60 ml/min/1.73 sqM); Albumin 3.4 g/dL (3.5-5.0); Alkaline Phosphatase 55 U/L (38-126); Anion Gap 7 mmol/L; Blood Urea Nitrogen 15 mg/dL (7-17); C Reactive Protein <0.5 mg/dL (<1.0); Calcium 8.6 mg/dL (8.4-10.2); Carbon Dioxide 25 mmol/L (22-30); Chloride 107 mmol/L (98-107); Glucose 97 mg/dL (74-99); Non-African American GFR(CKD) >90 (>60 ml/min/1.73 sqM); Potassium 3.7 mmol/L (3.5-5.1); Sodium 139 mmol/L (137-145); Total Bilirubin 0.4 mg/dL (0.2-1.3); Total Protein 6.7 g/dL (6.3-8.2)
[2022-11-27] MEDS ORDERED: ACET/COD 300 MG/30 MG STARTER PACK 6 TAB BTL PO STA (13:25)
[2022-11-27 13:56] VITALS: BP 114/69; PULSE 64; RESP 18; TEMP 98
== END 2022-11-27 13:56 | disposition home or self-care (01) ==
LOC: EC 11:29
DX: R51.9 Headache, unspecified (principal); G47.30 Sleep apnea, unspecified; F41.9 Anxiety disorder, unspecified; Z79.899 Other long term (current) drug therapy
CPT/HCPCS: 36415; 80053; 85025; 86140; 99284; 96374; 96375 ×3; 96361; J1200; J1100; J2765; J1885

== ENCOUNTER 2022-12-03 19:26 | Emergency (ER) | payer BC, OTHER ==
[2022-12-03 20:04] VITALS: TEMP 98.5
--- NOTE | 2022-12-03 20:31 | ED ---
General Adult HPI - General Chief complaint: Abdominal Pain Stated complaint: Abd pain Time Seen by Provider: 12/03/22 20:25 Source: patient Mode of arrival: wheelchair Limitations: no limitations - History of Present Illness Initial comments: Patient presents to the ED complaining of having right lower quadrant abdominal pain since yesterday. Patient states that she has also had left lumbar back pain radiating down the back of her leg for the past 4 days. Patient states that she feels that these symptoms are unrelated, and she attributes her left lumbar back pain to "sciatic pain". Patient admits to feeling somewhat nauseated as well. She also states that she has had a foul odor to her urine recently. Patient denies trauma or injury, fever or chills, headache, focal numbness/weakness/neuro deficit, chest pain or pressure, dyspnea, cough or cold symptoms, dizziness, upper abdominal pain, vomiting, diarrhea or constipation, bloody or melanotic stool, dysuria, hematuria, urinary frequency, incontinence, urinary retention, vaginal bleeding or discharge, or any other symptoms or complaints. Patient states that she has had a hysterectomy and bilateral tubal ligation. Patient also states that she has had a cholecystectomy. - Related Data Previous Rx's Medication Instructions Recorded Cephalexin [Keflex] 500 mg PO BID 7 Days #14 cap 08/09/20 Phenazopyridine [Pyridium] 200 mg PO TID #6 tablet 08/09/20 predniSONE 50 mg PO DAILY #5 tab 01/13/21 Sulfamethox-Tmp 800-160Mg [Bactrim 1 tab PO Q12HR #100 tab 06/06/21 DS 800-160 mg] dexAMETHasone [Decadron] 6 mg PO DAILY #5 tablet 07/27/21 Albuterol Inhaler [Ventolin Hfa 2 puff INHALATION RT-QID PRN #8 gm 08/09/21 Inhaler] Benzonatate [Tessalon Perles] 200 mg PO Q8H PRN #15 capsule 08/09/21 guaiFENesin [Mucinex] 600 mg PO Q12HR PRN #20 tab 08/09/21 Ketorolac [Toradol] 10 mg PO Q6HR PRN #12 tab 11/27/22 Ondansetron Odt [Zofran Odt] 4 mg PO Q8HR PRN #10 tab 11/27/22 Ciprofloxacin HCl [Cipro] 500 mg PO Q12HR 7 Days #14 tablet 12/03/22 Allergies Allergy/AdvReac Type Severity Reaction Status Date / Time No Known Allergies Allergy Verified 12/03/22 20:04 Review of Systems ROS Statement: Those systems with pertinent positive or pertinent negative responses have been documented in the HPI. ROS Other: All systems not noted in ROS Statement are negative. 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 PT STATES OFF MEDICATIONS SINCE 13 Y/O AND LAST SEIZURE WAS 12 Y/O. hx migraines, varicose veins, PSORIASIS, hx ulcers, History of Any Multi-Drug Resistant Organisms: None Reported Past Surgical History: Bariatric Surgery, Section, Cholecystectomy, Hysterectomy, Tubal Ligation, Uterine Ablation Additional Past Surgical History / Comment(s): D&C Gastric Sleeve 09/08/19, Past Anesthesia/Blood Transfusion Reactions: Blood Transfusion Reaction Additional Past Anesthesia/Blood Transfusion Reaction / Comment(s): lightheaded with blood transfusion-"they had to stop it" Past Psychological History: Anxiety Smoking Status: Never smoker Past Alcohol Use History: Rare Past Drug Use History: None Reported - Past Family History Mother Family Medical History: No Reported History Additional Family Medical History / Comment(s): . Father Family Medical History: No Reported History General Exam Limitations: no limitations General appearance: alert Head exam: Present: normocephalic ENT exam: Present: mucous membranes moist Respiratory exam: Present: normal lung sounds bilaterally. Absent: respiratory distress, wheezes, rales, rhonchi, stridor Cardiovascular Exam: Present: regular rate, normal rhythm, normal heart sounds, other (Normal radial pulses bilaterally) GI/Abdominal exam: Present: soft, normal bowel sounds, other (Mild right lower quadrant abdominal tenderness). Absent: distended, guarding, rebound Extremities exam: Present: full ROM. Absent: tenderness, pedal edema, calf tenderness Back exam: Present: other (Mild left lumbar tenderness; no midline spinal tenderness). Absent: CVA tenderness (R), CVA tenderness (L) Neurological exam: Present: alert, oriented X3, other (No evidence of lower extremity neurological deficit or saddle anesthesia). Absent: motor sensory deficit Psychiatric exam: Present: normal affect, normal mood Skin exam: Present: warm, dry, intact, normal color Course Vital Signs 12/03/22 12/03/22 12/03/22 19:59 22:06 23:11 Temperature 98.5 F Pulse Rate 101 H 85 69 Respiratory 20 18 18 Rate Blood Pressure 127/77 134/80 124/77 O2 Sat by Pulse 97 99 94 L Oximetry - Reevaluation(s) Reevaluation #1: 12/03/22 23:09 Patient reports improvement in her pain with ED treatment. Patient denies development of any new symptoms while in the ED. Patient is aware of her test results, and she feels comfortable being discharged home at this time. Patient was counseled about UTIs, abdominal pain and lumbar back pain/sciatica. Patient was clearly explained return and follow-up instructions, and she feels comfortable with this plan. Patient was instructed to follow up closely with her primary care provider. Medical Decision Making - Medical Decision Making Was pt. sent in by a medical professional or institution (, PA, HEAD OF D[employer]VERTISING [employer]TEGRATION, urgent care, hospital, or penitentiary...) When possible be specific @ -No Did you speak to anyone other than the patient for history (EMS, parent, family, police, friend...)? What history was obtained from this source @ -No Did you review nursing and triage notes (agree or disagree)? Why? @ -I reviewed and agree with nursing and triage notes Were old charts reviewed (outside hosp., previous admission, EMS record, old EKG, old radiological studies, urgent care reports/EKG's, penitentiary records)? Report findings @ -No old charts were reviewed Differential Diagnosis (chest pain, altered mental status, abdominal pain women, abdominal pain men, vaginal bleeding, weakness, fever, dyspnea, syncope, headache, dizziness, GI bleed, back pain, seizure, CVA, palpatations, mental health, musculoskeletal)? @ -Abdominal pain, muscle strain, appendicitis, colitis, enteritis, ovarian cyst, back pain, DVT, DJD, herniated disc disease, sciatica, radiculopathy, muscle spasm EKG interpreted by me (3pts min.). @ -None done X-rays interpreted by me (1pt min.). @ -None done CT interpreted by me (1pt min.). @ -CT abdomen/pelvis was reviewed myself and shows no acute abnormality. I agree with the radiologist's interpretation as above. U/S interpreted by me (1pt. min.). @ -None done What testing was considered but not performed or refused? (CT, X-rays, U/S, labs)? Why? @ -None What meds were considered but not given or refused? Why? @ -None Did you discuss the management of the patient with other professionals (veda martinez i.e. , PA, [employer] OF [employer], lab, RT, psych nurse, social services technician, sales review clerk, teacher, complaint evaluation officer, insurance case manager)? Give summary @ -No Was smoking cessation discussed for >3mins.? @ -No Was critical care preformed (if so, how long)? @ -No Were there social determinants of health that impacted care today? How? (Homelessness, low income, unemployed, alcoholism, drug addiction, transportation, low edu. Level, literacy, decrease access to med. care, fdc, rehab)? @ -No Was there de-escalation of care discussed even if they declined (Discuss DNR or withdrawal of care, Hospice)? DNR status @ -No What co-morbidities impacted this encounter? (DM, HTN, Smoking, COPD, CAD, Cancer, CVA, ARF, Chemo, Hep., AIDS, mental health diagnosis, sleep apnea, morbid obesity)? @ -None Was patient admitted / discharged? Hospital course, mention meds given and route, prescriptions, significant lab abnormalities, going to OR and other pertinent info. @ -Patient has a soft and nonsurgical abdominal exam. Patient is afebrile and without significant leukocytosis. Other than a UA that is suggestive of a UTI, the patient's labs are fairly unremarkable. Patient's CT abdomen/pelvis shows no acute abnormality. Patient has no evidence of lower extremity neurological deficit or saddle anesthesia on exam. Patient denies incontinence or urinary retention. I do not suspect an emergent or surgical medical condition at this time. Will discharge patient home at this time with a prescription for a course of ciprofloxacin for her UTI. Undiagnosed new problem with uncertain prognosis? @ -No Drug Therapy requiring intensive monitoring for toxicity (Heparin, Nitro, Insulin, Cardizem)? @ -No Were any procedures done? @ -No Diagnosis/symptom? @ -Abdominal pain Acute, or Chronic, or Acute on Chronic? @ -Acute Uncomplicated (without systemic symptoms) or Complicated (systemic symptoms)? @ -default Side effects of treatment? @ -No Exacerbation, Progression, or Severe Exacerbation? @ -No Poses a threat to life or bodily function? How? (Chest pain, [place], [place], pneumonia, PE, COPD, DKA, ARF, appy, cholecystitis, CVA, Diverticulitis, Homicidal, Suicid al, threat to staff... and all critical care pts) @ -No Diagnosis/symptom? @ -Lumbar back pain with suspected sciatica Acute, or Chronic, or Acute on Chronic? @ -Acute Uncomplicated (without systemic symptoms) or Complicated (systemic symptoms)? @ -default Side effects of treatment? @ -none Exacerbation, Progression, or Severe Exacerbation] @ -no Poses a threat to life or bodily function? @ -no Diagnosis/symptom? @ -UTI Acute, or Chronic, or Acute on Chronic? @ -Acute Uncomplicated (without systemic symptoms) or Complicated (systemic symptoms)? @ -default Side effects of treatment? @ -none Exacerbation, Progression, or Severe Exacerbation] @ -no Poses a threat to life or bodily function? @ -no - Lab Data Result diagrams: 12/03/22 20:40 12/03/22 20:40 Lab Results 12/03/22 12/03/22 12/03/22 Range/Units 20:40 20:40 20:40 WBC 11.5 H (3.8-10.6) k/uL RBC 4.37 (3.80-5.40) m/uL Hgb 13.4 (11.4-16.0) gm/dL Hct 40.7 (34.0-46.0) % MCV 93.2 (80.0-100.0) fL MCH 30.7 (25.0-35.0) pg MCHC 32.9 (31.0-37.0) g/dL RDW 12.9 (11.5-15.5) % Plt Count 349 (150-450) k/uL MPV 7.2 Neutrophils % 64 % Lymphocytes % 26 % Monocytes % 6 % Eosinophils % 3 % Basophils % 0 % Neutrophils # 7.4 (1.3-7.7) k/uL Lymphocytes # 3.0 (1.0-4.8) k/uL Monocytes # 0.6 (0-1.0) k/uL Eosinophils # 0.3 (0-0.7) k/uL Basophils # 0.0 (0-0.2) k/uL Sodium 139 (137-145) mmol/L Potassium 4.1 (3.5-5.1) mmol/L Chloride 105 (98-107) mmol/L Carbon Dioxide 22 (22-30) mmol/L Anion Gap 12 mmol/L BUN 14 (7-17) mg/dL Creatinine 0.61 (0.52-1.04) mg/dL Est GFR (CKD-EPI)AfAm >90 (>60 ml/min/1.73 sqM) Est GFR (CKD-EPI)NonAf >90 (>60 ml/min/1.73 sqM) Glucose 85 (74-99) mg/dL Calcium 9.1 (8.4-10.2) mg/dL Total Bilirubin 0.3 (0.2-1.3) mg/dL AST 19 (14-36) U/L ALT 22 (4-34) U/L Alkaline Phosphatase 71 (38-126) U/L Total Protein 7.8 (6.3-8.2) g/dL Albumin 4.1 (3.5-5.0) g/dL Lipase 239 (23-300) U/L Urine Color Yellow Urine Appearance Cloudy H (Clear) Urine pH 5.5 (5.0-8.0) Ur Specific [place] 1.028 (1.001-1.035) Urine Protein Trace H (Negative) Urine Glucose (UA) Negative (Negative) Urine Ketones Negative (Negative) Urine Blood Negative (Negative) Urine Nitrite Positive H (Negative) Urine Bilirubin Negative (Negative) Urine Urobilinogen <2.0 (<2.0) mg/dL Ur Leukocyte Esterase Small H (Negative) Urine RBC 1 (0-5) /hpf Urine WBC 4 (0-5) /hpf Ur Squamous Epith Cells 16 H (0-4) /hpf Urine Bacteria Many H (None) /hpf Urine Mucus Many H (None) /hpf - Radiology Data CT abdomen/pelvis with IV contrast: 1. No acute intra-abdominal or intrapelvic process. 2. Incidental findings as detailed above. Disposition Clinical Impression: Abdominal pain, Lumbar back pain, UTI (urinary tract infection) Disposition: HOME SELF-CARE Condition: Stable Instructions (If sedation given, give patient instructions): Urinary Tract Infection in Women (ED), Sciatica (ED), Acute Low Back Pain (ED), Abdominal Pain (ED) Additional Instructions: Return to the ER immediately should you develop new or worsening pain, a fever, vomiting, trouble controlling your bladder or bowels, leg numbness or weakness, or new or worsening symptoms. Follow up closely with your primary care provider. Prescriptions: Ciprofloxacin HCl [Cipro] 500 mg PO Q12HR 7 Days #14 tablet Is patient prescribed a controlled substance at d/c from ED?: No Referrals: None,Stated [Primary Care Provider] - 1-2 days Wliliam Ramirez MD [STAFF PHYSICIAN] - 1-2 days Time of Disposition: 23:12
[2022-12-03] MEDS ORDERED: ONDANSETRON 4 MG/2 ML VIAL IVP STA (20:35)
[2022-12-03] MEDS ORDERED: SODIUM CHLORIDE 0.9% 1,000 ML IV STA (20:35)
[2022-12-03] MEDS ORDERED: HYDROmorphone 1 MG/ML 1 ML SYRINGE IVP STA (20:37)
[2022-12-03 20:59] LABS: Basophils % (A) 0 %; Eosinophils # (A) 0.3 k/uL (0-0.7); Eosinophils % (A) 3 %; HCT 40.7 % (34.0-46.0); HGB 13.4 gm/dL (11.4-16.0); Lymphocytes % (A) 26 %; MCH 30.7 pg (25.0-35.0); MCHC 32.9 g/dL (31.0-37.0); MCV 93.2 fL (80.0-100.0); Mean Platelet Volume 7.2; Monocytes # (A) 0.6 k/uL (0-1.0); Monocytes % (A) 6 %; Neutrophils # (A) 7.4 k/uL (1.3-7.7); Neutrophils % (A) 64 %; Platelet Count 349 k/uL (150-450); RBC 4.37 m/uL (3.80-5.40); RDW 12.9 % (11.5-15.5); WBC 11.5 k/uL (3.8-10.6)
[2022-12-03 21:17] LABS: ALT 22 U/L (4-34); AST 19 U/L (14-36); African American GFR (CKD) >90 (>60 ml/min/1.73 sqM); Albumin 4.1 g/dL (3.5-5.0); Alkaline Phosphatase 71 U/L (38-126); Anion Gap 12 mmol/L; Blood Urea Nitrogen 14 mg/dL (7-17); Calcium 9.1 mg/dL (8.4-10.2); Carbon Dioxide 22 mmol/L (22-30); Chloride 105 mmol/L (98-107); Glucose 85 mg/dL (74-99); Lipase 239 U/L (23-300); Non-African American GFR(CKD) >90 (>60 ml/min/1.73 sqM); Potassium 4.1 mmol/L (3.5-5.1); Sodium 139 mmol/L (137-145); Total Bilirubin 0.3 mg/dL (0.2-1.3); Total Protein 7.8 g/dL (6.3-8.2)
[2022-12-03 21:23] LABS: Appearance,Urine Cloudy (Clear); Bacteria,Urine Many /hpf; Bilirubin,Urine Negative (Negative); Blood,Urine Negative (Negative); Color,Urine Yellow; Glucose,Urine (UA) Negative (Negative); Ketones,Urine Negative (Negative); Leukocyte Esterase,Urine Small (Negative); Mucus,Urine Many /hpf; Nitrite,Urine Positive (Negative); PH, Urine 5.5 (5.0-8.0); Protein,Urine Trace (Negative); RBC,Urine 1 /hpf (0-5); Specific Gravity,Urine 1.028 (1.001-1.035); Squamous Epithelial Cell,Urine 16 /hpf (0-4); Urobilinogen,Urine <2.0 mg/dL (<2.0); WBC,Urine 4 /hpf (0-5)
--- NOTE | 2022-12-03 21:24 | CT ---
EXAMINATION TYPE: CT abdomen pelvis w con CT DLP: 1692.4 mGycm, Automated exposure control for dose reduction was used. DATE OF EXAM: 12/03/2022 9:09 PM COMPARISON: CLINICAL INDICATION:Female, 42 years old with history of RLQ abdominal pain; RLQ abdominal pain. Left side lower back pain x1day. No injury. TECHNIQUE: Axial CT of the abdomen and pelvis. Sagittal and coronal reformats were created on a [employer] workstation. Contrast used:100cc mL of Isovue 300 with IV Contrast, Oral contrast used: without Oral Contrast FINDINGS: LOWER CHEST: Unremarkable ABDOMEN LIVER: Unremarkable GALLBLADDER AND BILE DUCTS: The gallbladder is surgically absent. PANCREAS: Unremarkable. SPLEEN: Small accessory spleen. ADRENAL GLANDS: Unremarkable. KIDNEYS AND URETERS: No evidence of hydronephrosis or renal calculus. The ureters are unremarkable. PELVIS BLADDER: Unremarkable REPRODUCTIVE: Uterus is surgically absent. No suspicious adnexal lesions. ABDOMEN & PELVIS STOMACH AND BOWEL: Postsurgical changes to the stomach from prior gastric sleeve. Small bowel is norm al.. Scattered diverticula are noted throughout the colon. No evidence of bowel obstruction. PERITONEUM: No evidence of pneumoperitoneum or free fluid. VASCULATURE: No evidence of aortic aneurysm. MUSCULOSKELETAL: Chronic focal deformity of the inferior endplate of L2. Otherwise no acute osseous a bnormalities. LYMPH NODES: No gross evidence for lymphadenopathy. SOFT TISSUE/ABDOMINAL WALL: Subcentimeter fat-containing umbilical hernia. IMPRESSION: 1. No acute intra-abdominal or intrapelvic process. 2. Incidental findings as detailed above.
[2022-12-03] MEDS ORDERED: CIPROFLOXACIN HCL 500 MG TAB PO STA (22:06)
[2022-12-03 22:07] VITALS: RESP 18
[2022-12-03] MEDS ORDERED: ACET/COD 300 MG/30 MG STARTER PACK 6 TAB BTL PO STA (23:10)
[2022-12-03 23:12] VITALS: BP 124/77; PULSE 69
== END 2022-12-03 23:16 | disposition home or self-care (01) ==
LOC: EC 19:26
DX: R10.31 Right lower quadrant pain (principal); N39.0 Urinary tract infection, site not specified; M54.50 Low back pain, unspecified; Z86.59 Personal history of other mental and behavioral disorders
CPT/HCPCS: 36415; 80053; 83690; 85025; 81001; 74177; 99284; 96374; 96375; 96361 ×2; J2405; J1170; Q9967

== ENCOUNTER 2023-02-07 19:45 | Emergency (ER) | payer BC, OTHER ==
[2023-02-07 19:54] VITALS: BP 104/68; PULSE 90; RESP 20; TEMP 98.7
[2023-02-07 20:49] LABS: Appearance,Urine Cloudy (Clear); Bilirubin,Urine Negative (Negative); Blood,Urine Negative (Negative); Color,Urine Yellow; Glucose,Urine (UA) Negative (Negative); Ketones,Urine Negative (Negative); Leukocyte Esterase,Urine Negative (Negative); Mucus,Urine Many /hpf; Nitrite,Urine Negative (Negative); PH, Urine 5.5 (5.0-8.0); Protein,Urine Trace (Negative); Specific Gravity,Urine 1.027 (1.001-1.035); Squamous Epithelial Cell,Urine 6 /hpf (0-4); WBC,Urine 1 /hpf (0-5)
--- NOTE | 2023-02-07 20:52 | CT ---
EXAMINATION TYPE: CT abdomen pelvis wo con CT DLP: 1086.4 mGycm, Automated exposure control for dose reduction was used. DATE OF EXAM: 02/07/2023 8:27 PM COMPARISON: CT abdomen pelvis most recent 12/03/2022. CLINICAL INDICATION:Female, 42 years old with history of abdominal pain; right flank pain r/o kidney stone TECHNIQUE: Axial CT of the abdomen and pelvis. Sagittal and coronal reformats were created on a [employer] workstation. Contrast used: mL of , (none if empty) Oral contrast used: without Oral Contrast (none if empty) FINDINGS: LOWER CHEST: Unremarkable ABDOMEN LIVER: Unremarkable GALLBLADDER AND BILE DUCTS: The gallbladder is surgically absent. PANCREAS: Unremarkable. SPLEEN: Small accessory spleen. ADRENAL GLANDS: Unremarkable. KIDNEYS AND URETERS: No evidence of hydronephrosis or renal calculus. The ureters are unremarkable. PELVIS BLADDER: Unremarkable REPRODUCTIVE: Uterus is surgically absent. No suspicious adnexal lesions. ABDOMEN & PELVIS STOMACH AND BOWEL: Large posteromedial right colon. Postsurgical changes to the stomach from prior ga stric sleeve. Small bowel is normal.. Scattered diverticula are noted throughout the colon. No eviden ce of bowel obstruction. Appendix is normal. PERITONEUM: No evidence of pneumoperitoneum or free fluid. VASCULATURE: No evidence of aortic aneurysm. MUSCULOSKELETAL: Chronic focal deformity of the inferior endplate of L2. Otherwise no acute osseous a bnormalities. LYMPH NODES: No gross evidence for lymphadenopathy. SOFT TISSUE/ABDOMINAL WALL: Subcentimeter fat-containing umbilical hernia. IMPRESSION: 1. Large amount stool in the right colon otherwise, No acute intra-abdominal or intrapelvic process. 2. No obstructive uropathy or renal calculus. The appendix is normal.
[2023-02-07 21:12] LABS: Basophils % (A) 1 %; Eosinophils # (A) 0.2 k/uL (0-0.7); Eosinophils % (A) 2 %; HCT 35.5 % (34.0-46.0); HGB 11.9 gm/dL (11.4-16.0); Lymphocytes # (A) 2.3 k/uL (1.0-4.8); Lymphocytes % (A) 32 %; MCH 30.7 pg (25.0-35.0); MCHC 33.5 g/dL (31.0-37.0); MCV 91.5 fL (80.0-100.0); Mean Platelet Volume 7.5; Monocytes # (A) 0.4 k/uL (0-1.0); Monocytes % (A) 6 %; Neutrophils # (A) 4.2 k/uL (1.3-7.7); Neutrophils % (A) 58 %; Platelet Count 286 k/uL (150-450); RBC 3.88 m/uL (3.80-5.40); RDW 13.3 % (11.5-15.5); WBC 7.3 k/uL (3.8-10.6)
[2023-02-07 21:22] LABS: ALT 22 U/L (4-34); AST 23 U/L (14-36); African American GFR (CKD) >90 (>60 ml/min/1.73 sqM); Albumin 3.9 g/dL (3.5-5.0); Alkaline Phosphatase 66 U/L (38-126); Amylase 69 U/L (30-110); Anion Gap 9 mmol/L; Blood Urea Nitrogen 10 mg/dL (7-17); Carbon Dioxide 25 mmol/L (22-30); Chloride 105 mmol/L (98-107); Glucose 128 mg/dL (74-99); Lipase 162 U/L (23-300); Non-African American GFR(CKD) >90 (>60 ml/min/1.73 sqM); Potassium 3.8 mmol/L (3.5-5.1); Sodium 139 mmol/L (137-145); Total Bilirubin 0.4 mg/dL (0.2-1.3); Total Protein 7.4 g/dL (6.3-8.2)
--- NOTE | 2023-02-07 21:38 | ED ---
Abdominal Pain HPI - General Chief Complaint: Abdominal Pain Stated Complaint: back pain Time Seen by Provider: 02/07/23 21:04 Source: patient Mode of arrival: wheelchair Limitations: no limitations - History of Present Illness Initial Comments: 42-year-old female presenting with chief complaint of right-sided flank pain. Pain is been ongoing for the last 3 days. Pain radiates to the abdomen. No fevers or chills. No nausea or vomiting. Patient does report some recent diarrhea. No chest pain or difficulty breathing. No dysuria or hematuria. No recent injury or trauma. - Related Data Previous Rx's Medication Instructions Recorded Cephalexin [Keflex] 500 mg PO BID 7 Days #14 cap 08/09/20 Phenazopyridine [Pyridium] 200 mg PO TID #6 tablet 08/09/20 predniSONE 50 mg PO DAILY #5 tab 01/13/21 Sulfamethox-Tmp 800-160Mg [Bactrim 1 tab PO Q12HR #100 tab 06/06/21 DS 800-160 mg] dexAMETHasone [Decadron] 6 mg PO DAILY #5 tablet 07/27/21 Albuterol Inhaler [Ventolin Hfa 2 puff INHALATION RT-QID PRN #8 gm 08/09/21 Inhaler] Benzonatate [Tessalon Perles] 200 mg PO Q8H PRN #15 capsule 08/09/21 guaiFENesin [Mucinex] 600 mg PO Q12HR PRN #20 tab 08/09/21 Ketorolac [Toradol] 10 mg PO Q6HR PRN #12 tab 11/27/22 Ondansetron Odt [Zofran Odt] 4 mg PO Q8HR PRN #10 tab 11/27/22 Ciprofloxacin HCl [Cipro] 500 mg PO Q12HR 7 Days #14 tablet 12/03/22 Allergies Allergy/AdvReac Type Severity Reaction Status Date / Time No Known Allergies Allergy Verified 12/03/22 20:04 Review of Systems ROS Statement: Those systems with pertinent positive or pertinent negative responses have been documented in the HPI. ROS Other: All systems not noted in ROS Statement are negative. 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 PT STATES OFF MEDICATIONS SINCE 13 Y/O AND LAST SEIZURE WAS 12 Y/O. hx migraines, varicose veins, PSORIASIS, hx ulcers, History of Any Multi-Drug Resistant Organisms: None Reported Past Surgical History: Bariatric Surgery, Section, Cholecystectomy, Hysterectomy, Tubal Ligation, Uterine Ablation Additional Past Surgical History / Comment(s): D&C Gastric Sleeve 09/08/19, Past Anesthesia/Blood Transfusion Reactions: Blood Transfusion Reaction Additional Past Anesthesia/Blood Transfusion Reaction / Comment(s): lightheaded with blood transfusion-"they had to stop it" Past Psychological History: Anxiety Smoking Status: Never smoker Past Alcohol Use History: Rare Past Drug Use History: None Reported - Past Family History Mother Family Medical History: No Reported History Additional Family Medical History / Comment(s): . Father Family Medical History: No Reported History General Exam Limitations: no limitations General appearance: alert, in no apparent distress Head exam: Present: atraumatic, normocephalic, normal inspection Eye exam: Present: normal appearance, EOMI Neck exam: Present: normal inspection, full ROM Respiratory exam: Present: normal lung sounds bilaterally. Absent: respiratory distress, wheezes, rales, rhonchi, stridor Cardiovascular Exam: Present: regular rate, normal rhythm, normal heart sounds. Absent: systolic murmur, diastolic murmur, rubs, gallop, clicks Back exam: Present: normal inspection, tenderness (Right-sided) Neurological exam: Present: alert, oriented X3, CN II-XII intact Psychiatric exam: Present: normal affect, normal mood Skin exam: Present: warm, dry, intact, normal color. Absent: rash Course Vital Signs 02/07/23 19:52 Temperature 98.7 F Pulse Rate 90 Respiratory 20 Rate Blood Pressure 104/68 O2 Sat by Pulse 98 Oximetry Medical Decision Making - Medical Decision Making Was pt. sent in by a medical professional or institution (, PA, LOCOMOTIVE OBSERVER, urgent care, hospital, or mcc...) When possible be specific @ -No Did you speak to anyone other than the patient for history (EMS, parent, family, police, friend...)? What history was obtained from this source @ -No Did you review nursing and triage notes (agree or disagree)? Why? @ -I reviewed and agree with nursing and triage notes Were old charts reviewed (outside hosp., previous admission, EMS record, old EK G, old radiological studies, urgent care reports/EKG's, mcc records)? Report findings @ -No old charts were reviewed Differential Diagnosis (chest pain, altered mental status, abdominal pain women, abdominal pain men, vaginal bleeding, weakness, fever, dyspnea, syncope, headache, dizziness, GI bleed, back pain, seizure, CVA, palpatations, mental health, musculoskeletal)? @ - [facility] Differential Back Pain: Strain, zoster, cauda equina syndrome, epidural abscess, vertebral osteomyelitis, discitis, fracture, subluxation, disc herniation, DJD, spinal stenosis, dissection, AAA, pancreatitis, peptic ulcer disease, pyelonephritis, kidney stone this is not meant to be an all-inclusive list. EKG interpreted by me (3pts min.). @ -As above X-rays interpreted by me (1pt min.). @ -None done CT interpreted by me (1pt min.). @ -Large amount of stool in the right colon otherwise no acute intra-abdominal or intrapelvic process. No obstructive uropathy or renal calculus. The appendix is normal. U/S interpreted by me (1pt. min.). @ -None done What testing was considered but not performed or refused? (CT, X-rays, U/S, labs)? Why? @ -None What meds were considered but not given or refused? Why? @ -None Did you discuss the management of the patient with other professionals (professionals i.e. , PA, LOCOMOTIVE OBSERVER, lab, RT, psych nurse, social services coordinator, echo vasc tech, teacher, emergency communications officer, hospice case manager)? Give summary @ -No Was smoking cessation discussed for >3mins.? @ -No Was critical care preformed (if so, how long)? @ -No Were there social determinants of health that impacted care today? How? (Homelessness, low income, unemployed, alcoholism, drug addiction, transportation, low edu. Level, literacy, decrease access to med. care, long term, rehab)? @ -No Was there de-escalation of care discussed even if they declined (Discuss DNR or withdrawal of care, Hospice)? DNR status @ -No What co-morbidities impacted this encounter? (DM, HTN, Smoking, COPD, CAD, Cancer, CVA, ARF, Chemo, Hep., AIDS, mental health diagnosis, sleep apnea, morbid obesity)? @ -None Was patient admitted / discharged? Hospital course, mention meds given and route, prescriptions, significant lab abnormalities, going to OR and other pertinent info. @ -42-year-old female presenting with chief complaint of right-sided flank pain ongoing for the last 2-3 days. Lab work shows no leukocytosis or anemia. Urine shows no infectious process or bleeding. CT of the abdomen and pelvis shows large amount of stool on the right side of the colon, no kidney stone or appendicitis, no acute intra-abdominal process. Patient is educated on today's findings and on supportive management of constipation at home with MiraLAX regimen. Follow-up with PCP. Report back to ER with any new or worsening symptoms. Discussed return parameters and answered all questions. Patient conveyed verbal understanding and agreed to the plan. I discussed this case in detail with my attending Dr. Valdovinos Undiagnosed new problem with uncertain prognosis? @ -No Drug Therapy requiring intensive monitoring for toxicity (Heparin, Nitro, Insulin, Cardizem)? @ -No Were any procedures done? @ -No Diagnosis/symptom? @ -Constipation Acute, or Chronic, or Acute on Chronic? @ -Acute Uncomplicated (without systemic symptoms) or Complicated (systemic symptoms)? @ -Uncomplicated Side effects of treatment? @ -No Exacerbation, Progression, or Severe Exacerbation? @ -No Poses a threat to life or bodily function? How? (Chest pain, USA, PA, pneumonia, PE, COPD, DKA, ARF, appy, cholecystitis, CVA, Diverticulitis, Homicidal, Suicidal, threat to staff... and all critical care pts) @ -No - Lab Data Result diagrams: 02/07/23 19:55 02/07/23 19:55 Lab Results 02/07/23 02/07/23 02/07/23 Range/Units 19:55 19:55 19:56 WBC 7.3 (3.8-10.6) k/uL RBC 3.88 (3.80-5.40) m/uL Hgb 11.9 (11.4-16.0) gm/dL Hct 35.5 (34.0-46.0) % MCV 91.5 (80.0-100.0) fL MCH 30.7 (25.0-35.0) pg MCHC 33.5 (31.0-37.0) g/dL RDW 13.3 (11.5-15.5) % Plt Count 286 (150-450) k/uL MPV 7.5 Neutrophils % 58 % Lymphocytes % 32 % Monocytes % 6 % Eosinophils % 2 % Basophils % 1 % Neutrophils # 4.2 (1.3-7.7) k/uL Lymphocytes # 2.3 (1.0-4.8) k/uL Monocytes # 0.4 (0-1.0) k/uL Eosinophils # 0.2 (0-0.7) k/uL Basophils # 0.0 (0-0.2) k/uL Sodium 139 (137-145) mmol/L Potassium 3.8 (3.5-5.1) mmol/L Chloride 105 (98-107) mmol/L Carbon Dioxide 25 (22-30) mmol/L Anion Gap 9 mmol/L BUN 10 (7-17) mg/dL Creatinine 0.56 (0.52-1.04) mg/dL Est GFR (CKD-EPI)AfAm >90 (>60 ml/min/1.73 sqM) Est GFR (CKD-EPI)NonAf >90 (>60 ml/min/1.73 sqM) Glucose 128 H (74-99) mg/dL Calcium 9.0 (8.4-10.2) mg/dL Total Bilirubin 0.4 (0.2-1.3) mg/dL AST 23 (14-36) U/L ALT 22 (4-34) U/L Alkaline Phosphatase 66 (38-126) U/L Total Protein 7.4 (6.3-8.2) g/dL Albumin 3.9 (3.5-5.0) g/dL Amylase 69 (30-110) U/L Lipase 162 (23-300) U/L Urine Color Yellow Urine Appearance Cloudy H (Clear) Urine pH 5.5 (5.0-8.0) Ur Specific [place] 1.027 (1.001-1.035) Urine Protein Trace H (Negative) Urine Glucose (UA) Negative (Negative) Urine Ketones Negative (Negative) Urine Blood Negative (Negative) Urine Nitrite Negative (Negative) Urine Bilirubin Negative (Negative) Urine Urobilinogen 2.0 (<2.0) mg/dL Ur Leukocyte Esterase Negative (Negative) Urine WBC 1 (0-5) /hpf Ur Squamous Epith Cells 6 H (0-4) /hpf Urine Mucus Many H (None) /hpf Disposition Clinical Impression: Constipation Disposition: HOME SELF-CARE Condition: Good Instructions (If sedation given, give patient instructions): Constipation (ED), High Fiber Diet (ED) Additional Instructions: Follow-up with PCP. Report back to ER with any new or worsening symptoms. Use MiraLAX as needed for constipation. Mix one capful in 8 ounces of water or other beverage and consume daily for 1 week. Is patient prescribed a controlled substance at d/c from ED?: No Referrals: None,Stated [Primary Care Provider] - 1-2 days Justina Barone MD [STAFF PHYSICIAN] - 1-2 days Abbie Castro MD [STAFF PHYSICIAN] - 1-2 days Time of Disposition: 21:37
== END 2023-02-07 21:50 | disposition home or self-care (01) ==
LOC: EC 19:45
DX: K59.00 Constipation, unspecified (principal); G47.30 Sleep apnea, unspecified; Z86.59 Personal history of other mental and behavioral disorders
CPT/HCPCS: 36415; 74176; 80053; 81001; 82150; 83690; 85025; 99284

== ENCOUNTER 2024-03-20 20:23 | Emergency (ER) | payer BC, OTHER ==
[2024-03-20 20:42] VITALS: RESP 18
--- NOTE | 2024-03-20 20:42 | ED ---
Abdominal Pain HPI - General Stated Complaint: abd pain Time Seen by Provider: 03/20/24 20:41 Source: patient Mode of arrival: ambulatory Limitations: no limitations - History of Present Illness Initial Comments: 44-year-old female presenting with chief complaint of abdominal pain. This is a right lower quadrant pain that has been ongoing for few days. She does have some nausea but no vomiting. Pain is sharp in nature. She admits to mild amount of dysuria. No diarrhea, hematochezia, melena, hematuria, flank pain. - Related Data Previous Rx's Medication Instructions Recorded Cephalexin [Keflex] 500 mg PO BID 7 Days #14 cap 08/09/20 Phenazopyridine [Pyridium] 200 mg PO TID #6 tablet 08/09/20 predniSONE 50 mg PO DAILY #5 tab 01/13/21 Sulfamethox-Tmp 800-160Mg [Bactrim 1 tab PO Q12HR #100 tab 06/06/21 DS 800-160 mg] dexAMETHasone [Decadron] 6 mg PO DAILY #5 tablet 07/27/21 Albuterol Inhaler [Ventolin Hfa 2 puff INHALATION RT-QID PRN #8 gm 08/09/21 Inhaler] Benzonatate [Tessalon Perles] 200 mg PO Q8H PRN #15 capsule 08/09/21 guaiFENesin [Mucinex] 600 mg PO Q12HR PRN #20 tab 08/09/21 Ketorolac [Toradol] 10 mg PO Q6HR PRN #12 tab 11/27/22 Ondansetron Odt [Zofran Odt] 4 mg PO Q8HR PRN #10 tab 11/27/22 Ciprofloxacin HCl [Cipro] 500 mg PO Q12HR 7 Days #14 tablet 12/03/22 Allergies Allergy/AdvReac Type Severity Reaction Status Date / Time No Known Allergies Allergy Verified 03/20/24 20:42 Review of Systems ROS Statement: Those systems with pertinent positive or pertinent negative responses have been documented in the HPI. ROS Other: All systems not noted in ROS Statement are negative. 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 PT STATES OFF MEDICATIONS SINCE 13 Y/O AND LAST SEIZURE WAS 12 Y/O. hx migraines, varicose veins, PSORIASIS, hx ulcers, History of Any Multi-Drug Resistant Organisms: None Reported Past Surgical History: Bariatric Surgery, Section, Cholecystectomy, Hysterectomy, Tubal Ligation, Uterine Ablation Additional Past Surgical History / Comment(s): D&C Gastric Sleeve 09/08/19, Past Anesthesia/Blood Transfusion Reactions: Blood Transfusion Reaction Additional Past Anesthesia/Blood Transfusion Reaction / Comment(s): lightheaded with blood transfusion-"they had to stop it" Past Psychological History: Anxiety Smoking Status: Never smoker Past Alcohol Use History: Rare Past Drug Use History: None Reported - Past Family History Mother Family Medical History: No Reported History Additional Family Medical History / Comment(s): . Father Family Medical History: No Reported History General Exam - General Exam Comments Initial Comments: Visual Physical Exam Vital signs reviewed General: Well-appearing, nontoxic, no acute distress. Head: Normocephalic, atraumatic Eyes: PERRLA, EOMI ENT: Airway patent Chest: Nonlabored breathing Skin: No visual rash, normal skin tone Neuro: Alert and oriented 3 Musculoskeletal: No gross abnormalities Limitations: no limitations General appearance: alert, in no apparent distress Head exam: Present: atraumatic, normocephalic Eye exam: Present: normal appearance, EOMI Neck exam: Present: normal inspection. Absent: meningismus Respiratory exam: Absent: respiratory distress Cardiovascular Exam: Present: regular rate GI/Abdominal exam: Absent: distended Neurological exam: Present: alert, oriented X3 Psychiatric exam: Present: normal affect, normal mood Skin exam: Present: warm, dry Course Vital Signs 03/20/24 03/20/24 20:40 23:37 Temperature 98.5 F 98.0 F Pulse Rate 82 74 Respiratory 18 18 Rate Blood Pressure 106/64 113/85 O2 Sat by Pulse 99 100 Oximetry Medical Decision Making - Medical Decision Making Was pt. sent in by a medical professional or institution (, PA, CMO & PRESIDENT, urgent care, hospital, or mcc...) When possible be specific @ -No Did you speak to anyone other than the patient for history (EMS, parent, family, police, friend...)? What history was obtained from this source @ -No Did you review nursing and triage notes (agree or disagree)? Why? @ -I reviewed and agree with nursing and triage notes Were old charts reviewed (outside hosp., previous admission, EMS record, old EKG, old radiological studies, urgent care reports/EKG's, mcc records)? Report findings @ -No old charts were reviewed Differential Diagnosis (chest pain, altered mental status, abdominal pain women, abdominal pain men, vaginal bleeding, weakness, fever, dyspnea, syncope, headache, dizziness, GI bleed, back pain, seizure, CVA, palpatations, mental health, musculoskeletal)? @ -MDM Differential Abdominal Pain Women: Appendicitis, Cholecystitis, diverticulosis, ischemic bowel, pancreatitis, hepatitis, UTI, gastroenteritis, AAA, incarcerated hernia, bowel obstruction, constipation, inflammatory bowel, hepatitis, peptic ulcer disease, splenic infarction, perforated viscus, vulvitis, ovarian torsion, PID, kidney stone, placenta abruption... This is not meant to be an all-inclusive list EKG interpreted by me (3pts min.). @ -As above X-rays interpreted by me (1pt min.). @ -None done CT interpreted by me (1pt min.). @ -CT shows no acute process. Small right ovarian follicular cysts U/S interpreted by me (1pt. min.). @ -None done What testing was considered but not performed or refused? (CT, X-rays, U/S, labs)? Why? @ -None What meds were considered but not given or refused? Why? @ -None Did you discuss the management of the patient with other professionals (professionals i.e. , PA, CMO & PRESIDENT, lab, RT, psych nurse, social contact worker, guide delegate, teacher, bank compliance officer, case technician)? Give summary @ -No Was smoking cessation discussed for >3mins.? @ -No Was critical care preformed (if so, how long)? @ -No Were there social determinants of health that impacted care today? How? (Homelessness, low income, unemployed, alcoholism, drug addiction, transportation, low edu. Level, literacy, decrease access to med. care, residential, rehab)? @ -No Was there de-escalation of care discussed even if they declined (Discuss DNR or withdrawal of care, Hospice)? DNR status @ -No What co-morbidities impacted this encounter? (DM, HTN, Smoking, COPD, CAD, Cancer, CVA, ARF, Chemo, Hep., AIDS, mental health diagnosis, sleep apnea, mor bid obesity)? @ -None Was patient admitted / discharged? Hospital course, mention meds given and ro [place], prescriptions, significant lab abnormalities, going to OR and other pertinent info. @ -44-year-old female presenting with chief complaint of right lower quadrant abdominal pain. Workup is initiated by triage. Lab work is grossly unremarkable. Urine shows small leukocytes with 2 WBCs and [address] shows right ovarian cyst. No other acute process. Patient educated on findings. Ready for discharge home. Follow-up with PCP. Report back to ER with any new or worsening symptoms. Discussed return parameters and answered all questions. Patient conveyed verbal understanding and agreed to the plan. I discussed this case in detail with my attending Dr. dewitt Undiagnosed new problem with uncertain prognosis? @ -No Drug Therapy requiring intensive monitoring for toxicity (Heparin, Nitro, Insulin, Cardizem)? @ -No Were any procedures done? @ -No Diagnosis/symptom? @ -Ovarian cyst Acute, or Chronic, or Acute on Chronic? @ -Acute Uncomplicated (without systemic symptoms) or Complicated (systemic symptoms)? @ -uncomplicated Side effects of treatment? @ -No Exacerbation, Progression, or Severe Exacerbation? @ -No Poses a threat to life or bodily function? How? (Chest pain, USA, [place], pneumonia, PE, COPD, DKA, ARF, appy, cholecystitis, CVA, Diverticulitis, Homicidal, Suicidal, threat to staff... and all critical care pts) @ -Unlikely - Lab Data Result diagrams: 03/20/24 21:06 03/20/24 21:06 Lab Results 03/20/24 03/20/24 03/20/24 Range/Units 21:06 21:06 21:06 WBC 9.9 (3.8-10.6) k/uL RBC 4.09 (3.80-5.40) m/uL Hgb 12.0 (11.4-16.0) gm/dL Hct 37.4 (34.0-46.0) % MCV 91.5 (80.0-100.0) fL MCH 29.3 (25.0-35.0) pg MCHC 32.1 (31.0-37.0) g/dL RDW 12.9 (11.5-15.5) % Plt Count 363 (150-450) k/uL MPV 7.0 Neutrophils % 62 % Lymphocytes % 28 % Monocytes % 6 % Eosinophils % 2 % Basophils % 1 % Neutrophils # 6.2 (1.3-7.7) k/uL Lymphocytes # 2.8 (1.0-4.8) k/uL Monocytes # 0.6 (0-1.0) k/uL Eosinophils # 0.2 (0-0.7) k/uL Basophils # 0.1 (0-0.2) k/uL Hypochromasia Slight Sodium 137 (137-145) mmol/L Potassium 4.4 (3.5-5.1) mmol/L Chloride 105 (98-107) mmol/L Carbon Dioxide 26 (22-30) mmol/L Anion Gap 6 mmol/L BUN 15 (7-17) mg/dL Creatinine 0.76 (0.52-1.04) mg/dL Est GFR (CKD-EPI)AfAm >90 (>60 ml/min/1.73 sqM) Est GFR (CKD-EPI)NonAf >90 (>60 ml/min/1.73 sqM) Glucose 99 (74-99) mg/dL Plasma Lactic Acid [place] 1.0 (0.7-2.0) mmol/L Calcium 9.9 (8.4-10.2) mg/dL Total Bilirubin 0.4 (0.2-1.3) mg/dL AST 26 (14-36) U/L ALT 22 (4-34) U/L Alkaline Phosphatase 64 (38-126) U/L Total Protein 7.7 (6.3-8.2) g/dL Albumin 4.1 (3.5-5.0) g/dL Urine Color Urine Appearance (Clear) Urine pH (5.0-8.0) Ur Specific [place] (1.001-1.035) Urine Protein (Negative) Urine Glucose (UA) (Negative) Urine Ketones (Negative) Urine Blood (Negative) Urine Nitrite (Negative) Urine Bilirubin (Negative) Urine Urobilinogen (<2.0) mg/dL Ur Leukocyte Esterase (Negative) Urine RBC (0-5) /hpf Urine WBC (0-5) /hpf Ur Squamous Epith Cells (0-4) /hpf Urine Bacteria (None) /hpf Urine Mucus (None) /hpf 03/20/24 Range/Units 21:21 WBC (3.8-10.6) k/uL RBC (3.80-5.40) m/uL Hgb (11.4-16.0) gm/dL Hct (34.0-46.0) % MCV (80.0-100.0) fL MCH (25.0-35.0) pg MCHC (31.0-37.0) g/dL RDW (11.5-15.5) % Plt Count (150-450) k/uL MPV Neutrophils % % Lymphocytes % % Monocytes % % Eosinophils % % Basophils % % Neutrophils # (1.3-7.7) k/uL Lymphocytes # (1.0-4.8) k/uL Monocytes # (0-1.0) k/uL Eosinophils # (0-0.7) k/uL Basophils # (0-0.2) k/uL Hypochromasia Sodium (137-145) mmol/L Potassium (3.5-5.1) mmol/L Chloride (98-107) mmol/L Carbon Dioxide (22-30) mmol/L Anion Gap mmol/L BUN (7-17) mg/dL Creatinine (0.52-1.04) mg/dL Est GFR (CKD-EPI)AfAm (>60 ml/min/1.73 sqM) Est GFR (CKD-EPI)NonAf (>60 ml/min/1.73 sqM) Glucose (74-99) mg/dL Plasma Lactic Acid [place] (0.7-2.0) mmol/L Calcium (8.4-10.2) mg/dL Total Bilirubin (0.2-1.3) mg/dL AST (14-36) U/L ALT (4-34) U/L Alkaline Phosphatase (38-126) U/L Total Protein (6.3-8.2) g/dL Albumin (3.5-5.0) g/dL Urine Color Light Yellow Urine Appearance Clear (Clear) Urine pH 5.5 (5.0-8.0) Ur Specific [place] 1.028 (1.001-1.035) Urine Protein Negative (Negative) Urine Glucose (UA) Negative (Negative) Urine Ketones Negative (Negative) Urine Blood Negative (Negative) Urine Nitrite Negative (Negative) Urine Bilirubin Negative (Negative) Urine Urobilinogen <2.0 (<2.0) mg/dL Ur Leukocyte Esterase Small H (Negative) Urine RBC <1 (0-5) /hpf Urine WBC 2 (0-5) /hpf Ur Squamous Epith Cells 2 (0-4) /hpf Urine Bacteria Occasional H (None) /hpf Urine Mucus Few H (None) /hpf Disposition Clinical Impression: Ovarian cyst, Abdominal pain Disposition: HOME SELF-CARE Condition: Good Instructions (If sedation given, give patient instructions): Ovarian Cyst (ED), Abdominal Pain (ED) Additional Instructions: Follow-up with PCP. Report back to ER with any new or worsening symptoms. Take Motrin and Tylenol as needed for pain control. Is patient prescribed a controlled substance at d/c from ED?: No Referrals: None,Stated [Primary Care Provider] - 1-2 days Justina Barone MD [STAFF PHYSICIAN] - 1-2 days Time of Disposition: 22:24
[2024-03-20 21:11] LABS: Basophils # (A) 0.1 k/uL (0-0.2); Basophils % (A) 1 %; Eosinophils # (A) 0.2 k/uL (0-0.7); Eosinophils % (A) 2 %; HCT 37.4 % (34.0-46.0); Hypochromasia Slight; Lymphocytes # (A) 2.8 k/uL (1.0-4.8); Lymphocytes % (A) 28 %; MCH 29.3 pg (25.0-35.0); MCHC 32.1 g/dL (31.0-37.0); MCV 91.5 fL (80.0-100.0); Monocytes # (A) 0.6 k/uL (0-1.0); Monocytes % (A) 6 %; Neutrophils # (A) 6.2 k/uL (1.3-7.7); Neutrophils % (A) 62 %; Platelet Count 363 k/uL (150-450); RBC 4.09 m/uL (3.80-5.40); RDW 12.9 % (11.5-15.5); WBC 9.9 k/uL (3.8-10.6)
[2024-03-20 21:27] LABS: ALT 22 U/L (4-34); AST 26 U/L (14-36); African American GFR (CKD) >90 (>60 ml/min/1.73 sqM); Albumin 4.1 g/dL (3.5-5.0); Alkaline Phosphatase 64 U/L (38-126); Anion Gap 6 mmol/L; Blood Urea Nitrogen 15 mg/dL (7-17); Calcium 9.9 mg/dL (8.4-10.2); Carbon Dioxide 26 mmol/L (22-30); Chloride 105 mmol/L (98-107); Glucose 99 mg/dL (74-99); Non-African American GFR(CKD) >90 (>60 ml/min/1.73 sqM); Potassium 4.4 mmol/L (3.5-5.1); Sodium 137 mmol/L (137-145); Total Bilirubin 0.4 mg/dL (0.2-1.3); Total Protein 7.7 g/dL (6.3-8.2)
[2024-03-20 21:42] LABS: Appearance,Urine Clear (Clear); Bacteria,Urine Occasional /hpf; Bilirubin,Urine Negative (Negative); Blood,Urine Negative (Negative); Color,Urine Light Yellow; Glucose,Urine (UA) Negative (Negative); Ketones,Urine Negative (Negative); Leukocyte Esterase,Urine Small (Negative); Mucus,Urine Few /hpf; Nitrite,Urine Negative (Negative); PH, Urine 5.5 (5.0-8.0); Protein,Urine Negative (Negative); RBC,Urine <1 /hpf (0-5); Specific Gravity,Urine 1.028 (1.001-1.035); Squamous Epithelial Cell,Urine 2 /hpf (0-4); Urobilinogen,Urine <2.0 mg/dL (<2.0); WBC,Urine 2 /hpf (0-5)
--- NOTE | 2024-03-20 22:02 | CT ---
EXAMINATION TYPE: CT abdomen pelvis w con DATE OF EXAM: 03/20/2024 COMPARISON: February 07, 2023 HISTORY: rlq pain CT DLP: 1514.9 mGycm CONTRAST: CT scan of the abdomen and pelvis is performed without Oral Contrast and with IV Contrast, patient in jected with 100 mL of Isovue 300. FINDINGS: LUNG BASES-: No visible nodule. No infiltrate. LIVER/GB: The gallbladder is surgically absent. No space occupying hepatic lesion. Biliary tree is of normal caliber. PANCREAS: No inflammation. No distinct mass. SPLEEN: No splenic enlargement. No lesion seen. ADRENALS: No nodule. No thickening. KIDNEYS/BLADDER: No hydronephrosis. No nephrolithiasis. No distinct renal mass. Urinary bladder g rossly unremarkable. BOWEL: Normal appendix. Normal bowel caliber. No inflammation. Gastric sleeve formation. GENITAL ORGANS: 1.5 cm right ovarian cyst. The uterus is surgically absent. Nonvisualization of the l eft ovary. LYMPH NODES: No greater than 1cm abdominal or pelvic lymph nodes are appreciated. AORTA: No significant abnormality. OSSEOUS STRUCTURES: No significant abnormality is seen. OTHER: No significant additional abnormality is seen. IMPRESSION: 1. No acute process seen. Small right ovarian follicular cysts.
[2024-03-20] MEDS: KETOROLAC 15 MG/ML 1 ML VIAL IM STA (23:33)
[2024-03-20 23:39] VITALS: BP 113/85; PULSE 74; TEMP 98
== END 2024-03-20 23:38 | disposition home or self-care (01) ==
LOC: EC 20:23
DX: N83.01 Follicular cyst of right ovary (principal)
CPT/HCPCS: 36415; 74177; 80053; 81001; 83605; 85025; 96372; 99284

== ENCOUNTER → 2024-04-28 | Outpatient (CLI) | payer OTHER ==
--- NOTE | 2024-04-28 13:27 | XR ---
EXAMINATION TYPE: XR elbow limited RT DATE OF EXAM: 04/28/2024 COMPARISON: NONE HISTORY: 44-year-old female M25.521, right elbow pain and swelling for one month TECHNIQUE: 2 views FINDINGS: No elbow joint effusion. No acute fracture, subluxation, dislocation. IMPRESSION: No acute osseous abnormality seen. [facility] Guerita Boucher, , 04/28/2024 1:25 PM
== END | disposition home or self-care (01) ==
LOC: RADXRMAIN 12:40
PROVIDERS: ATTEND Internal Medicine
DX: M25.421 Effusion, right elbow (principal)